=== PATIENT | male | born 1940 | race Caucasian/White ===

== ENCOUNTER → 2017-11-29 | Outpatient (CLI) | payer BC ==
[~2017-11-29] MED LIST: CABERGOLINE 0.5 MG PO; CLC100 PO; CRD2 PO; OXYC-57 PO
--- NOTE | 2017-11-29 12:45 | DIAGNOSTIC IMAGING REPORT ---
TWO VIEW CHEST CLINICAL HISTORY: Hypoxia. FINDINGS: PA and lateral chest radiographs are compared to study dated 10/04/2010 and correlated with chest CT dated 12/27/2010. The heart is top normal for projection. There is atherosclerotic calcification of the thoracic and. Emphysema is suggested and there is chronic interstitial thickening. No airspace consolidation or pleural effusion is identified. There is no pneumothorax. The skeletal structures are osteopenic. The bony thorax appears intact. Degenerative change is noted in the thoracic spine. IMPRESSION: Findings suggest emphysema. No acute cardiopulmonary abnormality is seen. Electronically signed by: Alfonso Elliott M.D. 11/29/2017 12:43 PM Dictated Date/Time: 11/29/2017 12:42 PM
== END | disposition home or self-care (01) ==
LOC: C.RAD1850 12:22
PROVIDERS: ATTEND Student in an Organized Health Care Education/Training Program
DX: R05 Cough (principal); R79.81 Abnormal blood-gas level

== ENCOUNTER 2023-04-13 20:42 | Inpatient (IN) ==
[2023-04-13] MEDS ORDERED: SODIUM CHLORIDE 0.9% 1000ML 1,000 ML IV STA (21:16)
[2023-04-13] MEDS ORDERED: ONDANSETRON INJ 2 MG/ML 2 ML VIAL IV STA (21:16)
[2023-04-13 21:38] LABS: Basophils # (auto) 0.02 K/uL (0-0.2); Basophils % (auto) 0.4 %; Eosinophils # (auto) 0.11 K/uL (0-0.50); Eosinophils % (auto) 2.3 %; Hematocrit (blood only) 35.7 % (42.0-52.0); Hemoglobin 11.6 g/dl (14.0-18.0); Immature Granulocytes # (auto) 0.01 K/uL (0.01-0.20); Immature Granulocytes % (auto) 0.2 %; Lymphocytes # (auto) 0.51 K/uL (1.2-3.4); Lymphocytes % (auto) 10.5 %; Mean Corpuscular Hgb Conc 32.5 g/dL (32.0-36.0); Mean Corpuscular Volume 101.4 fL (80.0-100.0); Mean Platelet Volume 9.8 fL (9.4-12.4); Monocytes # (auto) 0.33 K/uL (0.11-0.59); Monocytes % (auto) 6.8 %; Neutrophils # (auto) 3.89 K/uL (1.40-6.50); Neutrophils % (auto) 79.8 %; Platelet Count 232 K/uL (130-400); RDW Coefficient of Variation 14.3 % (11.5-14.5); RDW Standard Deviation 52.2 fL (36.4-46.3); Red Blood Count 3.52 M/uL (4.70-6.10); White Blood Count 4.87 K/ul (4.8-10.8)
[2023-04-13 21:41] LABS: Albumin Globulin Ratio 1.3 (0.9-2); Albumin Level 3.2 gm/dl (3.4-5.0); BUN Creatinine Ratio 32.9 (10-20); Bilirubin,Total 0.5 mg/dl (0.2-1.0); Calcium 7.8 mg/dl (8.6-10.3); Creatinine Clr Calc Pharmacy 78.8 ml/min; Est GFR (African American) 100.4 ml/min; Est GFR (Non-African American) 86.7 ml/min; Globulin 2.5 gm/dl (2.5-4.0); Potassium 3.6 mmol/L (3.5-5.1); Total Protein 5.7 gm/dl (6.0-8.3)
[2023-04-13 21:48] LABS: Troponin I High Sensitivity 6.7 pg/ml (0-20)
[2023-04-13] MEDS ORDERED: METOCLOPRAMIDE HCL INJ 5 MG/ML 2 ML VIAL IV ONE (22:37)
[2023-04-13] MEDS ORDERED: ACETAMINOPHEN 1,000 MG/100 ML VIAL IV STA (22:38)
--- NOTE | 2023-04-13 22:54 | CT Scan Report ---
Exam(s): CT ABDOMEN + PELVIS Without Contrast EXAM: CT Abdomen and Pelvis Without Intravenous Contrast CLINICAL HISTORY: vomiting, upper abd pain, PEG tube. TECHNIQUE: Axial computed tomography images of the abdomen and pelvis without intravenous contrast. CTDI is 8.22 mGy and DLP is 55.85 mGy-cm. Automated exposure control was utilized for the study. A dose lowering technique was utilized adhering to the principles of ALARA. COMPARISON: Unenhanced CT abdomen and pelvis dated 10/04/2010 FINDINGS: Lung bases: Diffuse patchy to confluent opacities in the partially included inferior right middle lobe and right lower lobe. Pleural space: Trace left pleural effusion noted in the posterior costophrenic margin measuring approximately 1 cm. ABDOMEN: Liver: Unremarkable. Gallbladder and bile ducts: Status post cholecystectomy. Pancreas: Unremarkable. No ductal dilation. Spleen: Unremarkable. No splenomegaly. Adrenals: Unremarkable. No mass. Kidneys and ureters: There are innumerable cysts noted throughout both kidneys similar in morphology but the majority in the cysts are larger in size. Detailed evaluation is limited without contrast. The largest cyst superiorly on the right measures 6.4 cm. The largest cyst anteriorly on the left measures 6.7 x 8.4 cm from 4.9 x 6 cm previously. No hydronephrosis. Stomach and bowel: For findings regarding the percutaneous gastrostomy tube in stomach, please see below. Hyperdense material is noted throughout the colon. No evidence for bowel obstruction. Extensive diverticulosis. No obvious focal diverticulitis, accounting for limitations with respiratory artifact. A fat-containing left inguinal hernia is noted extending into the superior scrotum. No bowel herniation noted. PELVIS: Appendix: The appendix is not clearly delineated. No secondary findings to suggest acute appendicitis. Bladder: Unremarkable. No stones. Reproductive: Unremarkable as visualized. ABDOMEN and PELVIS: Intraperitoneal space: Unremarkable. No free air. No significant fluid collection. Bones/joints: Chronic compression fracture at L1 level and T11 level. No dislocation. Soft tissues: See above. No other significant abnormality. Vasculature: Unremarkable. No abdominal aortic aneurysm. Lymph nodes: Unremarkable. No enlarged lymph nodes. Tubes, lines and devices: The percutaneous gastrostomy tube extends through the stomach and into the duodenum. The distal bulb is inflated within the proximal duodenum. There is at least moderate distention of the stomach with fluid and gas. IMPRESSION: 1. The percutaneous gastrostomy tube extends through the stomach and into the duodenum. The distal bulb is inflated within the proximal duodenum. There is at least moderate distention of the stomach with fluid and gas. Functional gastric obstruction from migration of the percutaneous gastrostomy tube into the duodenum cannot be excluded given this appearance. 2. Diffuse patchy to confluent opacities in the partially included inferior right middle lobe and right lower lobe. Differential considerations include aspiration or pneumonia. 3. Hyperdense material is noted throughout the colon. No evidence for bowel obstruction. Extensive diverticulosis. No obvious focal diverticulitis, accounting for limitations with respiratory artifact. No free intraperitoneal fluid or pneumoperitoneum. Electronically signed by: Jose Gutierrez MD 04/13/23 22:53 PM
[2023-04-13] MEDS ORDERED: fentaNYL citrate PF 100 MCG/2 ML VIAL IV STA (23:03)
[2023-04-13] MEDS ORDERED: PIPERACILLIN/TAZOBACTAM 4.5 GM/120 ML BAG IV ONE (23:03)
[2023-04-13] MEDS ORDERED: SODIUM CHLORIDE 0.9% 1000ML 1,000 ML IV ONE ×2 (23:54)
[2023-04-13] MEDS ORDERED: VANCOMYCIN CONSULT ACTIVE PRN (23:54)
[2023-04-13] MEDS ORDERED: VANCOMYCIN HCL 1,500 MG in SODIUM CHLORIDE 0.9% 500 ML IV ONE (23:54)
--- NOTE | 2023-04-14 00:53 | History & Physical Report ---
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 Hypotension- Admitting to monitored bed, PCU Blood pressure dropped to a low of 58/41, but did respond into the 90s systolic after the first liter of IV fluid rehydration Likely combination of sepsis due aspiration pneumonia and significant dehydration Received a total of 2.5 L of normal saline from the ED, and then placed on NSS + KCl 20 mEq at 80 mils per hour Right foot drop- Noted for significance when patient is able to resume PT/OT Squamous cell cancer of the tongue- Diagnosed in 2005, and completed an extensive course of radiation therapy Pituitary adenoma/prolactinoma- Recently admitted to [facility] under neurosurgery Dr. Crockett Anticipate return to [facility] History of Present Illness Chief Complaint: The patient presents to the emergency department due to concerns regarding PEG tube dysfunction, as a cause of nausea and vomiting, abdominal pain and distention, and shortness of breath. Primary Care Provider: Isiah Pardo MD The patient is a 82-year-old male with a past medical history including hyperlipidemia, hypertension, squamous cell carcinoma of the tongue, and benign pituitary tumor. The patient had been seen at [place] the emergency department on 03/26/2023, at that time was thought to have either a brain mass or subacute h emorrhage. He was transferred to neurosurgery service at [facility] with Dr. Crockett. While at [facility] he was found to have a right MCA CVA, with hemorrhagic conversion, and hemianopsia. He did require a PEG tube placement on 04/02/2023 due to dysphagia. He was transferred to [facility] rehab on 04/08/2023. He was next seen at the emergency department at [facility] on 04/10/2023 due to problems with PEG tube pulling out, and had it reinserted at that time. He presents to the emergency department today due to increased abdominal pain and distention, and was found by CT to have a functional gastric outlet obstruction due to the tube balloon being present in the duodenum. This was addressed by the emergency department staff, and the patient was then referred to the hospitalist service for admission for further GI follow-up tomorrow Allergies Allergy/AdvReac Type Severity Reaction Status Date / Time Iodinated Contrast Media Allergy Intermediate ITCHING Verified 03/26/23 14:54 Home Medications Medication Instructions Recorded Confirmed Type cabergoline 0.5 mg tablet 0.5 mg PO 3XWK 03/15/19 04/13/23 History hydrochlorothiazide 25 mg tablet 25 mg PO DAILY 03/15/19 04/13/23 History pravastatin 20 mg tablet 20 mg PO QPM 03/15/19 04/13/23 History aspirin 81 mg tablet,delayed 81 mg PO DAILY 03/26/23 04/13/23 History release ketoconazole 2 % topical cream 1 applic topical .2-3XWK 03/26/23 04/13/23 History [id number]-[id number] 1 tab PO DAILY 03/26/23 04/13/23 History tablet (Multivitamin 50 Plus tablet) prednisone 50 mg tablet 0 mg PO DIRECTED 03/26/23 04/13/23 History vitamin E mixed 100 unit tablet 100 unit PO DAILY 03/26/23 04/13/23 History Past Med/Surg History Medical History (Updated 04/14/23 @ 05:54 by Billy Aranda MD) Dysphagia Hemianopsia History of right MCA stroke Hyperlipidemia Hypertension Kidney stone 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 Surgical History (Updated 10/09/22 @ 16:34 by MARTHA Foss) History of cholecystectomy History of hernia repair Family History (Updated 10/09/22 @ 16:32 by MARTHA Foss) Mother Diabetes Hypertension Heart disease Social History (Updated 10/09/22 @ 16:32 by MARTHA Foss) Smoking Status: Never smoker Second Hand Exposure: No; Do You Dip or Chew Tobacco: No; Tobacco Cessation Education Requested by Patient: No Hx Alcohol Use: No Hx Substance Use: No Preferred Language: [place] Beliefs That Will Affect Care: None marital status: Current Living Situation: Spouse current occupational status: retired Other Information That Helps Us Care for You: No Feels Safe at Home: Yes Safety Concerns: Feels Safe At This Time Review of Systems Review of Systems: The patient was not able to contribute significantly to the HPI or review of systems due to his present medical state Physical Exam Physical Exam: The patient is lethargic, able to respond minimally to questions normocephalic and atraumatic, lying in bed and in no acute distress. HEENT--PERRL, EOMI, mucous membranes and oropharynx dry. Neck--supple. No JVD. No bruits. Thyroid normal, trachea midline, no adenopathy. Heart--normal S1 and S2. No murmurs, rubs or gallops. Lungs--clear bilaterally, no respiratory distress, no accessory muscle use. Abdomen--normal bowel sounds and soft. Nontender. Nondistended, Extremities--no cyanosis or clubbing. No edema. Dermatologic--normal skin turgor, normal color, no abnormal lymph nodes, no rash. Neurologic--cranial nerves II through XII grossly intact. Rheumatologic--limited exam Psychiatric--lethargic Results & Data Results & Data Vital Signs (Past 12 Hours) Vital Signs Temp Pulse Pulse Resp BP BP Pulse Ox 04/14/23 00:17 71 16 91/62 L 100 04/13/23 23:57 63 16 58/41 L 97 04/13/23 22:58 88 20 126/90 93 04/13/23 22:02 88 16 165/110 H 92 04/13/23 21:01 60 04/13/23 21:01 36.9 C 62 20 121/75 94 O2 Del Method O2 Flow Rate 04/14/23 00:17 Nasal Cannula 6 04/13/23 23:57 Nasal Cannula 6 04/13/23 22:58 Nasal Cannula 6 04/13/23 22:02 Nasal Cannula 6 04/13/23 21:01 04/13/23 21:01 Nasal Cannula 6 Laboratory Results Laboratory Results WBC 4.87 K/ul (4.8-10.8) 04/13/23 20:50 RBC 3.52 M/uL (4.70-6.10) L 04/13/23 20:50 Hgb 11.6 g/dl (14.0-18.0) L 04/13/23 20:50 Hct 35.7 % (42.0-52.0) L 04/13/23 20:50 MCV 101.4 fL (80.0-100.0) H 04/13/23 20:50 MCH 33.0 pg (25.0-34.0) 04/13/23 20:50 MCHC 32.5 g/dL (32.0-36.0) 04/13/23 20:50 RDW Std Deviation 52.2 fL (36.4-46.3) H 04/13/23 20:50 RDW Coeff of Alison 14.3 % (11.5-14.5) 04/13/23 20:50 Plt Count 232 K/uL (130-400) 04/13/23 20:50 MPV 9.8 fL (9.4-12.4) 04/13/23 20:50 Immature Gran % (Auto) 0.2 % 04/13/23 20:50 Neut % (Auto) 79.8 % 04/13/23 20:50 Lymph % (Auto) 10.5 % 04/13/23 20:50 [place] % (Auto) 6.8 % 04/13/23 20:50 Eos % (Auto) 2.3 % 04/13/23 20:50 Baso % (Auto) 0.4 % 04/13/23 20:50 Neut # (Auto) 3.89 K/uL (1.40-6.50) 04/13/23 20:50 Lymph # (Auto) 0.51 K/uL (1.2-3.4) L 04/13/23 20:50 [place] # (Auto) 0.33 K/uL (0.11-0.59) 04/13/23 20:50 Eos # (Auto) 0.11 K/uL (0-0.50) 04/13/23 20:50 Baso # (Auto) 0.02 K/uL (0-0.2) 04/13/23 20:50 Immature Gran # (Auto) 0.01 K/uL (0.01-0.20) 04/13/23 20:50 Sodium 140 mmol/L (136-145) 04/13/23 20:50 Potassium 3.6 mmol/L (3.5-5.1) 04/13/23 20:50 Chloride 107 mmol/L (98-107) 04/13/23 20:50 Carbon Dioxide 30 mmol/L (21-32) 04/13/23 20:50 Anion Gap 3 (3-11) 04/13/23 20:50 BUN 23 mg/dl (6-23) 04/13/23 20:50 Creatinine 0.70 mg/dl (0.6-1.4) 04/13/23 20:50 Est Cr Clr Drug Dosing 78.8 ml/min 04/13/23 20:50 Est GFR ( Amer) 100.4 ml/min 04/13/23 20:50 Est GFR (Non-Af Amer) 86.7 ml/min 04/13/23 20:50 BUN/Creatinine Ratio 32.9 (10-20) H 04/13/23 20:50 Glucose 120 mg/dl (70-99(Fasting)) H 04/13/23 20:50 Lactate 2.0 mmol/L (0.4-2.0) 04/14/23 01:04 Calcium 7.8 mg/dl (8.6-10.3) L 04/13/23 20:50 Total Bilirubin 0.5 mg/dl (0.2-1.0) 04/13/23 20:50 AST 29 U/L (13-39) 04/13/23 20:50 ALT 32 U/L (7-52) 04/13/23 20:50 Alkaline Phosphatase 62 U/L (34-104) 04/13/23 20:50 Troponin I High Sens 6.7 pg/ml (0-20) 04/13/23 20:50 Total Protein 5.7 gm/dl (6.0-8.3) L 04/13/23 20:50 Albumin 3.2 gm/dl (3.4-5.0) L 04/13/23 20:50 Globulin 2.5 gm/dl (2.5-4.0) 04/13/23 20:50 Albumin/Globulin Ratio 1.3 (0.9-2) 04/13/23 20:50 Lipase 92 U/L (11-82) H 04/13/23 20:50 Urine Color Dark Yellow 04/14/23 01:45 Urine Appearance Clear (Clear) 04/14/23 01:45 Urine pH 7.5 (4.5-7.5) 04/14/23 01:45 Ur Specific [place] 1.020 (1.000-1.030) 04/14/23 01:45 Urine Protein Trace (Negative) H 04/14/23 01:45 Urine Glucose (UA) Negative (Negative) 04/14/23 01:45 Urine Ketones Trace (Negative) H 04/14/23 01:45 Urine Blood 1+ (Negative) H 04/14/23 01:45 Urine Nitrite Negative (Negative) 04/14/23 01:45 Urine Bilirubin Negative (Negative) 04/14/23 01:45 Urine Urobilinogen Positive (Negative) H 04/14/23 01:45 Ur Leukocyte Esterase Negative (Negative) 04/14/23 01:45 Urine WBC (Auto) 1-5 /hpf (0-5) 04/14/23 01:45 Urine RBC (Auto) 10-30 /hpf (0-4) H 04/14/23 01:45 U Hyaline Cast (Auto) 1-5 /lpf (0-5) 04/14/23 01:45 U Epithel Cells (Auto) 10-20 /lpf (0-5) H 04/14/23 01:45 Urine Bacteria (Auto) Negative (Negative) 04/14/23 01:45 SARS-CoV-2, RNA, NAAT NEGATIVE (NEGATIVE) 04/13/23 20:50 Impressions Abdomen/Pelvis CT 04/13/23 21:16 Exam(s): CT ABDOMEN + PELVIS Without Contrast EXAM: CT Abdomen and Pelvis Without Intravenous Contrast CLINICAL HISTORY: vomiting, upper abd pain, PEG tube. TECHNIQUE: Axial computed tomography images of the abdomen and pelvis without intravenous contrast. CTDI is 8.22 mGy and DLP is 55.85 mGy-cm. Automated exposure control was utilized for the study. A dose lowering technique was utilized adhering to the principles of ALARA. COMPARISON: Unenhanced CT abdomen and pelvis dated 10/04/2010 FINDINGS: Lung bases: Diffuse patchy to confluent opacities in the partially included inferior right middle lobe and right lower lobe. Pleural space: Trace left pleural effusion noted in the posterior costophrenic margin measuring approximately 1 cm. ABDOMEN: Liver: Unremarkable. Gallbladder and bile ducts: Status post cholecystectomy. Pancreas: Unremarkable. No ductal dilation. Spleen: Unremarkable. No splenomegaly. Adrenals: Unremarkable. No mass. Kidneys and ureters: There are innumerable cysts noted throughout both kidneys similar in morphology but the majority in the cysts are larger in size. Detailed evaluation is limited without contrast. The largest cyst superiorly on the right measures 6.4 cm. The largest cyst anteriorly on the left measures 6.7 x 8.4 cm from 4.9 x 6 cm previously. No hydronephrosis. Stomach and bowel: For findings regarding the percutaneous gastrostomy tube in stomach, please see below. Hyperdense material is noted throughout the colon. No evidence for bowel obstruction. Extensive diverticulosis. No obvious focal diverticulitis, accounting for limitations with respiratory artifact. A fat-containing left inguinal hernia is noted extending into the superior scrotum. No bowel herniation noted. PELVIS: Appendix: The appendix is not clearly delineated. No secondary findings to suggest acute appendicitis. Bladder: Unremarkable. No stones. Reproductive: Unremarkable as visualized. ABDOMEN and PELVIS: Intraperitoneal space: Unremarkable. No free air. No significant fluid collection. Bones/joints: Chronic compression fracture at L1 level and T11 level. No dislocation. Soft tissues: See above. No other significant abnormality. Vasculature: Unremarkable. No abdominal aortic aneurysm. Lymph nodes: Unremarkable. No enlarged lymph nodes. Tubes, lines and devices: The percutaneous gastrostomy tube extends through the stomach and into the duodenum. The distal bulb is inflated within the proximal duodenum. There is at least moderate distention of the stomach with fluid and gas. IMPRESSION: 1. The percutaneous gastrostomy tube extends through the stomach and into the duodenum. The distal bulb is inflated within the proximal duodenum. There is at least moderate distention of the stomach with fluid and gas. Functional gastric obstruction from migration of the percutaneous gastrostomy tube into the duodenum cannot be excluded given this appearance. 2. Diffuse patchy to confluent opacities in the partially included inferior right middle lobe and right lower lobe. Differential considerations include aspiration or pneumonia. 3. Hyperdense material is noted throughout the colon. No evidence for bowel obstruction. Extensive diverticulosis. No obvious focal diverticulitis, accounting for limitations with respiratory artifact. No free intraperitoneal fluid or pneumoperitoneum. Electronically signed by: Jose Gutierrez MD 04/13/23 22:53 PM Code Status & VTE Plan VTE Prophylaxis Plan VTE Prophylaxis will be ordered: Yes PG Care Time/CCT Total # of Minutes Spent Total Time Spent with Patient: Total time spent is greater than 50% in coordination of care (as documented) at patient's floor/unit and/or counseling patient: Coding Level of Care Code 99126 INT INP/OBS CARE 3/75MIN Diagnoses PEG tube malfunction K94.23 Gastric outlet obstruction K31.1 Aspiration pneumonia J69.0 Acute dehydration E86.0 Acute hypotension I95.9 BPH w urinary obs/LUTS N40.1; N13.8 Prolactinoma D35.2 Squamous cell carcinoma of tongue C02.9 History of right MCA stroke Z86.73 Dysphagia R13.10 Hemianopsia H53.47
--- NOTE | 2023-04-14 01:40 | Emergency Department Note ---
Impression & Plan Gastric outlet obstruction, PEG tube malfunction, Aspiration pneumonia, Acute dehydration, Acute hypotension ED Provider Note INFORMANT: Patient and ED PROVIDER(S): Fransico Carmen MD CHIEF COMPLAINT: Nausea and vomiting PLAN: Disposition: Admitted Condition: Guarded Outpatient prescription management: none Referral: None MEDICAL DECISION MAKING: Patient presented because of nausea and vomiting. He was uncomfortable. He had some upper abdominal distention. His PEG tube was flushing easily and did not vent any gas. The patient was requiring supplemental oxygen. He did have some crackles on the right. The patient did vomit earlier and this was concerning t hat he may have aspirated. The patient was started on gentle saline hydration. He was given Zofran. Blood work was obtained. He was sent for CT imaging. CT imaging was concerning for significant gastric distention. When I reviewed the films the bulb of the PEG tube seems to be significantly enlarged and causing a functional obstruction in the proximal duodenum. I did investigate the PEG tube and was able to withdraw almost 70 mL of orange fluid from the balloon. I did agree instill 5 mL of saline. The patient noted that he felt better and his nausea had resolved. His abdominal distention and discomfort gradually improved. Patient was given IV Tylenol and a small dose of IV fentanyl for his pain. His blood pressure did drop and he did have fluids administered. This did correct his hypotensive episode. He was treated with IV Zosyn. I did add on vancomycin for broad-spectrum coverage as his chest x-ray does show a right lower lobe infiltrate. Patient's blood work was otherwise unremarkable. I did discuss the issues with the patient's . She did note that he is a full code at this point. Consultation was made with Dr. Billy Aranda of the [facility] service. Patient was evaluated in the ER for further management. Discussed with manager user interface and hospital pharmacist. After review of the information above and other included data, I feel the patient requires admission. Triage Nursing notes reviewed and agree them. Vital Signs: reviewed and remarkable for hypoxia Prior /Outside records reviewed: Transfer paperwork reviewed from [facility]. Differential diagnosis: Etiologies such as gastroenteritis, food borne illness, infections, obstruction, appendicitis, diverticulitis, inflammatory bowel disease, GI bleed, biliary pathology, as well as others were entertained. Diagnostics, as interpreted by me: ECG: none Cardiac Monitoring: Cardiac monitoring ordered by me: The patient was placed on continuous cardiac monitoring and observed. It revealed a normal sinus rhythm at 71 beats per minute without ectopy or evidence of dysrhythmia. Medical decision rules: none Imaging studies: Chest x-ray and CT scan as noted above. I refer you to the EMR for further details. HPI: The patient is a 82year old male who presents to the Emergency Room with complaints of nausea and vomiting. This started today and is worsening. Patient is at [facility]. He receives feeding through a PEG tube. The patient also notes the following associated symptoms, bilateral hip pain, upper abdominal pain, abdominal bloating, weakness. The patient has Zofran relieving factors. Current pain is rated as 8/10. EMS noted the patient was requiring supplemental oxygen. Pt denies LOC, headache, fevers, chills, neck pain, chest pain, breathing difficulties, back pain, numbness, or other complaints. PAST MEDICAL HISTORY: See Below, CVA PAST SURGICAL HISTORY: See Below, SOCIAL HISTORY: See Below, HOME MEDICATIONS: See Below ALLERGIES: See Below VITALS: See Below PHYSICAL EXAMINATION: GENERAL: Awake, alert, uncomfortable-appearing, in mild distress HENT: Normocephalic, atraumatic. Oropharynx unremarkable. EYES: Normal conjunctiva. Sclera non-icteric. NECK: Inspection normal. Non-tender. Supple. No nuchal rigidity. FROM. No masses. RESPIRATORY: Clear to auscultation on the left. Crackles on the right. Increased respiratory effort. CARDIAC: Normal rate. Normal rhythm. No murmurs. No rubs. Extremities warm and well perfused. Pulses equal. No JVD. GI: Soft, upper abdomen is distended. Epigastric tenderness to palpation. No rebound or guarding. No masses. PEG tube in place. Flushes easily. No gas or fluid is able to be withdrawn via syringe. RECTAL: Deferred. MUSCULOSKELETAL: Atraumatic. Chest examination reveals no tenderness. The back is symmetrical on inspection without obvious abnormality. There is no CVA tenderness to palpation. No joint edema. LOWER EXTREMITIES: Calves are equal size bilaterally and non-tender. No edema. No discoloration. NEURO: Normal sensorium. Mildly slurred speech and facial droop which is chronic for patient and unchanged since last visit. SKIN: No rash or jaundice noted. CRITICAL CARE: I have personally spent greater than 35 minutes of critical care time in the direct management of this patient. This includes bedside care, interpretation of diagnostic studies, and testing, discussion with consultants, patient, and family members, and other required patient management activities. These minutes are in excess of all separately billable procedures. Past Med/Surg History Medical History (Updated 04/14/23 @ 01:40 by Fransico Carmen MD) Hyperlipidemia Kidney stone Throat cancer Surgical History (Updated 10/09/22 @ 16:34 by MARTHA Foss) History of cholecystectomy History of hernia repair Family History (Updated 10/09/22 @ 16:32 by MARTHA Foss) Mother Diabetes Hypertension Heart disease Social History (Updated 10/09/22 @ 16:32 by MARTHA Foss) Smoking Status: Never smoker Hx Alcohol Use: Yes Hx Substance Use: No Preferred Language: Tajik marital status: current occupational status: retired Feels Safe at Home: Yes Allergies Allergies Allergy/AdvReac Type Severity Reaction Status Date / Time Iodinated Contrast Media Allergy Intermediate ITCHING Verified 03/26/23 14:54 Home Meds Home Medications Medication Instructions Recorded Confirmed cabergoline 0.5 mg tablet 0.5 mg PO 3XWK 03/15/19 04/13/23 hydrochlorothiazide 25 mg tablet 25 mg PO DAILY 03/15/19 04/13/23 pravastatin 20 mg tablet 20 mg PO QPM 03/15/19 04/13/23 aspirin 81 mg tablet,delayed 81 mg PO DAILY 03/26/23 04/13/23 release ketoconazole 2 % topical cream 1 applic topical .2-3XWK 03/26/23 04/13/23 [id number]-[id number] 1 tab PO DAILY 03/26/23 04/13/23 tablet (Multivitamin 50 Plus tablet) prednisone 50 mg tablet 0 mg PO DIRECTED 03/26/23 04/13/23 vitamin E mixed 100 unit tablet 100 unit PO DAILY 03/26/23 04/13/23 Results & Data (ED) Vital Signs Vital Signs - 24 hr 04/13/23 21:01 04/13/23 21:01 04/13/23 22:02 Temperature 36.9 C Temperature Source Axillary Pulse Rate 62 60 Pulse Rate [Apical] 88 Respiratory Rate 20 16 Respiratory Effort / Characteristics Spontaneous Respiratory Pattern Regular Blood Pressure 121/75 Blood Pressure [Right Arm] 165/110 H Blood Pressure Mean 90 Blood Pressure Mean [Right Arm] 128 Pulse Oximetry 94 92 Oxygen Delivery Method Nasal Cannula Nasal Cannula Oxygen Flow Rate 6 6 Sepsis Recent Fever Within 48 Hours No Sepsis New/Unexplained Change in Mental Status No Sepsis Action Taken by Nursing No Action Required 04/13/23 22:58 04/13/23 23:57 04/14/23 00:17 Temperature Temperature Source Pulse Rate Pulse Rate [Apical] 88 63 71 Respiratory Rate 20 16 16 Respiratory Effort / Characteristics Respiratory Pattern Blood Pressure Blood Pressure [Right Arm] 126/90 58/41 L 91/62 L Blood Pressure Mean Blood Pressure Mean [Right Arm] 102 46 71 Pulse Oximetry 93 97 100 Oxygen Delivery Method Nasal Cannula Nasal Cannula Nasal Cannula Oxygen Flow Rate 6 6 6 Sepsis Recent Fever Within 48 Hours Sepsis New/Unexplained Change in Mental Status Sepsis Action Taken by Nursing 04/14/23 01:20 Temperature Temperature Source Pulse Rate Pulse Rate [Apical] 71 Respiratory Rate 16 Respiratory Effort / Characteristics Respiratory Pattern Blood Pressure Blood Pressure [Right Arm] 122/81 Blood Pressure Mean Blood Pressure Mean [Right Arm] 94 Pulse Oximetry 99 Oxygen Delivery Method Nasal Cannula Oxygen Flow Rate 5 Sepsis Recent Fever Within 48 Hours Sepsis New/Unexplained Change in Mental Status Sepsis Action Taken by Nursing Laboratory Data 04/13/23 20:50 04/13/23 20:50 Lab Results 04/13/23 04/13/23 04/13/23 Range/Units 20:50 20:50 20:50 WBC 4.87 (4.8-10.8) K/ul RBC 3.52 L (4.70-6.10) M/uL Hgb 11.6 L (14.0-18.0) g/dl Hct 35.7 L (42.0-52.0) % MCV 101.4 H (80.0-100.0) fL MCH 33.0 (25.0-34.0) pg MCHC 32.5 (32.0-36.0) g/dL RDW Std Deviation 52.2 H (36.4-46.3) fL RDW Coeff of Alison 14.3 (11.5-14.5) % Plt Count 232 (130-400) K/uL MPV 9.8 (9.4-12.4) fL Immature Gran % (Auto) 0.2 % Neut % (Auto) 79.8 % Lymph % (Auto) 10.5 % [place] % (Auto) 6.8 % Eos % (Auto) 2.3 % Baso % (Auto) 0.4 % Neut # (Auto) 3.89 (1.40-6.50) K/uL Lymph # (Auto) 0.51 L (1.2-3.4) K/uL [place] # (Auto) 0.33 (0.11-0.59) K/uL Eos # (Auto) 0.11 (0-0.50) K/uL Baso # (Auto) 0.02 (0-0.2) K/uL Immature Gran # (Auto) 0.01 (0.01-0.20) K/uL Sodium 140 (136-145) mmol/L Potassium 3.6 (3.5-5.1) mmol/L Chloride 107 (98-107) mmol/L Carbon Dioxide 30 (21-32) mmol/L Anion Gap 3 (3-11) BUN 23 (6-23) mg/dl Creatinine 0.70 (0.6-1.4) mg/dl Est Cr Clr Drug Dosing 78.8 ml/min Est GFR ( Amer) 100.4 ml/min Est GFR (Non-Af Amer) 86.7 ml/min BUN/Creatinine Ratio 32.9 H (10-20) Glucose 120 H (70-99(Fasting)) mg/dl Lactate (0.4-2.0) mmol/L Calcium 7.8 L (8.6-10.3) mg/dl Total Bilirubin 0.5 (0.2-1.0) mg/dl AST 29 (13-39) U/L ALT 32 (7-52) U/L Alkaline Phosphatase 62 (34-104) U/L Troponin I High Sens 6.7 (0-20) pg/ml Total Protein 5.7 L (6.0-8.3) gm/dl Albumin 3.2 L (3.4-5.0) gm/dl Globulin 2.5 (2.5-4.0) gm/dl Albumin/Globulin Ratio 1.3 (0.9-2) Lipase 92 H (11-82) U/L SARS-CoV-2, RNA, NAAT NEGATIVE (NEGATIVE) 04/14/23 Range/Units 01:04 WBC (4.8-10.8) K/ul RBC (4.70-6.10) M/uL Hgb (14.0-18.0) g/dl Hct (42.0-52.0) % MCV (80.0-100.0) fL MCH (25.0-34.0) pg MCHC (32.0-36.0) g/dL RDW Std Deviation (36.4-46.3) fL RDW Coeff of Alison (11.5-14.5) % Plt Count (130-400) K/uL MPV (9.4-12.4) fL Immature Gran % (Auto) % Neut % (Auto) % Lymph % (Auto) % [place] % (Auto) % Eos % (Auto) % Baso % (Auto) % Neut # (Auto) (1.40-6.50) K/uL Lymph # (Auto) (1.2-3.4) K/uL [place] # (Auto) (0.11-0.59) K/uL Eos # (Auto) (0-0.50) K/uL Baso # (Auto) (0-0.2) K/uL Immature Gran # (Auto) (0.01-0.20) K/uL Sodium (136-145) mmol/L Potassium (3.5-5.1) mmol/L Chloride (98-107) mmol/L Carbon Dioxide (21-32) mmol/L Anion Gap (3-11) BUN (6-23) mg/dl Creatinine (0.6-1.4) mg/dl Est Cr Clr Drug Dosing ml/min Est GFR ( Amer) ml/min Est GFR (Non-Af Amer) ml/min BUN/Creatinine Ratio (10-20) Glucose (70-99(Fasting)) mg/dl Lactate 2.0 (0.4-2.0) mmol/L Calcium (8.6-10.3) mg/dl Total Bilirubin (0.2-1.0) mg/dl AST (13-39) U/L ALT (7-52) U/L Alkaline Phosphatase (34-104) U/L Troponin I High Sens (0-20) pg/ml Total Protein (6.0-8.3) gm/dl Albumin (3.4-5.0) gm/dl Globulin (2.5-4.0) gm/dl Albumin/Globulin Ratio (0.9-2) Lipase (11-82) U/L SARS-CoV-2, RNA, NAAT (NEGATIVE) Administered Medications Sodium Chloride (Nss 1000ml) 1,000 mls @ 125 mls/hr IV .Q8H STA Stop: 04/14/23 05:15 Last Infusion: 04/14/23 00:30 Dose: 0 mls/hr Documented By: Admin: 04/13/23 21:27 Dose: 125 mls/hr Documented By: STEPHANIE Vancomycin HCl 1,500 mg/ (Sodium Chloride) 530 mls @ 200 mls/hr IV NOW ONE Stop: 04/14/23 02:32 Last Admin: 04/14/23 01:20 Dose: 200 mls/hr Documented By: STEPHANIE Discontinued Medications Fentanyl Citrate (Fentanyl Citrate Pf 100 Mcg/2 Ml Vial) 25 mcg IV NOW STA Stop: 04/13/23 23:04 Last Admin: 04/13/23 23:36 Dose: 25 mcg Documented By: MAYI Acetaminophen (Ofirmev) 1,000 mg in 100 mls @ 400 mls/hr IV NOW STA Stop: 04/13/23 22:52 Last Infusion: 04/13/23 23:12 Dose: 0 mls/hr Documented By: Admin: 04/13/23 22:50 Dose: 400 mls/hr Documented By: STEPHANIE Piperacillin Sod/Tazobactam Sod (Zosyn) 4.5 gm in 120 mls @ 240 mls/hr IV NOW ONE Stop: 04/13/23 23:32 Last Infusion: 04/14/23 01:21 Dose: 0 mls/hr Documented By: Admin: 04/13/23 23:36 Dose: 240 mls/hr Documented By: MAYI Sodium Chloride (Nss 1000ml) 1,000 mls @ 999 mls/hr IV .Q1H1M ONE Stop: 04/14/23 00:54 Last Infusion: 04/14/23 01:21 Dose: 0 mls/hr Documented By: Admin: 04/13/23 23:56 Dose: 999 mls/hr Documented By: STEPHANIE Sodium Chloride (Nss 1000ml) 1,000 mls @ 999 mls/hr IV .Q1H1M ONE Stop: 04/14/23 00:54 Last Infusion: 04/14/23 01:35 Dose: 0 mls/hr Documented By: Admin: 04/14/23 00:30 Dose: 999 mls/hr Documented By: STEPHANIE Metoclopramide HCl (Metoclopramide Hcl Inj 5 Mg/Ml 2 Ml Vial) 5 mg IV ONE ONE Stop: 04/13/23 22:38 Last Admin: 04/13/23 22:48 Dose: 5 mg Documented By: STEPHANIE Ondansetron HCl (Ondansetron Inj 2 Mg/Ml 2 Ml Vial) 4 mg IV NOW STA Stop: 04/13/23 21:17 Last Admin: 04/13/23 21:27 Dose: 4 mg Documented By: STEPHANIE Imaging Data Radiologist's Impression: Abdomen/Pelvis CT 04/13/23 21:16 Exam(s): CT ABDOMEN + PELVIS Without Contrast EXAM: CT Abdomen and Pelvis Without Intravenous Contrast CLINICAL HISTORY: vomiting, upper abd pain, PEG tube. TECHNIQUE: Axial computed tomography images of the abdomen and pelvis without intravenous contrast. CTDI is 8.22 mGy and DLP is 55.85 mGy-cm. Automated exposure control was utilized for the study. A dose lowering technique was utilized adhering to the principles of ALARA. COMPARISON: Unenhanced CT abdomen and pelvis dated 10/04/2010 FINDINGS: Lung bases: Diffuse patchy to confluent opacities in the partially included inferior right middle lobe and right lower lobe. Pleural space: Trace left pleural effusion noted in the posterior costophrenic margin measuring approximately 1 cm. ABDOMEN: Liver: Unremarkable. Gallbladder and bile ducts: Status post cholecystectomy. Pancreas: Unremarkable. No ductal dilation. Spleen: Unremarkable. No splenomegaly. Adrenals: Unremarkable. No mass. Kidneys and ureters: There are innumerable cysts noted throughout both kidneys similar in morphology but the majority in the cysts are larger in size. Detailed evaluation is limited without contrast. The largest cyst superiorly on the right measures 6.4 cm. The largest cyst anteriorly on the left measures 6.7 x 8.4 cm from 4.9 x 6 cm previously. No hydronephrosis. Stomach and bowel: For findings regarding the percutaneous gastrostomy tube in stomach, please see below. Hyperdense material is noted throughout the colon. No evidence for bowel obstruction. Extensive diverticulosis. No obvious focal diverticulitis, accounting for limitations with respiratory artifact. A fat-containing left inguinal hernia is noted extending into the superior scrotum. No bowel herniation noted. PELVIS: Appendix: The appendix is not clearly delineated. No secondary findings to suggest acute appendicitis. Bladder: Unremarkable. No stones. Reproductive: Unremarkable as visualized. ABDOMEN and PELVIS: Intraperitoneal space: Unremarkable. No free air. No significant fluid collection. Bones/joints: Chronic compression fracture at L1 level and T11 level. No dislocation. Soft tissues: See above. No other significant abnormality. Vasculature: Unremarkable. No abdominal aortic aneurysm. Lymph nodes: Unremarkable. No enlarged lymph nodes. Tubes, lines and devices: The percutaneous gastrostomy tube extends through the stomach and into the duodenum. The distal bulb is inflated within the proximal duodenum. There is at least moderate distention of the stomach with fluid and gas. IMPRESSION: 1. The percutaneous gastrostomy tube extends through the stomach and into the duodenum. The distal bulb is inflated within the proximal duodenum. There is at least moderate distention of the stomach with fluid and gas. Functional gastric obstruction from migration of the percutaneous gastrostomy tube into the duodenum cannot be excluded given this appearance. 2. Diffuse patchy to confluent opacities in the partially included inferior right middle lobe and right lower lobe. Differential considerations include aspiration or pneumonia. 3. Hyperdense material is noted throughout the colon. No evidence for bowel obstruction. Extensive diverticulosis. No obvious focal diverticulitis, accounting for limitations with respiratory artifact. No free intraperitoneal fluid or pneumoperitoneum. Electronically signed by: Jose Gutierrez MD 04/13/23 22:53 PM Discharge Plan Visit Data Chief Complaint: Nausea Stated Complaint: PEG TUBE BLOCKAGE/NAUSEA/DIARRHEA ED Provider: Fransico Carmen Discharge Problem: Gastric outlet obstruction, PEG tube malfunction, Aspiration pneumonia, Acute dehydration, Acute hypotension Forms Stand Alone Forms: [facility] [employer] Prescriptions Prescriptions: No Action cabergoline 0.5 mg tablet 0.5 mg PO 3XWK Rx Instructions: PT TAKE ON AND SAT pravastatin 20 mg tablet 20 mg PO QPM hydrochlorothiazide 25 mg tablet 25 mg PO DAILY aspirin 81 mg Tablet,Delayed Release (Dr/Ec) 81 mg PO DAILY prednisone 50 mg tablet 0 mg PO DIRECTED Rx Instructions: FOR STUDY IN JUN 2023. TAKE DIRECTED. ketoconazole 2 % Cream 1 applic TOPICAL .2-3XWK Multivitamin 50 Plus Tablet 1 tab PO DAILY vitamin E mixed 100 unit Tablet 100 unit PO DAILY Referrals Referrals: Isiah Pardo MD [Primary Care Provider] -
[2023-04-14 01:58] LABS: Appearance Urine Clear (Clear); Bacteria Urine Automated Negative (Negative); Bilirubin Urine Negative (Negative); Blood Urine 1+ (Negative); Color Urine Dark Yellow; Glucose Urine UA Negative (Negative); Ketones Urine Trace (Negative); Leukocyte Esterase Urine Negative (Negative); Nitrite Urine Negative (Negative); Urobilinogen Urine Positive (Negative); pH Urine 7.5 (4.5-7.5)
[2023-04-14 02:04] LABS: Protein Urine Trace (Negative)
[2023-04-14] MEDS ORDERED: VANCOMYCIN HCL 1,000 MG in SODIUM CHLORIDE 0.9% 500 ML IV SCH (03:21)
[2023-04-14] MEDS ORDERED: KETOROLAC TROMETHAMINE 15 MG/ML VIAL IV PRN (03:21)
[2023-04-14] MEDS ORDERED: ACETAMINOPHEN 1000 MG/100 ML IV IV PRN (03:21)
[2023-04-14] MEDS ORDERED: VANCOMYCIN CONSULT ACTIVE PRN (03:21)
[2023-04-14] MEDS ORDERED: NSS + 20MEQ KCL 20 MEQ/1,000 ML BAG IV SCH (03:45)
[2023-04-14] MEDS: PIPERACILLIN/TAZOBACTAM 4.5 GM in DEXTROSE 5% 100 ML IV SCH ×3 (05:33→21:19)
[2023-04-14] MEDS: ALBUT/IPRATROP 3MG/0.5MG NEB 3 ML VIAL NEB SCH ×4 (07:06→19:18)
--- NOTE | 2023-04-14 07:35 | XRay Report ---
XR chest 1V portable CLINICAL HISTORY: Shortness of breath. COMPARISON STUDY: Chest radiograph November 29, 2017. FINDINGS: There is no pneumothorax pneumothorax or pleural effusion. Extensive right mid and lower melissa ng consolidation is present. No consolidation within the left lung is noted. Pulmonary vascularity is normal. Cardiomediastinal silhouette is stable. IMPRESSION: Extensive right lower lobe consolidation. This is suggestive of pneumonia or aspiration pneumonitis. Post treatment radiographs to ensure resolution are recommended. ACT 112: Negative or not required by law. Electronically signed by: Joe Leon M.D. 04/14/2023 7:33 AM
[2023-04-14 07:52] LABS: Albumin Globulin Ratio 1.2 (0.9-2); Albumin Level 2.6 gm/dl (3.4-5.0); Bilirubin,Total 0.7 mg/dl (0.2-1.0); Calcium 7.1 mg/dl (8.6-10.3); Est GFR (African American) 91.4 ml/min; Est GFR (Non-African American) 78.9 ml/min; Globulin 2.1 gm/dl (2.5-4.0); Potassium 3.7 mmol/L (3.5-5.1); Total Protein 4.7 gm/dl (6.0-8.3)
[2023-04-14] MEDS ORDERED: dexAMETHasone 6 MG in SYRINGE 0 ML IV STA (07:55)
[2023-04-14 08:20] LABS: Eosinophils # (auto) 0.01 K/uL (0-0.50); Eosinophils % (auto) 0.5 %; Hematocrit (blood only) 29.7 % (42.0-52.0); Hemoglobin 9.8 g/dl (14.0-18.0); Immature Granulocytes # (auto) 0.02 K/uL (0.01-0.20); Immature Granulocytes % (auto) 0.9 %; Lymphocytes # (auto) 0.13 K/uL (1.2-3.4); Lymphocytes % (auto) 6.2 %; Mean Corpuscular Hemoglobin 32.8 pg (25.0-34.0); Mean Corpuscular Volume 99.3 fL (80.0-100.0); Mean Platelet Volume 9.7 fL (9.4-12.4); Monocytes % (auto) 4.7 %; Neutrophils # (auto) 1.85 K/uL (1.40-6.50); Neutrophils % (auto) 87.7 %; Platelet Count 201 K/uL (130-400); RDW Coefficient of Variation 14.5 % (11.5-14.5); RDW Standard Deviation 52.2 fL (36.4-46.3); Red Blood Count 2.99 M/uL (4.70-6.10); White Blood Count 2.11 K/ul (4.8-10.8)
--- NOTE | 2023-04-14 08:39 | Gastrointestinal Consultation ---
Date of Consultation April 14, 2023 Assessment & Plan (1) PEG tube malfunction: PEG balloon had migrated into duodenum and caused obstruction. It was repositioned and problem resolved. I just moved the external bumper closer to skin so less migration ability. Nothing further to do History of Present Illness Reason for Consultation: PEG tube positioning Attending Physician: Larry Duque MD History of Present Illness 82 year old man who was admitted with abdominal pain that turned out to be obstruction from PEG balloon. PEG placed earlier this month in [place], dislodged and was replaced in ER not too long ago. On presentation to ED CT scan showed balloon had migrated into duodenum and was causing gastric distension. ED physician astutely removed liquid from balloon and reinserted 5 cc fluid and repositioned balloon. Pain immediately resolved. Patient tells me he is not having any issues now. Allergies Allergy/AdvReac Type Severity Reaction Status Date / Time Iodinated Contrast Media Allergy Intermediate ITCHING Verified 03/26/23 14:54 Home Medications Medication Instructions Recorded Confirmed Type cabergoline 0.5 mg tablet 0.5 mg PO [id number] 03/15/19 04/13/23 History hydrochlorothiazide 25 mg tablet 25 mg PO DAILY 03/15/19 04/13/23 History pravastatin 20 mg tablet 20 mg PO QPM 03/15/19 04/13/23 History aspirin 81 mg tablet,delayed 81 mg PO DAILY 03/26/23 04/13/23 History release ketoconazole 2 % topical cream 1 applic topical .[id number] 03/26/23 04/13/23 History yuihgbigrdep-bvvzupad-hopsnd 1 tab PO DAILY 03/26/23 04/13/23 History tablet (Multivitamin 50 Plus tablet) prednisone 50 mg tablet 0 mg PO DIRECTED 03/26/23 04/13/23 History vitamin E mixed 100 unit tablet 100 unit PO DAILY 03/26/23 04/13/23 History Patient History Medical History Dysphagia Hemianopsia History of right MCA stroke Hyperlipidemia Hypertension Kidney stone 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 Surgical History History of cholecystectomy History of hernia repair Family History Mother Diabetes Hypertension Heart disease Social History Smoking Status: Never smoker Second Hand Exposure: No; Do You Dip or Chew Tobacco: No; Tobacco Cessation Education Requested by Patient: No Hx Alcohol Use: No Hx Substance Use: No Preferred Language: Northern Irish Beliefs That Will Affect Care: None marital status: Current Living Situation: Spouse current occupational status: retired Other Information That Helps Us Care for You: No Feels Safe at Home: Yes Safety Concerns: Feels Safe At This Time Review of Systems Review of Systems: All systems reviewed & are unremarkable except as noted in HPI & below Physical Exam Constitutional: WD/WN, vitals as above Respiratory: normal respiratory effort, lungs clear to auscultation Cardiovascular: RRR, no murmur, no edema Gastrointestinal (Abdomen): normal bowel sounds, soft, nontender, no hepatosplenomegaly (PEG tube in good position, two items on either side of PEG tube site) Results & Data Vital Signs (Past 12 Hours) Vital Signs Temp Pulse Pulse Resp BP BP Pulse Ox 04/14/23 08:10 68 14 84/46 L 04/14/23 07:55 36.7 C 66 18 59/41 L 94 04/14/23 07:45 77 14 78/40 L 04/14/23 07:09 59/41 L 04/14/23 07:09 65 20 96 04/14/23 06:35 71 04/14/23 05:47 36.6 C 87 20 134/77 98 04/14/23 03:58 20 04/14/23 03:41 38.6 C H 95 H 20 102/62 89 L 04/14/23 03:02 88 04/14/23 03:23 04/14/23 01:00 71 04/14/23 01:20 71 16 122/81 99 04/14/23 00:17 71 16 91/62 L 100 04/13/23 23:57 63 16 58/41 L 97 04/13/23 22:58 88 20 126/90 93 04/13/23 22:02 88 16 165/110 H 92 04/13/23 21:01 60 04/13/23 21:01 36.9 C 62 20 121/75 94 O2 Del Method O2 Flow Rate 04/14/23 08:10 04/14/23 07:55 Nasal Cannula 4 04/14/23 07:45 04/14/23 07:09 04/14/23 07:09 Nasal Cannula 5 04/14/23 06:35 04/14/23 05:47 Nasal Cannula 5 04/14/23 03:58 Nasal Cannula 5 04/14/23 03:41 Nasal Cannula 2 04/14/23 03:02 04/14/23 03:23 Nasal Cannula 5 04/14/23 01:00 04/14/23 01:20 Nasal Cannula 5 04/14/23 00:17 Nasal Cannula 6 04/13/23 23:57 Nasal Cannula 6 04/13/23 22:58 Nasal Cannula 6 04/13/23 22:02 Nasal Cannula 6 04/13/23 21:01 04/13/23 21:01 Nasal Cannula 6 Laboratory Results 04/14/23 04/14/23 04/14/23 Range/Units 08:00 08:00 06:33 WBC (4.8-10.8) K/ul RBC (4.70-6.10) M/uL Hgb (14.0-18.0) g/dl Hct (42.0-52.0) % MCV (80.0-100.0) fL MCH (25.0-34.0) pg MCHC (32.0-36.0) g/dL RDW Std Deviation (36.4-46.3) fL RDW Coeff of Alison (11.5-14.5) % Plt Count (130-400) K/uL MPV (9.4-12.4) fL Immature Gran % (Auto) % Neut % (Auto) % Lymph % (Auto) % [place] % (Auto) % Eos % (Auto) % Baso % (Auto) % Neut # (Auto) (1.40-6.50) K/uL Lymph # (Auto) (1.2-3.4) K/uL [place] # (Auto) (0.11-0.59) K/uL Eos # (Auto) (0-0.50) K/uL Baso # (Auto) (0-0.2) K/uL Immature Gran # (Auto) (0.01-0.20) K/uL Sodium 140 (136-145) mmol/L Potassium 3.7 (3.5-5.1) mmol/L Chloride 109 H (98-107) mmol/L Carbon Dioxide 25 (21-32) mmol/L Anion Gap 6 (3-11) BUN 29 H (6-23) mg/dl Creatinine 0.88 (0.6-1.4) mg/dl Est Cr Clr Drug Dosing 62.0 ml/min Est GFR ( Amer) 91.4 ml/min Est GFR (Non-Af Amer) 78.9 ml/min BUN/Creatinine Ratio 33.0 H (10-20) Glucose 102 H (70-99(Fasting)) mg/dl Lactate (0.4-2.0) mmol/L Calcium 7.1 L (8.6-10.3) mg/dl Magnesium Pending Total Bilirubin 0.7 (0.2-1.0) mg/dl AST 23 (13-39) U/L ALT 25 (7-52) U/L Alkaline Phosphatase 44 (34-104) U/L Troponin I High Sens (0-20) pg/ml Total Protein 4.7 L D (6.0-8.3) gm/dl Albumin 2.6 L (3.4-5.0) gm/dl Globulin 2.1 L (2.5-4.0) gm/dl Albumin/Globulin Ratio 1.2 (0.9-2) Lipase (11-82) U/L Cortisol AM Sample Pending Urine Color Urine Appearance (Clear) Urine pH (4.5-7.5) Ur Specific [place] (1.000-1.030) Urine Protein (Negative) Urine Glucose (UA) (Negative) Urine Ketones (Negative) Urine Blood (Negative) Urine Nitrite (Negative) Urine Bilirubin (Negative) Urine Urobilinogen (Negative) Ur Leukocyte Esterase (Negative) Urine WBC (Auto) (0-5) /hpf Urine RBC (Auto) (0-4) /hpf U Hyaline Cast (Auto) (0-5) /lpf U Epithel Cells (Auto) (0-5) /lpf Urine Bacteria (Auto) (Negative) SARS-CoV-2, RNA, NAAT (NEGATIVE) 04/14/23 04/14/23 04/14/23 Range/Units 06:33 01:45 01:04 WBC 2.11 L (4.8-10.8) K/ul RBC 2.99 L (4.70-6.10) M/uL Hgb 9.8 L (14.0-18.0) g/dl Hct 29.7 L (42.0-52.0) % MCV 99.3 (80.0-100.0) fL MCH 32.8 (25.0-34.0) pg MCHC 33.0 (32.0-36.0) g/dL RDW Std Deviation 52.2 H (36.4-46.3) fL RDW Coeff of Alison 14.5 (11.5-14.5) % Plt Count 201 (130-400) K/uL MPV 9.7 (9.4-12.4) fL Immature Gran % (Auto) 0.9 % Neut % (Auto) 87.7 % Lymph % (Auto) 6.2 % [place] % (Auto) 4.7 % Eos % (Auto) 0.5 % Baso % (Auto) 0.0 % Neut # (Auto) 1.85 (1.40-6.50) K/uL Lymph # (Auto) 0.13 L (1.2-3.4) K/uL [place] # (Auto) 0.10 L (0.11-0.59) K/uL Eos # (Auto) 0.01 (0-0.50) K/uL Baso # (Auto) 0.00 (0-0.2) K/uL Immature Gran # (Auto) 0.02 (0.01-0.20) K/uL Sodium (136-145) mmol/L Potassium (3.5-5.1) mmol/L Chloride (98-107) mmol/L Carbon Dioxide (21-32) mmol/L Anion Gap (3-11) BUN (6-23) mg/dl Creatinine (0.6-1.4) mg/dl Est Cr Clr Drug Dosing ml/min Est GFR ( Amer) ml/min Est GFR (Non-Af Amer) ml/min BUN/Creatinine Ratio (10-20) Glucose (70-99(Fasting)) mg/dl Lactate 2.0 (0.4-2.0) mmol/L Calcium (8.6-10.3) mg/dl Magnesium Total Bilirubin (0.2-1.0) mg/dl AST (13-39) U/L ALT (7-52) U/L Alkaline Phosphatase (34-104) U/L Troponin I High Sens (0-20) pg/ml Total Protein (6.0-8.3) gm/dl Albumin (3.4-5.0) gm/dl Globulin (2.5-4.0) gm/dl Albumin/Globulin Ratio (0.9-2) Lipase (11-82) U/L Cortisol AM Sample Urine Color Dark Yellow Urine Appearance Clear (Clear) Urine pH 7.5 (4.5-7.5) Ur Specific [place] 1.020 (1.000-1.030) Urine Protein Trace H (Negative) Urine Glucose (UA) Negative (Negative) Urine Ketones Trace H (Negative) Urine Blood 1+ H (Negative) Urine Nitrite Negative (Negative) Urine Bilirubin Negative (Negative) Urine Urobilinogen Positive H (Negative) Ur Leukocyte Esterase Negative (Negative) Urine WBC (Auto) 1-5 (0-5) /hpf Urine RBC (Auto) 10-30 H (0-4) /hpf U Hyaline Cast (Auto) 1-5 (0-5) /lpf U Epithel Cells (Auto) 10-20 H (0-5) /lpf Urine Bacteria (Auto) Negative (Negative) SARS-CoV-2, RNA, NAAT (NEGATIVE) 04/13/23 04/13/23 04/13/23 Range/Units 20:50 20:50 20:50 WBC 4.87 (4.8-10.8) K/ul RBC 3.52 L (4.70-6.10) M/uL Hgb 11.6 L (14.0-18.0) g/dl Hct 35.7 L (42.0-52.0) % MCV 101.4 H (80.0-100.0) fL MCH 33.0 (25.0-34.0) pg MCHC 32.5 (32.0-36.0) g/dL RDW Std Deviation 52.2 H (36.4-46.3) fL RDW Coeff of Alison 14.3 (11.5-14.5) % Plt Count 232 (130-400) K/uL MPV 9.8 (9.4-12.4) fL Immature Gran % (Auto) 0.2 % Neut % (Auto) 79.8 % Lymph % (Auto) 10.5 % [place] % (Auto) 6.8 % Eos % (Auto) 2.3 % Baso % (Auto) 0.4 % Neut # (Auto) 3.89 (1.40-6.50) K/uL Lymph # (Auto) 0.51 L (1.2-3.4) K/uL [place] # (Auto) 0.33 (0.11-0.59) K/uL Eos # (Auto) 0.11 (0-0.50) K/uL Baso # (Auto) 0.02 (0-0.2) K/uL Immature Gran # (Auto) 0.01 (0.01-0.20) K/uL Sodium 140 (136-145) mmol/L Potassium 3.6 (3.5-5.1) mmol/L Chloride 107 (98-107) mmol/L Carbon Dioxide 30 (21-32) mmol/L Anion Gap 3 (3-11) BUN 23 (6-23) mg/dl Creatinine 0.70 (0.6-1.4) mg/dl Est Cr Clr Drug Dosing 78.8 ml/min Est GFR ( Amer) 100.4 ml/min Est GFR (Non-Af Amer) 86.7 ml/min BUN/Creatinine Ratio 32.9 H (10-20) Glucose 120 H (70-99(Fasting)) mg/dl Lactate (0.4-2.0) mmol/L Calcium 7.8 L (8.6-10.3) mg/dl Magnesium Total Bilirubin 0.5 (0.2-1.0) mg/dl AST 29 (13-39) U/L ALT 32 (7-52) U/L Alkaline Phosphatase 62 (34-104) U/L Troponin I High Sens 6.7 (0-20) pg/ml Total Protein 5.7 L (6.0-8.3) gm/dl Albumin 3.2 L (3.4-5.0) gm/dl Globulin 2.5 (2.5-4.0) gm/dl Albumin/Globulin Ratio 1.3 (0.9-2) Lipase 92 H (11-82) U/L Cortisol AM Sample Urine Color Urine Appearance (Clear) Urine pH (4.5-7.5) Ur Specific [place] (1.000-1.030) Urine Protein (Negative) Urine Glucose (UA) (Negative) Urine Ketones (Negative) Urine Blood (Negative) Urine Nitrite (Negative) Urine Bilirubin (Negative) Urine Urobilinogen (Negative) Ur Leukocyte Esterase (Negative) Urine WBC (Auto) (0-5) /hpf Urine RBC (Auto) (0-4) /hpf U Hyaline Cast (Auto) (0-5) /lpf U Epithel Cells (Auto) (0-5) /lpf Urine Bacteria (Auto) (Negative) SARS-CoV-2, RNA, NAAT NEGATIVE (NEGATIVE) Diagnostic Findings Abdomen/Pelvis CT 04/13/23 21:16 Exam(s): CT ABDOMEN + PELVIS Without Contrast EXAM: CT Abdomen and Pelvis Without Intravenous Contrast CLINICAL HISTORY: vomiting, upper abd pain, PEG tube. TECHNIQUE: Axial computed tomography images of the abdomen and pelvis without intravenous contrast. CTDI is 8.22 mGy and DLP is 55.85 mGy-cm. Automated exposure control was utilized for the study. A dose lowering technique was utilized adhering to the principles of ALARA. COMPARISON: Unenhanced CT abdomen and pelvis dated 10/04/2010 FINDINGS: Lung bases: Diffuse patchy to confluent opacities in the partially included inferior right middle lobe and right lower lobe. Pleural space: Trace left pleural effusion noted in the posterior costophrenic margin measuring approximately 1 cm. ABDOMEN: Liver: Unremarkable. Gallbladder and bile ducts: Status post cholecystectomy. Pancreas: Unremarkable. No ductal dilation. Spleen: Unremarkable. No splenomegaly. Adrenals: Unremarkable. No mass. Kidneys and ureters: There are innumerable cysts noted throughout both kidneys similar in morphology but the majority in the cysts are larger in size. Detailed evaluation is limited without contrast. The largest cyst superiorly on the right measures 6.4 cm. The largest cyst anteriorly on the left measures 6.7 x 8.4 cm from 4.9 x 6 cm previously. No hydronephrosis. Stomach and bowel: For findings regarding the percutaneous gastrostomy tube in stomach, please see below. Hyperdense material is noted throughout the colon. No evidence for bowel obstruction. Extensive diverticulosis. No obvious focal diverticulitis, accounting for limitations with respiratory artifact. A fat-containing left inguinal hernia is noted extending into the superior scrotum. No bowel herniation noted. PELVIS: Appendix: The appendix is not clearly delineated. No secondary findings to suggest acute appendicitis. Bladder: Unremarkable. No stones. Reproductive: Unremarkable as visualized. ABDOMEN and PELVIS: Intraperitoneal space: Unremarkable. No free air. No significant fluid collection. Bones/joints: Chronic compression fracture at L1 level and T11 level. No dislocation. Soft tissues: See above. No other significant abnormality. Vasculature: Unremarkable. No abdominal aortic aneurysm. Lymph nodes: Unremarkable. No enlarged lymph nodes. Tubes, lines and devices: The percutaneous gastrostomy tube extends through the stomach and into the duodenum. The distal bulb is inflated within the proximal duodenum. There is at least moderate distention of the stomach with fluid and gas. IMPRESSION: 1. The percutaneous gastrostomy tube extends through the stomach and into the duodenum. The distal bulb is inflated within the proximal duodenum. There is at least moderate distention of the stomach with fluid and gas. Functional gastric obstruction from migration of the percutaneous gastrostomy tube into the duodenum cannot be excluded given this appearance. 2. Diffuse patchy to confluent opacities in the partially included inferior right middle lobe and right lower lobe. Differential considerations include aspiration or pneumonia. 3. Hyperdense material is noted throughout the colon. No evidence for bowel obstruction. Extensive diverticulosis. No obvious focal diverticulitis, accounting for limitations with respiratory artifact. No free intraperitoneal fluid or pneumoperitoneum. Electronically signed by: Jose Gutierrez MD 04/13/23 22:53 PM Chest X-Ray 04/13/23 22:37 XR chest 1V portable CLINICAL HISTORY: Shortness of breath. COMPARISON STUDY: Chest radiograph November 29, 2017. FINDINGS: There is no pneumothorax pneumothorax or pleural effusion. Extensive right mid and lower lung consolidation is present. No consolidation within the left lung is noted. Pulmonary vascularity is normal. Cardiomediastinal silhouette is stable. IMPRESSION: Extensive right lower lobe consolidation. This is suggestive of pneumonia or aspiration pneumonitis. Post treatment radiographs to ensure resolution are recommended. ACT 112: Negative or not required by law. Electronically signed by: Joe Leon M.D. 04/14/2023 7:33 AM
[2023-04-14] MEDS ORDERED: SODIUM CHLORIDE 0.9% 1000ML 1,000 ML IV ONE ×2 (08:43→08:59)
[2023-04-14] MEDS ORDERED: MAGNESIUM SULFATE / D5W 1 GM/100 ML BAG IV ONE (08:59)
--- NOTE | 2023-04-14 09:01 | Hospitalist Progress Note ---
Date of Service April 14, 2023 Assessment & Plan (1) Septic shock: Plan: clinical picture most c/w septic shock with extensive right-sided aspiration pneumonia the source. cortisol level robust despite h/o pituitary adenoma. he received 2 liters of boluses in the ER by report, likely another liter of fluid since admission, then 2 additional saline boluses by me this am for recurrent shock. despite the 2 additional boluses he remains hypotensive. consulted Dr Dominique from ICU and patient was transferred there for pressor support & additional Rx. defer pressor management to Dr Dominique. follow blood cx's. cont zosyn. cont vanco. consider zithromax or doxy for atypical coverage. cont NC O2. (2) Aspiration pneumonia: Plan: presumed. extensive RML/RLL pneumonia on imaging. with resulting septic shock. see #1 above. (3) PEG tube malfunction: Plan: GI consultation pending to determine next steps in fixing the PEG. Nothing via PEG until seen by GI. 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 no h/o pituitary surgery should remain on cabergoline 0.5mg 3x/week (6) History of right MCA stroke: Plan: 03/2023, with hemorrhagic transformation by report treated at [facility] no surgical intervention needed for the hemorrhage remains on aspirin 81mg daily for secondary prevention (7) Dysphagia: Plan: 2nd to right MCA territory stroke NPO nothing via PEG either until PEG malfunction has been corrected by GI (8) Hemianopsia: Plan: by report has such in the setting of his recent stroke I did not perform visual field testing during my assessment due to the critical nature of his shock (9) History of squamous cell carcinoma: Plan: tongue noted (10) Hypomagnesemia: Plan: mag sulfate 1gm IV x 1 now mag level am (11) Anemia: Plan: nearly 2 gram drop in hemoglobin from last pm to this am no overt GI bleeding no tachycardia serial H/H's for stability consider b12/folate/FE studies while here Plan called and spoke with pt's by phone shortly after transfer to the ICU discussed his pneumonia, shock, need for pressors, etc she voiced understanding appreciate Dr Dominique's assistance total critical care time 60 minutes including shock management Admission and Anticipated Discharge Date Admission Date: April 14, 2023 Subjective contacted early this am by nursing staff that the pt's SBP was in the 50s gave verbal order for 1 L NS bolus STAT came to bedside immediately after upon arrival his SBP was now about 80 with about 250cc of the bolus having already been infused patient had his eyes closed but opened them quickly when I called his name he was alert and able to follow commands he denied chest pain, dyspnea, or abd pain by nursing report he had been having a hard time voiding prior to my arrival and tolentino order was placed patient was able to tell me he had been at [facility] recently due to a stroke following the first NS bolus his SBP was only 79 systolic an additional bolus of 1 L of saline was given cortisol level was sent, and while awaiting such I gave decadron 6mg IV x 1 in light of refractory shock I contacted Dr Dominique from the ICU Dr Dominique evaluated the patient and accepted Mr Smith to the ICU for ongoing care Physical Exam Physical Exam: gen - dysarthric speech but awake, alert, able to follow commands mouth - MM dry neck - no JVD heart - RRR, s1 s2 lungs - diffuse rales right base, normal airation and breath sounds on left, no distress or increased work of breathing abd - minimally distended, PEG tube in place central abdomen with 3 small buttons adjacent to the tube; BS+; NT ext - warm feet, pulses 2+ b/l, no edema neuro - dysarthria; strength 5/5 RUE/RLE; near 4-5/5 LUE/LLE skin - no rash; cap refill not prolonged Results & Data Results & Data Vital Signs (Past 12 Hours) Vital Signs Temp Pulse Pulse Resp BP BP Pulse Ox 04/14/23 08:10 68 14 84/46 L 04/14/23 07:55 36.7 C 66 18 59/41 L 94 04/14/23 07:45 77 14 78/40 L 04/14/23 07:09 59/41 L 04/14/23 07:09 65 20 96 04/14/23 06:35 71 04/14/23 05:47 36.6 C 87 20 134/77 98 04/14/23 03:58 20 04/14/23 03:41 38.6 C H 95 H 20 102/62 89 L 04/14/23 03:02 88 04/14/23 03:23 04/14/23 01:00 71 04/14/23 01:20 71 16 122/81 99 04/14/23 00:17 71 16 91/62 L 100 04/13/23 23:57 63 16 58/41 L 97 04/13/23 22:58 88 20 126/90 93 04/13/23 22:02 88 16 165/110 H 92 04/13/23 21:01 60 04/13/23 21:01 36.9 C 62 20 121/75 94 O2 Del Method O2 Flow Rate 04/14/23 08:10 04/14/23 07:55 Nasal Cannula 4 04/14/23 07:45 04/14/23 07:09 04/14/23 07:09 Nasal Cannula 5 04/14/23 06:35 04/14/23 05:47 Nasal Cannula 5 04/14/23 03:58 Nasal Cannula 5 04/14/23 03:41 Nasal Cannula 2 04/14/23 03:02 04/14/23 03:23 Nasal Cannula 5 04/14/23 01:00 04/14/23 01:20 Nasal Cannula 5 04/14/23 00:17 Nasal Cannula 6 04/13/23 23:57 Nasal Cannula 6 04/13/23 22:58 Nasal Cannula 6 04/13/23 22:02 Nasal Cannula 6 04/13/23 21:01 04/13/23 21:01 Nasal Cannula 6 Laboratory Results Laboratory Results - last 24 hr 04/14/23 04/14/23 04/14/23 01:04 01:45 06:33 WBC 2.11 L RBC 2.99 L Hgb 9.8 L POC Hgb Hct 29.7 L POC Hct MCV 99.3 MCH 32.8 MCHC 33.0 RDW Std Deviation 52.2 H RDW Coeff of Alison 14.5 Plt Count 201 MPV 9.7 Immature Gran % (Auto) 0.9 Neut % (Auto) 87.7 Lymph % (Auto) 6.2 [place] % (Auto) 4.7 Eos % (Auto) 0.5 Baso % (Auto) 0.0 Neut # (Auto) 1.85 Lymph # (Auto) 0.13 L [place] # (Auto) 0.10 L Eos # (Auto) 0.01 Baso # (Auto) 0.00 Immature Gran # (Auto) 0.02 Toxic Vacuolation Sample Site POC pH POC pCO2 POC pO2 POC HCO3 POC Total CO2 POC Base Excess ABG pH (Temp Correct) ABG pCO2 (Temp Corrct POC ABG pO2 at Pt Temp POC ABG O2 Sat Bran Test O2 Delivery Device POC Sodium Sodium POC Potassium Potassium Chloride Carbon Dioxide Anion Gap BUN Creatinine Est Cr Clr Drug Dosing Est GFR ( Amer) Est GFR (Non-Af Amer) BUN/Creatinine Ratio Glucose POC Glucose Lactate 2.0 Calcium Phosphorus Magnesium Total Bilirubin AST ALT Alkaline Phosphatase Troponin I High Sens Total Protein Albumin Globulin Albumin/Globulin Ratio Procalcitonin Cortisol AM Sample Urine Color Dark Yellow Urine Appearance Clear Urine pH 7.5 Ur Specific [place] 1.020 Urine Protein Trace H Urine Glucose (UA) Negative Urine Ketones Trace H Urine Blood 1+ H Urine Nitrite Negative Urine Bilirubin Negative Urine Urobilinogen Positive H Ur Leukocyte Esterase Negative Urine WBC (Auto) 1-5 Urine RBC (Auto) 10-30 H U Hyaline Cast (Auto) 1-5 U Epithel Cells (Auto) 10-20 H Urine Bacteria (Auto) Negative Nasal Screen MRSA (PCR) Urine Legionella Ag 04/14/23 04/14/23 04/14/23 06:33 08:00 08:00 WBC RBC Hgb POC Hgb Hct POC Hct MCV MCH MCHC RDW Std Deviation RDW Coeff of Alison Plt Count MPV Immature Gran % (Auto) Neut % (Auto) Lymph % (Auto) [place] % (Auto) Eos % (Auto) Baso % (Auto) Neut # (Auto) Lymph # (Auto) [place] # (Auto) Eos # (Auto) Baso # (Auto) Immature Gran # (Auto) Toxic Vacuolation Sample Site POC pH POC pCO2 POC pO2 POC HCO3 POC Total CO2 POC Base Excess ABG pH (Temp Correct) ABG pCO2 (Temp Corrct POC ABG pO2 at Pt Temp POC ABG O2 Sat Bran Test O2 Delivery Device POC Sodium Sodium 140 POC Potassium Potassium 3.7 Chloride 109 H Carbon Dioxide 25 Anion Gap 6 BUN 29 H Creatinine 0.88 Est Cr Clr Drug Dosing 62.0 Est GFR ( Amer) 91.4 Est GFR (Non-Af Amer) 78.9 BUN/Creatinine Ratio 33.0 H Glucose 102 H POC Glucose Lactate Calcium 7.1 L Phosphorus Magnesium 1.6 L Total Bilirubin 0.7 AST 23 ALT 25 Alkaline Phosphatase 44 Troponin I High Sens Total Protein 4.7 L D Albumin 2.6 L Globulin 2.1 L Albumin/Globulin Ratio 1.2 Procalcitonin Cortisol AM Sample 30.13 H Urine Color Urine Appearance Urine pH Ur Specific [place] Urine Protein Urine Glucose (UA) Urine Ketones Urine Blood Urine Nitrite Urine Bilirubin Urine Urobilinogen Ur Leukocyte Esterase Urine WBC (Auto) Urine RBC (Auto) U Hyaline Cast (Auto) U Epithel Cells (Auto) Urine Bacteria (Auto) Nasal Screen MRSA (PCR) Urine Legionella Ag PG Care Time/CCT Total # of Minutes Spent Total Time Spent with Patient: Total time spent is greater than 50% in coordination of care (as documented) at patient's floor/unit and/or counseling patient: Critical Care Time: Yes Total Critical Care Time: 60 Coding Level of Care Code None Diagnoses Septic shock A41.9; R65.21 Aspiration pneumonia J69.0 PEG tube malfunction K94.23 BPH w urinary obs/LUTS N40.1; 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 Additional Codes Critical Care Time - Critical Care Time: Yes ([id number])
[2023-04-14] MEDS ORDERED: NOREPINEPHRINE/D5W 4 MG/250 ML IV ONE (10:04)
[2023-04-14] MEDS ORDERED: STAT IV Infusion **Titration per Protocol STA ×2 (10:11→11:39)
--- NOTE | 2023-04-14 10:13 | Procedure Note ---
Procedure Note Date of Service April 14, 2023 Note Right INTERNAL JUGULAR CENTRAL LINE PROCEDURE NOTE: Procedure: Internal Jugular Central Line Placement Indication: Central Drug Administration, Poor Venous Access, Multiple Lab Draws Necessary, etc. Anesthesia: None/5 mL lidocaine 1% Verbal consent was obtained as the patient was profoundly hypotensive and needing central access for vasopressors. Procedure done emergently. A time-out was completed verifying correct patient, procedure, site, positioning, and implants(s) or special equipment if applicable. Patients right neck was cleansed and draped in the typical sterile fashion using Chloraprep. The Internal Jugular Vein and Carotid Artery were identified using ultrasound. The superficial tissue was anesthetized using 5 mL of 1% lidocaine without epinephrine under direct visualization with the ultrasound. After adequate anesthetization was achieved, the Internal Jugular vein was cannulated under direct ultrasound guidance using an introducer needle on a syringe. Good venous blood return was maintained prior to removal of syringe from introducer needle. Using Seldinger Technique, a guide wire was advanced through the introducer needle without resistance. The introducer needle was removed and ultrasound images were obtained of the guide wire within the Internal Jugular Vein and saved to the patients medical record. A small incision was made in penetrating fashion at the guide wire insertion site utilizing an 11 blade scalpel. The dilator was advanced to the vessel without resistance. The dilator was exchanged for the triple lumen catheter which was advanced into the vessel without resistance. The guide wire was removed intact from the catheter without issue. Claves were placed on each catheter tip with confirmation of good blood flow from each lumen. Each port was easily flushed with sterile saline. The catheter was placed at 16 cm and sutured in place. BioPatch was applied to the catheter and a sterile Tegaderm dressing was applied over the catheter with careful attention to sterility. Patient tolerated procedure well. No immediate complications were met. Post procedure x-ray was completed, placement was appropriate and no pneumothorax was noted. Coding CPT Codes Tubes, Drains, and Vasc Access - Tubes, Drains, and Vasc Access: [id number] Place catheter in vein superior or inferior vena cava ([id number]) Tubes, Drains, and Vasc Access - Tubes, Drains, and Vasc Access: [id number] Ultrasonic Guide For Needle Placement ([id number]) [facility] [place] Codes (Charges) Tubes, Drains, and Vasc Access Procedure 1: Tubes, Drains, and Vasc Access: [id number] Place catheter in vein superior or inferior vena cava Procedure 2: Tubes, Drains, and Vasc Access: [id number] Ultrasonic Guide For Needle Placement
--- NOTE | 2023-04-14 10:13 | Critical Care Consultation ---
Date of Consultation April 14, 2023 Assessment & Plan (1) Septic shock: (2) Aspiration pneumonia: (3) Anemia: (4) Dysphagia: Plan 82-year-old male with a history of recent right MCA, squamous cell carcinoma of the tongue, PEG tube, hypertension, hyperlipidemia and dysphagia who presented to the hospital due to PEG tube malposition and extensive right sided pneumonia. He presents to the ICU with septic shock. Neurologic: No issues at present. History of right MCA and dysphagia. Aspiration precautions. Head of the bed above 35 degrees. Pulmonary: Patient with extensive right-sided aspiration pneumonia. Will initiate CoughAssist and hypertonic saline for pulmonary clearance. Continue broad- spectrum antibiotics. Obtain sputum culture. Continue maintain sats above 94%. Cardiovascular: Maintain maps above 65 mmHg. Patient hypertensive at baseline. He is profoun dly hypotensive. Right IJ and right radial arterial line placed. Levophed infusing. Will consider addition of vasopressin if escalating Levophed requirements. Hold on further crystalloid infusion given extensive pneumonia and increasing hypoxia. Bedside echo with preserved EF and no pericardial effusion. Follow troponin. Gastrointestinal: PEG tube repositioned by GI. Continue pantoprazole. NPO. Renal: Follow urine output closely. Patient with evidence of decreased output. Maintain systolics closer to 100 given the patient's advanced age and history of hypertension. Check lactate and repeat BMP. Infectious disease: Continue vancomycin and Zosyn. Follow procalcitonin. Follow blood cultures, urine cultures and sputum cultures. Hematologic: Patient with leukopenia and anemia likely secondary to sepsis and dilution. Follow hemoglobin. No active signs of bleeding. SCDs. Endocrine: Cortisol levels appropriate. Lines and tubes: Right IJ CVL placed 04/14/2023. Right radial art line placed 04/14/2023 VTE prophylaxis: SCDs CODE STATUS: Full Family at bedside: None available at bedside Disposition: ICU I have personally spent 69 minutes of critical care time in the direct management of this patient. This is a life/limb threatening event. This includes time spent evaluating patient, direct bedside care, chart review, placing orders, interpretation of diagnostic studies, discussion with consultants, patient, and family members, as well as other required patient management activities. This time is exclusive of all separately billable procedures, and teaching time and separate from and in addition to any other critical care service time. Thank you for allowing us to participate in the care of this patient. History of Present Illness Reason for Consultation: Septic shock Attending Physician: Larry Duque MD History of Present Illness 82-year-old male with a history of hyperlipidemia, squamous cell carcinoma of the tongue, benign pituitary tumor, hyperlipidemia, right MCA with hemorrhagic conversion and hypertension who presented overnight due to increased abdominal pain and distention. He was hypotensive throughout the night and one-point had systolics in the 50s. I was called by the hospitalist service due to persistently low systolic blood pressures in the 80s despite 5 L of fluid. Nursing noted that the patient was progressively lethargic and dysarthric. Upon evaluation the patient was in reverse Trendelenburg and was able to answer my questions appropriately. He had a Domingo catheter placed and had minimal urine output over the past 2 hours. He was started on vancomycin and Zosyn by the hospitalist service. CT of the abdomen revealed possible malposition of his PEG tube. Chest x-ray reveals extensive right sided pneumonia. GI evaluation noted and they describe that the PEG tube has migrated into the duodenum and causing obstruction. It was repositioned and the problem was felt to be resolved. I transferred him to the ICU and emergently placed a right internal jugular central line and a right radial artery line. He was started on Levophed and is currently on 0.05. Performed a cardiac ultrasound. LVEF appeared intact. No pericardial effusion seen. IVC was collapsible. No pleural effusion seen on the right. Extensive B-lines noted at the right hemithorax. Allergies Allergy/AdvReac Type Severity Reaction Status Date / Time Iodinated Contrast Media Allergy Intermediate ITCHING Verified 03/26/23 14:54 Home Medications Medication Instructions Recorded Confirmed Type cabergoline 0.5 mg tablet 0.5 mg PO 3XWK 03/15/19 04/13/23 History hydrochlorothiazide 25 mg tablet 25 mg PO DAILY 03/15/19 04/13/23 History pravastatin 20 mg tablet 20 mg PO QPM 03/15/19 04/13/23 History aspirin 81 mg tablet,delayed 81 mg PO DAILY 03/26/23 04/13/23 History release ketoconazole 2 % topical cream 1 applic topical .2-3XWK 03/26/23 04/13/23 History wpdogjgwyfwi-gnrwlxog-tjbzgk 1 tab PO DAILY 03/26/23 04/13/23 History tablet (Multivitamin 50 Plus tablet) prednisone 50 mg tablet 0 mg PO DIRECTED 03/26/23 04/13/23 History vitamin E mixed 100 unit tablet 100 unit PO DAILY 03/26/23 04/13/23 History Patient History Medical History (Updated 04/14/23 @ 10:46 by Reed Dominique MD) Anemia Dysphagia Hemianopsia History of right MCA stroke Hyperlipidemia Hypertension Kidney stone 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 Surgical History History of cholecystectomy History of hernia repair Family History Mother Diabetes Hypertension Heart disease Social History Smoking Status: Never smoker Second Hand Exposure: No; Do You Dip or Chew Tobacco: No; Tobacco Cessation Education Requested by Patient: No Hx Alcohol Use: No Hx Substance Use: No Preferred Language: Hungarian Beliefs That Will Affect Care: None marital status: Current Living Situation: Spouse current occupational status: retired Other Information That Helps Us Care for You: No Feels Safe at Home: Yes Safety Concerns: Feels Safe At This Time Review of Systems Review of Systems: All systems reviewed & are unremarkable except as noted in HPI & below Physical Exam Physical Exam: Constitutional: Patient appears to be of their stated age. Patient is in no apparent distress. Patient is well-developed. Eyes: Pupils are equal round and reactive to light. Conjunctivae are normal. Anicteric sclera. Ears nose, mouth and throat: Mallampati class 2. Normal posterior oropharynx. Uvula is midline. Neck: Trachea is midline. Visual inspection is normal. Respiratory: Right-sided rhonchi. Clear to auscultation elsewhere. Mildly tachypneic. Cardiovascular: Regular rate and rhythm. No murmurs. No edema. Gastrointestinal: Normal bowel sounds, soft, nontender and nondistended. No hepatosplenomegaly noted. Musculoskeletal: No cyanosis. Patient is able to move all extremities. Strength is 5 out of 5 in the upper and lower extremities. Skin: No rashes, warm dry and intact. Neurologic: No obvious focal neurological deficits seen. Psychiatric: Alert and oriented x3 with a euthymic affect. Results & Data Results & Data Vital Signs (Past 12 Hours) Vital Signs Temp Pulse Pulse Resp BP Pulse Ox O2 Del Method 04/14/23 09:15 80 82/44 L 04/14/23 08:10 68 14 84/46 L 04/14/23 07:55 36.7 C 66 18 59/41 L 94 Nasal Cannula 04/14/23 07:45 77 14 78/40 L 04/14/23 07:09 59/41 L 04/14/23 07:09 65 20 96 Nasal Cannula 04/14/23 06:35 71 04/14/23 05:47 36.6 C 87 20 134/77 98 Nasal Cannula 04/14/23 03:58 20 Nasal Cannula 04/14/23 03:41 38.6 C H 95 H 20 102/62 89 L Nasal Cannula 04/14/23 03:02 88 04/14/23 03:23 Nasal Cannula 04/14/23 01:00 71 04/14/23 01:20 71 16 122/81 99 Nasal Cannula 04/14/23 00:17 71 16 91/62 L 100 Nasal Cannula 04/13/23 23:57 63 16 58/41 L 97 Nasal Cannula 04/13/23 22:58 88 20 126/90 93 Nasal Cannula O2 Flow Rate 04/14/23 09:15 04/14/23 08:10 04/14/23 07:55 4 04/14/23 07:45 04/14/23 07:09 04/14/23 07:09 5 04/14/23 06:35 04/14/23 05:47 5 04/14/23 03:58 5 04/14/23 03:41 2 04/14/23 03:02 04/14/23 03:23 5 04/14/23 01:00 04/14/23 01:20 5 04/14/23 00:17 6 04/13/23 23:57 6 04/13/23 22:58 6 Coding Level of Care Code 83781 CRITICAL CARE 1ST 30-74M Diagnoses Septic shock A41.9; R65.21 Aspiration pneumonia J69.0 Anemia D64.9 Dysphagia R13.10
[2023-04-14] MEDS: NOREPINEPHRINE/D5W 4 MG/250 ML PLCT IV SCH ×2 (10:16→23:38)
[2023-04-14] MEDS: VANCOMYCIN HCL 750 MG in SODIUM CHLORIDE 0.9% 250 ML IV SCH ×2 (10:16→21:19)
--- NOTE | 2023-04-14 10:30 | XRay Report ---
XR chest 1V portable CLINICAL HISTORY: s/p central line placement COMPARISON STUDY: Chest radiograph April 13, 2023. FINDINGS: There is no pneumothorax following placement of a right internal jugular central line. Cath eter tip projects over the cavoatrial junction. There has been progression of the right mid and lower lung consolidation since prior study. Mild left basilar opacity has developed. No evidence for pulmo nary edema. Electronic device projects over the heart. Cardiomediastinal silhouette is stable. IMPRESSION: 1. No pneumothorax placement of a right internal jugular central line. 2. Progression of extensive right lung consolidation and interval development of left basilar airspac e opacity. The findings could reflect pneumonia or aspiration pneumonitis. ACT 112: Negative or not required by law. Electronically signed by: Joe Leon M.D. 04/14/2023 10:27 AM
--- NOTE | 2023-04-14 11:06 | Procedure Note ---
Procedure Note Date of Service April 14, 2023 Note ARTERIAL LINE PROCEDURE NOTE: Procedure: Arterial Line Placement Indication: Monitoring on Pressors Anesthesia: None/5 mm lidocaine 1% Procedure was done emergently as the patient was requiring escalating vasopressors due to profound hypotension and septic shock. A time-out was completed verifying correct patient, procedure, site, positioning, and implant(s) or special equipment if applicable. Patients right wrist was prepped and draped in the usual sterile fashion. Ultrasound guidance was used to aid needle placement. A 20g Arrow arterial line was introduced into the radial artery. Catheter was threaded, and the needle was removed with appropriate blood return. Good waveform was observed. The patient tolerated the procedure well. Blood Loss: Minimal Complications: None Coding CPT Codes Tubes, Drains, and Vasc Access - Tubes, Drains, and Vasc Access: [id number] Arterial Cath/Cannulation Sampling/Monitoring/Transfusion ([id number]) Tubes, Drains, and Vasc Access - Tubes, Drains, and Vasc Access: [id number] Ultrasound Guidance For Vascular ([id number]) [facility] [place] Procedure Codes (Charges) Tubes, Drains, and Vasc Access Procedure 1: Tubes, Drains, and Vasc Access: [id number] Arterial Cath/Cannulation Sampling/Monitoring/Transfusion Procedure 2: Tubes, Drains, and Vasc Access: [id number] Ultrasound Guidance For Vascular
[2023-04-14 11:21] LABS: BUN Creatinine Ratio 33.7 (10-20); Calcium 6.9 mg/dl (8.6-10.3); Creatinine Clr Calc Pharmacy 65.8 ml/min; Est GFR (African American) 93.6 ml/min; Est GFR (Non-African American) 80.8 ml/min; Magnesium 1.7 mg/dl (1.7-2.4); Phosphorus 2.7 mg/dl (2.5-4.9); Potassium 3.5 mmol/L (3.5-5.1)
[2023-04-14 11:28] LABS: Troponin I High Sensitivity 10.1 pg/ml (0-20)
[2023-04-14] MEDS ORDERED: STAT IV STA (11:41)
[2023-04-14] MEDS ORDERED: CALCIUM GLUCONATE 10% 2,000 MG in DEXTROSE 5% 50 ML IV ONE (11:45)
[2023-04-14] MEDS: PANTOprazole 40 MG in SYRINGE 0 ML IV SCH (12:00)
[2023-04-14] MEDS: VASOPRESSIN 20 UNITS in 0.9 % SODIUM CHLORIDE 100 ML IV SCH ×2 (12:01→19:22)
[2023-04-14] MEDS: POTASSIUM CHLORIDE / WTR 20 MEQ/100 ML PLCT IV SCH ×2 (12:28→14:33)
[2023-04-14 12:30] LABS: iSTAT Art Bld Gas pCO2 Correct 39 mmHg (35-46); iSTAT Art Bld Gas pH Corrected 7.348 (7.35-7.45); iSTAT Arterial Blood Gas HCO3 21 meg/L (19-24); iSTAT Arterial Blood Gas pCO2 39 mmHg (35-46); iSTAT Arterial Blood Gas pH 7.35 (7.35-7.45); iSTAT Arterial Blood Gas pO2 81 mmHg (80-95); iSTAT Arterial Blood Gas pO2 C 81; iSTAT Carbon Dioxide 22 mmol/L (24-31); iSTAT Hematocrit 27 % (42-52); iSTAT Hemoglobin 9.2 g/dl (14.0-18.0); iSTAT Potassium 3.5 mmol/L (3.3-5.0); iSTAT Site Art Line; iSTAT Sodium 141 mmol/L (135-144)
[2023-04-14] MEDS: DOXYCYCLINE HYCLATE 100 MG in DEXTROSE 5% 100 ML IV SCH ×2 (12:52→23:38)
[2023-04-14] MEDS: MAGNESIUM SULFATE / D5W 1 GM/100 ML BAG IV SCH ×2 (12:52→14:41)
[2023-04-14 13:31] LABS: Hematocrit (blood only) 29.8 % (42.0-52.0); Hemoglobin 9.7 g/dl (14.0-18.0); Mean Corpuscular Hemoglobin 32.8 pg (25.0-34.0); Mean Corpuscular Hgb Conc 32.6 g/dL (32.0-36.0); Mean Corpuscular Volume 100.7 fL (80.0-100.0); Mean Platelet Volume 9.8 fL (9.4-12.4); Platelet Count 203 K/uL (130-400); RDW Coefficient of Variation 14.5 % (11.5-14.5); RDW Standard Deviation 52.8 fL (36.4-46.3); Red Blood Count 2.96 M/uL (4.70-6.10); White Blood Count 6.22 K/ul (4.8-10.8)
[2023-04-14 13:33] LABS: Basophils # (auto) 0.02 K/uL (0-0.2); Basophils % (auto) 0.3 %; Eosinophils # (auto) 0.01 K/uL (0-0.50); Eosinophils % (auto) 0.2 %; Immature Granulocytes # (auto) 0.03 K/uL (0.01-0.20); Immature Granulocytes % (auto) 0.5 %; Lymphocytes # (auto) 0.34 K/uL (1.2-3.4); Lymphocytes % (auto) 5.5 %; Monocytes # (auto) 0.42 K/uL (0.11-0.59); Monocytes % (auto) 6.8 %; Neutrophils % (auto) 86.7 %; Toxic Vacuolation 2+
--- NOTE | 2023-04-14 15:24 | Pharmacy Report ---
Pharmacy PK ABX Note - Date of Service April 14, 2023 - Assessment and Plan Assessment * 82 year old M receiving Zosyn, doxycycline, and vancomycin for treatment of aspiration PNA. Patient was transferred to the ICU this AM and is currently on norepinephrine and vasopressin * Pertinent microbiologic data includes: negative MRSA Nasal Swab, blood cultures pending * Discussed with Dr. Dominique - continue jeromyo for now 2nd severity of illness Plan Vancomycin * Loading dose: 1500 mg IV x 1 * Maintenance dose: 750 mg IV every 12 hours * Regimen is predicted to achieve target AUC/RACHEL of 400-600 mg/L.hr * Random level ordered for tomorrow AM Pharmacy will continue to follow and will adjust dose/frequency as necessary. Thank you. Pharmacy has transitioned to AUC monitoring for vancomycin. AUC/RACHEL is the preferred PK/PD target and is associated with decreased risk of nephrotoxicity compared to traditional trough targets.
[2023-04-14] MEDS: SODIUM CHLOR 7% 4 ML NEB NEB SCH (19:18)
--- NOTE | 2023-04-14 21:43 | XCELERA ---
[id number] \\[id number]
[2023-04-15] MEDS: VASOPRESSIN 20 UNITS in 0.9 % SODIUM CHLORIDE 100 ML IV SCH ×2 (03:46→14:15)
[2023-04-15] MEDS: NOREPINEPHRINE/D5W 4 MG/250 ML PLCT IV SCH ×2 (03:50→04:35)
[2023-04-15 04:59] LABS: Albumin Globulin Ratio 1.4 (0.9-2); Albumin Level 2.7 gm/dl (3.4-5.0); BUN Creatinine Ratio 43.5 (10-20); Bilirubin,Total 0.5 mg/dl (0.2-1.0); Calcium 7.4 mg/dl (8.6-10.3); Creatinine Clr Calc Pharmacy 79.7 ml/min; Est GFR (Non-African American) 87.2 ml/min; Magnesium 2.1 mg/dl (1.7-2.4); Potassium 3.8 mmol/L (3.5-5.1); Total Protein 4.7 gm/dl (6.0-8.3)
[2023-04-15 05:13] LABS: Basophils # (auto) 0.02 K/uL (0-0.2); Basophils % (auto) 0.2 %; Hematocrit (blood only) 26.8 % (42.0-52.0); Hemoglobin 8.8 g/dl (14.0-18.0); Immature Granulocytes % (auto) 9.1 %; Mean Corpuscular Hemoglobin 32.5 pg (25.0-34.0); Mean Corpuscular Hgb Conc 32.8 g/dL (32.0-36.0); Mean Corpuscular Volume 98.9 fL (80.0-100.0); Mean Platelet Volume 9.7 fL (9.4-12.4); Monocytes # (auto) 0.69 K/uL (0.11-0.59); Neutrophils # (auto) 7.87 K/uL (1.40-6.50); Neutrophils % (auto) 79.7 %; Platelet Count 172 K/uL (130-400); RBC Morphology Unremarkable; RDW Coefficient of Variation 14.6 % (11.5-14.5); RDW Standard Deviation 52.5 fL (36.4-46.3); Red Blood Count 2.71 M/uL (4.70-6.10); White Blood Count 9.88 K/ul (4.8-10.8)
[2023-04-15] MEDS: PIPERACILLIN/TAZOBACTAM 4.5 GM in DEXTROSE 5% 100 ML IV SCH ×3 (05:20→22:42)
[2023-04-15] MEDS ORDERED: POTASSIUM CHLORIDE / WTR 20 MEQ/100 ML PLCT IV ONE (05:30)
[2023-04-15] MEDS: SODIUM CHLOR 7% 4 ML NEB NEB SCH ×2 (07:07→20:46)
[2023-04-15] MEDS: ALBUT/IPRATROP 3MG/0.5MG NEB 3 ML VIAL NEB SCH ×4 (07:07→20:46)
--- NOTE | 2023-04-15 07:45 | Critical Care Progress Note ---
Date of Service April 15, 2023 Assessment & Plan (1) Septic shock: (2) Aspiration pneumonia: (3) Anemia: (4) Dysphagia: Plan Impression: 82-year-old male with a history of recent right MCA, squamous cell carcinoma of the tongue, PEG tube, hypertension, hyperlipidemia and dysphagia who presented to the hospital due to PEG tube malposition and extensive right sided pneumonia. He presents to the ICU with septic shock. 24-hour events: The patient has been weaned off Levophed and remains on vasopressin. PEG tube was repositioned by GI. He is showing clinical improvement. Recommendations: Neurologic: No current issues. Will require PT OT evaluations. Pulmonary: Extensive right-sided pneumonia. Continue supplemental oxygen to keep saturations at or above 94%. The patient is coughing but not expectorating any phlegm. Initiate incentive spirometry Cardiovascular: Echo reviewed. Ejection fraction preserved. IVC dilated with right atrial pressure estimated around 15 consistent with adequate volume re suscitation. If unable to wean pressors, trial of midodrine might be appropriate. Random cortisol was normal. Continue arterial line and central venous catheter until hemodynamics are improved Gastrointestinal: PEG tube repositioned by GI. Continue pantoprazole. Consult dietary for initiation of trophic tube feeding Renal: Domingo catheter in place for monitoring renal perfusion. We will recheck blood gas this morning as the patient had evidence of metabolic acidosis with normal lactate. May benefit from additional bicarb. We will replace calcium and give albumin challenge today. Initiate ICU electrolyte replacement protocol Infectious disease: Day #2 Zosyn, vancomycin, and doxycycline. Blood cultures negative. Unable to expectorate phlegm. Given his clinical improvement I do not think we need to proceed with bronchoscopy at this point time. Continue Zosyn with anticipated 7-day course depending on clinical improvement. Check procalcitonin in a.m.. May be able to discontinue vancomycin in the next 24 hours. Complete 5-day course of doxycycline Hematologic: Leukopenia resolved. Hemoglobin stable. No active signs of bleeding. SCDs, start lovenox for DVT proph. Endocrine: Cortisol levels appropriate. Glycemic control per protocol Lines and tubes: Right IJ CVL placed 04/14/2023. Right radial art line placed 04/14/2023 VTE prophylaxis: SCDs lovenox CODE STATUS: Full Patient remains critically ill on vasopressor agents to maintain blood pressure. He is at risk for clinical deterioration and . A total of 40 minutes critical care time was spent in evaluation and management of this patient including discussion on multidisciplinary rounds. Admission and Anticipated Discharge Date Admission Date: April 14, 2023 Subjective Patient seen and examined. EMR reviewed. Discussed with off going welder apprentice arc. Patient was discussed on multidisciplinary rounds and with bedside critical care nurse. Patient reports he is feeling better this morning. He is coughing but not expectorating phlegm. He denies any chest pain or problems breathing. No abdominal pain. No nausea or vomiting. He overall feels improved Review of Systems Review of Systems: All systems reviewed & are unremarkable except as noted in Subjective Physical Exam Constitutional: + thin and + frail appearing Neck: trachea midline, no thyromegaly Respiratory: + cough; no respiratory distress, no labored breathing and not tachypneic Auscultation: + rhonchi; no wheezes Cardiovascular: RRR, no murmur, no edema Gastrointestinal (Abdomen): normal bowel sounds, soft, nontender, no hepatosplenomegaly PEG site clean dry and intact Musculoskeletal: Extremities: extremities normal to inspection Skin: no rashes, warm and dry Neurologic: Nonfocal exam Lymphatic: no cervical lymphadenopathy Results & Data Results & Data Vital Signs (Past 12 Hours) Vital Signs Temp Pulse Pulse Resp BP Pulse Ox O2 Del Method 04/15/23 07:30 113/60 04/15/23 07:30 65 18 96 04/15/23 07:00 60 18 96 Nasal Cannula 04/15/23 07:00 134/58 L 04/15/23 07:25 57 L 04/15/23 07:08 59 L 20 96 Nasal Cannula 04/15/23 05:30 60 21 97 04/15/23 05:15 65 27 H 97 04/15/23 05:00 61 21 95 04/15/23 05:00 148/65 H 04/15/23 04:45 59 L 17 93 04/15/23 04:30 59 L 19 97 04/15/23 04:30 146/66 H 04/15/23 04:20 58 L 16 94 04/15/23 04:10 59 L 18 94 04/15/23 04:00 60 21 95 Nasal Cannula 04/15/23 04:00 123/60 04/15/23 03:50 61 21 97 04/15/23 03:40 61 18 97 04/15/23 03:52 36.8 C 04/15/23 03:32 68 15 97 04/15/23 03:32 143/66 H 04/15/23 03:30 67 21 97 04/15/23 03:00 58 L 16 95 04/15/23 03:00 138/68 04/15/23 02:30 59 L 18 95 04/15/23 02:30 140/63 04/15/23 02:00 60 16 96 04/15/23 02:00 140/63 04/15/23 01:30 60 14 94 04/15/23 01:30 140/65 04/15/23 00:05 83 04/15/23 01:00 63 24 97 04/15/23 01:00 150/70 H 04/15/23 00:30 66 20 96 04/15/23 00:30 150/71 H 04/15/23 00:15 62 18 97 04/15/23 00:00 64 24 97 04/15/23 00:00 144/70 H 04/14/23 23:45 67 30 H 97 04/14/23 23:31 146/57 H 04/14/23 23:31 36.8 C 67 30 H 97 04/14/23 23:30 68 16 97 04/14/23 23:15 68 22 95 04/14/23 23:00 62 15 95 04/14/23 23:00 161/71 H 04/14/23 22:45 63 17 97 04/14/23 22:30 64 17 97 04/14/23 22:30 158/68 H 04/14/23 22:00 64 18 97 04/14/23 22:00 151/68 H 04/14/23 21:45 66 19 97 04/14/23 21:31 143/75 H 04/14/23 21:31 81 15 04/14/23 21:15 82 30 H 96 04/14/23 21:00 73 7 L 97 04/14/23 21:00 153/75 H 04/14/23 20:45 75 25 H 97 04/14/23 20:31 153/81 H 04/14/23 20:31 78 17 97 04/14/23 20:30 80 21 97 04/14/23 20:15 77 21 96 04/14/23 20:00 83 19 96 04/14/23 20:00 159/70 H 04/14/23 20:25 Nasal Cannula O2 Flow Rate 04/15/23 07:30 04/15/23 07:30 04/15/23 07:00 3 04/15/23 07:00 04/15/23 07:25 04/15/23 07:08 3 04/15/23 05:30 04/15/23 05:15 04/15/23 05:00 04/15/23 05:00 04/15/23 04:45 04/15/23 04:30 04/15/23 04:30 04/15/23 04:20 04/15/23 04:10 04/15/23 04:00 2 04/15/23 04:00 04/15/23 03:50 04/15/23 03:40 04/15/23 03:52 04/15/23 03:32 04/15/23 03:32 04/15/23 03:30 04/15/23 03:00 04/15/23 03:00 04/15/23 02:30 04/15/23 02:30 04/15/23 02:00 04/15/23 02:00 04/15/23 01:30 04/15/23 01:30 04/15/23 00:05 04/15/23 01:00 04/15/23 01:00 04/15/23 00:30 04/15/23 00:30 04/15/23 00:15 04/15/23 00:00 04/15/23 00:00 04/14/23 23:45 04/14/23 23:31 04/14/23 23:31 04/14/23 23:30 04/14/23 23:15 04/14/23 23:00 04/14/23 23:00 04/14/23 22:45 04/14/23 22:30 04/14/23 22:30 04/14/23 22:00 04/14/23 22:00 04/14/23 21:45 04/14/23 21:31 04/14/23 21:31 04/14/23 21:15 04/14/23 21:00 04/14/23 21:00 04/14/23 20:45 04/14/23 20:31 04/14/23 20:31 04/14/23 20:30 04/14/23 20:15 04/14/23 20:00 04/14/23 20:00 04/14/23 20:25 2 Critical Care Results & Data Vital Signs (Past 12 Hours) Vital Signs Temp Pulse Pulse Resp BP Pulse Ox O2 Del Method 04/15/23 07:30 113/60 04/15/23 07:30 65 18 96 04/15/23 07:00 60 18 96 Nasal Cannula 04/15/23 07:00 134/58 L 04/15/23 07:25 57 L 04/15/23 07:08 59 L 20 96 Nasal Cannula 04/15/23 05:30 60 21 97 04/15/23 05:15 65 27 H 97 04/15/23 05:00 61 21 95 04/15/23 05:00 148/65 H 04/15/23 04:45 59 L 17 93 04/15/23 04:30 59 L 19 97 04/15/23 04:30 146/66 H 04/15/23 04:20 58 L 16 94 04/15/23 04:10 59 L 18 94 04/15/23 04:00 60 21 95 Nasal Cannula 04/15/23 04:00 123/60 04/15/23 03:50 61 21 97 04/15/23 03:40 61 18 97 04/15/23 03:52 36.8 C 04/15/23 03:32 68 15 97 04/15/23 03:32 143/66 H 04/15/23 03:30 67 21 97 04/15/23 03:00 58 L 16 95 04/15/23 03:00 138/68 04/15/23 02:30 59 L 18 95 04/15/23 02:30 140/63 04/15/23 02:00 60 16 96 04/15/23 02:00 140/63 04/15/23 01:30 60 14 94 04/15/23 01:30 140/65 04/15/23 00:05 83 04/15/23 01:00 63 24 97 04/15/23 01:00 150/70 H 04/15/23 00:30 66 20 96 04/15/23 00:30 150/71 H 04/15/23 00:15 62 18 97 04/15/23 00:00 64 24 97 04/15/23 00:00 144/70 H 04/14/23 23:45 67 30 H 97 04/14/23 23:31 146/57 H 04/14/23 23:31 36.8 C 67 30 H 97 04/14/23 23:30 68 16 97 04/14/23 23:15 68 22 95 04/14/23 23:00 62 15 95 04/14/23 23:00 161/71 H 04/14/23 22:45 63 17 97 04/14/23 22:30 64 17 97 04/14/23 22:30 158/68 H 04/14/23 22:00 64 18 97 04/14/23 22:00 151/68 H 04/14/23 21:45 66 19 97 04/14/23 21:31 143/75 H 04/14/23 21:31 81 15 04/14/23 21:15 82 30 H 96 04/14/23 21:00 73 7 L 97 04/14/23 21:00 153/75 H 04/14/23 20:45 75 25 H 97 04/14/23 20:31 153/81 H 04/14/23 20:31 78 17 97 04/14/23 20:30 80 21 97 04/14/23 20:15 77 21 96 04/14/23 20:00 83 19 96 04/14/23 20:00 159/70 H 04/14/23 20:25 Nasal Cannula O2 Flow Rate 04/15/23 07:30 04/15/23 07:30 04/15/23 07:00 3 04/15/23 07:00 04/15/23 07:25 04/15/23 07:08 3 04/15/23 05:30 04/15/23 05:15 04/15/23 05:00 04/15/23 05:00 04/15/23 04:45 04/15/23 04:30 04/15/23 04:30 04/15/23 04:20 04/15/23 04:10 04/15/23 04:00 2 04/15/23 04:00 04/15/23 03:50 04/15/23 03:40 04/15/23 03:52 04/15/23 03:32 04/15/23 03:32 04/15/23 03:30 04/15/23 03:00 04/15/23 03:00 04/15/23 02:30 04/15/23 02:30 04/15/23 02:00 04/15/23 02:00 04/15/23 01:30 04/15/23 01:30 04/15/23 00:05 04/15/23 01:00 04/15/23 01:00 04/15/23 00:30 04/15/23 00:30 04/15/23 00:15 04/15/23 00:00 04/15/23 00:00 04/14/23 23:45 04/14/23 23:31 04/14/23 23:31 04/14/23 23:30 04/14/23 23:15 04/14/23 23:00 04/14/23 23:00 04/14/23 22:45 04/14/23 22:30 04/14/23 22:30 04/14/23 22:00 04/14/23 22:00 04/14/23 21:45 04/14/23 21:31 04/14/23 21:31 04/14/23 21:15 04/14/23 21:00 04/14/23 21:00 04/14/23 20:45 04/14/23 20:31 04/14/23 20:31 04/14/23 20:30 04/14/23 20:15 04/14/23 20:00 04/14/23 20:00 04/14/23 20:25 2 Lab & Micro Results (Past 24 Hours) RBC 2.71 M/uL (4.70-6.10) L 04/15/23 WBC 9.88 K/ul (4.8-10.8) 04/15/23 Hgb 8.8 g/dl (14.0-18.0) L 04/15/23 Hct 26.8 % (42.0-52.0) L 04/15/23 MCV 98.9 fL (80.0-100.0) 04/15/23 MCH 32.5 pg (25.0-34.0) 04/15/23 MCHC 32.8 g/dL (32.0-36.0) 04/15/23 RDW Standard Deviation 52.5 fL (36.4-46.3) H 04/15/23 RDW Coefficient of Variation 14.6 % (11.5-14.5) H 04/15/23 Plt Count 172 K/uL (130-400) 04/15/23 MPV 9.7 fL (9.4-12.4) 04/15/23 Neutrophils (%) (Auto) 79.7 % 04/15/23 Lymphocytes (%) (Auto) 4.0 % 04/15/23 Monocytes # (Auto) 0.69 K/uL (0.11-0.59) H 04/15/23 Eosinophils # (Auto) 0.00 K/uL (0-0.50) 04/15/23 Immature Granulocyte % (Auto) 9.1 % 04/15/23 Neutrophils # (Auto) 7.87 K/uL (1.40-6.50) H 04/15/23 Lymphocytes # (Auto) 0.40 K/uL (1.2-3.4) L 04/15/23 Monocytes # (Auto) 0.69 K/uL (0.11-0.59) H 04/15/23 Eosinophils # (Auto) 0.00 K/uL (0-0.50) 04/15/23 Basophils # (Auto) 0.02 K/uL (0-0.2) 04/15/23 Immature Granulocyte # (Auto) 0.90 K/uL (0.01-0.20) H 04/15 Red Blood Cell Morphology Unremarkable 04/15/23 Toxic Vacuolation 2+ 04/14/23 Na 136 mmol/L (136-145) 04/15/23 K 3.8 mmol/L (3.5-5.1) 04/15/23 Cl 110 mmol/L (98-107) H 04/15/23 CO2 21 mmol/L (21-32) 04/15/23 Anion Gap 5 (3-11) 04/15/23 BUN 30 mg/dl (6-23) H 04/15/23 Creatinine 0.69 mg/dl (0.6-1.4) 04/15/23 Estimated GFR ( Amer) 101.0 ml/min 04/15/23 Estimated GFR (Non-Af Amer) 87.2 ml/min 04/15/23 BUN/Creatinine Ratio 43.5 (10-20) H 04/15/23 Glu 154 mg/dl (70-99(Fasting)) H 04/15/23 Ca 7.4 mg/dl (8.6-10.3) L 04/15/23 Phosphorus Level 2.7 mg/dl (2.5-4.9) 04/14/23 Total Bilirubin 0.5 mg/dl (0.2-1.0) 04/15/23 AST 20 U/L (13-39) 04/15/23 ALT 25 U/L (7-52) 04/15/23 Alkaline Phosphatase 38 U/L (34-104) 04/15/23 TP 4.7 gm/dl (6.0-8.3) L 04/15/23 Albumin 2.7 gm/dl (3.4-5.0) L 04/15/23 Globulin 2.0 gm/dl (2.5-4.0) L 04/15/23 Albumin/Globulin Ratio 1.4 (0.9-2) 04/15/23 Mg 2.1 mg/dl (1.7-2.4) 04/15/23 04:26 Calcium Level 7.4 mg/dl (8.6-10.3) L 04/15/23 04:26 Bran Test NA 04/14/23 12:15 Microbiology 04/13/23 23:23 Aerobic Blood Culture - Preliminary Blood No growth in Aerobic bottle after 24 hours. Anaerobic Blood Culture - Preliminary No growth in Anaerobic bottle after 24 hours. 04/13/23 23:23 Aerobic Blood Culture - Preliminary Blood No growth in Aerobic bottle after 24 hours. Anaerobic Blood Culture - Preliminary No growth in Anaerobic bottle after 24 hours. Diagnostic Findings (Past 24 Hours) Chest X-Ray 04/14/23 10:07 XR chest 1V portable CLINICAL HISTORY: s/p central line placement COMPARISON STUDY: Chest radiograph April 13, 2023. FINDINGS: There is no pneumothorax following placement of a right internal jugular central line. Catheter tip projects over the cavoatrial junction. There has been progression of the right mid and lower lung consolidation since prior study. Mild left basilar opacity has developed. No evidence for pulmonary edema. Electronic device projects over the heart. Cardiomediastinal silhouette is stable. IMPRESSION: 1. No pneumothorax placement of a right internal jugular central line. 2. Progression of extensive right lung consolidation and interval development of left basilar airspace opacity. The findings could reflect pneumonia or aspiration pneumonitis. ACT 112: Negative or not required by law. Electronically signed by: Joe Leon M.D. 04/14/2023 10:27 AM I & O Totals 24 Hours 04/14/23 04/15/23 04/16/23 06:59 06:59 06:59 Intake Total 2601.25 / 2601.25 4674.578 / 4674.578 100 / 100 Output Total 126 / 126 928 / 928 Balance 2475.25 / 2475.25 3746.578 / 3746.578 100 / 100 Cumulative 04/13/23 20:37 thru 04/15/23 07:41 Intake Total 7375.828 Output Total 1054 Balance 6321.828 RT Ventilator Mngmt (Last Documented) Ventilator Ordered Settings Respiratory Rate 18 04/15/23 07:30 Ventilator - PT Measurements Respiratory Rate 18 Coding Level of Care Code 84880 CRITICAL CARE 1ST 30-74M Diagnoses Septic shock A41.9; R65.21 Aspiration pneumonia J69.0 Anemia D64.9 Dysphagia R13.10
[2023-04-15] MEDS ORDERED: SODIUM BICARB 8.4% INJ 50 MEQ/50 ML SYR IV ONE (08:06)
[2023-04-15] MEDS: ALBUMIN 25% 25 GM/100 ML VIAL IV SCH ×2 (08:07→10:04)
[2023-04-15 08:16] LABS: iSTAT Art Bld Gas pCO2 Correct 34 mmHg (35-46); iSTAT Art Bld Gas pH Corrected 7.389 (7.35-7.45); iSTAT Arterial Blood Gas HCO3 21 meg/L (19-24); iSTAT Arterial Blood Gas pCO2 35 mmHg (35-46); iSTAT Arterial Blood Gas pH 7.37 (7.35-7.45); iSTAT Arterial Blood Gas pO2 101 mmHg (80-95); iSTAT Arterial Blood Gas pO2 C 95; iSTAT Carbon Dioxide 22 mmol/L (24-31); iSTAT Hematocrit 26 % (42-52); iSTAT Hemoglobin 8.8 g/dl (14.0-18.0); iSTAT Potassium 3.9 mmol/L (3.3-5.0); iSTAT Site Art Line; iSTAT Sodium 138 mmol/L (135-144)
[2023-04-15] MEDS ORDERED: CALCIUM CHLORIDE 10% 1,000 MG in DEXTROSE 5% 50 ML IV ONE (08:30)
[2023-04-15] MEDS: ENOXAPARIN INJ 40 MG/0.4 ML SYR SQ SCH (08:34)
[2023-04-15] MEDS ORDERED: VANCOMYCIN LEVEL ONE (09:30)
[2023-04-15] MEDS: VANCOMYCIN HCL 1,000 MG in SODIUM CHLORIDE 0.9% 250 ML IV SCH ×2 (10:05→22:42)
[2023-04-15] MEDS: PEPTAMEN 1.5 CAL 1,000 ML BAG PEG SCH (10:51)
[2023-04-15] MEDS: TUBE FEEDING WATER FLUSH PEG SCH ×3 (10:52→18:09)
--- NOTE | 2023-04-15 10:54 | Pharmacy Report ---
Pharmacy Vanc AUC Short Note - Date of Service April 15, 2023 - Assessment & Plan Assessment * 82 year old M receiving Zosyn, doxycycline, and vancomycin for treatment of aspiration PNA. Patient was transferred to the ICU 04/14 for septic shock. Norepi has been weaned off and vasopressin in the process of weaning. * Today is Day # 2 abx therapy. * Pertinent microbiologic data includes: negative MRSA Nasal Swab, no growth in blood cultures to date, unable to obtain sputum sample, urine legionella ag pending * Discussed with Dr. Gilliam this AM - continue vanco for now 2nd severity of illness, likely d/c tomorrow if cultures remain negative and clinically improved Plan Vancomycin * Random vancomycin level this AM = 11.4 (@0506). Level was drawn ~7-7.5 hrs after last dose administered. * Change to 1000 mg IV every 12 hours as this regimen is predicted to achieve target AUC/RACHEL of 400-600 mg/L.hr and may be associated with a 13 % risk of nephrotoxicity * AUC/RACHEL is the preferred PK/PD target for vancomycin * AUC guided dosing is effective and associated with decreased risk of nephrotoxicity compared to traditional trough targets * Trough or random level will be checked in 1-2 days if therapy to continue Pharmacy will continue to follow and will adjust dose/frequency as necessary. Thank you.
[2023-04-15] MEDS: PANTOprazole 40 MG in SYRINGE 0 ML IV SCH (11:33)
[2023-04-15] MEDS: DOXYCYCLINE HYCLATE 100 MG in DEXTROSE 5% 100 ML IV SCH (12:16)
[2023-04-15] MEDS: ICU ELECTROLYTE REPLACEMENT PROTOCOL SCH (18:49)
[2023-04-15] MEDS: ASPIRIN 81 MG CHEW PO SCH (19:45)
--- NOTE | 2023-04-15 20:11 | Hospitalist Progress Note ---
Date of Service April 15, 2023 Assessment & Plan (1) Septic shock: Plan: 2nd to extensive right-sided aspiration pneumonia. blood cx's remain negative. required Tx to ICU early yesterday AM with institution of pressors following central line placement. cortisol level robust despite h/o pituitary adenoma. cont zosyn - day #2 of such. cont doxy - day #2 of such. cont vanco - defer ongoing use to concrete mixing plant superintendent as MRSA swab is negative. cont NC O2. (2) Aspiration pneumonia: Plan: presumed. extensive RML/RLL pneumonia on imaging. with resulting septic shock. see #1 above. (3) PEG tube malfunction: Plan: GI consultation appreciated. On CT a/p the PEG balloon had migrated into the duodenum. Dr Webber from GI adjusted the PEG and it is functioning well now. (4) BPH w urinary obs/LUTS: Plan: tolentino placed early AM of 04/14 not on meds at home for BPH now with gross hematuria tolentino trauma? other? 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, with hemorrhagic transformation by report treated at [facility] no surgical intervention needed for the hemorrhage remains on aspirin 81mg daily for secondary prevention (7) Dysphagia: Plan: 2nd to right MCA territory stroke NPO PEG tube feedings resumed today (8) Hemianopsia: Plan: by report has such in the setting of his recent stroke (9) History of squamous cell carcinoma: Plan: tongue noted (10) Hypomagnesemia: Plan: s/p replacement with resolution (11) Anemia: Plan: H/H continue to drop - dropped another gram overnight then developed gross hematuria today no overt GI bleeding consider b12/folate/FE studies while here repeat cbc in am defer management to concrete mixing plant superintendent Plan appreciate concrete mixing plant superintendent assistance will cont to follow Admission and Anticipated Discharge Date Admission Date: April 14, 2023 Subjective patient's pressors were weaned off this afternoon BPs stable off pressors he developed gross hematuria today - no symptoms from such (tolentino in place) during the visit he denies any complaints no dyspnea no cough denies pain any location Review of Systems Review of Systems: gen - tolerating tube feedings thus far cv - no chest pain pulm - no wheezing GI - no pain/nausea/emesis Physical Exam Physical Exam: gen - baseline dysarthric speech but awake, alert; thin, sickly appearing but nontoxic mouth - MM dry neck - no JVD heart - RRR, s1 s2, no murmur lungs - rales and very course breath sounds right base, no distress or increased work of breathing; mildly decreased BS right base abd - PEG tube in place central abdomen with 3 small buttons adjacent to the tube; BS+; NT; slight distension; PEG tube insertion site clean ext - pulses 2+ b/l, no edema neuro - dysarthria at baseline vascular - central line right IJ clean/dry Results & Data Results & Data Vital Signs (Past 12 Hours) Vital Signs Temp Pulse Pulse Resp BP Pulse Ox O2 Del Method 04/15/23 19:46 36.7 C 04/15/23 19:30 80 18 151/76 H 98 04/15/23 19:00 76 20 143/71 H 97 04/15/23 19:33 96 Room Air 04/15/23 19:19 Nasal Cannula 04/15/23 18:00 75 20 119/66 97 Nasal Cannula 04/15/23 17:30 101/57 L 04/15/23 17:30 76 19 97 04/15/23 17:00 84 21 96 04/15/23 17:00 119/66 04/15/23 16:30 76 18 94 04/15/23 16:30 103/60 04/15/23 16:00 137/63 04/15/23 17:42 36.9 C 04/15/23 16:25 79 04/15/23 16:00 79 16 137/63 96 04/15/23 15:50 78 16 95 04/15/23 15:45 82 19 97 Nasal Cannula 04/15/23 15:30 88 23 96 04/15/23 15:30 169/80 H 04/15/23 15:15 77 18 98 04/15/23 15:00 78 21 96 04/15/23 15:00 157/74 H 04/15/23 14:30 158/74 H 04/15/23 14:30 78 30 H 96 04/15/23 14:01 84 28 H 96 04/15/23 14:01 120/69 04/15/23 14:00 88 19 98 Nasal Cannula 04/15/23 13:30 156/70 H 04/15/23 13:30 78 19 96 04/15/23 13:00 79 18 96 04/15/23 13:00 155/73 H 04/15/23 14:42 73 18 96 Nasal Cannula 04/15/23 12:30 81 18 96 Nasal Cannula 04/15/23 12:30 137/70 04/15/23 12:00 72 28 H 98 04/15/23 12:00 101/53 L 04/15/23 12:00 67 101/53 L 04/15/23 11:55 66 19 98 04/15/23 11:55 94/53 L 04/15/23 11:50 64 17 99 04/15/23 11:45 68 17 96 04/15/23 11:42 111/54 L 04/15/23 11:42 64 17 96 04/15/23 11:50 62 18 97 Nasal Cannula 04/15/23 11:40 71 17 96 04/15/23 11:30 68 18 97 Nasal Cannula 04/15/23 11:30 120/58 L 04/15/23 11:20 75 19 96 04/15/23 11:10 62 18 96 04/15/23 11:00 62 25 H 97 04/15/23 11:00 138/67 04/15/23 10:30 136/64 04/15/23 10:30 64 22 96 04/15/23 10:00 63 23 97 04/15/23 10:00 138/79 04/15/23 09:30 147/64 H 04/15/23 09:30 65 16 96 04/15/23 09:00 68 18 96 Nasal Cannula 04/15/23 09:00 144/61 H 04/15/23 08:30 132/62 04/15/23 08:30 71 22 96 04/15/23 09:11 36.7 C 04/15/23 08:39 Nasal Cannula O2 Flow Rate 04/15/23 19:46 04/15/23 19:30 04/15/23 19:00 04/15/23 19:33 04/15/23 19:19 3 04/15/23 18:00 3 04/15/23 17:30 04/15/23 17:30 04/15/23 17:00 04/15/23 17:00 04/15/23 16:30 04/15/23 16:30 04/15/23 16:00 04/15/23 17:42 04/15/23 16:25 04/15/23 16:00 04/15/23 15:50 04/15/23 15:45 3 04/15/23 15:30 04/15/23 15:30 04/15/23 15:15 04/15/23 15:00 04/15/23 15:00 04/15/23 14:30 04/15/23 14:30 04/15/23 14:01 04/15/23 14:01 04/15/23 14:00 3 04/15/23 13:30 04/15/23 13:30 04/15/23 13:00 04/15/23 13:00 04/15/23 14:42 2 04/15/23 12:30 3 04/15/23 12:30 04/15/23 12:00 04/15/23 12:00 04/15/23 12:00 04/15/23 11:55 04/15/23 11:55 04/15/23 11:50 04/15/23 11:45 04/15/23 11:42 04/15/23 11:42 04/15/23 11:50 2 04/15/23 11:40 04/15/23 11:30 3 04/15/23 11:30 04/15/23 11:20 04/15/23 11:10 04/15/23 11:00 04/15/23 11:00 04/15/23 10:30 04/15/23 10:30 04/15/23 10:00 04/15/23 10:00 04/15/23 09:30 04/15/23 09:30 04/15/23 09:00 3 04/15/23 09:00 04/15/23 08:30 04/15/23 08:30 04/15/23 09:11 04/15/23 08:39 3 Laboratory Results Laboratory Results - last 24 hr 04/14/23 04/15/23 04/15/23 20:10 04:26 04:26 WBC 9.88 RBC 2.71 L Hgb 8.8 L POC Hgb Hct 26.8 L POC Hct MCV 98.9 MCH 32.5 MCHC 32.8 RDW Std Deviation 52.5 H RDW Coeff of Alison 14.6 H Plt Count 172 MPV 9.7 Immature Gran % (Auto) 9.1 Neut % (Auto) 79.7 Lymph % (Auto) 4.0 [place] % (Auto) 7.0 Eos % (Auto) 0.0 Baso % (Auto) 0.2 Neut # (Auto) 7.87 H Lymph # (Auto) 0.40 L [place] # (Auto) 0.69 H Eos # (Auto) 0.00 Baso # (Auto) 0.02 Immature Gran # (Auto) 0.90 H RBC Morphology Unremarkable Sample Site POC pH POC pCO2 POC pO2 POC HCO3 POC Total CO2 POC Base Excess ABG pH (Temp Correct) ABG pCO2 (Temp Corrct POC ABG pO2 at Pt Temp POC ABG O2 Sat Bran Test O2 Delivery Device POC Sodium Sodium 136 POC Potassium Potassium 3.8 Chloride 110 H Carbon Dioxide 21 Anion Gap 5 BUN 30 H Creatinine 0.69 Est Cr Clr Drug Dosing 79.7 Est GFR ( Amer) 101.0 Est GFR (Non-Af Amer) 87.2 BUN/Creatinine Ratio 43.5 H Glucose 154 H POC Glucose 182 H Calcium 7.4 L Magnesium 2.1 Total Bilirubin 0.5 AST 20 ALT 25 Alkaline Phosphatase 38 Total Protein 4.7 L Albumin 2.7 L Globulin 2.0 L Albumin/Globulin Ratio 1.4 Random Vancomycin 04/15/23 04/15/23 04:26 08:02 WBC RBC Hgb POC Hgb 8.8 L Hct POC Hct 26 L MCV MCH MCHC RDW Std Deviation RDW Coeff of Alison Plt Count MPV Immature Gran % (Auto) Neut % (Auto) Lymph % (Auto) [place] % (Auto) Eos % (Auto) Baso % (Auto) Neut # (Auto) Lymph # (Auto) [place] # (Auto) Eos # (Auto) Baso # (Auto) Immature Gran # (Auto) RBC Morphology Sample Site Art Line POC pH 7.37 POC pCO2 35 POC pO2 101 H POC HCO3 21 POC Total CO2 22 L POC Base Excess -5.0 ABG pH (Temp Correct) 7.389 ABG pCO2 (Temp Corrct 34 L POC ABG pO2 at Pt Temp 95 POC ABG O2 Sat 98.0 H Bran Test NA O2 Delivery Device Cannula POC Sodium 138 Sodium POC Potassium 3.9 Potassium Chloride Carbon Dioxide Anion Gap BUN Creatinine Est Cr Clr Drug Dosing Est GFR ( Amer) Est GFR (Non-Af Amer) BUN/Creatinine Ratio Glucose POC Glucose Calcium Magnesium Total Bilirubin AST ALT Alkaline Phosphatase Total Protein Albumin Globulin Albumin/Globulin Ratio Random Vancomycin 11.4 Diagnostic Findings blood cx's remain negative PG Care Time/CCT Total # of Minutes Spent Total Time Spent with Patient: Total time spent is greater than 50% in coordination of care (as documented) at patient's floor/unit and/or counseling patient: Coding Level of Care Code None Diagnoses Septic shock A41.9; R65.21 Aspiration pneumonia J69.0 PEG tube malfunction K94.23 BPH w urinary obs/LUTS N40.1; 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
[2023-04-16] MEDS: DOXYCYCLINE HYCLATE 100 MG in DEXTROSE 5% 100 ML IV SCH ×2 (00:09→13:17)
[2023-04-16] MEDS: TUBE FEEDING WATER FLUSH PEG SCH ×7 (00:09→23:02)
[2023-04-16 04:49] LABS: Hematocrit (blood only) 23.8 % (42.0-52.0); Mean Corpuscular Hemoglobin 32.7 pg (25.0-34.0); Mean Corpuscular Hgb Conc 33.6 g/dL (32.0-36.0); Mean Corpuscular Volume 97.1 fL (80.0-100.0); Mean Platelet Volume 9.5 fL (9.4-12.4); Platelet Count 149 K/uL (130-400); RDW Coefficient of Variation 14.7 % (11.5-14.5); RDW Standard Deviation 51.7 fL (36.4-46.3); Red Blood Count 2.45 M/uL (4.70-6.10)
[2023-04-16 05:02] LABS: Albumin Globulin Ratio 1.3 (0.9-2); Albumin Level 2.9 gm/dl (3.4-5.0); BUN Creatinine Ratio 36.7 (10-20); Bilirubin,Total 0.6 mg/dl (0.2-1.0); Calcium 7.9 mg/dl (8.6-10.3); Creatinine Clr Calc Pharmacy 91.6 ml/min; Est GFR (Non-African American) 92.3 ml/min; Globulin 2.2 gm/dl (2.5-4.0); Potassium 3.7 mmol/L (3.5-5.1); Total Protein 5.1 gm/dl (6.0-8.3)
[2023-04-16] MEDS: PIPERACILLIN/TAZOBACTAM 4.5 GM in DEXTROSE 5% 100 ML IV SCH ×3 (06:15→21:02)
[2023-04-16] MEDS: POTASSIUM CHLORIDE 20 MEQ/15 ML UDC NG SCH ×2 (06:33→09:57)
[2023-04-16] MEDS: MAGNESIUM OXIDE 400 MG TAB NG SCH ×2 (06:33→09:57)
[2023-04-16 06:44] LABS: Neutrophils % (manual) 89 %; RBC Morphology Unremarkable
[2023-04-16 06:54] LABS: Phosphorus 1.5 mg/dl (2.5-4.9)
[2023-04-16] MEDS: ICU ELECTROLYTE REPLACEMENT PROTOCOL SCH (06:57)
[2023-04-16] MEDS ORDERED: SODIUM PHOSPHATE 3 MMOL/1 ML INFUSION IV STA (06:58)
[2023-04-16] MEDS ORDERED: SODIUM PHOSPHATE 30 MMOL in SODIUM CHLORIDE 0.9% 500 ML IV ONE (07:15)
--- NOTE | 2023-04-16 07:22 | Critical Care Progress Note ---
Date of Service April 16, 2023 Assessment & Plan (1) Septic shock: (2) Aspiration pneumonia: (3) Anemia: (4) Dysphagia: Plan Impression: 82-year-old male with a history of recent right MCA, squamous cell carcinoma of the tongue, PEG tube, hypertension, hyperlipidemia and dysphagia who presented to the hospital due to PEG tube malposition and extensive right sided pneumonia. He presents to the ICU with septic shock. 24-hour events: All pressors weaned off. Patient developed hematuria. Had a mild decrease in his hemoglobin and hematocrit. Tolerating initiation of tube feeding Recommendations: Neurologic: No current issues. Will require PT OT evaluations. OOB to chair as tolerated Pulmonary: Extensive right-sided pneumonia. Continue supplemental oxygen to keep saturations at or above 94%. The patient is coughing but not expectorating any phlegm. Continue incentive spirometry. Recommend follow-up chest x-ray in 2 to 4 weeks. Cardiovascular: Echo reviewed. Ejection fraction preserved. Now off pressors. Discontinue arterial line and CVC. Gastrointestinal: PEG tube repositioned by GI. Continue pantoprazole. Advance tube feeding to goal. Renal: Hematuria in the setting of initiation of anticoagulation. Appears clearing but did drop hemoglobin by about 1 g. Check INR. Consult urology. Continue Domingo for now until urine cleared. Electrolytes have been replaced. Kidney function holding steady. Acid-base status improved. Infectious disease: Day #3 Zosyn, vancomycin, and doxycycline. Blood cultures negative. Procalcitonin improving. Urinary Legionella antigens still pending so would complete 5-day course of doxycycline. Would complete 7-day course of Zosyn. Discontinue vancomycin at this point in time. Hematologic: Leukopenia resolved. Slight decrease in hemoglobin potentially associated with hematuria. Continue to trend. No indication for transfusion currently. Check coagulation profile. Given the risks of DVT with cancer and immobile status, would prefer to remain on Lovenox for now but will await urology opinion. Endocrine: Cortisol levels appropriate. Glycemic control per protocol Lines and tubes: Right IJ CVL placed 04/14/2023. Right radial art line placed 04/14/2023, lines to be discontinued today VTE prophylaxis: SCDs lovenox CODE STATUS: Full Patient is stable to downgrade out of the intensive care unit at this point time. Patient will be returned back to the care of the hospitalist for additional management. Critical care services will sign off. Feel free to contact us if we can be of additional assistance Admission and Anticipated Discharge Date Admission Date: April 14, 2023 Subjective Patient seen and examined. EMR reviewed. Patient is doing well this morning. He denies any chest pain palpitations or shortness of breath. Has been weaned off pressors. He denies any abdominal pain. He is tolerating trophic tube feeding. No fevers chills night sweats or other constitutional symptoms. He is coughing but not expectorating any phlegm. Review of Systems Review of Systems: All systems reviewed & are unremarkable except as noted in Subjective Physical Exam Constitutional: + thin and + frail appearing Neck: trachea midline, no thyromegaly Respiratory: + cough; no respiratory distress, no labored breathing and not tachypneic Auscultation: + rhonchi; no wheezes Cardiovascular: RRR, no murmur, no edema Gastrointestinal (Abdomen): normal bowel sounds, soft, nontender, no hepatosplenomegaly Musculoskeletal: Extremities: extremities normal to inspection Skin: no rashes, warm and dry Lymphatic: no cervical lymphadenopathy Results & Data Results & Data Vital Signs (Past 12 Hours) Vital Signs Temp Pulse Pulse Resp BP Pulse Ox O2 Del Method 04/16/23 06:00 72 28 H 151/77 H 98 04/16/23 05:00 65 19 154/65 H 98 04/16/23 04:00 64 20 162/67 H 97 04/16/23 00:00 81 04/16/23 04:06 36.5 C 04/16/23 03:00 67 21 140/66 94 Nasal Cannula 04/16/23 02:00 64 21 122/62 93 Nasal Cannula 04/16/23 01:00 63 17 120/62 94 Nasal Cannula 04/16/23 00:00 85 23 139/75 97 Nasal Cannula 04/15/23 23:00 85 27 H 120/68 96 04/15/23 22:30 82 25 H 110/61 95 04/15/23 22:00 87 22 105/58 L 95 04/15/23 21:30 92 H 21 112/60 92 Nasal Cannula 04/15/23 21:08 90 20 105/55 L 94 Room Air 04/15/23 21:00 83 20 138/70 97 Room Air 04/15/23 20:00 81 19 142/75 H 94 04/15/23 20:46 84 20 94 Room Air 04/15/23 19:46 36.7 C 04/15/23 19:30 80 18 151/76 H 98 04/15/23 19:33 96 Room Air O2 Flow Rate 04/16/23 06:00 04/16/23 05:00 04/16/23 04:00 04/16/23 00:00 04/16/23 04:06 04/16/23 03:00 2 04/16/23 02:00 2 04/16/23 01:00 2 04/16/23 00:00 2 04/15/23 23:00 04/15/23 22:30 04/15/23 22:00 04/15/23 21:30 2 04/15/23 21:08 04/15/23 21:00 04/15/23 20:00 04/15/23 20:46 04/15/23 19:46 04/15/23 19:30 04/15/23 19:33 Critical Care Results & Data Vital Signs (Past 12 Hours) Vital Signs Temp Pulse Pulse Resp BP Pulse Ox O2 Del Method 04/16/23 06:00 72 28 H 151/77 H 98 04/16/23 05:00 65 19 154/65 H 98 04/16/23 04:00 64 20 162/67 H 97 04/16/23 00:00 81 04/16/23 04:06 36.5 C 04/16/23 03:00 67 21 140/66 94 Nasal Cannula 04/16/23 02:00 64 21 122/62 93 Nasal Cannula 04/16/23 01:00 63 17 120/62 94 Nasal Cannula 04/16/23 00:00 85 23 139/75 97 Nasal Cannula 04/15/23 23:00 85 27 H 120/68 96 04/15/23 22:30 82 25 H 110/61 95 04/15/23 22:00 87 22 105/58 L 95 04/15/23 21:30 92 H 21 112/60 92 Nasal Cannula 04/15/23 21:08 90 20 105/55 L 94 Room Air 04/15/23 21:00 83 20 138/70 97 Room Air 04/15/23 20:00 81 19 142/75 H 94 04/15/23 20:46 84 20 94 Room Air 04/15/23 19:46 36.7 C 04/15/23 19:30 80 18 151/76 H 98 04/15/23 19:33 96 Room Air O2 Flow Rate 04/16/23 06:00 04/16/23 05:00 04/16/23 04:00 04/16/23 00:00 04/16/23 04:06 04/16/23 03:00 2 04/16/23 02:00 2 04/16/23 01:00 2 04/16/23 00:00 2 04/15/23 23:00 04/15/23 22:30 04/15/23 22:00 04/15/23 21:30 2 04/15/23 21:08 04/15/23 21:00 04/15/23 20:00 04/15/23 20:46 04/15/23 19:46 04/15/23 19:30 04/15/23 19:33 Lab & Micro Results (Past 24 Hours) RBC 2.45 M/uL (4.70-6.10) L 04/16/23 WBC 10.00 K/ul (4.8-10.8) 04/16/23 Hgb 8.0 g/dl (14.0-18.0) L 04/16/23 Hct 23.8 % (42.0-52.0) L 04/16/23 MCV 97.1 fL (80.0-100.0) 04/16/23 MCH 32.7 pg (25.0-34.0) 04/16/23 MCHC 33.6 g/dL (32.0-36.0) 04/16/23 RDW Standard Deviation 51.7 fL (36.4-46.3) H 04/16/23 RDW Coefficient of Variation 14.7 % (11.5-14.5) H 04/16/23 Plt Count 149 K/uL (130-400) 04/16/23 MPV 9.5 fL (9.4-12.4) 04/16/23 ANC 8.90 K/uL (1.4-6.5) H 04/16/23 ALC 0.20 K/uL (1.2-3.4) L 04/16/23 Neutrophils % (Manual) 89 % 04/16/23 Neutrophils # (Manual) 8.90 K/uL (1.40-6.50) H 04/16/23 Lymphocytes # (Manual) 0.20 K/uL (1.2-3.4) L 04/16/23 Monocytes # (Manual) 0.30 K/uL (0.11-0.59) 04/16/23 Eosinophils # (Manual) 0.40 K/uL (0-0.50) 04/16/23 Basophils # (Manual) 0.20 K/uL (0-0.2) 04/16/23 Red Blood Cell Morphology Unremarkable 04/16/23 Na 139 mmol/L (136-145) 04/16/23 K 3.7 mmol/L (3.5-5.1) 04/16/23 Cl 111 mmol/L (98-107) H 04/16/23 CO2 24 mmol/L (21-32) 04/16/23 Anion Gap 4 (3-11) 04/16/23 BUN 22 mg/dl (6-23) 04/16/23 Creatinine 0.60 mg/dl (0.6-1.4) 04/16/23 Estimated GFR ( Amer) 107.0 ml/min 04/16/23 Estimated GFR (Non-Af Amer) 92.3 ml/min 04/16/23 BUN/Creatinine Ratio 36.7 (10-20) H 04/16/23 Glu 91 mg/dl (70-99(Fasting)) 04/16/23 Ca 7.9 mg/dl (8.6-10.3) L 04/16/23 Phosphorus Level 1.5 mg/dl (2.5-4.9) L* 04/16/23 Total Bilirubin 0.6 mg/dl (0.2-1.0) 04/16/23 AST 19 U/L (13-39) 04/16/23 ALT 21 U/L (7-52) 04/16/23 Alkaline Phosphatase 39 U/L (34-104) 04/16/23 TP 5.1 gm/dl (6.0-8.3) L 04/16/23 Albumin 2.9 gm/dl (3.4-5.0) L 04/16/23 Globulin 2.2 gm/dl (2.5-4.0) L 04/16/23 Albumin/Globulin Ratio 1.3 (0.9-2) 04/16/23 Mg 2.0 mg/dl (1.7-2.4) 04/16/23 04:30 Calcium Level 7.9 mg/dl (8.6-10.3) L 04/16/23 04:30 Bran Test NA 04/15/23 08:02 Microbiology 04/13/23 23:23 Aerobic Blood Culture - Preliminary Blood No growth in Aerobic bottle after 48 hours. Anaerobic Blood Culture - Preliminary No growth in Anaerobic bottle after 48 hours. 04/13/23 23:23 Aerobic Blood Culture - Preliminary Blood No growth in Aerobic bottle after 48 hours. Anaerobic Blood Culture - Preliminary No growth in Anaerobic bottle after 48 hours. I & O Totals 24 Hours 04/15/23 04/16/23 04/17/23 06:59 06:59 06:59 Intake Total 4674.578 / 4674.578 2200.342 / 2200.342 Output Total 928 / 928 1375 / 1375 Balance 3746.578 / 3746.578 825.342 / 825.342 Cumulative 04/13/23 20:37 thru 04/16/23 06:21 Intake Total 9476.170 Output Total 2429 Balance 7047.170 RT Ventilator Mngmt (Last Documented) Ventilator Ordered Settings Respiratory Rate 28 04/16/23 06:00 Ventilator - PT Measurements Respiratory Rate 28 Coding Level of Care Code 35526 SUB INP/OBS CARE 3/50MIN Diagnoses Septic shock A41.9; R65.21 Aspiration pneumonia J69.0 Anemia D64.9 Dysphagia R13.10
--- NOTE | 2023-04-16 07:51 | Electrocardiogram Report ---
Test Reason : Blood Pressure : / mmHG Vent. Rate : 061 BPM Atrial Rate : 061 BPM P-R Int : 200 ms QRS Dur : 096 ms QT Int : 416 ms P-R-T Axes : 071 -66 027 degrees QTc Int : 418 ms Normal sinus rhythm Incomplete right bundle branch block Left anterior fascicular block Septal infarct (cited on or before 26-MAR-2023) Abnormal ECG When compared with ECG of 26-MAR-2023 11:37, Incomplete right bundle branch block is now Present Questionable change in initial forces of Septal leads Confirmed by Redd Contreras ([id number]) on 04/16/2023 7:51:21 AM Referred By: REFERRED SELF Confirmed By:Redd Contreras
[2023-04-16] MEDS: SODIUM CHLOR 7% 4 ML NEB NEB SCH ×2 (08:04→20:20)
[2023-04-16] MEDS: ALBUT/IPRATROP 3MG/0.5MG NEB 3 ML VIAL NEB SCH ×4 (08:04→20:20)
[2023-04-16 08:33] LABS: INR 1.1 (0.9-1.1); Prothrombin Time 11.8 Seconds (9.0-12.0)
--- NOTE | 2023-04-16 08:53 | Urology Consultation ---
Date of Consultation April 16, 2023 Assessment & Plan (1) Gross hematuria: (2) BPH w urinary obs/LUTS: Plan 82yo/M admitted with sepsis secondary to right sided aspiration pneumonia. Urology consulted for gross hematuria. Patient is afebrile, hemodynamically stable. Labs today show WBC 10, Hemoglobin 8.0 today (8.8 yesterday), Creatinine 0.60. Continue to trend. Blood cultures prelim no growth x 48hours. He is on vanoc, doxy, zosyn. UA 04/14 with 1+blood, 10-30RBC, which appears was collected after catheter insertion. Pt had a Domingo catheter placed on 04/14 and developed gross hematuria the following day requiring manual irrigation. Hematuria likely due to catheter trauma from insertion in the setting of anticoagulation. No intervention warranted. Domingo currently intact and draining pink tinged urine. Continue to monitor. OK to manually irrigate catheter as needed for clots, retention, suprapubic pain. Anticoagulation per primary team. Urology will follow. History of Present Illness Attending Physician: Gregg Juárez MD History of Present Illness 82-year-old male with a history of recent right MCA, squamous cell carcinoma of the tongue, PEG tube, hypertension, hyperlipidemia and dysphagia, BPH, who presented to the hospital due to PEG tube malposition and extensive right sided pneumonia admitted to the ICU with septic shock. Urology consulted for hematuria. Domingo catheter placed 04/14 by nursing staff for monitoring renal perfusion. Pt developed hematuria 04/15 requiring manual irrigation. On Lovenox and aspirin. UA 03/26 with no signs of blood or infection. UA 04/14 with 1+blood, 10-30RBC. Blood cultures 04/13 prelim no growth x 48 hours. On Zosyn, Doxy, Vanco. CT abd pelvis shows numerous renal cysts, no signs of obstruction or hydronephrosis, unremarkable bladder. Pt examined at bedside this AM. Awake, resting in bed on arrival. No acute distress. No c/o pain at present. Domingo draining pink tinged urine. Patient was seen by our office 09/2022 for new patient eval of BPH with LUTS. Was started on tamsulosin at that time but he does not appear to be taking now. Allergies Allergy/AdvReac Type Severity Reaction Status Date / Time Iodinated Contrast Media Allergy Intermediate ITCHING Verified 03/26/23 14:54 Home Medications Medication Instructions Recorded Confirmed Type cabergoline 0.5 mg tablet 0.5 mg PO 3XWK 03/15/19 04/13/23 History hydrochlorothiazide 25 mg tablet 25 mg PO DAILY 03/15/19 04/13/23 History pravastatin 20 mg tablet 20 mg PO QPM 03/15/19 04/13/23 History aspirin 81 mg tablet,delayed 81 mg PO DAILY 03/26/23 04/13/23 History release ketoconazole 2 % topical cream 1 applic topical .2-3XWK 03/26/23 04/13/23 History emijbivaeifg-zdlpgmng-uyhtya 1 tab PO DAILY 03/26/23 04/13/23 History tablet (Multivitamin 50 Plus tablet) prednisone 50 mg tablet 0 mg PO DIRECTED 03/26/23 04/13/23 History vitamin E mixed 100 unit tablet 100 unit PO DAILY 03/26/23 04/13/23 History Patient History Medical History (Updated 04/16/23 @ 11:34 by GORGE Mina) Anemia Dysphagia Hemianopsia History of right MCA stroke Hyperlipidemia Hypertension Kidney stone 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 Surgical History History of cholecystectomy History of hernia repair Family History Mother Diabetes Hypertension Heart disease Social History Smoking Status: Never smoker Second Hand Exposure: No; Do You Dip or Chew Tobacco: No; Tobacco Cessation Education Requested by Patient: No Hx Alcohol Use: No Hx Substance Use: No Preferred Language: Sami Communication Ability: Effective Beliefs That Will Affect Care: None marital status: Current Living Situation: Spouse current occupational status: retired Other Information That Helps Us Care for You: No Feels Safe at Home: Yes Safety Concerns: Feels Safe At This Time Assistive Devices: None Review of Systems Review of Systems: All systems reviewed & are unremarkable except as noted in HPI & below Physical Exam Constitutional: no acute distress Neck: normal visual inspection Respiratory: no respiratory distress and no labored breathing Gastrointestinal (Abdomen): Inspection/Auscultation: abdomen normal to inspection Musculoskeletal: Head/Neck/Chest: normocephalic Skin: No visible rashes or lesions to exposed skin areas Neurologic: awake Psychiatric: Orientation: alert and cooperative Genitourinary: Domingo catheter intact Results & Data Vital Signs (Past 12 Hours) Vital Signs Temp Pulse Pulse Resp BP Pulse Ox O2 Del Method 04/16/23 08:18 61 16 93 Room Air 04/16/23 06:00 72 28 H 151/77 H 98 04/16/23 05:00 65 19 154/65 H 98 04/16/23 04:00 64 20 162/67 H 97 04/16/23 00:00 81 04/16/23 04:06 36.5 C 04/16/23 03:00 67 21 140/66 94 Nasal Cannula 04/16/23 02:00 64 21 122/62 93 Nasal Cannula 04/16/23 01:00 63 17 120/62 94 Nasal Cannula 04/16/23 00:00 85 23 139/75 97 Nasal Cannula 04/15/23 23:00 85 27 H 120/68 96 04/15/23 22:30 82 25 H 110/61 95 04/15/23 22:00 87 22 105/58 L 95 04/15/23 21:30 92 H 21 112/60 92 Nasal Cannula 04/15/23 21:08 90 20 105/55 L 94 Room Air 04/15/23 21:00 83 20 138/70 97 Room Air O2 Flow Rate 04/16/23 08:18 04/16/23 06:00 04/16/23 05:00 04/16/23 04:00 04/16/23 00:00 04/16/23 04:06 04/16/23 03:00 2 04/16/23 02:00 2 04/16/23 01:00 2 04/16/23 00:00 2 04/15/23 23:00 04/15/23 22:30 04/15/23 22:00 04/15/23 21:30 2 04/15/23 21:08 04/15/23 21:00 PG Care Time/CCT Total # of Minutes Spent Total Time Spent with Patient: Total time spent is greater than 50% in coordination of care (as documented) at patient's floor/unit and/or counseling patient: Coding Level of Care Code 26923 INT INP/OBS CARE 2/55MIN Diagnoses Gross hematuria R31.0 BPH w urinary obs/LUTS N40.1; N13.8
[2023-04-16] MEDS: ENOXAPARIN INJ 40 MG/0.4 ML SYR SQ SCH (09:54)
[2023-04-16] MEDS: PANTOprazole 40 MG in SYRINGE 0 ML IV SCH (09:55)
[2023-04-16] MEDS: PEPTAMEN 1.5 CAL 1,000 ML BAG PEG SCH (10:13)
[2023-04-16] MEDS: LANSOPRAZOLE 30 MG SOLTAB PEG SCH (10:14)
--- NOTE | 2023-04-16 12:21 | Hospitalist Progress Note ---
Date of Service April 16, 2023 Assessment & Plan (1) Septic shock: Plan: Resolving 2nd to extensive right-sided aspiration pneumonia. blood cx's remain negative. Pressors have been discontinued Continue IV Zosyn and Doxycycline. Vanc has been discontinued, MRSA nares was negative cont NC O2. Wean as tolerated (2) Aspiration pneumonia: Plan: Presumed aspiration pna extensive RML/RLL pneumonia on imaging. with resulting septic shock. Patient continues to improve clinically (3) PEG tube malfunction: Plan: GI consultation appreciated. On CT a/p the PEG balloon had migrated into the duodenum. Dr Webber from GI adjusted the PEG and it is functioning well now. 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, with hemorrhagic transformation [facility] no surgical intervention needed for the hemorrhage remains on aspirin 81mg daily for secondary prevention (7) Dysphagia: Plan: 2nd to right MCA territory stroke On PEG tube feedings (8) Hemianopsia: Plan: by 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 Physical Exam Physical Exam: The patient is awake, alert and oriented 3, well developed and well nourished, normocephalic and atraumatic, lying in bed and in no acute distress. HEENT--PERRL, EOMI, mucous membranes and oropharynx mildly dry Neck--supple. No JVD. No bruits. Thyroid normal, trachea midline, no adenopathy. Heart--normal S1 and S2. No murmurs, rubs or gallops. Lungs--reduced air entry on right lower lung Abdomen--normal bowel sounds and soft. Mild epigastric and left sided abdominal pain Extremities--no cyanosis or clubbing. No edema. Dermatologic--normal skin turgor, normal color, no abnormal lymph nodes, no rash. Neurologic--cranial nerves II through XII grossly intact. Rheumatologic--normal range of motion. Psychiatric--normal affect. Results & Data Results & Data Vital Signs (Past 12 Hours) Vital Signs Temp Pulse Pulse Resp BP Pulse Ox O2 Del Method 04/16/23 11:19 62 18 95 Nasal Cannula 04/16/23 10:00 70 24 126/63 94 04/16/23 09:15 89 18 111/67 93 Nasal Cannula 04/16/23 09:00 89 21 107/63 90 Room Air 04/16/23 08:30 83 22 142/74 H 97 04/16/23 08:15 61 17 144/63 H 92 04/16/23 08:00 79 19 147/74 H 95 04/16/23 07:00 64 25 H 124/86 95 Nasal Cannula 04/16/23 08:00 87 04/16/23 08:00 Nasal Cannula 04/16/23 08:18 61 16 93 Room Air 04/16/23 06:00 72 28 H 151/77 H 98 04/16/23 05:00 65 19 154/65 H 98 04/16/23 04:00 64 20 162/67 H 97 04/16/23 04:06 97.7 F 04/16/23 03:00 67 21 140/66 94 Nasal Cannula 04/16/23 02:00 64 21 122/62 93 Nasal Cannula 04/16/23 01:00 63 17 120/62 94 Nasal Cannula O2 Flow Rate 04/16/23 11:19 2 04/16/23 10:00 04/16/23 09:15 2 04/16/23 09:00 04/16/23 08:30 04/16/23 08:15 04/16/23 08:00 04/16/23 07:00 2 04/16/23 08:00 04/16/23 08:00 2 04/16/23 08:18 04/16/23 06:00 04/16/23 05:00 04/16/23 04:00 04/16/23 04:06 04/16/23 03:00 2 04/16/23 02:00 2 04/16/23 01:00 2 PG Care Time/CCT Total # of Minutes Spent Total Time Spent with Patient: Total time spent is greater than 50% in coordination of care (as documented) at patient's floor/unit and/or counseling patient: Coding Level of Care Code 07818 SUB INP/OBS CARE 2/35MIN Diagnoses Septic shock A41.9; R65.21 Aspiration pneumonia J69.0 PEG tube malfunction K94.23 BPH w urinary obs/LUTS N40.1; 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 Time Spent (min) 35
[2023-04-16] MEDS: NOREPINEPHRINE/D5W 4 MG/250 ML PLCT IV SCH (19:24)
[2023-04-16] MEDS: VASOPRESSIN 20 UNITS in 0.9 % SODIUM CHLORIDE 100 ML IV SCH (19:24)
[2023-04-16] MEDS: ASPIRIN 81 MG CHEW PO SCH (20:02)
[2023-04-17] MEDS: DOXYCYCLINE HYCLATE 100 MG in DEXTROSE 5% 100 ML IV SCH ×2 (01:17→14:21)
[2023-04-17] MEDS: TUBE FEEDING WATER FLUSH PEG SCH ×6 (03:47→23:25)
[2023-04-17] MEDS: PIPERACILLIN/TAZOBACTAM 4.5 GM in DEXTROSE 5% 100 ML IV SCH (06:03)
[2023-04-17] MEDS: ALBUT/IPRATROP 3MG/0.5MG NEB 3 ML VIAL NEB SCH (07:06)
[2023-04-17] MEDS: SODIUM CHLOR 7% 4 ML NEB NEB SCH (07:06)
[2023-04-17 07:24] LABS: Hematocrit (blood only) 25.1 % (42.0-52.0); Hemoglobin 8.3 g/dl (14.0-18.0); Mean Corpuscular Hemoglobin 32.7 pg (25.0-34.0); Mean Corpuscular Hgb Conc 33.1 g/dL (32.0-36.0); Mean Corpuscular Volume 98.8 fL (80.0-100.0); Platelet Count 169 K/uL (130-400); RDW Coefficient of Variation 14.9 % (11.5-14.5); RDW Standard Deviation 53.9 fL (36.4-46.3); Red Blood Count 2.54 M/uL (4.70-6.10); White Blood Count 8.68 K/ul (4.8-10.8)
[2023-04-17 07:32] LABS: BUN Creatinine Ratio 31.4 (10-20); Calcium 7.9 mg/dl (8.6-10.3); Creatinine Clr Calc Pharmacy 111.3 ml/min; Est GFR (African American) 114.4 ml/min; Est GFR (Non-African American) 98.7 ml/min; Magnesium 1.9 mg/dl (1.7-2.4); Phosphorus 2.1 mg/dl (2.5-4.9); Potassium 3.4 mmol/L (3.5-5.1)
[2023-04-17] MEDS: LANSOPRAZOLE 30 MG SOLTAB PEG SCH (08:02)
[2023-04-17] MEDS: ENOXAPARIN INJ 40 MG/0.4 ML SYR SQ SCH (08:07)
[2023-04-17] MEDS ORDERED: ALBUT/IPRATROP 3MG/0.5MG NEB 3 ML VIAL NEB PRN (08:31)
[2023-04-17] MEDS ORDERED: SODIUM CHLOR 7% 4 ML NEB NEB PRN (08:32)
--- NOTE | 2023-04-17 08:35 | Urology Progress Note ---
Date of Service April 17, 2023 Assessment & Plan (1) Gross hematuria: (2) BPH w urinary obs/LUTS: Plan 82yo/M admitted with sepsis secondary to right sided aspiration pneumonia. Urology consulted for gross hematuria. Patient is afebrile, hemodynamically stable. Labs today show no leukocytosis, Hemoglobin 8.3 today (8.0 yesterday), Creatinine 0.51. Continue to trend. Blood cultures prelim no growth x 48hours. Continues on Zosyn and Doxycycline. UA 04/14 with 1+blood, 10-30RBC, which appears was collected after catheter insertion. Domingo catheter placed on 04/14 and patient developed gross hematuria the following day requiring manual irrigation. Hematuria appears to have cleared and was likely due to catheter trauma from insertion in the setting of anticoagulation. No intervention warranted. Domingo currently intact and draining yellow urine. Continue to monitor. OK to manually irrigate as needed for clots, retention, suprapubic pain. Anticoagulation per primary team. Urology will follow. Admission and Anticipated Discharge Date Admission Date: April 14, 2023 Subjective Pt examined at bedside this AM. Awake, resting in bed on arrival. No acute distress. Denies fevers, chills, nausea, vomiting. Denies any pain or discomfort. Domingo intact, draining yellow urine. Output overnight 200ml. Review of Systems Constitutional: as per Subjective / HPI Gastrointestinal: as per Subjective / HPI Genitourinary: + as per Subjective / HPI Physical Exam Constitutional: no acute distress Respiratory: no respiratory distress and no labored breathing Gastrointestinal (Abdomen): Percussion/Palpation: abdomen soft; abdomen nontender Skin: No visible rashes or lesions to exposed skin areas Neurologic: awake dysarthria at baseline Psychiatric: Orientation: alert and cooperative Genitourinary: Domingo catheter intact, draining yellow urine Results & Data Vital Signs (Past 12 Hours) Vital Signs Temp Pulse Pulse Resp BP Pulse Ox O2 Del Method 04/17/23 07:00 36.8 C 61 18 158/67 H 04/17/23 07:06 55 L 16 96 Room Air 04/17/23 04:05 60 04/17/23 03:52 Room Air 04/17/23 03:30 36.4 C L 61 22 168/88 H 96 Room Air 04/17/23 00:35 59 L 04/16/23 23:01 36.5 C 85 19 152/87 H 97 Nasal Cannula O2 Flow Rate 04/17/23 07:00 04/17/23 07:06 04/17/23 04:05 04/17/23 03:52 04/17/23 03:30 04/17/23 00:35 04/16/23 23:01 2 PG Care Time/CCT Total # of Minutes Spent Total Time Spent with Patient: Total time spent is greater than 50% in coordination of care (as documented) at patient's floor/unit and/or counseling patient: Coding Level of Care Code 39381 SUB INP/OBS CARE 2/35MIN Diagnoses Gross hematuria R31.0 BPH w urinary obs/LUTS N40.1; N13.8
[2023-04-17] MEDS: PEPTAMEN 1.5 CAL 1,000 ML BAG PEG SCH ×2 (10:04→19:54)
--- NOTE | 2023-04-17 11:51 | Hospitalist Progress Note ---
Date of Service April 17, 2023 Assessment & Plan (1) Septic shock: Plan: Resolving 2nd to extensive right-sided aspiration pneumonia. blood cx's remain negative. Pressors have been discontinued Continue IV Zosyn and Doxycycline. Vanc has been discontinued, MRSA nares was negative cont NC O2. Wean as tolerated Will transition to PO antibiotics upon discharge tomorrow (2) Aspiration pneumonia: Plan: Presumed aspiration pna extensive RML/RLL pneumonia on imaging. with resulting septic shock. Patient continues to improve clinically Cultures remain without growth (3) PEG tube malfunction: Plan: GI consultation appreciated. On CT a/p the PEG balloon had migrated into the duodenum. Dr Webber from GI adjusted the PEG and it is functioning well now. 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, with hemorrhagic transformation by report treated at [facility] no surgical intervention needed for the hemorrhage remains on aspirin 81mg daily for secondary prevention (7) Dysphagia: Plan: 2nd to right MCA territory stroke On PEG tube feedings (8) Hemianopsia: Plan: by report has such in the setting of his recent stroke (9) History of squamous cell carcinoma: Plan: tongue noted (10) Hypomagnesemia: Plan: s/p replacement with resolution (11) Anemia: Plan: Could be from loss due to hematuria Monitor H and H Plan discharge back to [facility] tomorrow Admission and Anticipated Discharge Date Admission Date: April 14, 2023 Subjective patient seen and examined, feels over all better Review of Systems Review of Systems: All systems reviewed are negative, apart from the ones contained in the history. Physical Exam Physical Exam: The patient is awake, alert and oriented 3, well developed and well nourished, normocephalic and atraumatic, lying in bed and in no acute distress. HEENT--PERRL, EOMI, mucous membranes and oropharynx mildly dry Neck--supple. No JVD. No bruits. Thyroid normal, trachea midline, no adenopathy. Heart--normal S1 and S2. No murmurs, rubs or gallops. Lungs--reduced air entry on right lower lung Abdomen--normal bowel sounds and soft. Mild epigastric and left sided abdominal pain Extremities--no cyanosis or clubbing. No edema. Dermatologic--normal skin turgor, normal color, no abnormal lymph nodes, no rash. Neurologic--cranial nerves II through XII grossly intact. Rheumatologic--normal range of motion. Psychiatric--normal affect. Results & Data Results & Data Vital Signs (Past 12 Hours) Vital Signs Temp Pulse Pulse Resp BP Pulse Ox O2 Del Method 04/17/23 07:00 98.2 F 61 18 158/67 H 04/17/23 07:06 55 L 16 96 Room Air 04/17/23 04:05 60 04/17/23 03:52 Room Air 04/17/23 03:30 97.5 F L 61 22 168/88 H 96 Room Air 04/17/23 00:35 59 L PG Care Time/CCT Total # of Minutes Spent Total Time Spent with Patient: Total time spent is greater than 50% in coordination of care (as documented) at patient's floor/unit and/or counseling patient: Coding Level of Care Code 15863 SUB INP/OBS CARE 2/35MIN Diagnoses Septic shock A41.9; R65.21 Aspiration pneumonia J69.0 PEG tube malfunction K94.23 BPH w urinary obs/LUTS N40.1; 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 Time Spent (min) 35
[2023-04-17] MEDS: AMPICILLIN/SULBACTAM SOD 3,000 MG in 0.9 % SODIUM CHLORIDE 100 ML IV SCH ×2 (13:51→19:50)
[2023-04-17] MEDS: ASPIRIN 81 MG CHEW PO SCH (20:54)
[2023-04-18] MEDS: DOXYCYCLINE HYCLATE 100 MG in DEXTROSE 5% 100 ML IV SCH ×2 (01:06→13:38)
[2023-04-18] MEDS: AMPICILLIN/SULBACTAM SOD 3,000 MG in 0.9 % SODIUM CHLORIDE 100 ML IV SCH ×4 (01:06→19:06)
[2023-04-18] MEDS: TUBE FEEDING WATER FLUSH PEG SCH ×6 (01:52→21:32)
[2023-04-18 06:31] LABS: BUN Creatinine Ratio 29.8 (10-20); Calcium 7.8 mg/dl (8.6-10.3); Creatinine Clr Calc Pharmacy 120.8 ml/min; Est GFR (African American) 118.3 ml/min; Est GFR (Non-African American) 102.1 ml/min; Magnesium 1.7 mg/dl (1.7-2.4); Phosphorus 1.8 mg/dl (2.5-4.9); Potassium 3.3 mmol/L (3.5-5.1)
[2023-04-18] MEDS ORDERED: POTASSIUM CHLORIDE CRTAB 20 MEQ TABCR PO STA (07:25)
[2023-04-18] MEDS: LANSOPRAZOLE 30 MG SOLTAB PEG SCH (08:47)
[2023-04-18] MEDS: ENOXAPARIN INJ 40 MG/0.4 ML SYR SQ SCH (08:50)
--- NOTE | 2023-04-18 09:50 | Urology Progress Note ---
Date of Service April 18, 2023 Assessment & Plan (1) Gross hematuria: (2) BPH w urinary obs/LUTS: Plan 82yo/M admitted with sepsis secondary to right sided aspiration pneumonia. Urology consulted for gross hematuria. Patient is afebrile, hemodynamically stable. Labs today show creatinine 0.47. Patient developed gross hematuria following Domingo catheter placement which has now cleared. Suspect hematuria was likely due to catheter trauma from insertion in the setting of anticoagulation. Domingo currently intact and draining yellow urine. We discussed void trial vs. maintaining catheter. Will plan to keep catheter for another few days-week while he continues to recover. Will arrange outpatient follow-up with our service. We can arrange a voiding trial in our office or the catheter can be removed at [facility]. Urology will sign-off. Please contact us with any further questions, concerns, or changes in patient status. Admission and Anticipated Discharge Date Admission Date: April 14, 2023 Subjective Pt examined at bedside this AM. Awake, resting in bed on arrival. No acute distress. Denies fevers, chills, nausea, vomiting. Denies any pain or discomfort. Domingo intact, draining yellow urine. Review of Systems Constitutional: as per Subjective / HPI Gastrointestinal: as per Subjective / HPI Genitourinary: + as per Subjective / HPI Physical Exam Constitutional: no acute distress Respiratory: no respiratory distress and no labored breathing Gastrointestinal (Abdomen): Percussion/Palpation: abdomen soft; abdomen nontender Neurologic: awake dysarthria at baseline Psychiatric: Orientation: alert and cooperative Genitourinary: Domingo catheter intact, draining yellow urine Results & Data Vital Signs (Past 12 Hours) Vital Signs Temp Pulse Resp BP Pulse Ox O2 Del Method 04/18/23 07:52 37 C 63 19 148/77 H 92 Room Air 04/18/23 03:18 36.6 C 71 18 164/90 H 93 Room Air 04/17/23 23:32 36.5 C 78 18 165/104 H 95 Room Air PG Care Time/CCT Total # of Minutes Spent Total Time Spent with Patient: Total time spent is greater than 50% in coordination of care (as documented) at patient's floor/unit and/or counseling patient: Coding Level of Care Code 02434 SUB INP/OBS CARE 2/35MIN Diagnoses Gross hematuria R31.0 BPH w urinary obs/LUTS N40.1; N13.8
--- NOTE | 2023-04-18 14:08 | Hospitalist Progress Note ---
Date of Service April 18, 2023 Assessment & Plan (1) Septic shock: Plan: Resolving 2nd to extensive right-sided aspiration pneumonia. blood cx's remain negative. Pressors have been discontinued currently on Unasyn and Doxycycline. Vanc has been discontinued, MRSA nares was negative cont NC O2. Wean as tolerated Will transition to PO Augmentin and Doxy upon discarge (2) Aspiration pneumonia: Plan: Presumed aspiration pna extensive RML/RLL pneumonia on imaging. with resulting septic shock. Patient continues to improve clinically Cultures remain without growth (3) PEG tube malfunction: Plan: GI consultation appreciated. On CT a/p the PEG balloon had migrated into the duodenum. Dr Webber from GI adjusted the PEG and it is functioning well now. 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, with hemorrhagic transformation by report treated at [facility] no surgical intervention needed for the hemorrhage remains on aspirin 81mg daily for secondary prevention (7) Dysphagia: Plan: 2nd to right MCA territory stroke On PEG tube feedings (8) Hemianopsia: Plan: by report has such in the setting of his recent stroke (9) History of squamous cell carcinoma: Plan: tongue noted (10) Hypomagnesemia: Plan: s/p replacement with resolution (11) Anemia: Plan: Could be from loss due to hematuria Monitor H and H Plan discharge back to [facility] when accepted Admission and Anticipated Discharge Date Admission Date: April 14, 2023 Subjective patient seen and examined, awaiting transfer back to [facility] Review of Systems Review of Systems: All systems reviewed are negative, apart from the ones contained in the history. Physical Exam Physical Exam: The patient is awake, alert and oriented 3, well developed and well nourished, normocephalic and atraumatic, lying in bed and in no acute distress. HEENT--PERRL, EOMI, mucous membranes and oropharynx mildly dry Neck--supple. No JVD. No bruits. Thyroid normal, trachea midline, no adenopathy. Heart--normal S1 and S2. No murmurs, rubs or gallops. Lungs--reduced air entry on right lower lung Abdomen--normal bowel sounds and soft. Mild epigastric and left sided abdominal pain Extremities--no cyanosis or clubbing. No edema. Dermatologic--normal skin turgor, normal color, no abnormal lymph nodes, no rash. Neurologic--cranial nerves II through XII grossly intact. Rheumatologic--normal range of motion. Psychiatric--normal affect. Results & Data Results & Data Vital Signs (Past 12 Hours) Vital Signs Temp Pulse Pulse Resp BP Pulse Ox O2 Del Method 04/18/23 12:21 98.4 F 63 19 137/67 92 Room Air 04/18/23 11:53 67 04/18/23 07:52 98.6 F 63 19 148/77 H 92 Room Air 04/18/23 03:18 97.9 F 71 18 164/90 H 93 Room Air PG Care Time/CCT Total # of Minutes Spent Total Time Spent with Patient: Total time spent is greater than 50% in coordination of care (as documented) at patient's floor/unit and/or counseling patient: Coding Level of Care Code 36986 SUB INP/OBS CARE 2/35MIN Diagnoses Septic shock A41.9; R65.21 Aspiration pneumonia J69.0 PEG tube malfunction K94.23 BPH w urinary obs/LUTS N40.1; 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 Time Spent (min) 35
[2023-04-18] MEDS: ASPIRIN 81 MG CHEW PO SCH (19:51)
[2023-04-19] MEDS: AMPICILLIN/SULBACTAM SOD 3,000 MG in 0.9 % SODIUM CHLORIDE 100 ML IV SCH ×4 (00:41→20:53)
[2023-04-19] MEDS: DOXYCYCLINE HYCLATE 100 MG in DEXTROSE 5% 100 ML IV SCH (00:41)
[2023-04-19] MEDS: TUBE FEEDING WATER FLUSH PEG SCH ×6 (02:50→23:29)
[2023-04-19 06:31] LABS: Hematocrit (blood only) 27.1 % (42.0-52.0); Hemoglobin 9.2 g/dl (14.0-18.0); Mean Corpuscular Hemoglobin 32.5 pg (25.0-34.0); Mean Corpuscular Hgb Conc 33.9 g/dL (32.0-36.0); Mean Corpuscular Volume 95.8 fL (80.0-100.0); Mean Platelet Volume 9.5 fL (9.4-12.4); Platelet Count 214 K/uL (130-400); RDW Standard Deviation 52.7 fL (36.4-46.3); Red Blood Count 2.83 M/uL (4.70-6.10); White Blood Count 5.46 K/ul (4.8-10.8)
[2023-04-19 06:42] LABS: BUN Creatinine Ratio 31.1 (10-20); Calcium 7.8 mg/dl (8.6-10.3); Creatinine Clr Calc Pharmacy 126.2 ml/min; Est GFR (African American) 120.4 ml/min; Est GFR (Non-African American) 103.9 ml/min; Magnesium 1.7 mg/dl (1.7-2.4); Phosphorus 2.3 mg/dl (2.5-4.9); Potassium 3.3 mmol/L (3.5-5.1)
[2023-04-19] MEDS: LANSOPRAZOLE 30 MG SOLTAB PEG SCH (08:33)
[2023-04-19] MEDS: ENOXAPARIN INJ 40 MG/0.4 ML SYR SQ SCH (08:33)
[2023-04-19] MEDS ORDERED: POTASSIUM CHLORIDE CRTAB 20 MEQ TABCR PO STA (11:18)
--- NOTE | 2023-04-19 11:30 | Hospitalist Progress Note ---
Date of Service April 19, 2023 Assessment & Plan (1) Septic shock: Plan: Resolving 2nd to extensive right-sided aspiration pneumonia. blood cx's remain negative. Pressors have been discontinued currently on Unasyn Will transition to PO Augmentin on discharge (2) Aspiration pneumonia: Plan: Presumed aspiration pna extensive RML/RLL pneumonia on imaging. with resulting septic shock. Patient continues to improve clinically Cultures remain without growth Continue Unasyn, transition to Augmentin on discharge (3) PEG tube malfunction: Plan: GI consultation appreciated. On CT a/p the PEG balloon had migrated into the duodenum. Dr Webber from GI adjusted the PEG and it is functioning well now. 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, with hemorrhagic transformation by report treated at [facility] no surgical intervention needed for the hemorrhage remains on aspirin 81mg daily for secondary prevention (7) Dysphagia: Plan: 2nd to right MCA territory stroke On PEG tube feedings (8) Hemianopsia: Plan: by report has such in the setting of his recent stroke (9) History of squamous cell carcinoma: Plan: stable (10) Hypomagnesemia: Plan: s/p replacement with resolution (11) Anemia: Plan: Could be from loss due to hematuria Monitor H and H Plan discharge back to [facility] when accepted Admission and Anticipated Discharge Date Admission Date: April 14, 2023 Subjective patient seen and examined, awaiting transfer back to [facility], no new complaints today Review of Systems Review of Systems: All systems reviewed are negative, apart from the ones contained in the history. Physical Exam Physical Exam: The patient is awake, alert and oriented 3, well developed and well nourished, normocephalic and atraumatic, lying in bed and in no acute distress. HEENT--PERRL, EOMI, mucous membranes and oropharynx mildly dry Neck--supple. No JVD. No bruits. Thyroid normal, trachea midline, no adenopathy. Heart--normal S1 and S2. No murmurs, rubs or gallops. Lungs--reduced air entry on right lower lung Abdomen--normal bowel sounds and soft. Mild epigastric and left sided abdominal pain Extremities--no cyanosis or clubbing. No edema. Dermatologic--normal skin turgor, normal color, no abnormal lymph nodes, no rash. Neurologic--cranial nerves II through XII grossly intact. Rheumatologic--normal range of motion. Psychiatric--normal affect. Results & Data Results & Data Vital Signs (Past 12 Hours) Vital Signs Temp Pulse Pulse Resp BP Pulse Ox O2 Del Method 04/19/23 11:15 97.7 F 62 18 131/64 97 Room Air 04/19/23 07:36 61 18 157/72 H 93 Room Air 04/19/23 07:00 63 04/19/23 03:06 97.9 F 62 18 169/85 H 96 Room Air PG Care Time/CCT Total # of Minutes Spent Total Time Spent with Patient: Total time spent is greater than 50% in coordination of care (as documented) at patient's floor/unit and/or counseling patient: Coding Level of Care Code 89260 SUB INP/OBS CARE 2/35MIN Diagnoses Septic shock A41.9; R65.21 Aspiration pneumonia J69.0 PEG tube malfunction K94.23 BPH w urinary obs/LUTS N40.1; 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 Time Spent (min) 35
[2023-04-19] MEDS: PEPTAMEN 1.5 CAL 1,000 ML BAG PEG SCH (14:28)
[2023-04-19] MEDS: ASPIRIN 81 MG CHEW PO SCH (20:55)
[2023-04-20] MEDS: AMPICILLIN/SULBACTAM SOD 3,000 MG in 0.9 % SODIUM CHLORIDE 100 ML IV SCH ×2 (02:33→08:36)
[2023-04-20] MEDS: TUBE FEEDING WATER FLUSH PEG SCH ×3 (02:33→11:39)
[2023-04-20 06:51] LABS: BUN Creatinine Ratio 37.5 (10-20); Creatinine Clr Calc Pharmacy 118.3 ml/min; Est GFR (African American) 117.3 ml/min; Est GFR (Non-African American) 101.2 ml/min; Magnesium 1.8 mg/dl (1.7-2.4); Phosphorus 3.7 mg/dl (2.5-4.9); Potassium 3.9 mmol/L (3.5-5.1)
[2023-04-20] MEDS: ENOXAPARIN INJ 40 MG/0.4 ML SYR SQ SCH (08:34)
[2023-04-20] MEDS: LANSOPRAZOLE 30 MG SOLTAB PEG SCH (08:35)
--- NOTE | 2023-04-20 12:29 | Discharge Summary ---
Date of Service April 20, 2023 Admission HPI Per Admitting Provider The patient is a 82-year-old male with a past medical history including hyperlipidemia, hypertension, squamous cell carcinoma of the tongue, and benign pituitary tumor. The patient had been seen at [place] the emergency department on 03/26/2023, at that time was thought to have either a brain mass or subacute hemorrhage. He was transferred to neurosurgery service at [facility] with Dr. Crockett. While at [facility] he was found to have a right MCA CVA, with hemorrhagic conversion, and hemianopsia. He did require a PEG tube placement on 04/02/2023 due to dysphagia. He was transferred to [facility] on 04/08/2023. He was next seen at the emergency department at [facility] on 04/10/2023 due to problems with PEG tube pulling out, and had it reinserted at that time. He presents to the emergency department today due to increased abdominal pain and distention, and was found by CT to have a functional gastric outlet obstruction due to the tube balloon being present in the duodenum. This was addressed by the emergency department staff, and the patient was then referred to the hospitalist service for admission for further GI follow-up tomorrow Principal Diagnosis sepsis 2ndry to PNA Discharge Exam The patient is awake, alert and oriented 3, well developed and well nourished, normocephalic and atraumatic, lying in bed and in no acute distress. HEENT--PERRL, EOMI, mucous membranes and oropharynx mildly dry Neck--supple. No JVD. No bruits. Thyroid normal, trachea midline, no adenopathy. Heart--normal S1 and S2. No murmurs, rubs or gallops. Lungs--reduced air entry on right lower lung Abdomen--normal bowel sounds and soft. Mild epigastric and left sided abdominal pain Extremities--no cyanosis or clubbing. No edema. Dermatologic--normal skin turgor, normal color, no abnormal lymph nodes, no rash. Neurologic--cranial nerves II through XII grossly intact. Rheumatologic--normal range of motion. Psychiatric--normal affect. Discharge Data Allergies Allergy/AdvReac Type Severity Reaction Status Date / Time Iodinated Contrast Media Allergy Intermediate ITCHING Verified 03/26/23 14:54 Consultations 06/25/23 00:39 ED Decision to Admit Stat 04/14/23 06:04 Consult Gastroenterology Routine 04/14/23 10:06 Consult Bending Frame Operator Routine 04/16/23 07:27 Consult Urology Routine Ordered Studies 04/13/23 21:16 CT abd pelvis wo con Stat Hospital Course (1) Septic shock: Resolved 2nd to extensive right-sided aspiration pneumonia. blood cx's remain negative. Pressors have been discontinued currently on Unasyn Will transition to PO Augmentin on discharge (2) Aspiration pneumonia: Presumed aspiration pna extensive RML/RLL pneumonia on imaging. with resulting septic shock. Patient continues to improve clinically Cultures remain without growth Continue Unasyn, transition to Augmentin on discharge (3) PEG tube malfunction: GI consultation appreciated. On CT a/p the PEG balloon had migrated into the duodenum. Dr Webber from GI adjusted the PEG and it is functioning well now. (4) BPH w urinary obs/LUTS: tolentino placed early AM of 04/14 not on meds at home for BPH now with gross hematuria, likely traumatic Urology on consult, appreciate trecs Continue bladder irrigation (5) Prolactinoma: by report managed medically no h/o pituitary surgery should remain on cabergoline 0.5mg 3x/week (6) History of right MCA stroke: 03/2023, with hemorrhagic transformation by report treated at [facility] no surgical intervention needed for the hemorrhage remains on aspirin 81mg daily for secondary prevention (7) Dysphagia: 2nd to right MCA territory stroke On PEG tube feedings (8) Hemianopsia: by report has such in the setting of his recent stroke (9) History of squamous cell carcinoma: stable (10) Hypomagnesemia: s/p replacement with resolution (11) Anemia: Could be from loss due to hematuria Monitor H and H Plan discharge back to [facility] when accepted Total Time Total Time Spent Total Time Spent (In Minutes): 35 Discharge Plan Discharge Items Patient Disposition: Transfer [facility]sp Fac Reason For Visit: HYPOXIA, G-TUBE MALFUNCTION, ASP PNEUM Discharge Diagnosis: Aspiration PNA Activity: Resume your previous activity Non-emergency contact: Primary Care Provider and Urologist Call non-emergency contact if: you have any medication questions and your symptoms worsen Follow-up/Referrals: Yee Avina PA [Physician Barrel Rifler Broach] - Isiah Pardo MD [Primary Care Provider] - Diet: Regular Addtl Attending Provider Instructions: please make appointment to follow up with Urology Addtl Fireman Provider Instructions: The urology office will contact you to arrange a follow-up visit. We can arrange catheter removal in our office or your catheter can be removed at [facility]. Please call our office at [phone] with any questions or concerns. We are happy to assist you. Tolentino Catheter care: Keep the catheter well secured with either a leg back or leg strap with large bag. Empty your bag when it's about half full. Use mild soap (such as Dove or Dial) and water to wash the catheter and the head of your penis daily, or more frequently if needed. You may shower as normal. Please avoid tub baths or soaking until catheter removed. Pending Studies at Discharge: No Stand-Alone Forms: My [facility] Skilled Items Patient informed of condition?: Yes DNR: No Discharge Level of Care: Skilled Communicable Disease: No Discharge Prognosis: Stable Lines: None Urinary Catheter: Yes Medications and DC Order Prescriptions: New amoxicillin-pot clavulanate [Augmentin] 500-125 mg tablet 1 tab feeding tube BID Qty: 14 0RF Continued cabergoline 0.5 mg tablet 0.5 mg PO 3XWK Rx Instructions: PT TAKE ON AND SAT pravastatin 20 mg tablet 20 mg PO QPM hydrochlorothiazide 25 mg tablet 25 mg PO DAILY aspirin 81 mg Tablet,Delayed Release (Dr/Ec) 81 mg PO DAILY prednisone 50 mg tablet 0 mg PO DIRECTED Rx Instructions: FOR STUDY IN JUN 2023. TAKE DIRECTED. ketoconazole 2 % Cream 1 applic TOPICAL .[id number] Multivitamin 50 Plus Tablet 1 tab PO DAILY vitamin E mixed 100 unit Tablet 100 unit PO DAILY Discharge Orders: Discharge Order (Routine); Ordered 04/20/23 Ordered By: Gregg Juárez Admission Data Admit Date/Time: 04/14/23 00:53 Attending Provider: Gregg Juárez Admit Provider: Billy Aranda Primary Care Provider: Isiah Pardo Other Providers: [facility] ; Billy Aranda ; Martha Webber Jr ; Reed Dominique ; Redd Flores ; Hima Collier ; Gaudencio Burnett ; Kelsey Kimble ; Peter Kat ; Luly Hercules ; Puja Campuzano ; Malcolm Young ; Yee Avina ; Deloris Cheng ; Gadiel Mathew ; Marvel El Other Interventions: Discharge Summary Assessment (RN) Last Done: 04/20/23 12:21 Coding Level of Care Code 07653 INP/OBS DISCH >30 MIN Diagnoses Septic shock A41.9; R65.21 Aspiration pneumonia J69.0 PEG tube malfunction K94.23 BPH w urinary obs/LUTS N40.1; 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 Time Spent (min) 35
== END 2023-04-20 14:30 | DRG 871 ==
LOC: ED 20:42 → SUATTDRO 04-14 00:53 → 2S 04-14 00:53 → 1E 04-14 09:32 → 2E 04-17 03:04
DX: K31.1 Adult hypertrophic pyloric stenosis; I10 Essential (primary) hypertension; N40.1 Benign prostatic hyperplasia with lower urinary tract symptoms; I69.391 Dysphagia following cerebral infarction; Z85.810 Personal history of malignant neoplasm of tongue; Z79.82 Long term (current) use of aspirin; Z92.3 Personal history of irradiation; Y92.019 Unspecified place in single-family (private) house as the place of occurrence of the external cause; E87.20 Acidosis, unspecified; A41.9 Sepsis, unspecified organism; D50.0 Iron deficiency anemia secondary to blood loss (chronic); Y73.2 Prosthetic and other implants, materials and accessory gastroenterology and urology devices associated with adverse incidents; E86.0 Dehydration; Z83.3 Family history of diabetes mellitus; J69.0 Pneumonitis due to inhalation of food and vomit; I95.9 Hypotension, unspecified; R13.10 Dysphagia, unspecified; D35.2 Benign neoplasm of pituitary gland; E83.42 Hypomagnesemia; K94.29 Other complications of gastrostomy; R31.0 Gross hematuria; M21.371 Foot drop, right foot; E78.5 Hyperlipidemia, unspecified; Z91.041 Radiographic dye allergy status; I69.398 Other sequelae of cerebral infarction; R65.21 Severe sepsis with septic shock

== ENCOUNTER 2023-05-17 15:33 | Inpatient (IN) ==
[2023-05-17] MEDS ORDERED: ONDANSETRON INJ 2 MG/ML 2 ML VIAL IV STA (16:43)
[2023-05-17] MEDS ORDERED: SODIUM CHLORIDE 0.9% 1000ML 1,000 ML IV STA (16:43)
[2023-05-17] MEDS: MoRPHine SULFATE 4 MG/ML 1 ML CARP\\VIAL IV PRN ×2 (16:56→20:36)
[2023-05-17 17:11] LABS: Basophils # (auto) 0.05 K/uL (0-0.2); Basophils % (auto) 0.7 %; Eosinophils # (auto) 0.27 K/uL (0-0.50); Eosinophils % (auto) 3.6 %; Hematocrit (blood only) 35.5 % (42.0-52.0); Hemoglobin 11.6 g/dl (14.0-18.0); Immature Granulocytes # (auto) 0.05 K/uL (0.01-0.20); Immature Granulocytes % (auto) 0.7 %; Lymphocytes # (auto) 0.99 K/uL (1.2-3.4); Lymphocytes % (auto) 13.3 %; Mean Corpuscular Hemoglobin 32.7 pg (25.0-34.0); Mean Corpuscular Hgb Conc 32.7 g/dL (32.0-36.0); Monocytes # (auto) 0.48 K/uL (0.11-0.59); Monocytes % (auto) 6.5 %; Neutrophils # (auto) 5.59 K/uL (1.40-6.50); Neutrophils % (auto) 75.2 %; Platelet Count 206 K/uL (130-400); RDW Coefficient of Variation 15.4 % (11.5-14.5); RDW Standard Deviation 57.3 fL (36.4-46.3); Red Blood Count 3.55 M/uL (4.70-6.10); White Blood Count 7.43 K/ul (4.8-10.8)
[2023-05-17 17:19] LABS: Albumin Globulin Ratio 1.3 (0.9-2); Albumin Level 3.6 gm/dl (3.4-5.0); BUN Creatinine Ratio 37.9 (10-20); Bilirubin,Total 0.5 mg/dl (0.2-1.0); Calcium 9.1 mg/dl (8.6-10.3); Creatinine Clr Calc Pharmacy 83.7 ml/min; Est GFR (African American) 102.9 ml/min; Est GFR (Non-African American) 88.8 ml/min; Globulin 2.7 gm/dl (2.5-4.0); Potassium 3.7 mmol/L (3.5-5.1); Total Protein 6.3 gm/dl (6.0-8.3)
--- NOTE | 2023-05-17 17:35 | XRay Report ---
XR chest 1V portable, XR KUB/Abdomen 1 view HISTORY: 82 years-old Male abd pain, SOB acute chest and abdominal pain with shortness of breath COMPARISON: Chest radiograph 04/14/2023, CT abdomen and pelvis 04/13/2023 TECHNIQUE: AP view of the chest with KUB radiograph FINDINGS: CHEST: Cardiac silhouette is enlarged. A loop recorder device is present. Chronic interstitial coarsening. P robable trace pleural effusions. No pneumothorax or overt pulmonary edema. Mild subsegmental bibasila r densities. Bones appear grossly intact. KB: Surgical clips of the epigastric abdomen. Moderate fecal retention. Air-filled loops of bowel within the left abdomen measuring up to 4.7 cm. No urolithiasis identified. 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 IMPRESSION: 1. Cardiomegaly without overt pulmonary edema. 2. Trace pleural effusions with mild bibasilar atelectasis. 3. Moderate fecal retention. 4. Air-filled loops of bowel within the left mid abdomen, likely both large and small bowel. Findings may represent an ileus. Follow-up recommended. ACT 112: Negative or not required by law. The above report was generated using voice recognition software. It may contain grammatical, syntax o r spelling errors. Electronically signed by: Gerardo Snwo M.D. 05/17/2023 5:33 PM
[2023-05-17] MEDS ORDERED: diphenhydrAMINE 50 MG/ML VIAL IV STA (18:18)
[2023-05-17] MEDS ORDERED: MoRPHine SULFATE 2 MG/ML CARP ONE (18:39)
[2023-05-17 18:55] LABS: Appearance Urine Cloudy (Clear); Bacteria Urine Automated Negative (Negative); Bilirubin Urine Negative (Negative); Blood Urine Negative (Negative); Color Urine Yellow; Glucose Urine UA Negative (Negative); Ketones Urine Trace (Negative); Leukocyte Esterase Urine Negative (Negative); Nitrite Urine Negative (Negative); Protein Urine Negative (Negative); RBC Urine Automated 0-4 /hpf (0-4); Specific Gravity Urine 1.016 (1.000-1.030); Urobilinogen Urine Negative (Negative)
[2023-05-17] MEDS ORDERED: MoRPHine SULFATE 2 MG/ML CARP IV STA (19:05)
[2023-05-17] MEDS ORDERED: OPTIRAY 320 100ml IV ONE (19:10)
--- NOTE | 2023-05-17 19:56 | CT Scan Report ---
Exam(s): CT ABDOMEN + PELVIS With Contrast IV Amt: 93ML OPTIRAY 320 EXAM: CT Abdomen and Pelvis With Intravenous Contrast CLINICAL HISTORY: Reason for exam: SBO, PEG tube, h/o stroke. TECHNIQUE: Axial computed tomography images of the abdomen and pelvis with intravenous contrast. CTDI is 21.14 mGy and DLP is 1007.5 mGy-cm. Automated exposure control was utilized for the study. A dose lowering technique was utilized adhering to the principles of ALARA. CONTRAST: Patient received 93ML OPTIRAY 320 of IV contrast COMPARISON: 04/13/23. FINDINGS: Subsegmental basilar atelectasis. Reticular nodular right lower lobe infiltrate is suspicious for atypical infection, but basilar airspace disease has substantially improved in the interval. Coronary atherosclerosis. The heart is mildly enlarged. Trace pericardial effusion. Thickened distal esophagus, more pronounced on the prior study. Moderate gastric distention. Percutaneous gastrostomy tube has been pulled back, tip now appropriately positioned in the antrum. There is irregular wall thickening about the pylorus. Inflammation neoplastic etiologies are both possible. No perforation. More distally, there is small bowel distention with a transition point on series 2, image 44 consider adhesion causing this small bowel obstruction. Mesenteric edema and small volume ascites. Diverticulosis coli. No clear diverticulitis within limits related to the edema and free fluid appendix is not identified. Bilateral renal cysts. Largest cyst at the upper pole of the left kidney measures 8.3 cm. Lower pole left renal cyst with peripheral calcification. No clear enhancing soft tissue component here or elsewhere. Bilateral renal hypodensities that are too small to characterize. Nonobstructing lower pole right renal calculus. Cholecystectomy may explain mild biliary dilation. Prostatomegaly without pathologic bladder distention. Metallic density along the rightward urinary bladder and cecum, presumably postoperative. Inguinal hernias containing fat and fluid, left larger than right. Aortoiliofemoral atherosclerosis without aneurysm. Degeneration of the spine and hips.. Chronic compression deformities at T11 and L1. No acute fracture. Probable bone island to the T12 vertebral body. IMPRESSION: Small bowel obstruction with rightward abdominal transition point, potentially an adhesion. Mesenteric edema and small volume ascites. Fluid and fat distends bilateral inguinal hernias, left larger than right. Gastric distention despite gastrostomy tube. Pyloric thickening could reflect inflammation or neoplasm. Consider endoscopy. Progressive distal esophageal wall thickening. Reticulonodular RLL infiltrate is suspicious for atypical infection, but basilar airspace infiltrates have substantially improved in the interval. Incidental findings as detailed above. Electronically signed by: Larry Estes M.D. 05/17/23 19:54 PM
--- NOTE | 2023-05-17 22:27 | Surgery Consultation ---
Date of Consultation May 17, 2023 Assessment & Plan (1) Small bowel obstruction: Patient is being admitted on the hospitalist service. We recommend proceeding as follows: Provide analgesics Provide antiemetics if needed Implement n.p.o. status . IV fluid for hydration Follow serial labs The treating emergency room physician has placed the patient's gastric tube to wall suction and this should continue for venting purposes. It is noteworthy to mention that the patient did report relief of his presenting symptoms when his gastric tube was placed to suction. The gastric tube can be taken off suction and consideration be given to advancing the patient's diet when he has improvement of his abdominal exam and return of bowel function At the present time the patient is not hypotensive or tachycardic. He is also afebrile without leukocytosis and does not have evidence of acute kidney injury. I therefore feel a trial of conservative management of his small bowel obstruction is warranted. -Additional recommendations were forthcoming based on his clinical course as it unfolds Supervising Physician Co-Signing Physician Notes pnt d/w Nigel Baltazar, labs and imaging reviewed, agree with above. sbo, no indication for emergent surgery. G tube to suction, surgery will follow. History of Present Illness Reason for Consultation: Small bowel obstruction History of Present Illness This is an 82-year-old male who presented to the emergency department secondary to nonspecific abdominal pain. Patient says that the abdominal pain has been present in a generalized fashion without radiation for approximately 2 days. He also notes some worsening abdominal distention. He denies any nausea or vomiting. He notes that it approximate 24 hours ago he did have a bowel movement but since presentation to the emergency department he has not been able to move his bowels or passed any flatus. Patient does note that he has a history of laryngeal cancer which has affected his swallowing and nutrition and he has had a PEG tube placed. He does note that he has had issues in the past with his PEG tube as it became malpositioned causing a gastric outlet obstruction but this has been resolved. As noted above the patient presented to the emergency department secondary to his above noted symptomatology. He denies any fevers, shakes, or chills. The patient notes that he has had prior abdominal surgeries. He reports he has had a laparoscopic cholecystectomy. He also notes that he has had an inguinal herniorrhaphy in the past and he has had a PEG tube placed. Since arrival to the hospital this patient has had labs and imaging which independent reviewed. A KUB showed air-filled loops of bowel in the left mid abdomen involving both large and small bowel which is felt to potentially represent an ileus. This was followed up with a CT scan of the abdomen and pelvis where patient was noted to have findings concerning for small bowel obstruction with a transition point in the right side of the abdomen potentially related to an adhesion. There is some mesenteric edema and some small volume ascites. Patient's stomach appeared distended and he was noted to have a gastrostomy tube in place. Labs included a CBC her white blood cell count was normal. Hemoglobin and hematocrit were 11.6 and 35.5. Platelet count was normal. Chemistry profile showed sodium, potassium, and creatinine were normal. BUN had a slight elevation at 25. There is no elevation of patient's LFTs or lipase. A urinalysis was not indicative of infection and a COVID test was negative. At the time of my interview the patient was resting comfortably in bed and he was in no distress. Allergies Allergy/AdvReac Type Severity Reaction Status Date / Time Iodinated Contrast Media Allergy Intermediate ITCHING Verified 05/17/23 18:07 Home Medications Medication Instructions Recorded Confirmed Type cabergoline 0.5 mg tablet 0.5 mg PO 3XWK 03/15/19 05/17/23 History hydrochlorothiazide 25 mg tablet 25 mg PO DAILY 03/15/19 05/17/23 History pravastatin 20 mg tablet 20 mg PO QPM 03/15/19 05/17/23 History aspirin 81 mg tablet,delayed 81 mg PO DAILY 03/26/23 05/17/23 History release prednisone 50 mg tablet 0 mg PO DIRECTED 03/26/23 05/06/23 History docusate sodium 50 mg/5 mL oral 10 ml PO BID PRN Constipation 05/17/23 05/17/23 History liquid doxazosin 2 mg tablet 2 mg PO HS 05/17/23 05/17/23 History Patient History Medical History Anemia Dysphagia Hemianopsia History of right MCA stroke Hyperlipidemia Hypertension Kidney stone PEG tube malfunction Septic shock 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 Surgical History History of cholecystectomy History of hernia repair Family History Mother Diabetes Hypertension Heart disease Social History Smoking Status: Never smoker Second Hand Exposure: No; Do You Dip or Chew Tobacco: No; Hx Alcohol Use: No Hx Substance Use: No Preferred Language: Danish Communication Ability: Impaired Communication Ability Comment: HX STROKE LEFT SIDED PERIPHERAL VISION LOSS Insecticide Expert Required: No Beliefs That Will Affect Care: None marital status: Current Living Situation: Spouse current occupational status: retired Other Information That Helps Us Care for You: No Feels Safe at Home: Yes Safety Concerns: Feels Safe At This Time Assistive Devices: Walker Review of Systems Constitutional: no fever and no chills Ear, Nose, Mouth, Throat: no hearing loss Respiratory: no cough and no dyspnea Cardiovascular: no chest pain Gastrointestinal: as per Subjective / HPI Genitourinary: no dysuria Musculoskeletal: no back pain Integumentary: no rash Neurologic: no localized weakness Physical Exam Constitutional: WD/WN, vitals as above Eyes: no conjunctival abnormality ENMT: Ears: no hearing impairment and no external ear abnormality Neck: trachea midline Respiratory: normal respiratory effort; no respiratory distress and no labored breathing Cardiovascular: Rate/Rhythm: regular rate and regular rhythm Vessels: posterior tibial pulses present and radial pulses present Gastrointestinal (Abdomen): Abdomen is mildly distended. Bowel sounds are present. Patient did have some generalized pain with palpation but there is no rebound tenderness or guarding. Patient did have a PEG tube in place that was placed to wall suction which was draining gastric contents. Musculoskeletal: No calf tenderness Skin: + rash Neurologic: moves all extremities Psychiatric: A+Ox3, euthymic affect Results & Data Vital Signs (Past 12 Hours) Vital Signs Temp Pulse Pulse Resp BP BP Pulse Ox 05/17/23 21:00 60 21 93 05/17/23 21:00 168/79 H 05/17/23 20:00 60 18 170/96 H 96 05/17/23 19:30 59 L 16 147/88 H 95 05/17/23 18:50 65 20 111/66 05/17/23 18:40 67 20 144/86 H 05/17/23 18:30 67 20 155/89 H 97 05/17/23 18:10 65 18 161/76 H 97 05/17/23 18:00 65 18 168/77 H 97 05/17/23 17:50 65 18 175/80 H 97 05/17/23 17:40 65 18 170/83 H 97 05/17/23 17:30 68 18 171/85 H 97 05/17/23 20:56 60 05/17/23 18:35 36.8 C 61 16 155/89 H 97 05/17/23 17:27 68 20 96 05/17/23 16:50 52 L 05/17/23 16:23 37.2 C 50 L 18 108/53 L 95 05/17/23 15:55 36.1 C L 61 16 66/40 L 93 O2 Del Method 05/17/23 21:00 05/17/23 21:00 05/17/23 20:00 05/17/23 19:30 05/17/23 18:50 05/17/23 18:40 05/17/23 18:30 05/17/23 18:10 05/17/23 18:00 05/17/23 17:50 05/17/23 17:40 05/17/23 17:30 05/17/23 20:56 05/17/23 18:35 Room Air 05/17/23 17:27 Room Air 05/17/23 16:50 05/17/23 16:23 Room Air 05/17/23 15:55 Room Air PG Care Time/CCT Total # of Minutes Spent Total Time Spent with Patient: Total time spent is greater than 50% in coordination of care (as documented) at patient's floor/unit and/or counseling patient: Coding Level of Care Code 73487 INT INP/OBS CARE 3/75MIN Diagnoses Small bowel obstruction K56.609
--- NOTE | 2023-05-17 22:38 | History & Physical Report ---
Date of Service May 17, 2023 Assessment & Plan (1) Small bowel obstruction: Plan: 82 M with PMH of CVA, hypertension, hyperlipidemia, BPH, and PEG tube placement who presented to the ED for abdominal discomfort. Now admitted for management of small bowel obstruction. Small bowel obstruction -History of multiple abdominal surgeries, previous adhesions. -Hemodynamically stable on admission. No leukocytosis. Normal metabolic labs, LFTs, transaminases also within normal limits. -S/p IV NS bolus x1 L, IV morphine in the ED. -Evaluated by general surgery: Recommend trial of conservative management for now. * Patient made n.p.o.. Hold most p.o. medications. * Pain control as needed: IV Tylenol 1000 mg every 8 hours, IV Dilaudid 0.25 mg every 4 hours, IV Dilaudid 0.5 mg every 4 hours * Maintenance IVF: Lactated Ringer's@80 mL/h * IV Zofran 4 mg every 6 hours as needed * Trend serial daily labs * Dietitian consult placed for preliminary assessment of nutritional needs via PEG tube. Nonurgent due to primary problem) * Speech therapy eval for dysphagia (patient notes he takes some nutrition p.o. but only after PEG tube feeds) Chronic conditions: Prolactinoma, hypertension, hyperlipidemia, BPH with LUTS * Holding all home p.o. medications at this time. Code: Full code Dispo: Med-Surg FEN/GI: NPO. LR @80 mL/h DVT Prophylaxis: Lovenox 40 mg q24h PT/OT: Yes Consults: General surgery, dietitian, speech Case Management: No (2) Dysphagia: (3) Anemia: (4) BPH w urinary obs/LUTS: (5) Hypertension: (6) Hyperlipidemia: (7) Prolactinoma: History of Present Illness Primary Care Provider: YASIR Holt is an 82-year-old man with past medical history of throat cancer (PEG tube), CVA, hypertension, hyperlipidemia, who presented to the emergency room with a complaint of nonspecific abdominal pain x2 days. He denies any nausea vomiting, but did note some abdominal distention. Last bowel movement was 24 hours prior to admission but has not passed flatus or had any BMs since. He also denies fever or chills. Patient follows with Dr. Blank, was notified and decision was made to admit patient for small bowel obstruction. Of note, patient had history of ruptured PEG tube due to dysfunction which caused gastric outlet obstruction. However, this has resolved. In the ED, KUB revealed air-filled loops of bowel in the left midabdomen involving large and small bowel, felt to represent potential ileus. Subsequent CT A/P revealed findings concerning for small bowel obstruction with transition point in the right side of the abdomen potentially related to an adhesion. Mesenteric edema, small volume ascites also noted. WBC was normal, as was BMP, LFTs and lipase. UA was also negative. Surgery was consulted and evaluated the patient. As he was hemodynamically stable, surgery opted for trial of conservative management at this time. Allergies Allergy/AdvReac Type Severity Reaction Status Date / Time Iodinated Contrast Media Allergy Intermediate ITCHING Verified 05/17/23 18:07 Home Medications Medication Instructions Recorded Confirmed Type cabergoline 0.5 mg tablet 0.5 mg PO [id number] 03/15/19 05/22/23 History hydrochlorothiazide 25 mg tablet 25 mg PO DAILY 03/15/19 05/22/23 History pravastatin 20 mg tablet 20 mg PO QPM 03/15/19 05/22/23 History aspirin 81 mg tablet,delayed 81 mg PO DAILY 03/26/23 05/22/23 History release docusate sodium 50 mg/5 mL oral 10 ml PO BID PRN Constipation 05/17/23 05/22/23 History liquid doxazosin 2 mg tablet 2 mg PO HS 05/17/23 05/22/23 History Past Med/Surg History Medical History Anemia Dysphagia Hemianopsia History of right MCA stroke Hyperlipidemia Hypertension Kidney stone PEG tube malfunction Septic shock 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 Surgical History History of cholecystectomy History of hernia repair Family History Mother Diabetes Hypertension Heart disease Social History Smoking Status: Never smoker Second Hand Exposure: No; Do You Dip or Chew Tobacco: No; Hx Alcohol Use: No Hx Substance Use: No Preferred Language: Danish Communication Ability: Effective Communication Ability Comment: HX STROKE LEFT SIDED PERIPHERAL VISION LOSS Silk Screener Required: No Beliefs That Will Affect Care: None marital status: Current Living Situation: Spouse current occupational status: retired Other Information That Helps Us Care for You: No Feels Safe at Home: Yes Safety Concerns: Feels Safe At This Time Assistive Devices: Glasses and Walker Review of Systems Review of Systems: All systems reviewed & are unremarkable except as noted in HPI & below Physical Exam Physical Exam: General: No acute distress HEENT: PERRLA. Normal conjunctiva, anicteric sclera. Oropharynx normal. Respiratory: Normal respiratory effort, CTABL. Cardiovascular: RRR without murmurs, gallops, or rubs. No pedal edema. Implanted heart monitor noted on exam. GI: Distended abdomen with absent bowel sounds on auscultation. Nontender x4 quadrants. Neuro: Alert and oriented x3. Patient is dysarthric but intelligible. Results & Data Results & Data Vital Signs (Past 12 Hours) Vital Signs Temp Pulse Pulse Resp BP BP Pulse Ox 05/17/23 21:00 60 21 93 05/17/23 21:00 168/79 H 05/17/23 20:00 60 18 170/96 H 96 05/17/23 19:30 59 L 16 147/88 H 95 05/17/23 18:50 65 20 111/66 05/17/23 18:40 67 20 144/86 H 05/17/23 18:30 67 20 155/89 H 97 05/17/23 18:10 65 18 161/76 H 97 05/17/23 18:00 65 18 168/77 H 97 05/17/23 17:50 65 18 175/80 H 97 05/17/23 17:40 65 18 170/83 H 97 05/17/23 17:30 68 18 171/85 H 97 05/17/23 20:56 60 05/17/23 18:35 36.8 C 61 16 155/89 H 97 05/17/23 17:27 68 20 96 05/17/23 16:50 52 L 05/17/23 16:23 37.2 C 50 L 18 108/53 L 95 05/17/23 15:55 36.1 C L 61 16 66/40 L 93 O2 Del Method 05/17/23 21:00 05/17/23 21:00 05/17/23 20:00 05/17/23 19:30 05/17/23 18:50 05/17/23 18:40 05/17/23 18:30 05/17/23 18:10 05/17/23 18:00 05/17/23 17:50 05/17/23 17:40 05/17/23 17:30 05/17/23 20:56 05/17/23 18:35 Room Air 05/17/23 17:27 Room Air 05/17/23 16:50 05/17/23 16:23 Room Air 05/17/23 15:55 Room Air Laboratory Results Laboratory Results - last 24 hr 05/17/23 05/17/23 05/17/23 16:15 16:15 17:25 WBC 7.43 RBC 3.55 L Hgb 11.6 L Hct 35.5 L MCV 100.0 MCH 32.7 MCHC 32.7 RDW Std Deviation 57.3 H RDW Coeff of Alison 15.4 H Plt Count 206 MPV 9.0 L Immature Gran % (Auto) 0.7 Neut % (Auto) 75.2 Lymph % (Auto) 13.3 [place] % (Auto) 6.5 Eos % (Auto) 3.6 Baso % (Auto) 0.7 Neut # (Auto) 5.59 Lymph # (Auto) 0.99 L [place] # (Auto) 0.48 Eos # (Auto) 0.27 Baso # (Auto) 0.05 Immature Gran # (Auto) 0.05 Sodium 139 Potassium 3.7 Chloride 102 Carbon Dioxide 31 Anion Gap 6 BUN 25 H Creatinine 0.66 Est Cr Clr Drug Dosing 83.7 Est GFR ( Amer) 102.9 Est GFR (Non-Af Amer) 88.8 BUN/Creatinine Ratio 37.9 H Glucose 120 H Calcium 9.1 Total Bilirubin 0.5 AST 20 ALT 14 Alkaline Phosphatase 52 Total Protein 6.3 Albumin 3.6 Globulin 2.7 Albumin/Globulin Ratio 1.3 Lipase 16 Urine Color Urine Appearance Urine pH Ur Specific [place] Urine Protein Urine Glucose (UA) Urine Ketones Urine Blood Urine Nitrite Urine Bilirubin Urine Urobilinogen Ur Leukocyte Esterase Urine WBC (Auto) Urine RBC (Auto) U Hyaline Cast (Auto) U Epithel Cells (Auto) Urine Bacteria (Auto) SARS-CoV-2, RNA, NAAT NEGATIVE 05/17/23 18:31 WBC RBC Hgb Hct MCV MCH MCHC RDW Std Deviation RDW Coeff of Alison Plt Count MPV Immature Gran % (Auto) Neut % (Auto) Lymph % (Auto) [place] % (Auto) Eos % (Auto) Baso % (Auto) Neut # (Auto) Lymph # (Auto) [place] # (Auto) Eos # (Auto) Baso # (Auto) Immature Gran # (Auto) Sodium Potassium Chloride Carbon Dioxide Anion Gap BUN Creatinine Est Cr Clr Drug Dosing Est GFR ( Amer) Est GFR (Non-Af Amer) BUN/Creatinine Ratio Glucose Calcium Total Bilirubin AST ALT Alkaline Phosphatase Total Protein Albumin Globulin Albumin/Globulin Ratio Lipase Urine Color Yellow Urine Appearance Cloudy A Urine pH 7.0 Ur Specific [place] 1.016 Urine Protein Negative Urine Glucose (UA) Negative Urine Ketones Trace H Urine Blood Negative Urine Nitrite Negative Urine Bilirubin Negative Urine Urobilinogen Negative Ur Leukocyte Esterase Negative Urine WBC (Auto) 1-5 Urine RBC (Auto) 0-4 U Hyaline Cast (Auto) 1-5 U Epithel Cells (Auto) 5-10 H Urine Bacteria (Auto) Negative SARS-CoV-2, RNA, NAAT Diagnostic Findings KUB X-Ray 05/17/23 16:43 XR chest 1V portable, XR KUB/Abdomen 1 view HISTORY: 82 years-old Male abd pain, SOB acute chest and abdominal pain with shortness of breath COMPARISON: Chest radiograph 04/14/2023, CT abdomen and pelvis 04/13/2023 TECHNIQUE: AP view of the chest with KUB radiograph FINDINGS: CHEST: Cardiac silhouette is enlarged. A loop recorder device is present. Chronic interstitial coarsening. Probable trace pleural effusions. No pneumothorax or overt pulmonary edema. Mild subsegmental bibasilar densities. Bones appear grossly intact. KB: Surgical clips of the epigastric abdomen. Moderate fecal retention. Air-filled loops of bowel within the left abdomen measuring up to 4.7 cm. No urolithiasis identified. Osteoarthritis of the hips and pelvis. IMPRESSION: 1. Cardiomegaly without overt pulmonary edema. 2. Trace pleural effusions with mild bibasilar atelectasis. 3. Moderate fecal retention. 4. Air-filled loops of bowel within the left mid abdomen, likely both large and small bowel. Findings may represent an ileus. Follow-up recommended. ACT 112: Negative or not required by law. The above report was generated using voice recognition software. It may contain grammatical, syntax or spelling errors. Electronically signed by: Gerardo Snow M.D. 05/17/2023 5:33 PM Chest X-Ray 05/17/23 16:44 XR chest 1V portable, XR KUB/Abdomen 1 view HISTORY: 82 years-old Male abd pain, SOB acute chest and abdominal pain with shortness of breath COMPARISON: Chest radiograph 04/14/2023, CT abdomen and pelvis 04/13/2023 TECHNIQUE: AP view of the chest with KUB radiograph FINDINGS: CHEST: Cardiac silhouette is enlarged. A loop recorder device is present. Chronic interstitial coarsening. Probable trace pleural effusions. No pneumothorax or overt pulmonary edema. Mild subsegmental bibasilar densities. Bones appear grossly intact. KB: Surgical clips of the epigastric abdomen. Moderate fecal retention. Air-filled loops of bowel within the left abdomen measuring up to 4.7 cm. No urolithiasis identified. Osteoarthritis of the hips and pelvis. IMPRESSION: 1. Cardiomegaly without overt pulmonary edema. 2. Trace pleural effusions with mild bibasilar atelectasis. 3. Moderate fecal retention. 4. Air-filled loops of bowel within the left mid abdomen, likely both large and small bowel. Findings may represent an ileus. Follow-up recommended. ACT 112: Negative or not required by law. The above report was generated using voice recognition software. It may contain grammatical, syntax or spelling errors. Electronically signed by: Gerardo Snow M.D. 05/17/2023 5:33 PM Abdomen/Pelvis CT 05/17/23 18:18 Exam(s): CT ABDOMEN + PELVIS With Contrast IV Amt: 93ML OPTIRAY 320 EXAM: CT Abdomen and Pelvis With Intravenous Contrast CLINICAL HISTORY: Reason for exam: SBO, PEG tube, h/o stroke. TECHNIQUE: Axial computed tomography images of the abdomen and pelvis with intravenous contrast. CTDI is 21.14 mGy and DLP is 1007.5 mGy-cm. Automated exposure control was utilized for the study. A dose lowering technique was utilized adhering to the principles of ALARA. CONTRAST: Patient received 93ML OPTIRAY 320 of IV contrast COMPARISON: 04/13/23. FINDINGS: Subsegmental basilar atelectasis. Reticular nodular right lower lobe infiltrate is suspicious for atypical infection, but basilar airspace disease has substantially improved in the interval. Coronary atherosclerosis. The heart is mildly enlarged. Trace pericardial effusion. Thickened distal esophagus, more pronounced on the prior study. Moderate gastric distention. Percutaneous gastrostomy tube has been pulled back, tip now appropriately positioned in the antrum. There is irregular wall thickening about the pylorus. Inflammation neoplastic etiologies are both possible. No perforation. More distally, there is small bowel distention with a transition point on series 2, image 44 consider adhesion causing this small bowel obstruction. Mesenteric edema and small volume ascites. Diverticulosis coli. No clear diverticulitis within limits related to the edema and free fluid appendix is not identified. Bilateral renal cysts. Largest cyst at the upper pole of the left kidney measures 8.3 cm. Lower pole left renal cyst with peripheral calcification. No clear enhancing soft tissue component here or elsewhere. Bilateral renal hypodensities that are too small to characterize. Nonobstructing lower pole right renal calculus. Cholecystectomy may explain mild biliary dilation. Prostatomegaly without pathologic bladder distention. Metallic density along the rightward urinary bladder and cecum, presumably postoperative. Inguinal hernias containing fat and fluid, left larger than right. Aortoiliofemoral atherosclerosis without aneurysm. Degeneration of the spine and hips.. Chronic compression deformities at T11 and L1. No acute fracture. Probable bone island to the T12 vertebral body. IMPRESSION: Small bowel obstruction with rightward abdominal transition point, potentially an adhesion. Mesenteric edema and small volume ascites. Fluid and fat distends bilateral inguinal hernias, left larger than right. Gastric distention despite gastrostomy tube. Pyloric thickening could reflect inflammation or neoplasm. Consider endoscopy. Progressive distal esophageal wall thickening. Reticulonodular RLL infiltrate is suspicious for atypical infection, but basilar airspace infiltrates have substantially improved in the interval. Incidental findings as detailed above. Electronically signed by: Larry Estes M.D. 05/17/23 19:54 PM Supervising Physician Co-Signing Physician Notes Patient seen and examined, chart reviewed, case discussed with Dr. Everett and I agree with the assessment and plan as above except as otherwise noted Labs and images reviewed Jonathon is a 89-year-old male with a past medical history of PEG tube placement, CVA, SCC, aspiration pneumonia who presents with abdominal discomfort and not wanting to continue his feeds at lunch. On ER evaluation patient is found to have a small bowel obstruction with abdominal transition point suspect possibly adhesional. Small volume ascites and mesenteric edema is noted, patient has gastric distention despite gastrostomy tube. General surgery is consulted and following for SBO, G-tube has been switched to wall suction and may be used for venting. Patient had relief of symptoms when G-tube was placed to suction. We will keep n.p.o. for now, advance diet as tolerated. No evidence of ARSALAN, no evidence of infection requiring antibiotics at this time. Appreciate recommendations. No leukocytosis. Agree with recommendations and management as above Resident Activity Tracking Resident Involvement: Resident Care Provided Care Provided: Adult Hospital Medicine
[2023-05-17] MEDS ORDERED: HYDROmorphone INJ 0.5 MG/0.5 ML SYR IV PRN (22:39)
[2023-05-17] MEDS ORDERED: ACETAMINOPHEN 1,000 MG/100 ML VIAL IV PRN (22:39)
--- NOTE | 2023-05-17 23:14 | Emergency Department Note ---
Impression & Plan SBO (small bowel obstruction), Feeding by G-tube, H/O: CVA (cerebrovascular accident) ED Provider Note CHIEF COMPLAINT: Abdominal pain HISTORY OF PRESENT ILLNESS: This 82-year-old male patient with past medical history of squamous cell carcinoma of the tongue, recent CVA, PEG tube placement, dehydration, aspiration pneumonia presents to the emergency department with complaints of worsening abdominal bloating and pain. Patient is currently at home with his who states he did not want his tube feeding at lunchtime today. She insisted on giving him some water which he tolerated well, through the PEG tube. He has been taking Colace through his PEG tube for constipation however it does not seem to be helping him move his bowels. Patient's states he has been complaining of severe pain in the abdomen that seems to be worsening today. There has not been any vomiting or fever. He seems to be breathing well and no coughing. REVIEW OF SYSTEMS: A review of systems was performed with positives and pertinent negatives listed in the history of present illness. 10 systems were reviewed and are otherwise negative. ALLERGIES: see below MEDICATIONS: see below PMH: see below SOCIAL HISTORY: see below DDx: Constipation, small bowel obstruction, bowel perforation, dehydration, infectious etiology, among others. PHYSICAL EXAM: Vital signs reviewed. General: Chronically ill-appearing 82-year-old male, in no significant distress. HEENT: No scleral icterus, PERRLA, neck supple. Atraumatic. Cardiovascular: Regular rate and rhythm, no extra sounds. Pulmonary: Clear to auscultation bilaterally, normal work of breathing. Abdomen: Soft, nontender, nondistended, positive bowel sounds. Musculoskeletal: Atraumatic, no peripheral edema. Neurologic: Patient awake alert and oriented x 3, speech is clear Skin: Warm, dry, no rash EMERGENCY DEPARTMENT COURSE/MDM: This patient was evaluated and appeared to be in no significant distress. IV access was obtained and laboratory work was drawn. Patient was placed on the cardiac care unit nurse noted to be in a normal sinus rhythm. Patient was hydrated with normal saline solution, given IV morphine and Zofran for his discomfort. Abdominal x-ray reveals a fecal retention and dilated loops of bowel. Pt was premedicated with benadryl and solumedral d/t contrast allergy. CT imaging of the abdomen pelvis was performed and is concerning for SBO, esophageal and pylorus thickening, in addition to other findings. Patient's PEG tube was air vented and drained. I did discuss the situation with general surgery, Dr. Blank. The PEG tube was hooked up to low intermittent wall suction. Patient had been hydrated with normal saline solution. Patient's case was discussed with the hospitalist service. MONITORING: An order for cardiac monitoring was placed and the patient is noted to be in a normal sinus rhythm at 61 beats per minute. RADIOLOGY: Abdominal x-ray to my interpretation reveals dilated loops of bowel and fecal retention. Otherwise defer to radiology. Chest x-ray to my interpretation reveals cardiomegaly with no evidence of CHF. Otherwise defer to radiology. CT imaging of the abdomen pelvis per radiology as below. EKG: To my interpretation reveals a normal sinus rhythm at 61 bpm. Incomplete right bundle branch block, left anterior fascicular block. Previous septal infarct. No PVC, no PAC. When compared to previous dated March 26, 2023, incomplete right bundle branch block is now present. DISPOSITION: Admission Past Med/Surg History Medical History Anemia Dysphagia Hemianopsia History of right MCA stroke Hyperlipidemia Hypertension Kidney stone PEG tube malfunction Septic shock 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 Surgical History History of cholecystectomy History of hernia repair Family History Mother Diabetes Hypertension Heart disease Social History Smoking Status: Never smoker Second Hand Exposure: No; Do You Dip or Chew Tobacco: No; Hx Alcohol Use: No Hx Substance Use: No Preferred Language: Omani Communication Ability: Effective Communication Ability Comment: HX STROKE LEFT SIDED PERIPHERAL VISION LOSS Chief Of Production Required: No Beliefs That Will Affect Care: None marital status: Current Living Situation: Spouse current occupational status: retired Feels Safe at Home: Yes Assistive Devices: Walker Allergies Allergies Allergy/AdvReac Type Severity Reaction Status Date / Time Iodinated Contrast Media Allergy Intermediate ITCHING Verified 05/17/23 18:07 Home Meds Home Medications Medication Instructions Recorded Confirmed cabergoline 0.5 mg tablet 0.5 mg PO [id number] 03/15/19 05/17/23 hydrochlorothiazide 25 mg tablet 25 mg PO DAILY 03/15/19 05/17/23 pravastatin 20 mg tablet 20 mg PO QPM 03/15/19 05/17/23 aspirin 81 mg tablet,delayed 81 mg PO DAILY 03/26/23 05/17/23 release prednisone 50 mg tablet 0 mg PO DIRECTED 03/26/23 05/06/23 docusate sodium 50 mg/5 mL oral 10 ml PO BID PRN Constipation 05/17/23 05/17/23 liquid doxazosin 2 mg tablet 2 mg PO HS 05/17/23 05/17/23 Results & Data (ED) Vital Signs Vital Signs - 24 hr 05/17/23 15:55 05/17/23 16:23 05/17/23 16:50 Temperature 36.1 C L 37.2 C Temperature Source Temporal Artery Scan Oral Pulse Rate 61 52 L Pulse Rate [Right Finger] 50 L Pulse Rate from SpO2 Sensor Pulse Rhythm Pulse Rhythm [Right Finger] Regular Pulse Strength [Right Finger] Normal Respiratory Rate 16 18 Respiratory Effort / Characteristics Non-Labored Spontaneous Respiratory Depth Normal Respiratory Pattern Regular Blood Pressure 66/40 L Blood Pressure [Right Arm] 108/53 L Blood Pressure Mean 48 Blood Pressure Mean [Right Arm] 71 Blood Pressure Position [Right Arm] Lying Pulse Oximetry 93 95 Oxygen Delivery Method Room Air Room Air Sepsis Recent Fever Within 48 Hours No Sepsis New/Unexplained Change in Mental Status N/A Sepsis Action Taken by Nursing No Action Required 05/17/23 17:27 05/17/23 18:35 05/17/23 20:56 Temperature 36.8 C Temperature Source Oral Pulse Rate 68 60 Pulse Rate [Right Finger] 61 Pulse Rate from SpO2 Sensor Pulse Rhythm Regular Pulse Rhythm [Right Finger] Regular Pulse Strength [Right Finger] Normal Respiratory Rate 20 16 Respiratory Effort / Characteristics Non-Labored Spontaneous Respiratory Depth Normal Respiratory Pattern Regular Blood Pressure Blood Pressure [Right Arm] 155/89 H Blood Pressure Mean Blood Pressure Mean [Right Arm] 111 Blood Pressure Position [Right Arm] Semi-fowlers Pulse Oximetry 96 97 Oxygen Delivery Method Room Air Room Air Sepsis Recent Fever Within 48 Hours Sepsis New/Unexplained Change in Mental Status Sepsis Action Taken by Nursing 05/17/23 17:30 05/17/23 17:40 05/17/23 17:50 Temperature Temperature Source Pulse Rate 68 65 65 Pulse Rate [Right Finger] Pulse Rate from SpO2 Sensor Pulse Rhythm Pulse Rhythm [Right Finger] Pulse Strength [Right Finger] Respiratory Rate 18 18 18 Respiratory Effort / Characteristics Respiratory Depth Respiratory Pattern Blood Pressure 171/85 H 170/83 H 175/80 H Blood Pressure [Right Arm] Blood Pressure Mean 120 107 101 Blood Pressure Mean [Right Arm] Blood Pressure Position [Right Arm] Pulse Oximetry 97 97 97 Oxygen Delivery Method Sepsis Recent Fever Within 48 Hours Sepsis New/Unexplained Change in Mental Status Sepsis Action Taken by Nursing 05/17/23 18:00 05/17/23 18:10 05/17/23 18:30 Temperature Temperature Source Pulse Rate 65 65 67 Pulse Rate [Right Finger] Pulse Rate from SpO2 Sensor Pulse Rhythm Pulse Rhythm [Right Finger] Pulse Strength [Right Finger] Respiratory Rate 18 18 20 Respiratory Effort / Characteristics Respiratory Depth Respiratory Pattern Blood Pressure 168/77 H 161/76 H 155/89 H Blood Pressure [Right Arm] Blood Pressure Mean 116 130 106 Blood Pressure Mean [Right Arm] Blood Pressure Position [Right Arm] Pulse Oximetry 97 97 97 Oxygen Delivery Method Sepsis Recent Fever Within 48 Hours Sepsis New/Unexplained Change in Mental Status Sepsis Action Taken by Nursing 05/17/23 18:40 05/17/23 18:50 05/17/23 19:30 Temperature Temperature Source Pulse Rate 67 65 59 L Pulse Rate [Right Finger] Pulse Rate from SpO2 Sensor Pulse Rhythm Pulse Rhythm [Right Finger] Pulse Strength [Right Finger] Respiratory Rate 20 20 16 Respiratory Effort / Characteristics Respiratory Depth Respiratory Pattern Blood Pressure 144/86 H 111/66 147/88 H Blood Pressure [Right Arm] Blood Pressure Mean 105 77 97 Blood Pressure Mean [Right Arm] Blood Pressure Position [Right Arm] Pulse Oximetry 95 Oxygen Delivery Method Sepsis Recent Fever Within 48 Hours Sepsis New/Unexplained Change in Mental Status Sepsis Action Taken by Nursing 05/17/23 20:00 05/17/23 21:00 05/17/23 21:00 Temperature Temperature Source Pulse Rate 60 60 Pulse Rate [Right Finger] Pulse Rate from SpO2 Sensor 60 Pulse Rhythm Pulse Rhythm [Right Finger] Pulse Strength [Right Finger] Respiratory Rate 18 21 Respiratory Effort / Characteristics Respiratory Depth Respiratory Pattern Blood Pressure 170/96 H 168/79 H Blood Pressure [Right Arm] Blood Pressure Mean 108 119 Blood Pressure Mean [Right Arm] Blood Pressure Position [Right Arm] Pulse Oximetry 96 93 Oxygen Delivery Method Sepsis Recent Fever Within 48 Hours Sepsis New/Unexplained Change in Mental Status Sepsis Action Taken by Detention Medications Current Medication List: was personally reviewed by hi Laboratory Data Attestation: I reviewed the patient's lab results. 05/17/23 16:15 05/17/23 16:15 Lab Results 05/17/23 05/17/23 05/17/23 Range/Units 16:15 16:15 17:25 WBC 7.43 (4.8-10.8) K/ul RBC 3.55 L (4.70-6.10) M/uL Hgb 11.6 L (14.0-18.0) g/dl Hct 35.5 L (42.0-52.0) % MCV 100.0 (80.0-100.0) fL MCH 32.7 (25.0-34.0) pg MCHC 32.7 (32.0-36.0) g/dL RDW Std Deviation 57.3 H (36.4-46.3) fL RDW Coeff of Alison 15.4 H (11.5-14.5) % Plt Count 206 (130-400) K/uL MPV 9.0 L (9.4-12.4) fL Immature Gran % (Auto) 0.7 % Neut % (Auto) 75.2 % Lymph % (Auto) 13.3 % Buchanan % (Auto) 6.5 % Eos % (Auto) 3.6 % Baso % (Auto) 0.7 % Neut # (Auto) 5.59 (1.40-6.50) K/uL Lymph # (Auto) 0.99 L (1.2-3.4) K/uL Buchanan # (Auto) 0.48 (0.11-0.59) K/uL Eos # (Auto) 0.27 (0-0.50) K/uL Baso # (Auto) 0.05 (0-0.2) K/uL Immature Gran # (Auto) 0.05 (0.01-0.20) K/uL Sodium 139 (136-145) mmol/L Potassium 3.7 (3.5-5.1) mmol/L Chloride 102 (98-107) mmol/L Carbon Dioxide 31 (21-32) mmol/L Anion Gap 6 (3-11) BUN 25 H (6-23) mg/dl Creatinine 0.66 (0.6-1.4) mg/dl Est Cr Clr Drug Dosing 83.7 ml/min Est GFR ( Amer) 102.9 ml/min Est GFR (Non-Af Amer) 88.8 ml/min BUN/Creatinine Ratio 37.9 H (10-20) Glucose 120 H (70-99(Fasting)) mg/dl Calcium 9.1 (8.6-10.3) mg/dl Total Bilirubin 0.5 (0.2-1.0) mg/dl AST 20 (13-39) U/L ALT 14 (7-52) U/L Alkaline Phosphatase 52 (34-104) U/L Total Protein 6.3 (6.0-8.3) gm/dl Albumin 3.6 (3.4-5.0) gm/dl Globulin 2.7 (2.5-4.0) gm/dl Albumin/Globulin Ratio 1.3 (0.9-2) Lipase 16 (11-82) U/L Urine Color Urine Appearance (Clear) Urine pH (4.5-7.5) Ur Specific Laughlin (1.000-1.030) Urine Protein (Negative) Urine Glucose (UA) (Negative) Urine Ketones (Negative) Urine Blood (Negative) Urine Nitrite (Negative) Urine Bilirubin (Negative) Urine Urobilinogen (Negative) Ur Leukocyte Esterase (Negative) Urine WBC (Auto) (0-5) /hpf Urine RBC (Auto) (0-4) /hpf U Hyaline Cast (Auto) (0-5) /lpf U Epithel Cells (Auto) (0-5) /lpf Urine Bacteria (Auto) (Negative) SARS-CoV-2, RNA, NAAT NEGATIVE (NEGATIVE) 05/17/23 Range/Units 18:31 WBC (4.8-10.8) K/ul RBC (4.70-6.10) M/uL Hgb (14.0-18.0) g/dl Hct (42.0-52.0) % MCV (80.0-100.0) fL MCH (25.0-34.0) pg MCHC (32.0-36.0) g/dL RDW Std Deviation (36.4-46.3) fL RDW Coeff of Alison (11.5-14.5) % Plt Count (130-400) K/uL MPV (9.4-12.4) fL Immature Gran % (Auto) % Neut % (Auto) % Lymph % (Auto) % Buchanan % (Auto) % Eos % (Auto) % Baso % (Auto) % Neut # (Auto) (1.40-6.50) K/uL Lymph # (Auto) (1.2-3.4) K/uL Buchanan # (Auto) (0.11-0.59) K/uL Eos # (Auto) (0-0.50) K/uL Baso # (Auto) (0-0.2) K/uL Immature Gran # (Auto) (0.01-0.20) K/uL Sodium (136-145) mmol/L Potassium (3.5-5.1) mmol/L Chloride (98-107) mmol/L Carbon Dioxide (21-32) mmol/L Anion Gap (3-11) BUN (6-23) mg/dl Creatinine (0.6-1.4) mg/dl Est Cr Clr Drug Dosing ml/min Est GFR ( Amer) ml/min Est GFR (Non-Af Amer) ml/min BUN/Creatinine Ratio (10-20) Glucose (70-99(Fasting)) mg/dl Calcium (8.6-10.3) mg/dl Total Bilirubin (0.2-1.0) mg/dl AST (13-39) U/L ALT (7-52) U/L Alkaline Phosphatase (34-104) U/L Total Protein (6.0-8.3) gm/dl Albumin (3.4-5.0) gm/dl Globulin (2.5-4.0) gm/dl Albumin/Globulin Ratio (0.9-2) Lipase (11-82) U/L Urine Color Yellow Urine Appearance Cloudy A (Clear) Urine pH 7.0 (4.5-7.5) Ur Specific Laughlin 1.016 (1.000-1.030) Urine Protein Negative (Negative) Urine Glucose (UA) Negative (Negative) Urine Ketones Trace H (Negative) Urine Blood Negative (Negative) Urine Nitrite Negative (Negative) Urine Bilirubin Negative (Negative) Urine Urobilinogen Negative (Negative) Ur Leukocyte Esterase Negative (Negative) Urine WBC (Auto) 1-5 (0-5) /hpf Urine RBC (Auto) 0-4 (0-4) /hpf U Hyaline Cast (Auto) 1-5 (0-5) /lpf U Epithel Cells (Auto) 5-10 H (0-5) /lpf Urine Bacteria (Auto) Negative (Negative) SARS-CoV-2, RNA, NAAT (NEGATIVE) Administered Medications Discontinued Medications Diphenhydramine HCl (Diphenhydramine 50 Mg/Ml Vial) 25 mg IV NOW STA Stop: 05/17/23 18:19 Last Admin: 05/17/23 18:43 Dose: 25 mg Documented By: KENYETTA Enoxaparin Sodium (Enoxaparin Inj 40 Mg/0.4 Ml Syr) 40 mg SQ NOW ONE Stop: 05/18/23 02:24 Last Admin: 05/18/23 03:53 Dose: 40 mg Documented By: ROLANDA Enoxaparin Sodium (Enoxaparin Inj 40 Mg/0.4 Ml Syr) 40 mg SQ QAM [facility] Stop: 06/19/23 08:59 Last Admin: 05/21/23 09:17 Dose: 40 mg Documented By: Admin: 05/20/23 08:02 Dose: 40 mg Documented By: [id number] Enteral Nutritional Formula (Fibersource Hn 1.2 Dustin 1000 Ml Bag) 1,000 ml GT .See Protocol LORI; Protocol Stop: 06/19/23 18:44 Last Admin: 05/20/23 21:33 Dose: 1,000 ml Documented By: ROSI Hydromorphone HCl (Hydromorphone Inj 0.5 Mg/0.5 Ml Syr) 0.25 mg IV Q4H PRN PRN Reason: Pain (1,2,3,4,5) & Pre PT Stop: 05/31/23 22:38 Last Admin: 05/18/23 07:48 Dose: 0.25 mg Documented By: [id number] Admin: 05/17/23 23:29 Dose: 0.25 mg Documented By: ROLANDA Sodium Chloride (Nss 1000ml) 1,000 mls @ 999 mls/hr IV .Q1H1M STA Stop: 05/17/23 17:43 Last Infusion: 05/17/23 18:54 Dose: 0 mls/hr Documented By: Admin: 05/17/23 16:56 Dose: 999 mls/hr Documented By: KENYETTA Acetaminophen (Ofirmev) 1,000 mg in 100 mls @ 400 mls/hr IV Q8H PRN PRN Reason: Pain or Fever Stop: 05/20/23 22:38 Last Infusion: 05/18/23 12:04 Dose: 0 mls/hr Documented By: [id number] Admin: 05/18/23 11:48 Dose: 400 mls/hr Documented By: [id number] Lactated Ringer's (Lr) 1,000 mls @ 80 mls/hr IV .[id number] LORI Stop: 06/17/23 02:29 Last Admin: 05/21/23 05:41 Dose: 80 mls/hr Documented By: Infusion: 05/21/23 05:41 Dose: 80 mls/hr Documented By: Admin: 05/20/23 17:12 Dose: 80 mls/hr Documented By: [id number] Infusion: 05/20/23 17:12 Dose: 80 mls/hr Documented By: [id number] Admin: 05/20/23 04:46 Dose: 80 mls/hr Documented By: Infusion: 05/20/23 04:04 Dose: 80 mls/hr Documented By: Admin: 05/19/23 15:34 Dose: 80 mls/hr Documented By: [id number] Infusion: 05/19/23 15:34 Dose: 80 mls/hr Documented By: [id number] Admin: 05/19/23 03:34 Dose: 80 mls/hr Documented By: Infusion: 05/19/23 03:34 Dose: 80 mls/hr Documented By: Admin: 05/18/23 16:10 Dose: 80 mls/hr Documented By: [id number] Infusion: 05/18/23 16:02 Dose: 80 mls/hr Documented By: [id number] Admin: 05/18/23 03:32 Dose: 80 mls/hr Documented By: ROLANDA Pantoprazole Sodium 40 mg/ (Syringe) 10 mls @ 5 mls/min IV DAILY@1100 LORI Stop: 06/17/23 12:24 Last Admin: 05/21/23 11:24 Dose: 5 mls/min Documented By: Admin: 05/20/23 11:34 Dose: 5 mls/min Documented By: [id number] Admin: 05/19/23 11:49 Dose: 5 mls/min Documented By: Admin: 05/18/23 13:27 Dose: 5 mls/min Documented By: [id number] Ioversol (Optiray 320 100ml) 93 ml IV ONCE ONE Stop: 05/17/23 19:11 Last Admin: 05/17/23 19:10 Dose: 93 ml Documented By: BURT Methylprednisolone (Methylprednisolone 40 Mg/Ml Vial) 40 mg IV NOW STA Stop: 05/17/23 18:19 Last Admin: 05/17/23 18:52 Dose: 40 mg Documented By: KENYETTA Methylprednisolone (Methylprednisolone 16 Mg Tab) 32 mg PO NOW STA Stop: 05/21/23 10:42 Last Admin: 05/21/23 11:20 Dose: 32 mg Documented By: DEVON Morphine Sulfate (Morphine Sulfate 4 Mg/Ml 1 Ml Carp\Vial) 2 mg IV Q1H PRN PRN Reason: Pain Stop: 05/31/23 16:42 Last Admin: 05/17/23 20:36 Dose: 2 mg Documented By: Admin: 05/17/23 16:56 Dose: 2 mg Documented By: KENYETTA Morphine Sulfate (Morphine Sulfate 2 Mg/Ml Carp) Confirm Administered Dose 2 mg .ROUTE .STK-MED ONE Stop: 05/17/23 18:40 Last Admin: 05/17/23 18:43 Dose: 2 mg Documented By: KENYETTA Morphine Sulfate (Morphine Sulfate 2 Mg/Ml Carp) 2 mg IV NOW STA Stop: 05/17/23 19:06 Last Admin: 05/17/23 19:07 Dose: Not Given Documented By: DIONISIO Ondansetron HCl (Ondansetron Inj 2 Mg/Ml 2 Ml Vial) 4 mg IV NOW STA Stop: 05/17/23 16:44 Last Admin: 05/17/23 16:56 Dose: 4 mg Documented By: KENYETTA Polyethylene Glycol (Polyethylene (Miralax) 17 Gm Pack) 17 gm PO DAILY LORI Stop: 06/19/23 13:24 Last Admin: 05/21/23 09:17 Dose: 17 gm Documented By: Admin: 05/20/23 13:37 Dose: 17 gm Documented By: [id number] Sodium Biphosphate/Sodium Phosphate (Sod Phosphate/Sod Biphosphate Enema 132 Ml Btl) 132 ml TX NOW ONE Stop: 05/20/23 12:54 Last Admin: 05/20/23 18:15 Dose: 132 ml Documented By: [id number] Imaging Data Radiologist's Impression: KUB X-Ray 05/17/23 16:43 XR chest 1V portable, XR KUB/Abdomen 1 view HISTORY: 82 years-old Male abd pain, SOB acute chest and abdominal pain with shortness of breath COMPARISON: Chest radiograph 04/14/2023, CT abdomen and pelvis 04/13/2023 TECHNIQUE: AP view of the chest with KUB radiograph FINDINGS: CHEST: Cardiac silhouette is enlarged. A loop recorder device is present. Chronic interstitial coarsening. Probable trace pleural effusions. No pneumothorax or overt pulmonary edema. Mild subsegmental bibasilar densities. Bones appear grossly intact. KB: Surgical clips of the epigastric abdomen. Moderate fecal retention. Air-filled loops of bowel within the left abdomen measuring up to 4.7 cm. No urolithiasis identified. Osteoarthritis of the hips and pelvis. IMPRESSION: 1. Cardiomegaly without overt pulmonary edema. 2. Trace pleural effusions with mild bibasilar atelectasis. 3. Moderate fecal retention. 4. Air-filled loops of bowel within the left mid abdomen, likely both large and small bowel. Findings may represent an ileus. Follow-up recommended. ACT 112: Negative or not required by law. The above report was generated using voice recognition software. It may contain grammatical, syntax or spelling errors. Electronically signed by: eGrardo Snow M.D. 05/17/2023 5:33 PM Chest X-Ray 05/17/23 16:44 XR chest 1V portable, XR KUB/Abdomen 1 view HISTORY: 82 years-old Male abd pain, SOB acute chest and abdominal pain with shortness of breath COMPARISON: Chest radiograph 04/14/2023, CT abdomen and pelvis 04/13/2023 TECHNIQUE: AP view of the chest with KUB radiograph FINDINGS: CHEST: Cardiac silhouette is enlarged. A loop recorder device is present. Chronic interstitial coarsening. Probable trace pleural effusions. No pneumothorax or overt pulmonary edema. Mild subsegmental bibasilar densities. Bones appear grossly intact. KB: Surgical clips of the epigastric abdomen. Moderate fecal retention. Air-filled loops of bowel within the left abdomen measuring up to 4.7 cm. No urolithiasis identified. Osteoarthritis of the hips and pelvis. IMPRESSION: 1. Cardiomegaly without overt pulmonary edema. 2. Trace pleural effusions with mild bibasilar atelectasis. 3. Moderate fecal retention. 4. Air-filled loops of bowel within the left mid abdomen, likely both large and small bowel. Findings may represent an ileus. Follow-up recommended. ACT 112: Negative or not required by law. The above report was generated using voice recognition software. It may contain grammatical, syntax or spelling errors. Electronically signed by: Gerardo Snow M.D. 05/17/2023 5:33 PM Abdomen/Pelvis CT 05/17/23 18:18 Exam(s): CT ABDOMEN + PELVIS With Contrast IV Amt: 93ML OPTIRAY 320 EXAM: CT Abdomen and Pelvis With Intravenous Contrast CLINICAL HISTORY: Reason for exam: SBO, PEG tube, h/o stroke. TECHNIQUE: Axial computed tomography images of the abdomen and pelvis with intravenous contrast. CTDI is 21.14 mGy and DLP is 1007.5 mGy-cm. Automated exposure control was utilized for the study. A dose lowering technique was utilized adhering to the principles of ALARA. CONTRAST: Patient received 93ML OPTIRAY 320 of IV contrast COMPARISON: 04/13/23. FINDINGS: Subsegmental basilar atelectasis. Reticular nodular right lower lobe infiltrate is suspicious for atypical infection, but basilar airspace disease has substantially improved in the interval. Coronary atherosclerosis. The heart is mildly enlarged. Trace pericardial effusion. Thickened distal esophagus, more pronounced on the prior study. Moderate gastric distention. Percutaneous gastrostomy tube has been pulled back, tip now appropriately positioned in the antrum. There is irregular wall thickening about the pylorus. Inflammation neoplastic etiologies are both possible. No perforation. More distally, there is small bowel distention with a transition point on series 2, image 44 consider adhesion causing this small bowel obstruction. Mesenteric edema and small volume ascites. Diverticulosis coli. No clear diverticulitis within limits related to the edema and free fluid appendix is not identified. Bilateral renal cysts. Largest cyst at the upper pole of the left kidney measures 8.3 cm. Lower pole left renal cyst with peripheral calcification. No clear enhancing soft tissue component here or elsewhere. Bilateral renal hypodensities that are too small to characterize. Nonobstructing lower pole right renal calculus. Cholecystectomy may explain mild biliary dilation. Prostatomegaly without pathologic bladder distention. Metallic density along the rightward urinary bladder and cecum, presumably postoperative. Inguinal hernias containing fat and fluid, left larger than right. Aortoiliofemoral atherosclerosis without aneurysm. Degeneration of the spine and hips.. Chronic compression deformities at T11 and L1. No acute fracture. Probable bone island to the T12 vertebral body. IMPRESSION: Small bowel obstruction with rightward abdominal transition point, potentially an adhesion. Mesenteric edema and small volume ascites. Fluid and fat distends bilateral inguinal hernias, left larger than right. Gastric distention despite gastrostomy tube. Pyloric thickening could reflect inflammation or neoplasm. Consider endoscopy. Progressive distal esophageal wall thickening. Reticulonodular RLL infiltrate is suspicious for atypical infection, but basilar airspace infiltrates have substantially improved in the interval. Incidental findings as detailed above. Electronically signed by: Larry Estes M.D. 05/17/23 19:54 PM Discharge Plan Visit Data Chief Complaint: GI Assessment Stated Complaint: REF BY DOC FOR BOWEL MOVEMENT ED Provider: Mignon Perez Discharge Problem: SBO (small bowel obstruction), Feeding by G-tube, H/O: CVA (cerebrovascular accident) Patient Disposition: Admitted As Inpatient Discharge Instructions Interventions: ED Discharge Assessment Last Done: 05/17/23 22:03
[2023-05-17] MEDS: HYDROmorphone INJ 0.5 MG/0.5 ML SYR IV PRN (23:29)
--- NOTE | 2023-05-18 01:50 | Billing Data ---
Date of Service May 18, 2023 Coding Level of Care Code 75285 INT INP/OBS CARE
[2023-05-18] MEDS ORDERED: ENOXAPARIN INJ 40 MG/0.4 ML SYR SQ ONE (02:23)
[2023-05-18] MEDS: LACTATED RINGER'S 1,000 ML IV SCH ×2 (03:32→16:10)
--- NOTE | 2023-05-18 06:14 | Surgery Progress Note ---
Date of Service May 18, 2023 Assessment & Plan (1) Small bowel obstruction: Plan: Patient has been admitted on the hospitalist service. Continue care as follows: Continue analgesics as needed Continue antiemetics if needed Continue n.p.o. status. We will also maintain the patient's gastric tube to suction. When the patient has return of bowel function consideration can be given to clamping patient's G-tube and potentially checking residuals. Thereaft er, consideration can be given to advancing the patient's diet beginning with clear liquids Continue IV fluid for hydration Check a.m. labs when available Encourage ambulation Admission and Anticipated Discharge Date Admission Date: May 17, 2023 Supervising Physician Co-Signing Physician Notes Patient seen and examined, labs and imaging reviewed, agree with above. 82-year-old male with history of ventral hernia repair, cholecystectomy, PEG tube placement for laryngeal cancer presented with small bowel obstruction. He feels better than he did prior to admission. His G-tube is to low intermittent wall suction but not draining much. He has passed a small amount of flatus but no bowel movement yet. On exam he is afebrile with stable vitals. Abdomen is soft, nontender. Midline scar. We will continue with G-tube to low intermitt ent wall suction, if his symptoms continue to improve then we may place to gravity or start him on a clear liquid diet. He also has a significant stool burden in his colon, we will start with suppositories and possibly enemas. Subjective Patient is resting comfortably in bed he notes that his abdomen feels improved since admission. He has not had a bowel movement or passed any flatus since admission. He does note he does not have any abdominal pain. And he denies any nausea or vomiting. Physical Exam Gastrointestinal (Abdomen): This morning, the patient's abdomen is far less distended than what was noted at time of admission. He does have bowel sounds. He has a G-tube in place that is placed to wall suction and is drained 200 cc of gastric contents since has been placed to suction. There is no pain with palpation this morning and there is no rebound tenderness or guarding. Results & Data Vital Signs (Past 12 Hours) Vital Signs Temp Pulse Pulse Resp BP BP BP 05/18/23 05:10 36.4 C L 57 L 20 183/69 H 05/18/23 04:49 55 L 05/17/23 22:40 36.6 C 62 18 168/103 H 05/17/23 21:00 60 21 05/17/23 21:00 168/79 H 05/17/23 20:00 60 18 170/96 H 05/17/23 19:30 59 L 16 147/88 H 05/17/23 18:50 65 20 111/66 05/17/23 18:40 67 20 144/86 H 05/17/23 18:30 67 20 155/89 H 05/17/23 20:56 60 05/17/23 18:35 36.8 C 61 16 155/89 H Pulse Ox O2 Del Method 05/18/23 05:10 96 Room Air 05/18/23 04:49 05/17/23 22:40 95 Room Air 05/17/23 21:00 93 05/17/23 21:00 05/17/23 20:00 96 05/17/23 19:30 95 05/17/23 18:50 05/17/23 18:40 05/17/23 18:30 97 05/17/23 20:56 05/17/23 18:35 97 Room Air PG Care Time/CCT Total # of Minutes Spent Total Time Spent with Patient: Total time spent is greater than 50% in coordination of care (as documented) at patient's floor/unit and/or counseling patient: Coding Level of Care Code 52672 SUB INP/OBS CARE 11/14MIN Diagnoses Small bowel obstruction K56.609
[2023-05-18 06:15] LABS: Hematocrit (blood only) 34.8 % (42.0-52.0); Hemoglobin 11.4 g/dl (14.0-18.0); Mean Corpuscular Hemoglobin 32.4 pg (25.0-34.0); Mean Corpuscular Hgb Conc 32.8 g/dL (32.0-36.0); Mean Corpuscular Volume 98.9 fL (80.0-100.0); Platelet Count 201 K/uL (130-400); RDW Coefficient of Variation 15.4 % (11.5-14.5); RDW Standard Deviation 55.5 fL (36.4-46.3); Red Blood Count 3.52 M/uL (4.70-6.10); White Blood Count 9.22 K/ul (4.8-10.8)
[2023-05-18 06:22] LABS: BUN Creatinine Ratio 30.4 (10-20); Creatinine Clr Calc Pharmacy 76.8 ml/min; Est GFR (Non-African American) 87.2 ml/min; Phosphorus 4.6 mg/dl (2.5-4.9)
--- NOTE | 2023-05-18 07:19 | Hospitalist Progress Note ---
Date of Service May 18, 2023 Assessment & Plan (1) Small bowel obstruction: Plan: 82 M with PMH of CVA, hypertension, hyperlipidemia, BPH, multiple prior abdominal surgeries, and PEG tube placement who presented to the ED for abdominal discomfort. Now admitted for management of small bowel obstruction. Small bowel obstruction History of multiple abdominal surgeries, previous adhesions. Patient PEG tube in place. Hemodynamically stable on admission. No leukocytosis. Normal metabolic labs, LFTs, transaminases also within normal limits. SBO likely in the setting of adhesions. Medical management. Surgery on board - no intervention at this time. mIVF. Trend labs. Pain regimen PRN: IV Tylenol 1000 mg every 8 hours, IV Dilaudid 0.25 mg every 4 hours, IV Dilaudid 0.5 mg every 4 hours Patient does eat a pureed diet at home per - speech eval placed Dietary on board as patient on QID feeds Monitor labs NPO, PEG tube to wall suction antiemetics PRN Chronic conditions: Prolactinoma, hypertension, hyperlipidemia, BPH with LUTS Holding all home p.o. medications at this time. Code: Full code Dispo: Med-Surg FEN/GI: NPO. LR @80 mL/h DVT Prophylaxis: Lovenox 40 mg q24h PT/OT: Yes Consults: General surgery, dietitian, speech Case Management: No (2) Dysphagia: (3) Anemia: (4) BPH w urinary obs/LUTS: (5) Hypertension: (6) Hyperlipidemia: (7) Prolactinoma: (8) History of right MCA stroke: Admission and Anticipated Discharge Date Admission Date: May 17, 2023 Supervising Physician Co-Signing Physician Notes Attending Attestation & Progress Note: Pt seen/examined, chart reviewed, care plan d/w PGY2 Dr Page Tran. I agree w/ the angelo components of her documentation. 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 SBO likely on basis of adhesions. PEG hooked to ILWS with minimal bilious output. +flatus but minimal thus far. No stool. No emesis or nausea. Denied abd pain during my visit. VSS, afebrile gen - NAD neck - no JVD heart - RRR, s1 s2, no murmur lungs - CTA b/l with minimal rales R base abd - distended, NT, BS+ but diminished, PEG hooked to suction with bilious material in tubing ext - no edema, pulses 2+ b/l labs reviewed admission imaging reviewed A/P: 1. SBO - likely on basis of adhesions - stable, cont PEG to ILWS; appreciate gen surg assistance; cont NPO. Serial exams. 2. recent h/o R MCA territory CVA w/ hemorrhagic transformation. 3. history of prolactinoma. 4. recent h/o aspiration pneumonia - resolved. 5. ?esophagitis based on admission CT - add PPI. Larry Duque MD Subjective Patient seen at bedside. Reports continued abdominal tenderness and distension. No f/c/CP/SOB/nausea. PEG tube in place and set to wall suction. Review of Systems Review of Systems: See HPI Physical Exam Physical Exam: General: No acute distress HEENT: PERRLA. Normal conjunctiva, anicteric sclera. Respiratory: Normal respiratory effort, CTABL. Cardiovascular: RRR without murmurs, gallops, or rubs. No pedal edema. Implanted heart monitor noted on exam. GI: Distended abdomen with absent bowel sounds on auscultation. Nontender x4 quadrants. Neuro: Alert and oriented x3. Patient is dysarthric but intelligible. Psych: appropriate mood and affect Results & Data Results & Data Vital Signs (Past 12 Hours) Vital Signs Temp Pulse Pulse Resp BP BP BP 05/18/23 05:10 36.4 C L 57 L 20 183/69 H 05/18/23 04:49 55 L 05/17/23 22:40 36.6 C 62 18 168/103 H 05/17/23 21:00 60 21 05/17/23 21:00 168/79 H 05/17/23 20:00 60 18 170/96 H 05/17/23 19:30 59 L 16 147/88 H 05/17/23 20:56 60 Pulse Ox O2 Del Method 05/18/23 05:10 96 Room Air 05/18/23 04:49 05/17/23 22:40 95 Room Air 05/17/23 21:00 93 05/17/23 21:00 05/17/23 20:00 96 05/17/23 19:30 95 05/17/23 20:56 Laboratory Results 05/18/23 05:33 05/18/23 05:33 Resident Activity Tracking Resident Involvement: Resident Care Provided Care Provided: Adult Hospital Medicine
[2023-05-18] MEDS: HYDROmorphone INJ 0.5 MG/0.5 ML SYR IV PRN (07:48)
[2023-05-18] MEDS: PANTOprazole 40 MG in SYRINGE 0 ML IV SCH (13:27)
[2023-05-19] MEDS: LACTATED RINGER'S 1,000 ML IV SCH ×2 (03:34→15:34)
--- NOTE | 2023-05-19 05:45 | Billing Data ---
Date of Service May 18, 2023 Coding Level of Care Code 45074 SUB INP/OBS CARE
--- NOTE | 2023-05-19 05:48 | Surgery Progress Note ---
Date of Service May 19, 2023 Assessment & Plan (1) Small bowel obstruction: Plan: Patient has been admitted on the hospitalist service. Continue care as follows: Continue analgesics and antiemetics as needed Check a.m. labs when available Check KUB when available Continue IV fluid for hydration Maintain n.p.o. status. Also maintain G-tube to suction for the present time. As patient has had improved of his abdominal exam consideration can be given to clamping patient's G-tube but this will be based on patient's KUB results. Encourage ambulation Admission and Anticipated Discharge Date Admission Date: May 17, 2023 Supervising Physician Co-Signing Physician Notes Patient seen and examined, labs reviewed, KUB pending, agree with above. Admitted with SBO, G-tube to suction, now with minimal output. Feels much better, passing flatus and had a small liquid bowel movement. On exam afebrile stable vitals. Abdomen soft, nontender, minimally distended. Labs unremarkable, KUB pending. If continues to show progress with return of bowel function and KUB looks improved, may clamp G-tube and potentially progressed to clear liquids if tolerates Subjective Patient reports that he feels better since admission. He has not had any flatus or bowel movement since admission but he notes that his abdomen feels better without any pain. He denies any nausea or vomiting. Physical Exam Gastrointestinal (Abdomen): Abdomen is soft, nonrigid, nondistended. There is no pain with palpation. G- tube is placed to wall suction and is draining gastric contents. It is only drained approximately 50 cc since the initial 200 cc at time of admission. Results & Data Vital Signs (Past 12 Hours) Vital Signs Temp Pulse Pulse Resp BP BP Pulse Ox 05/19/23 05:10 36.4 C L 58 L 20 166/66 H 96 05/18/23 21:59 61 05/19/23 00:10 36.5 C 61 20 152/89 H 95 05/18/23 23:42 05/18/23 20:00 36.3 C L 55 L 20 166/85 H 96 05/18/23 17:52 176/77 H O2 Del Method 05/19/23 05:10 Room Air 05/18/23 21:59 05/19/23 00:10 Room Air 05/18/23 23:42 Room Air 05/18/23 20:00 Room Air 05/18/23 17:52 PG Care Time/CCT Total # of Minutes Spent Total Time Spent with Patient: Total time spent is greater than 50% in coordination of care (as documented) at patient's floor/unit and/or counseling patient: Coding Level of Care Code 63196 SUB INP/OBS CARE 11/14MIN Diagnoses Small bowel obstruction K56.609
--- NOTE | 2023-05-19 06:54 | Hospitalist Progress Note ---
Date of Service May 19, 2023 Assessment & Plan (1) Small bowel obstruction: Plan: 82 M with PMH of CVA, hypertension, hyperlipidemia, BPH, multiple prior abdominal surgeries, and PEG tube placement who presented to the ED for abdominal discomfort. Now admitted for management of small bowel obstruction. Small bowel obstruction History of multiple abdominal surgeries, previous adhesions. Patient PEG tube in place. Hemodynamically stable on admission. No leukocytosis. Normal metabolic labs, LFTs, transaminases also within normal limits. SBO likely in the setting of adhesions. Medical management. Surgery on board - no intervention at this time. mIVF. Trend labs. Will defer to surgery on enema/suppository use. Continue with NPO and G-tube to suction. Pain regimen PRN: IV Tylenol 1000 mg every 8 hours, IV Dilaudid 0.25 mg every 4 hours, IV Dilaudid 0.5 mg every 4 hours Patient does eat a pureed diet at home per - speech eval placed Dietary on board as patient on QID feeds Monitor labs NPO, PEG tube to wall suction antiemetics PRN Chronic conditions: Prolactinoma, hypertension, hyperlipidemia, BPH with LUTS Holding all home p.o. medications at this time. Code: Full code Dispo: Med-Surg FEN/GI: NPO. LR @80 mL/h DVT Prophylaxis: Lovenox 40 mg q24h PT/OT: Yes Consults: General surgery, dietitian, speech Case Management: No (2) Dysphagia: (3) Anemia: (4) BPH w urinary obs/LUTS: (5) Hypertension: (6) Hyperlipidemia: (7) Prolactinoma: Admission and Anticipated Discharge Date Admission Date: May 17, 2023 Supervising Physician Co-Signing Physician Notes Attending Attestation & Progress Note: Pt seen/examined, chart reviewed, care plan d/w PGY2 Dr Page Tran. I agree w/ the angelo components of her documentation. 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 SBO likely on basis of adhesions. Passing flatus but still no BM. Minimal output from PEG tube hooked to ILWS. No emesis or nausea. No abd pain. VSS, afebrile gen - NAD neck - no JVD mouth - MMM heart - RRR, s1 s2, no murmur lungs - CTA b/l abd - distended, NT, BS+ with improved bowel sounds today; PEG hooked to suction with minimal bilious material in tubing; PEG tube site clean ext - no edema, pulses 2+ b/l psych - a/o labs reviewed KUB imaging from this am - ongoing SBO A/P: 1. SBO - likely on basis of adhesions - ongoing, still no bowel movement but he is comfortable and without n/v/abd pain, cont PEG to ILWS; appreciate gen surg assistance; Serial exams and/or x-rays 2. recent h/o R MCA territory CVA w/ hemorrhagic transformation. 3. history of prolactinoma. 4. recent h/o aspiration pneumonia - resolved. 5. ?esophagitis based on admission CT - added PPI. Radiology also suggested endoscopic evaluation based on CT findings -- should f/u with GI following this admission. 6. HTN - BPs labile - consider IV hydralazine or metoprolol. add back lovenox 40mg daily for DVT proph Larry Duque MD Subjective Patient with some improvement in abdominal symptoms. Pain has improved. Has not had a BM. Did have enema yesterday with minimal stool output. Review of Systems Review of Systems: See HPI Physical Exam Physical Exam: General: No acute distress HEENT: PERRLA. Normal conjunctiva, anicteric sclera. Respiratory: Normal respiratory effort, CTABL. Cardiovascular: RRR without murmurs, gallops, or rubs. No pedal edema. Implanted heart monitor noted on exam. GI: Less distended abdomen with decreased but not absent bowel sounds on auscultation. Nontender x4 quadrants. More-soft, less distended Neuro: Alert and oriented x3. Patient is dysarthric but intelligible. Psych: appropriate mood and affect Results & Data Results & Data Vital Signs (Past 12 Hours) Vital Signs Temp Pulse Pulse Resp BP Pulse Ox O2 Del Method 05/19/23 05:10 36.4 C L 58 L 20 166/66 H 96 Room Air 05/18/23 21:59 61 05/19/23 00:10 36.5 C 61 20 152/89 H 95 Room Air 05/18/23 23:42 Room Air 05/18/23 20:00 36.3 C L 55 L 20 166/85 H 96 Room Air Laboratory Results 05/19/23 06:35 07/30/23 06:35 Diagnostic Findings KUB X-Ray 05/19/23 06:00 HISTORY: Small bowel obstruction. Constipation. COMPARISON: KUB and abdomen and pelvis CT 05/17/2023. FINDINGS: There is a moderate to large amount of well-formed stool seen throughout the colon. This is similar to the prior study. Prior cholecystectomy. Dilated gas-filled loops of small bowel again noted within the right upper quadrant. This corresponds the patient's known small bowel obstruction. Degenerative changes within the lumbar spine and hips. The small bowel loops within the right upper quadrant measuring up to 5.4 cm in diameter. No renal ca lculi. No ureteral calculi. No pneumoperitoneum or pneumatosis. IMPRESSION: 1. Persistent small bowel obstruction pattern with dilated gas-filled loops of small bowel within the right upper quadrant. 2. Moderate to severe fecal retention again noted. Resident Activity Tracking Resident Involvement: Resident Care Provided Care Provided: Adult [facility]
[2023-05-19 07:00] LABS: Hematocrit (blood only) 33.3 % (42.0-52.0); Hemoglobin 10.9 g/dl (14.0-18.0); Mean Corpuscular Hemoglobin 32.9 pg (25.0-34.0); Mean Corpuscular Hgb Conc 32.7 g/dL (32.0-36.0); Mean Corpuscular Volume 100.6 fL (80.0-100.0); Mean Platelet Volume 8.6 fL (9.4-12.4); Platelet Count 191 K/uL (130-400); RDW Standard Deviation 55.7 fL (36.4-46.3); Red Blood Count 3.31 M/uL (4.70-6.10)
[2023-05-19 07:37] LABS: BUN Creatinine Ratio 32.1 (10-20); Calcium 8.5 mg/dl (8.6-10.3); Creatinine Clr Calc Pharmacy 94.6 ml/min; Est GFR (African American) 110.1 ml/min; Magnesium 1.9 mg/dl (1.7-2.4); Phosphorus 3.1 mg/dl (2.5-4.9); Potassium 3.5 mmol/L (3.5-5.1)
--- NOTE | 2023-05-19 09:36 | XRay Report ---
KUB HISTORY: Small bowel obstruction. Constipation. COMPARISON: KUB and abdomen and pelvis CT 05/17/2023. FINDINGS: There is a moderate to large amount of well-formed stool seen throughout the colon. This is similar to the prior study. Prior cholecystectomy. Dilated gas-filled loops of small bowel again not ed within the right upper quadrant. This corresponds the patient's known small bowel obstruction. Deg enerative changes within the lumbar spine and hips. The small bowel loops within the right upper quad rant measuring up to 5.4 cm in diameter. No renal calculi. No ureteral calculi. No pneumoperitoneum o r pneumatosis. IMPRESSION: 1. Persistent small bowel obstruction pattern with dilated gas-filled loops of small bowel within the right upper quadrant. 2. Moderate to severe fecal retention again noted. ACT 112: Negative or not required by law. Electronically signed by: Donato Raygoza M.D. 05/19/2023 9:35 AM
--- NOTE | 2023-05-19 10:25 | Electrocardiogram Report ---
Test Reason : Blood Pressure : / mmHG Vent. Rate : 054 BPM Atrial Rate : 054 BPM P-R Int : 198 ms QRS Dur : 118 ms QT Int : 450 ms P-R-T Axes : 078 -60 050 degrees QTc Int : 426 ms Sinus bradycardia Right bundle branch block Left anterior fascicular block Bifascicular block Abnormal ECG When compared with ECG of 13-APR-2023 20:47, QRS duration has increased Criteria for Septal infarct are no longer Present Confirmed by Armaan Fung [id number] on 05/19/2023 10:25:40 AM Referred By: Flaca Jimenez Confirmed By:Armaan Fung
[2023-05-19] MEDS: PANTOprazole 40 MG in SYRINGE 0 ML IV SCH (11:49)
[2023-05-20] MEDS: LACTATED RINGER'S 1,000 ML IV SCH ×2 (04:46→17:12)
--- NOTE | 2023-05-20 06:55 | Hospitalist Progress Note ---
Date of Service May 20, 2023 Assessment & Plan (1) Small bowel obstruction: Plan: 82 M with PMH of CVA, hypertension, hyperlipidemia, BPH, multiple prior abdominal surgeries, and PEG tube placement who presented to the ED for abdominal discomfort. Now admitted for management of small bowel obstruction. Small bowel obstruction History of multiple abdominal surgeries, previous adhesions. Patient PEG tube in place. Hemodynamically stable on admission. No leukocytosis. Normal metabolic labs, LFTs, transaminases also within normal limits. SBO likely in the setting of adhesions. Medical management. Surgery signed off. -KUB with improvement today, moderate fecal retention. Added miralax and additonal enema today Pain regimen PRN: IV Tylenol 1000 mg every 8 hours, IV Dilaudid 0.25 mg every 4 hours, IV Dilaudid 0.5 mg every 4 hours Patient does eat a pureed diet at home per - speech eval placed Monitor labs tolerating liquids without issue antiemetics PRN Chronic conditions: Prolactinoma, hypertension, hyperlipidemia, BPH with LUTS Holding all home p.o. medications at this time. Code: Full code Dispo: Med-Surg FEN/GI: LR @80 mL/h, clear liquids. will start low rate g-tube feeds DVT Prophylaxis: Lovenox 40 mg q24h PT/OT: Yes Consults: General surgery, dietitian, speech Case Management: No (2) Dysphagia: (3) Anemia: (4) BPH w urinary obs/LUTS: (5) Hypertension: (6) Hyperlipidemia: (7) Prolactinoma: Admission and Anticipated Discharge Date Admission Date: May 17, 2023 Supervising Physician Co-Signing Physician Notes I personally examined the patient and verified all angelo points of history and exam, discussed case, and agree with decision making with Dr Metcalf feeling better, tolerating clear liquids without difficulty. Surgery input appreciated. Vitals noted, in general he is awake and alert pleasant no distress. HEENT normocephalic atraumatic mucous membranes moist. Abdomen soft nondistended nontender no masses organomegaly. Extremities without sinus clubbing Small bowel obstructionappears to be resolvingfull liquid diet, tube feeds. Hopefully home tomorrow. ConstipationMiraLAX. otherwise as above Subjective Patient seen and examined at bedside. No abdominal pain or nausea/vomiting. Passing some flatus, small BM yesterday after enema. Review of Systems Review of Systems: As per above Physical Exam Constitutional: WD/WN, vitals as above Eyes: anicteric sclerae ENMT: external ears and nose normal. moist mucous membranes Respiratory: normal respiratory effort, lungs clear to auscultation Cardiovascular: RRR, no murmur, no edema Gastrointestinal (Abdomen): abdomen soft, nontender and nondistended Skin: no rashes, warm and dry Psychiatric: A+Ox3, euthymic affect Results & Data Results & Data Vital Signs (Past 12 Hours) Vital Signs Temp Pulse Pulse Resp BP Pulse Ox O2 Del Method 05/20/23 04:00 37.0 C 77 20 161/96 H 97 Room Air 05/20/23 02:36 Room Air 05/19/23 21:59 85 05/19/23 23:18 36.5 C 82 20 173/97 H 96 Room Air 05/19/23 19:39 36.6 C 81 20 148/87 H 93 Room Air Resident Activity Tracking Resident Involvement: Resident Care Provided Care Provided: Adult Hospital Medicine
[2023-05-20 07:00] LABS: Hematocrit (blood only) 33.9 % (42.0-52.0); Hemoglobin 11.4 g/dl (14.0-18.0); Mean Corpuscular Hemoglobin 32.8 pg (25.0-34.0); Mean Corpuscular Hgb Conc 33.6 g/dL (32.0-36.0); Mean Corpuscular Volume 97.4 fL (80.0-100.0); Mean Platelet Volume 8.9 fL (9.4-12.4); Platelet Count 203 K/uL (130-400); RDW Coefficient of Variation 14.9 % (11.5-14.5); RDW Standard Deviation 53.5 fL (36.4-46.3); Red Blood Count 3.48 M/uL (4.70-6.10); White Blood Count 6.72 K/ul (4.8-10.8)
[2023-05-20 07:14] LABS: BUN Creatinine Ratio 29.3 (10-20); Calcium 8.6 mg/dl (8.6-10.3); Creatinine Clr Calc Pharmacy 91.9 ml/min; Est GFR (African American) 108.5 ml/min; Est GFR (Non-African American) 93.6 ml/min; Magnesium 1.9 mg/dl (1.7-2.4); Phosphorus 2.9 mg/dl (2.5-4.9); Potassium 3.5 mmol/L (3.5-5.1)
--- NOTE | 2023-05-20 07:22 | Billing Data ---
Date of Service May 19, 2023 Coding Level of Care Code 08833 SUB INP/OBS CARE
[2023-05-20] MEDS: ENOXAPARIN INJ 40 MG/0.4 ML SYR SQ SCH (08:02)
--- NOTE | 2023-05-20 08:24 | Surgery Progress Note ---
Date of Service May 20, 2023 Assessment & Plan (1) Small bowel obstruction: Plan: Patient reports ongoing improvement in abdominal symptoms. Pain is minimal, he denies n/v. he reports passing small amounts of flatus and a small BM yesterday G tube output documented as 10cc/12hrs and 35cc/24hrs. It has been connected to LIWS since admission KUB is pending today, again if improvement may consider clamping G tube and starting patient on clears Admission and Anticipated Discharge Date Admission Date: May 17, 2023 Supervising Physician Co-Signing Physician Notes Patient seen and examined, labs and imaging reviewed, agree with above. Admitted with small bowel obstruction, seems to have improved significantly. Tolerated liquids, passing gas. On exam he is afebrile stable vitals, abdomen soft, nontender, nondistended. KUB shows improvement in small bowel obstruction with significant stool burden. Advance diet to pured as tolerated, may restart tube feeds as needed. Recommend aggressive bowel regimen to assist with constipation. Surgery will follow peripherally, call with questions or concerns Subjective Patient reports ongoing improvement in abdomen. Denies pain, n/v. Says he is passing a small amount of flatus and had a small BM with the help of an enema yesterday. Physical Exam Physical Exam: awake/alert, sitting up in chair Gastrointestinal (Abdomen): Inspection/Auscultation: + abdomen distended (mild ) Percussion/Palpation: abdomen soft; abdomen nontender Results & Data Vital Signs (Past 12 Hours) Vital Signs Temp Pulse Pulse Resp BP BP Pulse Ox 05/20/23 07:41 36.6 C 64 18 169/77 H 94 05/20/23 06:52 64 05/20/23 04:00 37.0 C 77 20 161/96 H 97 05/20/23 02:36 05/19/23 21:59 85 05/19/23 23:18 36.5 C 82 20 173/97 H 96 O2 Del Method 05/20/23 07:41 Room Air 05/20/23 06:52 05/20/23 04:00 Room Air 05/20/23 02:36 Room Air 05/19/23 21:59 05/19/23 23:18 Room Air PG Care Time/CCT Total # of Minutes Spent Total Time Spent with Patient: Total time spent is greater than 50% in coordination of care (as documented) at patient's floor/unit and/or counseling patient: Coding Level of Care Code 09895 SUB INP/OBS CARE 11/14MIN Diagnoses Small bowel obstruction K56.609
--- NOTE | 2023-05-20 09:45 | XRay Report ---
KUB HISTORY: Acute abdominal pain with small bowel obstruction. COMPARISON: 05/19/2023, 05/17/2023. FINDINGS: Moderate to extensive fecal retention. Decreased small bowel distention compared to the radha or study. Dilated small bowel loops in the right abdomen measure up to 4 cm, previously 5.4 cm. No r enal calculi. No ureteral calculi. No pneumoperitoneum or pneumatosis. Osteoarthritis of the hips. No fracture. Loop recorder device. IMPRESSION: 1. Resolving small bowel obstruction. 2. Moderate to extensive fecal retention. ACT 112: Negative or not required by law. The above report was generated using voice recognition software. It may contain grammatical, syntax o r spelling errors. Electronically signed by: Gerardo Snow M.D. 05/20/2023 9:44 AM
[2023-05-20] MEDS: PANTOprazole 40 MG in SYRINGE 0 ML IV SCH (11:34)
[2023-05-20] MEDS ORDERED: SOD PHOSPHATE/SOD BIPHOSPHATE ENEMA 132 ML BTL PR ONE (12:53)
[2023-05-20] MEDS: POLYETHYLENE (MIRALAX) 17 GM PACK PO SCH (13:37)
--- NOTE | 2023-05-20 18:43 | Billing Data ---
Date of Service May 20, 2023 Coding Level of Care Code 72606 SUB INP/OBS CARE
[2023-05-20] MEDS ORDERED: FIBERSOURCE HN 1.2 CAL 1000 ML BAG GT SCH (18:45)
[2023-05-21] MEDS: LACTATED RINGER'S 1,000 ML IV SCH (05:41)
[2023-05-21 07:59] LABS: Hematocrit (blood only) 32.2 % (42.0-52.0); Hemoglobin 10.9 g/dl (14.0-18.0); Mean Corpuscular Hemoglobin 32.9 pg (25.0-34.0); Mean Corpuscular Hgb Conc 33.9 g/dL (32.0-36.0); Mean Corpuscular Volume 97.3 fL (80.0-100.0); Mean Platelet Volume 8.5 fL (9.4-12.4); Platelet Count 188 K/uL (130-400); RDW Coefficient of Variation 14.8 % (11.5-14.5); RDW Standard Deviation 52.5 fL (36.4-46.3); Red Blood Count 3.31 M/uL (4.70-6.10); White Blood Count 5.11 K/ul (4.8-10.8)
[2023-05-21 08:12] LABS: BUN Creatinine Ratio 24.6 (10-20); Calcium 8.6 mg/dl (8.6-10.3); Creatinine Clr Calc Pharmacy 92.8 ml/min; Est GFR (African American) 109.3 ml/min; Est GFR (Non-African American) 94.3 ml/min; Magnesium 1.9 mg/dl (1.7-2.4); Phosphorus 2.5 mg/dl (2.5-4.9); Potassium 3.5 mmol/L (3.5-5.1)
[2023-05-21] MEDS: POLYETHYLENE (MIRALAX) 17 GM PACK PO SCH (09:17)
[2023-05-21] MEDS: ENOXAPARIN INJ 40 MG/0.4 ML SYR SQ SCH (09:17)
--- NOTE | 2023-05-21 11:11 | Surgery Progress Note ---
Date of Service May 21, 2023 Assessment & Plan (1) Small bowel obstruction: Plan: Patient here with resolving SBO, tolerating diet advancement and TEN initiation, + bowel function This AM he inadvertently pulled out g-tube while ambulating about his room. tube was replaced and balloon filled with 10cc normal saline, bumper is to to at ~3 A KUB will be ordered for check of tube positioning. Patient does have an iodine allergy contrast and after discussion with radiology recommended he be pre- medicated. given allergy is "itching" we will pre-medicate 2 hrs prior to KUB/contrast with 2 tablets of 16mg methylprednisolone Would hold off on TEN continuation until proper positioning of g-tube is confirmed If okay, pt may adv diet and ten as tolerates. we will be available if any questions/concerns during his stay, but otherwise follow peripherally Admission and Anticipated Discharge Date Admission Date: May 17, 2023 Supervising Physician Co-Signing Physician Notes Patient discussed with RAÚL Trinh, agree with above. Resolving small bowel obstruction for which we have signed off, however patient inadvertently removed his G-tube today. This was replaced by our PA. We are awaiting NG tube study as the patient has not allergy to contrast and needs to be prepped prior to the injection of contrast into the G-tube. If this is in good placement, he may continue to use it Subjective Patient inadvertently pulled out G-tube while ambulating about the room. otherwise he reports he is tolerating a diet and his TEN well without issues. + bowel function. no n/v. Physical Exam Physical Exam: awake, no distress Gastrointestinal (Abdomen): Percussion/Palpation: abdomen soft; abdomen non tender g- tube dislodged, site covered with gauze/tape Results & Data Vital Signs (Past 12 Hours) Vital Signs Temp Pulse Resp BP BP Pulse Ox O2 Del Method 05/21/23 08:11 36.4 C L 56 L 16 139/81 96 Room Air 05/21/23 04:00 36.6 C 86 20 144/84 H 95 Room Air 05/20/23 23:33 36.4 C L 66 20 175/93 H 97 Room Air PG Care Time/CCT Total # of Minutes Spent Total Time Spent with Patient: Total time spent is greater than 50% in coordination of care (as documented) at patient's floor/unit and/or counseling patient: Coding Level of Care Code 14928 SUB INP/OBS CARE MIN Diagnoses Small bowel obstruction K56.609
[2023-05-21] MEDS: PANTOprazole 40 MG in SYRINGE 0 ML IV SCH (11:24)
--- NOTE | 2023-05-21 11:32 | XRay Report ---
KUB CLINICAL HISTORY: Small bowel obstruction. FINDINGS: 2 AP, portable, supine abdominal radiographs are compared to study dated 05/20/2023 and homer elated with abdominal CT dated 05/17/2023. Gaseous distention of the small bowel loops is similar to p revious and indicates persistent small bowel obstruction. No evidence of intraperitoneal free air is seen on these supine images. Cholecystectomy clips are noted in the right upper quadrant. Fecal reten tion is again seen throughout the colon. Right-sided nephrolithiasis is unchanged. Surgical clips are noted in the pelvis. The skeletal structures are osteopenic and appear intact. There is advanced lum bosacral spondylosis. Arthritic change is seen in the hips. IMPRESSION: Persistent small bowel obstruction. Electronically signed by: Alfonso Elliott M.D. 05/21/2023 11:31 AM
--- NOTE | 2023-05-21 14:55 | XRay Report ---
KUB TUBE CHECK CLINICAL HISTORY: Assess gastrostomy tube placement. FINDINGS: 2 AP abdominal radiographs are obtained. This shows a gastrostomy tube projecting at the le luna of the diaphragm in the midline. Cholecystectomy clips are noted. No bowel obstruction is seen. M [id number] fecal retention is seen throughout the colon. There are no abnormal abdominal calcifi cations. Surgical clips are present in the pelvis. The skeletal structures are osteopenic. There is a dvanced lumbosacral spondylosis. Once positioning was confirmed, approximately 50 cc of Optiray 320 w as administered through the PEG tube. This shows intraluminal contrast within the stomach. No extralu jonathan contrast is seen. IMPRESSION: 1. Satisfactory positioning of the PEG tube, with contrast opacified of the stomach. 2. No extra luminal contrast is seen. 3. No bowel obstruction. Electronically signed by: Alfonso Elliott M.D. 05/21/2023 2:54 PM
--- NOTE | 2023-05-21 16:39 | Discharge Summary ---
Date of Service May 21, 2023 Admission HPI Per Admitting Provider Jonathon is an 82-year-old man with past medical history of throat cancer (PEG tube), CVA, hypertension, hyperlipidemia, who presented to the emergency room with a complaint of nonspecific abdominal pain x2 days. He denies any nausea vomiting, but did note some abdominal distention. Last bowel movement was 24 hours prior to admission but has not passed flatus or had any BMs since. He also denies fever or chills. Patient follows with Dr. Blank, was notified and decision was made to admit patient for small bowel obstruction. Of note, patient had history of ruptured PEG tube due to dysfunction which caused gastric outlet obstruction. However, this has resolved. In the ED, KUB revealed air-filled loops of bowel in the left midabdomen involving large and small bowel, felt to represent potential ileus. Subsequent CT A/P revealed findings concerning for small bowel obstruction with transition point in the right side of the abdomen potentially related to an adhesion. Mesenteric edema, small volume ascites also noted. WBC was normal, as was BMP, LFTs and lipase. UA was also negative. Surgery was consulted and evaluated the patient. As he was hemodynamically stable, surgery opted for trial of co nservative management at this time. Admission Exam Per Admitting Provider General: No acute distress HEENT: PERRLA. Normal conjunctiva, anicteric sclera. Oropharynx normal. Respiratory: Normal respiratory effort, CTABL. Cardiovascular: RRR without murmurs, gallops, or rubs. No pedal edema. Implanted heart monitor noted on exam. GI: Distended abdomen with absent bowel sounds on auscultation. Nontender x4 quadrants. Neuro: Alert and oriented x3. Patient is dysarthric but intelligible. Principal Diagnosis Small bowel obstruction Discharge Exam Constitutional WD/WN, vitals as above ENMT External ears and nose normal, moist mucous membranes Respiratory normal respiratory effort, lungs clear to auscultation Cardiovascular RRR, no murmur, no edema Gastrointestinal (Abdomen) PEG tube in place Skin no rashes, warm and dry Psychiatric A+Ox3, euthymic affect Discharge Data Allergies Allergy/AdvReac Type Severity Reaction Status Date / Time Iodinated Contrast Media Allergy Intermediate ITCHING Verified 05/17/23 18:07 Consultations 05/17/23 21:47 Consult General Surgery Stat Ordered Studies 05/17/23 18:18 CT Abd and Pelvis [CT abd pelvis IV con only] Stat Hospital Course (1) Small bowel obstruction: 82 M with PMH of CVA, hypertension, hyperlipidemia, BPH, multiple prior abdominal surgeries, and PEG tube placement who presented to the ED for abdominal discomfort. Now admitted for management of small bowel obstruction. Small bowel obstruction History of multiple abdominal surgeries, previous adhesions. Patient PEG tube in place. Hemodynamically stable on admission. No leukocytosis. Normal metabolic labs, LFTs, transaminases also within normal limits. SBO likely in the setting of adhesions. Medical management, surgery followed patient and no surgery indicated. KUB with improvement during stay, moderate fecal retention. Added miralax and additional enemas. Encouraged continued bowel regimen. Patient was able to return to regular diet (pureed) and restarted tube feeds. PEG tube was inadvertently removed by patient, required replacement and location confirmed by x-ray. Chronic conditions: Prolactinoma, hypertension, hyperlipidemia, BPH with LUTS Home meds resumed at discharge (2) Dysphagia: (3) Anemia: (4) BPH w urinary obs/LUTS: (5) Hypertension: (6) Hyperlipidemia: (7) Prolactinoma: Total Time Total Time Spent Total Time Spent (In Minutes): >30 Discharge Plan Discharge Items Patient Disposition: Home - Self-Care Reason For Visit: SMALL BOWEL OBSTRUCTION Discharge Diagnosis: Small bowel obstruction Activity: Resume your previous activity Non-emergency contact: Primary Care Provider and Surgeon Call non-emergency contact if: your symptoms worsen Follow-up/Referrals: PCP,NO [Primary Care Provider] - Diet: Heart Healthy Addtl Attending Provider Instructions: You were admitted to the hospital for a small bowel obstruction, which was thought to be due to changes in your abdomen that occur after surgeries. You were treated with fluids, laxative medications and suction through the G tube. A discharge summary will be sent to your primary care physician to ensure continuity of care. Please bring this discharge summary with you to your next office appointment so that your provider can review it at that time. Follow-up appointments: - We have scheduled a follow-up appointment for you with Dr. Metcalf at 3:45 PM next Saturday05/28/23. This will be at [address], [address] at [facility]. Medications: Your medication list has been reviewed and reconciled upon discharge to ensure accuracy and continuity of care. An updated list of all your medications is included with your hospital discharge paperwork. Please review this list closely, and make note of any changes. -You can resume taking your medications as normal now that your bowel obstruction is improving. -It is ok to take twice or even 3x daily Miralax to help with bowel movements. CALL 911 OR GO TO THE EMERGENCY DEPARTMENT if you experience any of the following: - Sudden, severe abdominal pain or nausea/vomiting - Severe chest pain, or chest pain that radiates (moves) to your jaw or arm - Sudden, severe shortness of breath or difficulty breathing Thank you for allowing us to participate in your care Pending Studies at Discharge: No Stand-Alone Forms: [facility] Medications and DC Order Prescriptions: Continued cabergoline 0.5 mg tablet 0.5 mg PO 3XWK Rx Instructions: Mon/Wed/Fri pravastatin 20 mg tablet 20 mg PO QPM hydrochlorothiazide 25 mg tablet 25 mg PO DAILY aspirin 81 mg Tablet,Delayed Release (Dr/Ec) 81 mg PO DAILY prednisone 50 mg tablet 0 mg PO DIRECTED Rx Instructions: TAKE 13, 7 AND 1 HRS PRIOR TO STUDY IN JUN 2023. TAKE DIRECTED. docusate sodium 50 mg/5 mL liquid 10 ml PO BID PRN (Reason: Constipation) Rx Instructions: As of 05/17/23 - Pt has taken 3 doses and states that they now have a severe abd pain doxazosin 2 mg tablet 2 mg PO HS Discharge Orders: Discharge Order (Routine); Ordered 05/21/23 Ordered By: Nathan Back Admission Data Admit Date/Time: 05/17/23 21:25 Attending Provider: Akhil Randolph Admit Provider: Lily Everett Primary Care Provider: PCP,NO Other Providers: Brendon Lawrence ; Ana Costello ; Isidoro Baltazar ; Colin Abdi ; Jose Kimble ; Hima Blank ; Anu Wright ; Wilfredo Hills ; Philipp Ramsay ; Fareed Snyder ; Romulo Hosue ; Mary Ann,Fax ; [facility] Other Interventions: Discharge Summary Assessment (RN) Last Done: 05/21/23 16:14 Supervising Physician Co-Signing Physician Notes I personally examined the patient and verified all angelo points of history and exam, discussed case, and agree with decision making with Dr Metcalf Tolerating diet similar to what he would have at home, tolerating tube feeds. Accidentally pulled out G-tube earlierreplaced by surgery, later x-ray reviewed and okay for patient to go home. On revisit prior to discharge updated extensively and answered all questions to the best my ability and their satisfaction. Vitals noted, in general he is awake and alert pleasant no distress. HEENT normocephalic atraumatic mucous membranes moist. Abdomen soft nondistended nontender no masses organomegaly. Extremities without sinus clubbing Small bowel obstructionappears to be resolving Safe/stable for home, tube replaced. Otherwise as above.
--- NOTE | 2023-05-21 17:17 | Billing Data ---
Date of Service May 21, 2023 Coding Level of Care Code 56992 INP/OBS DISCH >30 MIN
== END 2023-05-21 16:45 | disposition home or self-care (01) | DRG 390 ==
LOC: ED 15:33 → 2N 21:25 → SUATTDRO 21:25 → 2N 22:03

== ENCOUNTER 2023-05-22 06:57 | Inpatient (IN) ==
--- NOTE | 2023-05-22 07:31 | Emergency Department Note ---
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 The patient presents in the setting of being discharged from this facility yesterday after being observed for a bowel obstruction which resolved with conservative management . Of note, the patient did displace his PEG tube on the day of discharge but this was subsequently replaced within an hour at the bedside and subsequent imaging confirmed appropriate positioning. The patient and his report that he has been cleared to begin oral diet with pured foods which he has been doing since his discharge. They deny any fevers, nausea, vomiting or abdominal pain since leaving the hospital. Records, the patient's PEG tube [facility] when he was [facility] for his stroke 04/02. On arrival the patient is no acute distress, afebrile with stable vital signs. Abdomen is nontender nondistended. Given the patient's PEG tube track is over 6 weeks old attempt was made to replace this at the bedside with similar sized 18 [place] feeding tube. Unfortunately, placement of this was successful as resistance was persistent. Track does appear to be patent when probed with angiocatheter but attempt at 16 [place]er Domingo catheter was also unsuccessful. Appreciate consultation and recommendation with general surgery who evaluated the patient at the bedside and attempt was also unsuccessful. Agree that track is still present though narrowed. Recommend GI consultation. Additionally, patient was started on oral thickened liquid in past 24 hours and was near calorie goals and so need for PEG at this time could also be reassessed. Case subsequently discussed with Dr. Webber [facility] on-call. Appreciate consultation/recommendations. Recommends admission for further evaluation and clarification of circumstances of patient's initial PEG placement under [place] [facility] and to assess if amenable to endoscopic placement. I did review this plan with the patient with at the bedside. They were in agreement. Case was discussed with [place]. Rivera, [facility] [place], who will evaluate the patient for admission. Triage Nursing notes reviewed and agree them. Prior/outside medical records reviewed Vital Signs: reviewed Differential diagnosis: PEG tube displacement, perforation, peritonitis, obstruction among others considered. ER treatment provided: See below. Laboratory studies: See below Consultation(s): Anu Rodriguez, general surgery TIFFANIE, with Dr. Blank, general surgery. Dr. Webber, [facility]. Dr. Rivera, [facility] hospitalist. 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 The patient presents in the setting of being discharged from this facility yesterday after being observed for a bowel obstruction which resolved with conservative management . Of note, the patient did displace his PEG tube on the day of discharge but this was subsequently replaced within an hour at the bedside and subsequent imaging confirmed appropriate positioning. The patient and his report that he has been cleared to begin oral diet with pured foods which he has been doing since his discharge. They deny any fevers, nausea, vomiting or abdominal pain since leaving the hospital. Records, the patient's PEG tube was originally placed at [facility] when he was admitted for his stroke 04/02. ROS: See above HPI for pertinent positives & negatives. A total of 10 systems reviewed and were otherwise negative. VITALS:See Below PHYSICAL EXAMINATION: GENERAL: Awake, alert, well-appearing, in no distress HENT: Normocephalic, atraumatic. Oropharynx unremarkable. EYES: Normal conjunctiva. Sclera non-icteric. NECK: Supple. No nuchal rigidity. FROM. No JVD. RESPIRATORY: Clear to auscultation. CARDIAC: Regular rate, normal rhythm. Extremities warm and well perfused. Pulses equal. ABDOMEN: Soft, non-distended. No tenderness to palpation. No rebound or guarding. Epigastric PEG site c/d/i. No crepitus. RECTAL: Deferred. MUSCULOSKELETAL: Chest examination reveals no tenderness. The back is symmetrical on inspection without obvious abnormality. There is no CVA t enderness to palpation. No joint edema. LOWER EXTREMITIES: Calves are equal size bilaterally and non-tender. No edema. No discoloration. NEURO: Normal sensorium. No sensory or motor deficits noted. SKIN: No rash or jaundice noted. Luca Smith MD Past Med/Surg History Medical History Anemia Dysphagia Hemianopsia History of right MCA stroke Hyperlipidemia Hypertension Kidney stone PEG tube malfunction Septic shock 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 Surgical History History of cholecystectomy History of hernia repair Family History Mother Diabetes Hypertension Heart disease Social History Smoking Status: Never smoker Second Hand Exposure: No; Do You Dip or Chew Tobacco: No; Hx Alcohol Use: No Hx Substance Use: No Preferred Language: Afghan Communication Ability: Effective Communication Ability Comment: HX STROKE LEFT SIDED PERIPHERAL VISION LOSS 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: No Beliefs That Will Affect Care: None marital status: Current Living Situation: Spouse current occupational status: retired Other Information That Helps Us Care for You: No Feels Safe at Home: Yes Safety Concerns: Feels Safe At This Time Assistive Devices: Glasses and Walker Allergies Allergies Allergy/AdvReac Type Severity Reaction Status Date / Time Iodinated Contrast Media Allergy Intermediate ITCHING Verified 05/17/23 18:07 Home Meds Home Medications Medication Instructions Recorded Confirmed cabergoline 0.5 mg tablet 0.5 mg PO 3XWK 03/15/19 05/22/23 hydrochlorothiazide 25 mg tablet 25 mg PO DAILY 03/15/19 05/22/23 pravastatin 20 mg tablet 20 mg PO QPM 03/15/19 05/22/23 aspirin 81 mg tablet,delayed 81 mg PO DAILY 03/26/23 05/22/23 release docusate sodium 50 mg/5 mL oral 10 ml PO BID PRN Constipation 05/17/23 05/22/23 liquid doxazosin 2 mg tablet 2 mg PO HS 05/17/23 05/22/23 Results & Data (ED) Vital Signs Vital Signs - 24 hr 05/22/23 06:59 05/22/23 07:30 05/22/23 12:22 Temperature 36.3 C L Temperature Source Temporal Artery Scan Pulse Rate 65 Pulse Rate [Right Finger] 58 L 77 Pulse Rhythm [Right Finger] Regular Regular Pulse Strength [Right Finger] Normal Respiratory Rate 14 18 16 Respiratory Effort / Characteristics Non-Labored Spontaneous Respiratory Depth Normal Normal Blood Pressure 100/62 Blood Pressure [Right Arm] 129/77 182/90 H Blood Pressure Mean 74 Blood Pressure Mean [Right Arm] 94 120 Pulse Oximetry 95 96 97 Oxygen Delivery Method Room Air Room Air Room Air Sepsis Recent Fever Within 48 Hours No Sepsis New/Unexplained Change in Mental Status No Sepsis Action Taken by Nursing No Action Required Laboratory Data Attestation: I reviewed the patient's lab results. 05/22/23 11:45 05/22/23 11:45 Lab Results 05/22/23 05/22/23 Range/Units 11:45 11:45 WBC 5.29 (4.8-10.8) K/ul RBC 3.38 L (4.70-6.10) M/uL Hgb 11.0 L (14.0-18.0) g/dl Hct 32.9 L (42.0-52.0) % MCV 97.3 (80.0-100.0) fL MCH 32.5 (25.0-34.0) pg MCHC 33.4 (32.0-36.0) g/dL RDW Std Deviation 53.7 H (36.4-46.3) fL RDW Coeff of Alison 15.0 H (11.5-14.5) % Plt Count 183 (130-400) K/uL MPV 9.0 L (9.4-12.4) fL Immature Gran % (Auto) 0.2 % Neut % (Auto) 69.2 % Lymph % (Auto) 18.5 % Bailey % (Auto) 10.0 % Eos % (Auto) 1.7 % Baso % (Auto) 0.4 % Neut # (Auto) 3.66 (1.40-6.50) K/uL Lymph # (Auto) 0.98 L (1.2-3.4) K/uL Bailey # (Auto) 0.53 (0.11-0.59) K/uL Eos # (Auto) 0.09 (0-0.50) K/uL Baso # (Auto) 0.02 (0-0.2) K/uL Immature Gran # (Auto) 0.01 (0.01-0.20) K/uL Sodium 140 (136-145) mmol/L Potassium 3.6 (3.5-5.1) mmol/L Chloride 105 (98-107) mmol/L Carbon Dioxide 32 (21-32) mmol/L Anion Gap 3 (3-11) BUN 15 (6-23) mg/dl Creatinine 0.64 (0.6-1.4) mg/dl Est Cr Clr Drug Dosing 65.9 ml/min Est GFR ( Amer) 104.2 ml/min Est GFR (Non-Af Amer) 89.9 ml/min BUN/Creatinine Ratio 23.4 H (10-20) Glucose 101 H (70-99(Fasting)) mg/dl Calcium 8.8 (8.6-10.3) mg/dl Administered Medications Hydralazine HCl (Hydralazine Hcl 20 Mg/Ml Vial) 2.5 mg IV Q6H PRN PRN Reason: SBP >180 Stop: 06/21/23 16:59 Last Admin: 05/22/23 18:32 Dose: 2.5 mg Documented By: ALONSO Discontinued Medications Amlodipine Besylate (Amlodipine Besylate 5 Mg Tab) 5 mg PO NOW ONE Stop: 05/22/23 16:54 Last Admin: 05/22/23 17:22 Dose: 5 mg Documented By: ALONSO Sodium Chloride (Nss 1000ml) 1,000 mls @ 125 mls/hr IV .Q8H LORI Stop: 06/21/23 11:29 Last Infusion: 05/22/23 16:52 Dose: 0 mls/hr Documented By: Admin: 05/22/23 12:01 Dose: 125 mls/hr Documented By: EMMA Discharge Plan Visit Data Chief Complaint: Feeding/PEG Tube Replacement Stated Complaint: TUBE FROM FEEDING TUBE CAME OFF ED Provider: Luca Smith Discharge Problem: Feeding tube dysfunction, History of right MCA stroke, Dysphagia Patient Disposition: Admitted As Inpatient Discharge Instructions Interventions: ED Discharge Assessment Last Done: 05/22/23 15:41 Feeding tube dysfunction Qualifiers: Encounter type: initial encounter Qualified Code(s): T85.598A - Other mechanical complication of other gastrointestinal prosthetic devices, implants and grafts, initial encounter Dysphagia Qualifiers: Dysphagia type: unspecified Qualified Code(s): R13.10 - Dysphagia, unspecified
[2023-05-22] MEDS ORDERED: SODIUM CHLORIDE 0.9% 1000ML 1,000 ML IV SCH (11:30)
--- NOTE | 2023-05-22 11:55 | Surgery Consultation ---
Date of Consultation May 22, 2023 Assessment & Plan (1) Complication of feeding tube: This is an 82y M with a PMH of CVA, squamous cell carcinoma of the tongue, HTN, HLD, feeding tube status who reports to the [facility] ED on 05/22/23 after he woke up this AM and realized his g-tube had fallen out. Of significance the patient was recently admitted to the hospital with an SBO from 05/17/23-05/21/23 that resolved on its own with conservative management. On his day of discharge (05/21) he was ambulating about his room and the g-tube inadvertently fell out. We were notified immediately and was able to replace the tube without difficulty. It was confirmed via KUB with contrast shot down the tube. Unfortunately sometime overnight or into this AM the tube again fell out. Both the ER and we tried to replace the tube without success...attempts were made with an 18F g-tube (same size as his home one) and a 16F tolentino catheter. At this time would recommend reaching out to GI to see their recommendations. The patient does not receive his full nutrition via g-tube and is able to sustain himself by mouth. He tells us there are talks about possibly stopping TEN if he is able to maintain his weight. Could consider reaching out to [facility] as well as to why it was placed initially 2 months ago and if indicated for replacement at this time or see how he fairs. Either way not an urgent situation if it is not able to be replaced today. Supervising Physician Co-Signing Physician Notes Patient seen and examined, agree with above. Patient known to service from recent admission for small bowel obstruction. His PEG tube fell out while in ho use so we are able to replace it in a timely fashion. He was discharged home yesterday after tolerating diet. This morning when they woke his PEG tube was again out. They are unsure how long has been out. The patient has apparently been in since March. He is afebrile stable vitals. We attempted repeatedly to place both an 18 Serbian feeding tube as well as a 16 Serbian Tolentino catheter, neither of which were successful. We are unable to probe it with a cotton swab. It appeared that the tract was edematous and swollen. We would recommend GI attempt feeding tube replacement under direct endoscopy. History of Present Illness History of Present Illness This is an 82y M with a PMH of CVA, squamous cell carcinoma of the tongue, HTN, HLD, feeding tube status who reports to the [facility] ED on 05/22/23 after he woke up this AM and realized his g-tube had fallen out. Of significance the patient was recently admitted to the hospital with an SBO from 05/17/23-05/21/23 that resolved on its own with conservative management. On his day of discharge (05/21) he was ambulating about his room and the g-tube inadvertently fell out. We were notified immediately and was able to replace the tube without difficulty. It was confirmed via KUB with contrast shot down the tube. He was later dispo'd on a diet and TEN as per his home regimen, having + bowel function. He states the tube was able to be used yesterday evening for medication administration without issues. Then he woke up this AM with it noted to be fallen out and he says he did not feel it happen at all. Of note this tube has been in place since March. Allergies Allergy/AdvReac Type Severity Reaction Status Date / Time Iodinated Contrast Media Allergy Intermediate ITCHING Verified 05/17/23 18:07 Home Medications Medication Instructions Recorded Confirmed Type cabergoline 0.5 mg tablet 0.5 mg PO 3XWK 03/15/19 05/22/23 History hydrochlorothiazide 25 mg tablet 25 mg PO DAILY 03/15/19 05/22/23 History pravastatin 20 mg tablet 20 mg PO QPM 03/15/19 05/22/23 History aspirin 81 mg tablet,delayed 81 mg PO DAILY 03/26/23 05/22/23 History release docusate sodium 50 mg/5 mL oral 10 ml PO BID PRN Constipation 05/17/23 05/22/23 History liquid doxazosin 2 mg tablet 2 mg PO HS 05/17/23 05/22/23 History Patient History Medical History Anemia Dysphagia Hemianopsia History of right MCA stroke Hyperlipidemia Hypertension Kidney stone PEG tube malfunction Septic shock 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 Surgical History History of cholecystectomy History of hernia repair Family History Mother Diabetes Hypertension Heart disease Social History Smoking Status: Never smoker Second Hand Exposure: No; Do You Dip or Chew Tobacco: No; Hx Alcohol Use: No Hx Substance Use: No Preferred Language: Telugu Communication Ability: Effective Communication Ability Comment: 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 Radiology Required: No Beliefs That Will Affect Care: None marital status: Current Living Situation: Spouse current occupational status: retired Feels Safe at Home: Yes Assistive Devices: Walker Review of Systems Constitutional: no fever and no chills Respiratory: no dyspnea Gastrointestinal: no abdominal pain, no nausea, no vomiting and no change in bowel habits feeding tube dislodged Physical Exam Physical Exam: awake Constitutional: no acute distress Respiratory: normal respiratory effort Gastrointestinal (Abdomen): Percussion/Palpation: abdomen soft; abdomen nontender feeding tube dislodged, small amount of erythema surrounding opening Results & Data Vital Signs (Past 12 Hours) Vital Signs Temp Pulse Pulse Resp BP BP Pulse Ox 05/22/23 07:30 58 L 18 129/77 96 05/22/23 06:59 36.3 C L 65 14 100/62 95 O2 Del Method 05/22/23 07:30 Room Air 05/22/23 06:59 Room Air PG Care Time/CCT Total # of Minutes Spent Total Time Spent with Patient: Total time spent is greater than 50% in coordination of care (as documented) at patient's floor/unit and/or counseling patient: Coding Level of Care Code 56352 OP VST EST LOW 20-29 MIN Diagnoses Complication of feeding tube K94.20
[2023-05-22 12:25] LABS: Basophils # (auto) 0.02 K/uL (0-0.2); Basophils % (auto) 0.4 %; Eosinophils # (auto) 0.09 K/uL (0-0.50); Eosinophils % (auto) 1.7 %; Hematocrit (blood only) 32.9 % (42.0-52.0); Immature Granulocytes # (auto) 0.01 K/uL (0.01-0.20); Immature Granulocytes % (auto) 0.2 %; Lymphocytes # (auto) 0.98 K/uL (1.2-3.4); Lymphocytes % (auto) 18.5 %; Mean Corpuscular Hemoglobin 32.5 pg (25.0-34.0); Mean Corpuscular Hgb Conc 33.4 g/dL (32.0-36.0); Mean Corpuscular Volume 97.3 fL (80.0-100.0); Monocytes # (auto) 0.53 K/uL (0.11-0.59); Neutrophils # (auto) 3.66 K/uL (1.40-6.50); Neutrophils % (auto) 69.2 %; Platelet Count 183 K/uL (130-400); RDW Standard Deviation 53.7 fL (36.4-46.3); Red Blood Count 3.38 M/uL (4.70-6.10); White Blood Count 5.29 K/ul (4.8-10.8)
[2023-05-22 12:29] LABS: BUN Creatinine Ratio 23.4 (10-20); Calcium 8.8 mg/dl (8.6-10.3); Creatinine Clr Calc Pharmacy 65.9 ml/min; Est GFR (African American) 104.2 ml/min; Est GFR (Non-African American) 89.9 ml/min; Potassium 3.6 mmol/L (3.5-5.1)
--- NOTE | 2023-05-22 13:38 | History & Physical Report ---
Date of Service May 22, 2023 Assessment & Plan (1) Complication of feeding tube: Plan: PEG tube with displacement, PEG present for dysphagia post CVA Tube was placed 2/2 dysphagia post MCA stroke Patient more recently getting 60 to 70% of calories orally and tolerating this well Surgery consulted in ER, they are unable to replace tube. Recommended GI follow-up and replacement if needed Patient may not need PEG replacement as he has been tolerating increased amount of oral nutrition in the last few days/weeks. Discussed with GI, okay to admit with GI consult. Will follow calorie count. It inadequate, then may trial EGD PEG placement. If EGD PEG placement is not able to be performed, patient would require transfer for IR availability at that time. Unclear why patient had IR placement of his initial tube rather than EGD PEG tube, no clear explanation is available on [facility] record review.? Initial IR services due to history of laryngeal cancer, although this was treated with radiation Admit to medical surgical Calorie count, nutrition consulted. Note patient is intolerant/allergic to boost, requires Ensure. Aspirin held x24 hours pending determination of whether PEG tube is required. He does not take this 8/2. If passes calorie count doing well resume this. No history of cardiac or other stents. Does have history of CVA, risk/benefits of holding aspirin while pending determination of whether PEG tube placement/IR re ferral is required discussed at bedside. Potassium and sodium normal on admission Hypertension Continue hydrochlorothiazide, pravastatin BPH Continue doxazosin DVT prophylaxis: SCDs Disposition: Medical/surgical Diet: pureed regular. Nutrition and speech following. CODE STATUS: Full code (2) H/O: CVA (cerebrovascular accident): (3) Hyperlipidemia: (4) Hypertension: History of Present Illness Primary Care Provider: NO PCP Luis is seen at the bedside with his present. He has a history of hypertension, CVA with hemorrhagic conversion, BPH, HLD, hypertension and PEG tube placement 2/2 dysphagia after MCA CVA. He presents to the ER and reports his PEG tube fell out and was unable to get it replaced which prompted his ER evaluation. Surgery did see him at the bedside and was also unable to replace this. He reports that this was placed due to his history of dysphagia post CVA in March, does have a prior history of laryngeal cancer treated with radiation. More recently his p.o. intake has improved, he is able to tolerate at least 60- 70% of his calories at home from feeds and supplements the rest with PEG nutrition. Would prefer not to have the tube if possible, has sometimes use the tube because it seems easier but feels he may be able to tolerate full nutrition by mouth. He is okay with a calorie count and trial of oral nutrition only. If unsuccessful then will see GI for attempted endoscopic PEG tube placement. His tube was initially placed in [facility] by IR, patient is not sure why this was done. Does have a history of laryngeal cancer so may have gone to their services initially to avoid any variant anatomy complications. Patient reports he does not think he has ever had a upper endoscopy. 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 Endorses global weakness without new focal weakness. No leg swelling. No syncope/presyncope. Does have a history of stroke for which she is on an aspirin. Stroke was a right MCA territory with hemorrhagic conversion in March 2023 with residual hemianopsia and dysphagia. Has never had cardiac or other types of stents placed. Had hemorrhagic conversion of his CVA, otherwise denies bleeding including melena/hematochezia/hematemesis. He did not take medications including aspirin this morning. Medical History: Reviewed Medications: Reviewed. Did not take this morning Surgical History: Reviewed Family history: Reviewed Allergies: Reviewed Social History: Remote former tobacco use, no current use. No alcohol use Code Status: Full code Allergies Allergy/AdvReac Type Severity Reaction Status Date / Time Iodinated Contrast Media Allergy Intermediate ITCHING Verified 05/17/23 18:07 Home Medications Medication Instructions Recorded Confirmed Type cabergoline 0.5 mg tablet 0.5 mg PO 3XWK 03/15/19 05/22/23 History hydrochlorothiazide 25 mg tablet 25 mg PO DAILY 03/15/19 05/22/23 History pravastatin 20 mg tablet 20 mg PO QPM 03/15/19 05/22/23 History aspirin 81 mg tablet,delayed 81 mg PO DAILY 03/26/23 05/22/23 History release docusate sodium 50 mg/5 mL oral 10 ml PO BID PRN Constipation 05/17/23 05/22/23 History liquid doxazosin 2 mg tablet 2 mg PO HS 05/17/23 05/22/23 History Past Med/Surg History Medical History Anemia Dysphagia Hemianopsia History of right MCA stroke Hyperlipidemia Hypertension Kidney stone PEG tube malfunction Septic shock 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 Surgical History History of cholecystectomy History of hernia repair Family History Mother Diabetes Hypertension Heart disease Social History Smoking Status: Never smoker Second Hand Exposure: No; Do You Dip or Chew Tobacco: No; Hx Alcohol Use: No Hx Substance Use: No Preferred Language: Honduran Communication Ability: Effective Communication Ability Comment: HX 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 NAD. Cooperative. HEENT: Atraumatic, normocephalic. Vision grossly intact, hearing grossly intact. Patient does have left hemianopsia 2/2 stroke Pulm: CTAB A&P. -wheezes, -rales, -rhonchi. Symmetrical chest rise. No increased work of breathing. No respiratory distress. Cardiac: RRR, -mrg. Radial pulses intact and symmetrical. Abdominal: Nontender, nondistended, soft. BS present. PEG tube track present with 4 dark spots at corners at site of prior reported buttons. No discharge/purulence. Slight pinkness without demarcated or spreading erythema or tenderness. No warmth. Extremities: 5/5 upper extremity strength bilaterally, 4 -/5 lower extremities bilaterally. Sensation soft touch intact in hands and feet Results & Data Results & Data Vital Signs (Past 12 Hours) Vital Signs Temp Pulse Pulse Resp BP BP Pulse Ox 05/22/23 12:22 77 16 182/90 H 97 05/22/23 07:30 58 L 18 129/77 96 05/22/23 06:59 36.3 C L 65 14 100/62 95 O2 Del Method 05/22/23 12:22 Room Air 08/02/23 07:30 Room Air 05/22/23 06:59 Room Air PG Care Time/CCT Total # of Minutes Spent Total Time Spent with Patient: Total time spent is greater than 50% in coordination of care (as documented) at patient's floor/unit and/or counseling patient: Coding Level of Care Code 16349 INT INP/OBS CARE 3/75MIN Diagnoses Complication of feeding tube K94.20 H/O: CVA (cerebrovascular accident) Z86.73 Hyperlipidemia E78.5 Hypertension I10
--- NOTE | 2023-05-22 16:23 | Communication Note ---
Date of Service: May 22, 2023 Discussed with ER and Dr. Young. Mr. Smith's PEG came out and unable to be replaced. As he is taking PO now would like to see if he can maintain orally without replacing PEG. Will follow.
[2023-05-22] MEDS ORDERED: ACETAMINOPHEN 325 MG TAB PO PRN (16:40)
[2023-05-22] MEDS ORDERED: DOCUSATE SODIUM 100 MG CAP PO PRN (16:46)
[2023-05-22] MEDS ORDERED: hydrALAZINE HCL 20 MG/ML VIAL IV PRN (16:53)
[2023-05-22] MEDS ORDERED: amLODIPine BESYLATE 5 MG TAB PO ONE (16:53)
[2023-05-22] MEDS: PRAVASTATIN SOD 20 MG TAB PO SCH (22:01)
[2023-05-22] MEDS: DOXAZosin MESYLATE TAB 2 MG TAB PO SCH (22:01)
[2023-05-23 08:29] LABS: Basophils # (auto) 0.03 K/uL (0-0.2); Basophils % (auto) 0.5 %; Eosinophils # (auto) 0.22 K/uL (0-0.50); Eosinophils % (auto) 3.3 %; Hematocrit (blood only) 33.3 % (42.0-52.0); Immature Granulocytes # (auto) 0.02 K/uL (0.01-0.20); Immature Granulocytes % (auto) 0.3 %; Lymphocytes # (auto) 0.82 K/uL (1.2-3.4); Lymphocytes % (auto) 12.5 %; Mean Corpuscular Hemoglobin 32.2 pg (25.0-34.0); Mean Corpuscular Volume 97.4 fL (80.0-100.0); Mean Platelet Volume 9.1 fL (9.4-12.4); Monocytes # (auto) 0.45 K/uL (0.11-0.59); Monocytes % (auto) 6.8 %; Neutrophils # (auto) 5.03 K/uL (1.40-6.50); Neutrophils % (auto) 76.6 %; Platelet Count 187 K/uL (130-400); RDW Coefficient of Variation 15.2 % (11.5-14.5); RDW Standard Deviation 54.4 fL (36.4-46.3); Red Blood Count 3.42 M/uL (4.70-6.10); White Blood Count 6.57 K/ul (4.8-10.8)
--- NOTE | 2023-05-23 08:52 | Gastroenterology Progress Note ---
Supervising physicians note Case discussed with Flaca Jimenez NP, chart reviewed, patient and met with He is doing well. Has no problems taking things by mouth. 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 I am leaving after today so if GI needed further please contact Dr. Ricardo Webber Jr, MD, FAC Date of Service May 23, 2023 Assessment & Plan (1) Feeding tube dysfunction: Plan: PEG tube feedings: Feeding tube dislodgment x2 recently. Unable to reinsert feeding tube. This was initially placed in [place] by interventional radiology due to profound dysphagia post right MCA stroke with hemorrhagic conversion 03/2023. He also has history of throat cancer and previously required PEG tube for feedings. He has been working with speech therapy as an outpatient. A speech consult was placed for evaluation during this admission. Patient would prefer to only have oral intake. GI will continue to follow along. Case reviewed with Dr. Webber. Please refer to supervising physician addendum for further recommendations. I have spent 15 minutes of discrete time performing the activities of this visit which include but are not limited to review of the medical record, obtaining a history, physical exam, and entering information in the electronic record. (2) Complication of feeding tube: (3) Dysphagia: Admission and Anticipated Discharge Date Admission Date: May 22, 2023 Subjective Patient awake and alert sitting at bedside eating his breakfast. He denies any GI complaints this morning. Review of Systems Review of Systems: All systems reviewed & are unremarkable except as noted in Subjective Physical Exam Gastrointestinal (Abdomen): normal bowel sounds, soft, nontender, no hepatosplenomegaly Results & Data Vital Signs (Past 12 Hours) Vital Signs Temp Pulse Resp BP Pulse Ox O2 Del Method 05/23/23 07:21 Room Air 05/23/23 07:10 36.7 C 77 18 128/79 Room Air 05/22/23 21:06 36.5 C 68 16 192/83 H 97 Room Air Laboratory Results Laboratory Results - last 24 hr 05/22/23 05/22/23 05/23/23 11:45 11:45 06:37 WBC 5.29 6.57 RBC 3.38 L 3.42 L Hgb 11.0 L 11.0 L Hct 32.9 L 33.3 L MCV 97.3 97.4 MCH 32.5 32.2 MCHC 33.4 33.0 RDW Std Deviation 53.7 H 54.4 H RDW Coeff of Alison 15.0 H 15.2 H Plt Count 183 187 MPV 9.0 L 9.1 L Immature Gran % (Auto) 0.2 0.3 Neut % (Auto) 69.2 76.6 Lymph % (Auto) 18.5 12.5 [place] % (Auto) 10.0 6.8 Eos % (Auto) 1.7 3.3 Baso % (Auto) 0.4 0.5 Neut # (Auto) 3.66 5.03 Lymph # (Auto) 0.98 L 0.82 L [place] # (Auto) 0.53 0.45 Eos # (Auto) 0.09 0.22 Baso # (Auto) 0.02 0.03 Immature Gran # (Auto) 0.01 0.02 Sodium 140 Potassium 3.6 Chloride 105 Carbon Dioxide 32 Anion Gap 3 BUN 15 Creatinine 0.64 Est Cr Clr Drug Dosing 65.9 Est GFR ( Amer) 104.2 Est GFR (Non-Af Amer) 89.9 BUN/Creatinine Ratio 23.4 H Glucose 101 H Calcium 8.8 Phosphorus Magnesium 05/23/23 06:37 WBC RBC Hgb Hct MCV MCH MCHC RDW Std Deviation RDW Coeff of Alison Plt Count MPV Immature Gran % (Auto) Neut % (Auto) Lymph % (Auto) [place] % (Auto) Eos % (Auto) Baso % (Auto) Neut # (Auto) Lymph # (Auto) [place] # (Auto) Eos # (Auto) Baso # (Auto) Immature Gran # (Auto) Sodium Pending Potassium Pending Chloride Pending Carbon Dioxide Pending Anion Gap Pending BUN Pending Creatinine Pending Est Cr Clr Drug Dosing Pending Est GFR ( Amer) Pending Est GFR (Non-Af Amer) Pending BUN/Creatinine Ratio Pending Glucose Pending Calcium Pending Phosphorus Pending Magnesium Pending (1) Feeding tube dysfunction Encounter type: initial encounter Qualified Code(s): T85.598A - Other mechanical complication of other gastrointestinal prosthetic devices, implants and grafts, initial encounter (3) Dysphagia Dysphagia type: unspecified Qualified Code(s): R13.10 - Dysphagia, unspecified
[2023-05-23] MEDS: hydroCHLOROthiazide 25 MG TAB PO SCH (09:14)
[2023-05-23 10:45] LABS: BUN Creatinine Ratio 24.6 (10-20); Calcium 8.6 mg/dl (8.6-10.3); Creatinine Clr Calc Pharmacy 92.1 ml/min; Est GFR (African American) 109.3 ml/min; Est GFR (Non-African American) 94.3 ml/min; Phosphorus 2.7 mg/dl (2.5-4.9); Potassium 3.7 mmol/L (3.5-5.1)
--- NOTE | 2023-05-23 14:55 | Fluoroscopy Report ---
MODIFIED BARIUM SWALLOW CLINICAL HISTORY: r/o aspiration COMPARISON STUDY: None. FLUOROSCOPY TIME: 1.16 minutes. Ka, r: 2.77 mGy. TECHNIQUE: A modified barium swallow was performed in conjunction with Speech Pathology. The patient ingested varying consistencies of barium containing material. Video fluoroscopy was performed. FINDINGS: Multiple episodes of tracheal aspiration were noted with thin liquids. Laryngeal elevation was diminished. Epiglottic inversion was diminished. Premature spillage was noted. Residuals within t he vallecula and piriform sinuses were noted. IMPRESSION: 1. Impaired swallowing mechanism with multiple episodes of tracheal aspiration with thin liquids. 2. Full recommendations for Speech pathology to follow. ACT 112: Negative or not required by law. Electronically signed by: Joe Leon M.D. 05/23/2023 2:53 PM
[2023-05-23] MEDS: D5NSS + 20MEQ KCL 20 MEQ/1,000 ML BAG IV SCH (19:51)
[2023-05-23] MEDS: PRAVASTATIN SOD 20 MG TAB PO SCH (19:53)
[2023-05-23] MEDS: DOXAZosin MESYLATE TAB 2 MG TAB PO SCH (19:53)
[2023-05-23] MEDS: hydrALAZINE HCL 20 MG/ML VIAL IV SCH (19:54)
--- NOTE | 2023-05-23 21:04 | Hospitalist Progress Note ---
Date of Service May 23, 2023 Assessment & Plan (1) Complication of feeding tube: Plan: PEG tube fell out pre-admission. Video swallow completed by speech therapy today showed severe aspiration (silent) of all consistencies. Discussed replacement of PEG vs permissive aspiration; patient/ leaning towards putting the PEG back. They will think about the options this afternoon. Will start IVF in meantime. Repeat labs in am. (2) H/O: CVA (cerebrovascular accident): Plan: R MCA territory stroke with hemorrhagic conversion - hospitalized at [facility] earlier this spring. Unfortunately cannot take aspirin until PEG is placed back. (3) Hyperlipidemia: Plan: Holding statin. (4) Hypertension: Plan: While NPO start hydralazine 5mg IV q8h. (5) Dysphagia: Plan: see #1 above appreciate speech therapy consultation & recs (6) DVT prophylaxis: Plan: add heparin 5000 BID Plan extensively updated at bedside today Admission and Anticipated Discharge Date Admission Date: May 23, 2023 Subjective I saw the patient post-video swallow his was present we discussed the video swallow results in detail they are now aware that he aspirated all consistencies on the test explained to them that his aspiration is silent he was quite upset by the news we discussed putting a new PEG in vs permissive aspiration explained this in detail they were leaning towards replacing the PEG made them aware that PEG tube placement does NOT eliminate aspiration risk fully they were not aware of that point he denies any other complaints Review of Systems Review of Systems: cv - no chest pain pulm - no cough or dyspnea GI - no abd pain/nausea/emesis Physical Exam Physical Exam: gen - sitting in chair, thin, NAD, very upset by the news from video swallow mouth - retained liquid in his mouth from the video swallow neck - no JVD heart - RRR, s1 s2, no murmur lungs - CTA b/l abd - soft NT ND BS+ ext - no edema, pulses 2+ b/l psych - a/o x 3, depressed Results & Data Results & Data Vital Signs (Past 12 Hours) Vital Signs Temp Pulse Resp BP Pulse Ox O2 Del Method 05/23/23 19:47 36.4 C L 62 16 141/78 H 94 Room Air 05/23/23 15:16 36.4 C L 62 18 160/82 H 96 Room Air Laboratory Results Laboratory Results 05/22/23 05/22/2323 11:45 11:45 06:37 WBC 5.29 6.57 RBC 3.38 L 3.42 L Hgb 11.0 L 11.0 L Hct 32.9 L 33.3 L MCV 97.3 97.4 MCH 32.5 32.2 MCHC 33.4 33.0 RDW Std Deviation 53.7 H 54.4 H RDW Coeff of Alison 15.0 H 15.2 H Plt Count 183 187 MPV 9.0 L 9.1 L Immature Gran % (Auto) 0.2 0.3 Neut % (Auto) 69.2 76.6 Lymph % (Auto) 18.5 12.5 [place] % (Auto) 10.0 6.8 Eos % (Auto) 1.7 3.3 Baso % (Auto) 0.4 0.5 Neut # (Auto) 3.66 5.03 Lymph # (Auto) 0.98 L 0.82 L [place] # (Auto) 0.53 0.45 Eos # (Auto) 0.09 0.22 Baso # (Auto) 0.02 0.03 Immature Gran # (Auto) 0.01 0.02 Sodium 140 Potassium 3.6 Chloride 105 Carbon Dioxide 32 Anion Gap 3 BUN 15 Creatinine 0.64 Est Cr Clr Drug Dosing 65.9 Est GFR ( Amer) 104.2 Est GFR (Non-Af Amer) 89.9 BUN/Creatinine Ratio 23.4 H Glucose 101 H Calcium 8.8 Phosphorus Magnesium 05/23/23 06:37 WBC RBC Hgb Hct MCV MCH MCHC RDW Std Deviation RDW Coeff of Alison Plt Count MPV Immature Gran % (Auto) Neut % (Auto) Lymph % (Auto) [place] % (Auto) Eos % (Auto) Baso % (Auto) Neut # (Auto) Lymph # (Auto) [place] # (Auto) Eos # (Auto) Baso # (Auto) Immature Gran # (Auto) Sodium 140 Potassium 3.7 Chloride 107 Carbon Dioxide 27 Anion Gap 6 BUN 14 Creatinine 0.57 L Est Cr Clr Drug Dosing 92.1 Est GFR ( Amer) 109.3 Est GFR (Non-Af Amer) 94.3 BUN/Creatinine Ratio 24.6 H Glucose 84 Calcium 8.6 Phosphorus 2.7 Magnesium 2.0 PG Care Time/CCT Total # of Minutes Spent Total Time Spent with Patient: Total time spent is greater than 50% in coordination of care (as documented) at patient's floor/unit and/or counseling patient: Coding Level of Care Code 80586 SUB INP/OBS CARE 235MIN Diagnoses Complication of feeding tube K94.20 H/O: CVA (cerebrovascular accident) Z86.73 Hyperlipidemia E78.5 Hypertension I10 Dysphagia R13.10 DVT prophylaxis Z29.9
[2023-05-24] MEDS: hydrALAZINE HCL 20 MG/ML VIAL IV SCH (02:37)
[2023-05-24] MEDS: D5NSS + 20MEQ KCL 20 MEQ/1,000 ML BAG IV SCH ×2 (05:14→19:40)
[2023-05-24 06:42] LABS: Calcium 8.2 mg/dl (8.6-10.3); Est GFR (African American) 107.8 ml/min; Potassium 3.6 mmol/L (3.5-5.1)
[2023-05-24] MEDS: hydroCHLOROthiazide 25 MG TAB PO SCH (10:15)
--- NOTE | 2023-05-24 10:34 | Communication Note ---
Date of Service: May 24, 2023 Patient is an 82 yo male with history of Stage IV head and neck cancer, pituitary tumor, and recent right MCA stroke complicated by hemorrhagic transformation and cerebral edema. During this hospitalization, the patient's dysphagia became an acute concern. Initial attempts to place an NG tube failed due to anatomic complications due to his head/neck cancer. Documentation from patient's neurologists from his stay (Dr. Frank & Dr. Saldaña) noted that they had contacted multiple services (ENT & GI) for opinions regarding placement of artificial feeding tubes who reported that they were not able to safely place an NG or endoscopically placed G tube due to the distorted anatomy. Interventional radiology was involved and were able to successfully place the G tube on 04/02. Per documentation in [facility] system, Dr. Taylor Coles had requested an outpatient IR appointment be made for patient in 6 months for routine tube exchange. GI has been asked to become involved during his current hospitalization at [facility] due to patient's G tube issues as the tube has come out and is unable to be replaced. The recommendation at this time, based on this documentation from Dr. Frank and Dr. Saldaña during the patient's inpatient stay at [facility], we would advise IR replacement of this tube due to the aforementioned anatomical abnormalities given his stage IV head/neck cancer. Agree with EARNESTINE Hernandez as above
[2023-05-24] MEDS: DOXAZosin MESYLATE TAB 2 MG TAB PO SCH (19:25)
[2023-05-24] MEDS: PRAVASTATIN SOD 20 MG TAB PO SCH (19:25)
[2023-05-24] MEDS: HEPARIN SOD 5,000 UNIT/0.5 ML VIAL SQ SCH (20:18)
--- NOTE | 2023-05-24 20:45 | Hospitalist Progress Note ---
Date of Service May 24, 2023 Assessment & Plan (1) Complication of feeding tube: Plan: PEG tube fell out pre-admission. Video swallow completed by speech therapy 05/23/23 showed severe aspiration (silent) of all consistencies. Discussed replacement of PEG vs permissive aspiration; patient desires that PEG is placed back. As noted in the subjective portion of note we are unable to place a PEG either with our IR provider or via GI. Thus, patient to transfer to [facility] - hopefully Saturday 05/26, with the procedure on 05/27. Continue IVF. If his transfer is delayed consider PPN (unable to place NG tube for enteral feedings). 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 Unfortunately cannot take aspirin until PEG is placed back. (3) Hyperlipidemia: Plan: Holding statin. (4) Hypertension: Plan: While NPO - hydralazine 5mg IV q8h. Titrate as needed. (5) Dysphagia: Plan: see #1 above appreciate speech therapy consultation & recs (6) DVT prophylaxis: Plan: heparin 5000 BID Plan updated by phone this evening total time today spent with speaking with GI at [facility], corresponding with our IR provider here, calling [facility] and getting patient accepted, and speaking with by phone - considerable care coordination - about 60 minutes of time Admission and Anticipated Discharge Date Admission Date: May 23, 2023 Subjective patient w/o any complaints slept ok overnight no pain no new issues I spoke with IR here at [facility] as well as [facility] GI - the patient will need transfer to tertiary care for IR PEG placement the last time he was at [facility] ENT could not place a temporary NG tube and GI was unable to complete a PEG thus, IR placed the last PEG I called and spoke with [facility] - specifically spoke with Dr De Jesus of the hospitalist team as well as Dr Jesus of IR patient accepted in [place] to [facility] plan will be d/c and transfer on Saturday with hopes of having the procedure on Saturday patient made aware I called pt's and made her aware as well Review of Systems Review of Systems: cv - no chest pain pulm - no dyspnea GI - no pain or N/V Physical Exam Physical Exam: gen - sitting in chair, thin, NAD mouth - MMM neck - no JVD heart - RRR, s1 s2, no murmur lungs - CTA b/l abd - soft NT ND BS+l; prior PEG tube site has closed, granulation present ext - no edema, pulses 2+ b/l psych - a/o x 3 Results & Data Results & Data Vital Signs (Past 12 Hours) Vital Signs Temp Pulse Resp BP Pulse Ox O2 Del Method 05/24/23 15:09 36.5 C 60 16 193/88 H 97 Room Air Laboratory Results Laboratory Results 05/24/23 05:44 Sodium 140 Potassium 3.6 Chloride 109 H Carbon Dioxide 26 Anion Gap 5 BUN 13 Creatinine 0.59 L Est Cr Clr Drug Dosing 89.0 Est GFR ( Amer) 107.8 Est GFR (Non-Af Amer) 93.0 BUN/Creatinine Ratio 22.0 H Glucose 96 Calcium 8.2 L Phosphorus Magnesium PG Care Time/CCT Total # of Minutes Spent Total Time Spent with Patient: Total time spent is greater than 50% in coordination of care (as documented) at patient's floor/unit and/or counseling patient: Coding Level of Care Code 97367 SUB INP/OBS CARE 3/50MIN Diagnoses Complication of feeding tube K94.20 H/O: CVA (cerebrovascular accident) Z86.73 Hyperlipidemia E78.5 Hypertension I10 Dysphagia R13.10 DVT prophylaxis Z29.9
[2023-05-25 07:34] LABS: BUN Creatinine Ratio 16.7 (10-20); Calcium 8.3 mg/dl (8.6-10.3); Creatinine Clr Calc Pharmacy 87.5 ml/min; Est GFR (Non-African American) 92.3 ml/min; Potassium 3.6 mmol/L (3.5-5.1)
[2023-05-25] MEDS: HEPARIN SOD 5,000 UNIT/0.5 ML VIAL SQ SCH ×2 (08:11→20:17)
[2023-05-25] MEDS: D5NSS + 20MEQ KCL 20 MEQ/1,000 ML BAG IV SCH ×2 (08:12→20:16)
[2023-05-25] MEDS: hydroCHLOROthiazide 25 MG TAB PO SCH (09:37)
[2023-05-25] MEDS: DOXAZosin MESYLATE TAB 2 MG TAB PO SCH (20:11)
[2023-05-25] MEDS: PRAVASTATIN SOD 20 MG TAB PO SCH (20:11)
--- NOTE | 2023-05-25 20:26 | Hospitalist Progress Note ---
Date of Service May 25, 2023 Assessment & Plan (1) Complication of feeding tube: Plan: PEG tube fell out pre-admission. This prompted him coming to ER. Attempts to place the tube back by both the ER and general surgery were not successful. Prior PEG tube tract has closed. Video swallow completed by speech therapy 05/23/23 showed severe aspiration (silent) of all consistencies. Discussed replacement of PEG vs permissive aspiration; patient desires that PEG is placed back. Unfortunately we are unable to place a PEG either with our IR provider or via GI here at [facility]. Thus, patient to transfer to [facility] - hopefully Saturday 05/26, with the procedure on 05/27. Continue IVF. If his transfer is delayed consider PPN (unable to place NG tube for enteral feedings due to distorted anatomy). 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 Unfortunately cannot take aspirin until PEG is placed back. (3) Hyperlipidemia: Plan: Holding statin. (4) Hypertension: Plan: While NPO - hydralazine 5mg IV q8h. Titrate as needed. 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 - Dr De Jesus will contact [facility] tomorrow am to give clinical update Admission and Anticipated Discharge Date Admission Date: May 23, 2023 Subjective no events overnight no abd pain, nausea or emesis no bowel movement no dyspnea or other pulmonary complaints Review of Systems Review of Systems: cv - no chest pain pulm - no cough or shortness of breath GI - no abd pain Physical Exam Physical Exam: gen - sitting in chair, thin, NAD mouth - MMM neck - no JVD heart - RRR, s1 s2, no murmur lungs - CTA b/l abd - soft NT ND BS+ ext - trace edema ankles; pulses 2+ b/l psych - a/o x 3 neuro - dysarthric speech Results & Data Results & Data Vital Signs (Past 12 Hours) Vital Signs Temp Pulse Resp BP Pulse Ox O2 Del Method 05/25/23 14:54 36.7 C 57 L 17 149/86 H 96 Room Air Laboratory Results Laboratory Results - last 24 hr 05/25/23 06:16 Sodium 139 Potassium 3.6 Chloride 109 H Carbon Dioxide 27 Anion Gap 3 BUN 10 Creatinine 0.60 Est Cr Clr Drug Dosing 87.5 Est GFR ( Amer) 107.0 Est GFR (Non-Af Amer) 92.3 BUN/Creatinine Ratio 16.7 Glucose 95 Calcium 8.3 L PG Care Time/CCT Total # of Minutes Spent Total Time Spent with Patient: Total time spent is greater than 50% in coordination of care (as documented) at patient's floor/unit and/or counseling patient: Coding Level of Care Code 88914 SUB INP/OBS CARE 25MIN Diagnoses Complication of feeding tube K94.20 H/O: CVA (cerebrovascular accident) Z86.73 Hyperlipidemia E78.5 Hypertension I10 Dysphagia R13.10 DVT prophylaxis Z29.9 SBO (small bowel obstruction) K56.609 Squamous cell carcinoma of tongue C02.9
[2023-05-26 06:05] LABS: BUN Creatinine Ratio 13.8 (10-20); Calcium 8.3 mg/dl (8.6-10.3); Creatinine Clr Calc Pharmacy 90.5 ml/min; Est GFR (African American) 108.5 ml/min; Est GFR (Non-African American) 93.6 ml/min; Potassium 3.6 mmol/L (3.5-5.1)
[2023-05-26] MEDS: D5NSS + 20MEQ KCL 20 MEQ/1,000 ML BAG IV SCH ×2 (08:18→19:31)
[2023-05-26] MEDS: HEPARIN SOD 5,000 UNIT/0.5 ML VIAL SQ SCH (08:18)
[2023-05-26] MEDS: hydroCHLOROthiazide 25 MG TAB PO SCH (08:18)
--- NOTE | 2023-05-26 11:08 | Discharge Summary ---
Date of Service May 26, 2023 Admission HPI Per Admitting Provider Luis is seen at the bedside with his present. He has a history of hypertension, CVA with hemorrhagic conversion, BPH, HLD, hypertension and PEG tube placement 2/2 dysphagia after MCA CVA. He presents to the ER and reports his PEG tube fell out and was unable to get it replaced which prompted his ER evaluation. Surgery did see him at the bedside and was also unable to replace this. He reports that this was placed due to his history of dysphagia post CVA in March, does have a prior history of laryngeal cancer treated with radiation. More recently his p.o. intake has improved, he is able to tolerate at least 60- 70% of his calories at home from feeds and supplements the rest with PEG nutrition. Would prefer not to have the tube if possible, has sometimes use the tube because it seems easier but feels he may be able to tolerate full nutrition by mouth. He is okay with a calorie count and trial of oral nutrition only. If unsuccessful then will see GI for attempted endoscopic PEG tube placement. His tube was initially placed in [place] by IR, patient is not sure why this was done. Does have a history of laryngeal cancer so may have gone to their services initially to avoid any variant anatomy complications. Patient reports he does not think he has ever had a upper endoscopy. 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 Endorses global weakness without new focal weakness. No leg swelling. No syncope/presyncope. Does have a history of stroke for which she is on an aspirin. Stroke was a right MCA territory with hemorrhagic conversion in March 2023 with residual hemianopsia and dysphagia. Has never had cardiac or other types of stents placed. Had hemorrhagic conversion of his CVA, otherwise denies bleeding including melena/hematochezia/hematemesis. He did not take medications including aspirin this morning. Medical History: Reviewed Medications: Reviewed. Did not take this morning Surgical History: Reviewed Family history: Reviewed Allergies: Reviewed Social History: Remote former tobacco use, no current use. No alcohol use Code Status: Full code Discharge Exam gen - sitting in chair, thin, NAD mouth - MMM neck - no JVD heart - RRR, s1 s2, no murmur lungs - CTA b/l abd - soft NT ND BS+ ext - trace edema ankles; pulses 2+ b/l psych - a/o x 3 neuro - dysarthric speech Discharge Data Allergies Allergy/AdvReac Type Severity Reaction Status Date / Time Iodinated Contrast Media Allergy Intermediate ITCHING Verified 05/17/23 18:07 Consultations 05/22/23 12:41 ED Decision to Admit Stat 05/22/23 16:40 Consult Gastroenterology Routine 05/26/23 10:57 Burn CD for patient Stat Ordered Studies 05/23/23 13:00 FL video swallow Routine Hospital Course (1) Complication of feeding tube: PEG tube fell out pre-admission. This prompted him coming to ER. Attempts to place the tube back by both the ER and general surgery were not successful. Prior PEG tube tract has closed. Video swallow completed by speech therapy 05/23/23 showed severe aspiration (silent) of all consistencies. Discussed replacement of PEG vs permissive aspiration; patient desires that PEG is placed back. Unfortunately we are unable to place a PEG either with our IR provider or via GI here at [facility]. Thus, patient to transfer to [place] - hopefully Saturday 05/26, with the procedure on 05/27. Continue IVF. If his transfer is delayed consider PPN (unable to place NG tube for enteral feedings due to distorted anatomy). 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 Unfortunately cannot take aspirin until PEG is placed back. (3) Hyperlipidemia: Holding statin. (4) Hypertension: While NPO - hydralazine 5mg IV q8h. Titrate as needed. (5) Dysphagia: see #1 above appreciate speech therapy consultation & recs strict NPO status (6) DVT prophylaxis: heparin 5000 BID (7) SBO (small bowel obstruction): had such during prior admission resolved (8) Squamous cell carcinoma of tongue: s/p surgery/chemo/XRT in the distant past Plan updated by phone yesterday evening accepting physician at [facility] - Dr De Jesus will contact [place] tomorrow am to give clinical update Discharge Plan Discharge Items Patient Disposition: Transfer Acute Care Hospital Reason For Visit: PEG DISLODGEMENT Discharge Diagnosis: 1. PEG tube dislodgement with need for replacement of PEG by Interventional Radiology at [facility] 2. Severe dysphagia (confirmed with new video swallow study this admission) 3. Right sided MCA territory stroke 2022 with hemorrhagic transformation 4. History of squamous cell carcinoma of the tongue 5. Small bowel obstruction - 05/17/23 to 05/21/23 hospital stay at [facility] - resolved with conservative measures 6. Hypertension 7. BPH 8. History of prolactinoma Activity: Resume your previous activity Non-emergency contact: Primary Care Provider Call non-emergency contact if: you have any medication questions Follow-up/Referrals: Stefania Metcalf DO [Resident] - Diet: Nothing by Mouth Addtl Attending Provider Instructions: Mr Smith presented to the [facility] ER on 05/22/23 after his PEG tube fell out at home. Multiple attempts by the ER attending physician to place a tolentino catheter or feeding tube to maintain the tract were unsuccessful. General surgery was also consulted and attempts to place a catheter to maintain patency of the tract were also unsuccessful. He was seen by [facility] and [facility]. Both services advised transfer to [facility] to have IR placement of a new PEG tube. By report Mr Smith ultimately required the assistance of IR at [facility] earlier in 2022 when he had his first PEG tube placed. Unfortunately [facility] has a limited number of IR services and PEG tube insertion is not one of the procedures done here. Mr Smith remained stable during his stay at [facility]. Labs were stable. Speech therapy performed a new video swallow study and unfortunately Mr Smith aspirated all consistencies. I would like to thank Dr Mike De Jesus for accepting Mr mSith in transfer to [facility] for assistance with PEG tube placement under IR. Pending Studies at Discharge: No Stand-Alone Forms: My [facility] Skilled Items Patient informed of condition?: Yes DNR: No Discharge Level of Care: Other Communicable Disease: No Discharge Prognosis: Stable Lines: Peripheral IV Urinary Catheter: No Medications and DC Order Prescriptions: Continued cabergoline 0.5 mg tablet 0.5 mg PO 3XWK Rx Instructions: Mon/Wed/Fri pravastatin 20 mg tablet 20 mg PO QPM hydrochlorothiazide 25 mg tablet 25 mg PO DAILY aspirin 81 mg Tablet,Delayed Release (Dr/Ec) 81 mg PO DAILY docusate sodium 50 mg/5 mL liquid 10 ml PO BID PRN (Reason: Constipation) Rx Instructions: As of 05/17/23 - Pt has taken 3 doses and states that they now have a severe abd pain doxazosin 2 mg tablet 2 mg PO HS Discharge Orders: Discharge Order (Routine); Ordered 05/26/23 Ordered By: Larry Duque Admission Data Admit Date/Time: 05/23/23 16:17 Attending Provider: Larry Duque Admit Provider: Larry Duque Primary Care Provider: PCP,NO Other Providers: Jorge Rivera ; Martha Webber Jr ; [facility] Coding Diagnoses Complication of feeding tube K94.20 H/O: CVA (cerebrovascular accident) Z86.73 Hyperlipidemia E78.5 Hypertension I10 Dysphagia R13.10 DVT prophylaxis Z29.9 SBO (small bowel obstruction) K56.609 Squamous cell carcinoma of tongue C02.9
[2023-05-26] MEDS ORDERED: hydrALAZINE HCL 20 MG/ML VIAL IV ONE (14:55)
== END 2023-05-26 19:42 | disposition short-term general hospital (02) | DRG 921 ==
LOC: ED 06:57 → 3N 06:57 → SUATTDRO 14:04 → 3N 15:41 → SUATTDRO 05-23 16:17

== ENCOUNTER 2023-08-22 17:19 | Observation (INO) ==
[2023-08-22] MEDS ORDERED: SODIUM CHLORIDE 0.9% 1,000 ML IV ONE ×2 (17:32→19:27)
--- NOTE | 2023-08-22 17:32 | ED Triage Note ---
Date of Service August 22, 2023 History of Present Illness This patient was briefly evaluated while in triage. An abbreviated physical exam was performed. This patient is a 82-year-old Male who presents to the ED for evaluation of concern for dehydration. He has a history of stroke and has a PEG tube. His states she has been too weak to feed him and she is concerned he is dehydrated. Physical Exam VITALS: Vitals are noted on the nurse's note and reviewed by myself. GENERAL: This is an 82-year-old male, in no acute distress, chronically unwell appearing. SKIN: The skin was without rashes. HEART: Regular rate and rhythm without murmurs gallops or rubs. LUNGS: Clear to auscultation bilaterally without wheezes, rales or rhonchi. NEURO: Patient was alert and oriented to person place and time. Initial orders for labs and / or imaging were placed and patient was placed in the waiting area until a bed is available. Please see further documentation for the full ED course. MDM / Impression Impression Impression: Dehydration, Feeding by G-tube, Caregiver has difficulty performing caretaking
[2023-08-22 18:03] LABS: Basophils # (auto) 0.04 K/uL (0.00-0.20); Basophils % (auto) 0.7 %; Eosinophils # (auto) 0.15 K/uL (0.00-0.50); Eosinophils % (auto) 2.7 %; Hematocrit (blood only) 37.2 % (42.0-52.0); Hemoglobin 12.5 g/dl (14.0-18.0); Immature Granulocytes # (auto) 0.04 K/uL (0.01-0.20); Immature Granulocytes % (auto) 0.7 %; Lymphocytes # (auto) 0.99 K/uL (1.20-3.40); Lymphocytes % (auto) 17.8 %; Mean Corpuscular Hgb Conc 33.6 g/dL (32.0-36.0); Mean Corpuscular Volume 101.1 fL (80.0-100.0); Mean Platelet Volume 8.7 fL (9.4-12.4); Monocytes # (auto) 0.49 K/uL (0.11-0.59); Monocytes % (auto) 8.8 %; Neutrophils # (auto) 3.86 K/uL (1.40-6.50); Neutrophils % (auto) 69.3 %; Platelet Count 235 K/uL (130-400); RDW Coefficient of Variation 14.2 % (11.5-14.5); Red Blood Count 3.68 M/uL (4.70-6.10); White Blood Count 5.57 K/ul (4.8-10.8)
[2023-08-22 18:19] LABS: Albumin Globulin Ratio 1.4 (0.9-2); Albumin Level 4.6 gm/dl (3.4-5.0); BUN Creatinine Ratio 35.1 (10-20); Bilirubin,Total 0.6 mg/dl (0.2-1.0); Calcium 9.7 mg/dl (8.6-10.3); Creatinine Clr Calc Pharmacy 66.8 ml/min; Est GFR (African American) 96.6 ml/min; Est GFR (Non-African American) 83.3 ml/min; Globulin 3.3 gm/dl (2.5-4.0); Total Protein 7.9 gm/dl (6.0-8.3)
[2023-08-22 19:51] LABS: Magnesium 2.4 mg/dl (1.7-2.4); Phosphorus 3.8 mg/dl (2.5-4.9)
[2023-08-22 19:59] LABS: Appearance Urine Cloudy (Clear); Bacteria Urine Automated Negative (Negative); Bilirubin Urine Negative (Negative); Blood Urine Negative (Negative); Color Urine Yellow; Epithelial Cell Urine Auto 0-5 /lpf (0-5); Glucose Urine UA Negative (Negative); Ketones Urine Negative (Negative); Leukocyte Esterase Urine 2+ (Negative); Nitrite Urine Negative (Negative); Protein Urine Negative (Negative); RBC Urine Automated 0-4 /hpf (0-4); Specific Gravity Urine 1.014 (1.000-1.030); Urobilinogen Urine Negative (Negative); WBC Urine Automated >30 /hpf (0-5)
--- NOTE | 2023-08-22 22:43 | History & Physical Report ---
Date of Service August 22, 2023 Assessment & Plan (1) Caregiver has difficulty performing caretaking: Plan: 82yo male presents with his for generalized weakness. 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 Patient did not get his medications or tube feeds for the last day. -Admit to medical -Resume home medications -Resume home tube feeds -Wound care (2) H/O: CVA (cerebrovascular accident): Plan: -Continue Pravastatin -Continue ASA -Hold HCTZ for now (3) Prolactinoma: Plan: -Continue Cabergoline History of Present Illness Chief Complaint: weakness Primary Care Provider: Gaudencio Parod MD Jonathon Smith is a pleasant 82yo male with history of MCA CVA, HTN, HLP, s/p PEG tube placement presenting with his with complaints of generalized weakness. 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 She administers his tube feeds and medications. She has been ill and is being admitted and has been unable to take care of Luis. Patient reports feeling weak but otherwise has no complaints. In the ER he is hypertensive otherwise HD stable Allergies Allergy/AdvReac Type Severity Reaction Status Date / Time Iodinated Contrast Media Allergy Intermediate ITCHING Verified 08/22/23 19:56 Home Medications Medication Instructions Recorded Confirmed Type cabergoline 0.5 mg tablet 0.5 mg PO 3XWK 03/15/19 08/22/23 History hydrochlorothiazide 25 mg tablet 25 mg PO DAILY 03/15/19 08/22/23 History pravastatin 20 mg tablet 20 mg PO QPM 03/15/19 08/22/23 History aspirin 81 mg tablet,delayed 81 mg PO DAILY 03/26/23 08/22/23 History release finasteride 5 mg tablet 5 mg PO DAILY #30 tabs 07/09/23 08/22/23 Rx doxazosin 1 mg tablet 1 mg PO HS 08/22/23 08/22/23 History polyethylene glycol 3350 17 17 g PO DAILY 08/22/23 08/22/23 History gram/dose oral powder (Miralax) Past Med/Surg History Medical History Anemia Septic shock Hemianopsia Dysphagia History of right MCA stroke Hypertension Squamous cell carcinoma of tongue PEG tube malfunction Hyperlipidemia Kidney stone Throat cancer Surgical History History of hernia repair History of cholecystectomy Family History Mother Diabetes Hypertension Heart disease Social History Smoking Status: Never smoker Second Hand Exposure: No; Do You Dip or Chew Tobacco: No; Hx Alcohol Use: No Hx Substance Use: No Preferred Language: Frisian Communication Ability: Effective Communication Ability Comment: HX STROKE LEFT SIDED PERIPHERAL VISION LOSS Front Elevator Operator Required: No Beliefs That Will Affect Care: None marital status: Current Living Situation: Spouse current occupational status: retired Feels Safe at Home: Yes Assistive Devices: Walker Review of Systems Review of Systems: All systems reviewed & are unremarkable except as noted in HPI & below Physical Exam Physical Exam: General: patient resting comfortably, NAD, non-toxic in appearance, AA&O x 4 Skin: warm, dry, intact, sacral wound present with dressing in place HEENT: NC/AT, PERRL, EOMI, anicteric sclera, conjunctiva without injection, external ear normal to inspection and nontender, nares patent, moist mucus membranes, dentition intact, no oropharyngeal lesions, neck supple, trachea midline, no LAD, no thyromegaly, no JVD Heart: +S1/S2, regular, no m/r/g Lungs: equal air entry bilaterally, no rales/rhonchi/wheezes Abd: +BS, soft, NT/ND, no masses/organomegaly/ascites Ext: warm, 2+ pulses in UE/LE bilaterally, no clubbing/cyanosis, 2+ edema of bilateral LE Results & Data Results & Data Vital Signs (Past 12 Hours) Vital Signs Temp Pulse Pulse Resp BP BP Pulse Ox 08/22/23 19:33 66 18 190/91 H 97 08/22/23 17:28 36.7 C 71 18 166/92 H 94 O2 Del Method 08/22/23 19:33 Room Air 08/22/23 17:28 Room Air Laboratory Results Laboratory Results WBC 5.57 K/ul (4.8-10.8) 08/22/23 17:37 RBC 3.68 M/uL (4.70-6.10) L 08/22/23 17:37 Hgb 12.5 g/dl (14.0-18.0) L 08/22/23 17:37 Hct 37.2 % (42.0-52.0) L 08/22/23 17:37 MCV 101.1 fL (80.0-100.0) H 08/22/23 17:37 MCH 34.0 pg (25.0-34.0) 08/22/23 17:37 MCHC 33.6 g/dL (32.0-36.0) 08/22/23 17:37 RDW Std Deviation 53.0 fL (36.4-46.3) H 08/22/23 17:37 RDW Coeff of Alison 14.2 % (11.5-14.5) 08/22/23 17:37 Plt Count 235 K/uL (130-400) 08/22/23 17:37 MPV 8.7 fL (9.4-12.4) L 08/22/23 17:37 Immature Gran % (Auto) 0.7 % 08/22/23 17:37 Neut % (Auto) 69.3 % 08/22/23 17:37 Lymph % (Auto) 17.8 % 08/22/23 17:37 [place] % (Auto) 8.8 % 08/22/23 17:37 Eos % (Auto) 2.7 % 08/22/23 17:37 Baso % (Auto) 0.7 % 08/22/23 17:37 Neut # (Auto) 3.86 K/uL (1.40-6.50) 08/22/23 17:37 Lymph # (Auto) 0.99 K/uL (1.20-3.40) L 08/22/23 17:37 [place] # (Auto) 0.49 K/uL (0.11-0.59) 08/22/23 17:37 Eos # (Auto) 0.15 K/uL (0.00-0.50) 08/22/23 17:37 Baso # (Auto) 0.04 K/uL (0.00-0.20) 08/22/23 17:37 Immature Gran # (Auto) 0.04 K/uL (0.01-0.20) 08/22/23 17:37 Sodium 133 mmol/L (136-145) L 08/22/23 17:37 Potassium 4.0 mmol/L (3.5-5.1) 08/22/23 17:37 Chloride 96 mmol/L (98-107) L 08/22/23 17:37 Carbon Dioxide 33 mmol/L (21-32) H 08/22/23 17:37 Anion Gap 4 (3-11) 08/22/23 17:37 BUN 27 mg/dl (6-23) H 08/22/23 17:37 Creatinine 0.77 mg/dl (0.6-1.4) 08/22/23 17:37 Est Cr Clr Drug Dosing 66.8 ml/min 08/22/23 17:37 Est GFR ( Amer) 96.6 ml/min 08/22/23 17:37 Est GFR (Non-Af Amer) 83.3 ml/min 08/22/23 17:37 BUN/Creatinine Ratio 35.1 (10-20) H 08/22/23 17:37 Glucose 140 mg/dl (70-99(Fasting)) H 08/22/23 17:37 Calcium 9.7 mg/dl (8.6-10.3) 08/22/23 17:37 Phosphorus 3.8 mg/dl (2.5-4.9) 08/22/23 17:37 Magnesium 2.4 mg/dl (1.7-2.4) 08/22/23 17:37 Total Bilirubin 0.6 mg/dl (0.2-1.0) 08/22/23 17:37 AST 39 U/L (13-39) 08/22/23 17:37 ALT 20 U/L (7-52) 08/22/23 17:37 Alkaline Phosphatase 70 U/L (34-104) 08/22/23 17:37 Total Protein 7.9 gm/dl (6.0-8.3) 08/22/23 17:37 Albumin 4.6 gm/dl (3.4-5.0) 08/22/23 17:37 Globulin 3.3 gm/dl (2.5-4.0) 08/22/23 17:37 Albumin/Globulin Ratio 1.4 (0.9-2) 08/22/23 17:37 Urine Color Yellow 08/22/23 19:30 Urine Appearance Cloudy (Clear) A 08/22/23 19:30 Urine pH 7.0 (4.5-7.5) 08/22/23 19:30 Ur Specific [place] 1.014 (1.000-1.030) 08/22/23 19:30 Urine Protein Negative (Negative) 08/22/23 19:30 Urine Glucose (UA) Negative (Negative) 08/22/23 19:30 Urine Ketones Negative (Negative) 08/22/23 19:30 Urine Blood Negative (Negative) 08/22/23 19:30 Urine Nitrite Negative (Negative) 08/22/23 19:30 Urine Bilirubin Negative (Negative) 08/22/23 19: Urine Urobilinogen Negative (Negative) 08/22/23 19:30 Ur Leukocyte Esterase 2+ (Negative) H 08/22/23 19:30 Urine WBC (Auto) >30 /hpf (0-5) H 08/22/23 19:30 Urine RBC (Auto) 0-4 /hpf (0-4) 08/22/23 19:30 U Hyaline Cast (Auto) 1-5 /lpf (0-5) 08/22/23 19:30 U Epithel Cells (Auto) 0-5 /lpf (0-5) 08/22/23 19:30 Urine Bacteria (Auto) Negative (Negative) 08/22/23 19:30 Urine Yeast Not Reportable 08/22/23 19:30 PG Care Time/CCT Total # of Minutes Spent Total Time Spent with Patient: Total time spent is greater than 50% in coordination of care (as documented) at patient's floor/unit and/or counseling patient: Coding Level of Care Code 91000 INT INP/OBS CARE 1/40MIN Diagnoses Caregiver has difficulty performing caretaking Z74.8 H/O: CVA (cerebrovascular accident) Z86.73 Prolactinoma D35.2
--- NOTE | 2023-08-23 00:35 | Emergency Department Note ---
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 The patient's further adds that she noted he has a sacral ulcer that has been worsening. The patient reports he does get out of bed as much as possible but does require assistance of a walker at all times. He denies any particular complaints in this moment. Of note, the patient did arrive to emergency department during time of high volume, acuity and prolonged emergency department waiting times. Critical pathways initiated from triage. On my evaluation the patient is no acute distress, afebrile with blood pressure 160/90s and vital signs otherwise stable. WBC and platelets within normal limits. H/H similar to prior. Chemistry without metabolic acidosis. BUN 27, consistent with patient's clinically dry appearance. Electrolytes and LFTs unremarkable. UA with 2+ leuk esterase and greater than 30 epithelials cells though with no bacteria. Nitrates are negative. Patient denies urinary symptoms and so will await urine culture to inform need for treatment. Patient was treated with IV fluid hydration. While patient's lab work is not significantly abnormal given the challenges in providing care for the patient as his reports she is too weak to feed him or help him with his medications we agreed to proceed with referral to hospital service for admission for further management and possible placement. Case was discussed with Dr. Diego, [facility] hospitalist, who will evaluate the patient for admission. Further management per admitting team. Triage Nursing notes reviewed and agree them. Prior/external medical records reviewed Vital Signs: reviewed Differential diagnosis: Infection, dehydration, metabolic abnormality, hypo/hyperglycemia, electrolyte disturbance, anemia, hypoxia, cardiac sources, intracerebral event, toxicologic, neurologic, as well as other pathologies. ER treatment provided: See below. Diagnostics interpreted by me: Cardiac Monitoring: An order for continuous cardiac monitoring was placed and demonstrated normal sinus rhythm, 71 bpm, no ectopy. Laboratory studies: See below Imaging studies: See below Consultation(s): Dr. 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 The patient's further adds that she noted he has a sacral ulcer that has been worsening. The patient reports he does get out of bed as much as possible but does require assistance of a walker at all times. He denies any particular complaints in this moment. ROS: See above HPI for pertinent positives & negatives. A total of 10 systems reviewed and were otherwise negative. VITALS:See Below PHYSICAL EXAMINATION: GENERAL: Awake, alert, fatigued-appearing, in no distress HENT: Normocephalic, atraumatic. Oropharynx with dry mucous membranes and otherwise unremarkable. EYES: Normal conjunctiva. Sclera non-icteric. NECK: Supple. No nuchal rigidity. FROM. No JVD. RESPIRATORY: Clear to auscultation. CARDIAC: Regular rate, normal rhythm. Extremities warm and well perfused. Pulses equal. ABDOMEN: Soft, non-distended. PEG tube c/d/i. No tenderness to palpation. No rebound or guarding. MUSCULOSKELETAL: Chest examination reveals no tenderness. The back is symmetrical on inspection without obvious abnormality. There is no CVA tenderness to palpation. No joint edema. LOWER EXTREMITIES: Calves are equal size bilaterally and non-tender. No edema. No discoloration. NEURO: No new focal sensory or motor deficits noted. Aphasia at baseline. SKIN: Superficial sacral decubitus ulcer. No surrounding erythema warmth or tenderness. No jaundice noted. Luca Smith MD Past Med/Surg History Medical History Anemia Septic shock Hemianopsia Dysphagia History of right MCA stroke Hypertension Squamous cell carcinoma of tongue PEG tube malfunction Hyperlipidemia Kidney stone Throat cancer Surgical History History of hernia repair History of cholecystectomy Family History Mother Diabetes Hypertension Heart disease Social History Smoking Status: Never smoker Second Hand Exposure: No; Do You Dip or Chew Tobacco: No; Hx Alcohol Use: No Hx Substance Use: No Preferred Language: Salvadorean Communication Ability: Effective Communication Ability Comment: HX STROKE LEFT SIDED PERIPHERAL VISION LOSS Gym Attendant Required: No Beliefs That Will Affect Care: None marital status: Current Living Situation: Spouse current occupational status: retired Feels Safe at Home: Yes Assistive Devices: Walker Allergies Allergies Allergy/AdvReac Type Severity Reaction Status Date / Time Iodinated Contrast Media Allergy Intermediate ITCHING Verified 08/22/23 19:56 Home Meds Home Medications Medication Instructions Recorded Confirmed cabergoline 0.5 mg tablet 0.5 mg PO 3XWK 03/15/19 08/22/23 hydrochlorothiazide 25 mg tablet 25 mg PO DAILY 03/15/19 08/22/23 pravastatin 20 mg tablet 20 mg PO QPM 03/15/19 08/22/23 aspirin 81 mg tablet,delayed 81 mg PO DAILY 03/26/23 08/22/23 release doxazosin 1 mg tablet 1 mg PO HS 08/22/23 08/22/23 polyethylene glycol 3350 17 17 g PO DAILY 08/22/23 08/22/23 gram/dose oral powder (Miralax) Previous Rx's Medication Instructions Recorded finasteride 5 mg tablet 5 mg PO DAILY #30 tabs 07/09/23 Results & Data (ED) Vital Signs Vital Signs - 24 hr 08/22/23 17:28 08/22/23 19:33 08/22/23 22:54 Temperature 36.7 C Temperature Source Temporal Artery Scan Pulse Rate 71 Pulse Rate [Apical] 66 91 H Pulse Rate from SpO2 Sensor Respiratory Rate 18 18 20 Respiratory Effort / Characteristics Non-Labored Respiratory Depth Normal Blood Pressure 166/92 H Blood Pressure [Left Arm] 190/91 H 175/95 H Blood Pressure Mean 116 Blood Pressure Mean [Left Arm] 124 121 Pulse Oximetry 94 97 98 Oxygen Delivery Method Room Air Room Air Room Air Sepsis Recent Fever Within 48 Hours No Sepsis New/Unexplained Change in Mental Status No Sepsis Action Taken by Nursing No Action Required 08/22/23 23:46 08/22/23 23:50 08/23/23 00:00 Temperature Temperature Source Pulse Rate 101 H 92 H 88 Pulse Rate [Apical] Pulse Rate from SpO2 Sensor 100 H 92 H 88 Respiratory Rate 12 13 20 Respiratory Effort / Characteristics Respiratory Depth Blood Pressure Blood Pressure [Left Arm] Blood Pressure Mean Blood Pressure Mean [Left Arm] Pulse Oximetry 95 98 97 Oxygen Delivery Method Sepsis Recent Fever Within 48 Hours Sepsis New/Unexplained Change in Mental Status Sepsis Action Taken by Nursing 08/23/23 00:13 08/23/23 00:30 Temperature Temperature Source Pulse Rate 88 93 H Pulse Rate [Apical] Pulse Rate from SpO2 Sensor 88 93 H Respiratory Rate Respiratory Effort / Characteristics Respiratory Depth Blood Pressure 183/108 H Blood Pressure [Left Arm] Blood Pressure Mean 133 Blood Pressure Mean [Left Arm] Pulse Oximetry 97 97 Oxygen Delivery Method Sepsis Recent Fever Within 48 Hours Sepsis New/Unexplained Change in Mental Status Sepsis Action Taken by Nursing Laboratory Data Attestation: I reviewed the patient's lab results. 08/22/23 17:37 08/22/23 17:37 Lab Results 08/22/23 08/22/23 Range/Units 17:37 19:30 WBC 5.57 (4.8-10.8) K/ul RBC 3.68 L (4.70-6.10) M/uL Hgb 12.5 L (14.0-18.0) g/dl Hct 37.2 L (42.0-52.0) % MCV 101.1 H (80.0-100.0) fL MCH 34.0 (25.0-34.0) pg MCHC 33.6 (32.0-36.0) g/dL RDW Std Deviation 53.0 H (36.4-46.3) fL RDW Coeff of Alison 14.2 (11.5-14.5) % Plt Count 235 (130-400) K/uL MPV 8.7 L (9.4-12.4) fL Immature Gran % (Auto) 0.7 % Neut % (Auto) 69.3 % Lymph % (Auto) 17.8 % Zavala % (Auto) 8.8 % Eos % (Auto) 2.7 % Baso % (Auto) 0.7 % Neut # (Auto) 3.86 (1.40-6.50) K/uL Lymph # (Auto) 0.99 L (1.20-3.40) K/uL Zavala # (Auto) 0.49 (0.11-0.59) K/uL Eos # (Auto) 0.15 (0.00-0.50) K/uL Baso # (Auto) 0.04 (0.00-0.20) K/uL Immature Gran # (Auto) 0.04 (0.01-0.20) K/uL Sodium 133 L (136-145) mmol/L Potassium 4.0 (3.5-5.1) mmol/L Chloride 96 L (98-107) mmol/L Carbon Dioxide 33 H (21-32) mmol/L Anion Gap 4 (3-11) BUN 27 H (6-23) mg/dl Creatinine 0.77 (0.6-1.4) mg/dl Est Cr Clr Drug Dosing 66.8 ml/min Est GFR ( Amer) 96.6 ml/min Est GFR (Non-Af Amer) 83.3 ml/min BUN/Creatinine Ratio 35.1 H (10-20) Glucose 140 H (70-99(Fasting)) mg/dl Calcium 9.7 (8.6-10.3) mg/dl Phosphorus 3.8 (2.5-4.9) mg/dl Magnesium 2.4 (1.7-2.4) mg/dl Total Bilirubin 0.6 (0.2-1.0) mg/dl AST 39 (13-39) U/L ALT 20 (7-52) U/L Alkaline Phosphatase 70 (34-104) U/L Total Protein 7.9 (6.0-8.3) gm/dl Albumin 4.6 (3.4-5.0) gm/dl Globulin 3.3 (2.5-4.0) gm/dl Albumin/Globulin Ratio 1.4 (0.9-2) Urine Color Yellow Urine Appearance Cloudy A (Clear) Urine pH 7.0 (4.5-7.5) Ur Specific Hartshorn 1.014 (1.000-1.030) Urine Protein Negative (Negative) Urine Glucose (UA) Negative (Negative) Urine Ketones Negative (Negative) Urine Blood Negative (Negative) Urine Nitrite Negative (Negative) Urine Bilirubin Negative (Negative) Urine Urobilinogen Negative (Negative) Ur Leukocyte Esterase 2+ H (Negative) Urine WBC (Auto) >30 H (0-5) /hpf Urine RBC (Auto) 0-4 (0-4) /hpf U Hyaline Cast (Auto) 1-5 (0-5) /lpf U Epithel Cells (Auto) 0-5 (0-5) /lpf Urine Bacteria (Auto) Negative (Negative) Urine Yeast Not Reportable Administered Medications Discontinued Medications Sodium Chloride (Nss) 1,000 mls @ 999 mls/hr IV .Q1H1M ONE Stop: 08/22/23 18:32 Last Infusion: 08/22/23 19:35 Dose: Infused Documented By: Admin: 08/22/23 17:39 Dose: 999 mls/hr Documented By: DAVID Sodium Chloride (Nss) 1,000 mls @ 999 mls/hr IV .Q1H1M ONE Stop: 08/22/23 20:27 Last Infusion: 08/22/23 21:53 Dose: Infused Documented By: Admin: 08/22/23 19:36 Dose: 999 mls/hr Documented By: MAYNOR Discharge Plan Visit Data Chief Complaint: Dehydration Stated Complaint: DEHYDRATION ED Provider: Luca Smith Discharge Problem: Dehydration, Feeding by G-tube, Caregiver has difficulty performing caretaking Forms Stand Alone Forms: My [facility] Prescriptions Prescriptions: No Action finasteride 5 mg tablet 5 mg PO DAILY Qty: 30 11RF cabergoline 0.5 mg tablet 0.5 mg PO 3XWK Rx Instructions: Mon/Wed/Fri pravastatin 20 mg tablet 20 mg PO QPM hydrochlorothiazide 25 mg tablet 25 mg PO DAILY aspirin 81 mg Tablet,Delayed Release (Dr/Ec) 81 mg PO DAILY doxazosin 1 mg tablet 1 mg PO HS Rx Instructions: 8:00PM polyethylene glycol 3350 [Miralax] 17 gram/dose Powder 17 g PO DAILY Referrals Referrals: Gaudencio Pardo MD [Primary Care Provider] -
[2023-08-23] MEDS ORDERED: ACETAMINOPHEN 325 MG TAB PO PRN (03:06)
[2023-08-23] MEDS ORDERED: ONDANSETRON INJ 2 MG/ML 2 ML VIAL IV PRN (03:06)
--- NOTE | 2023-08-23 07:19 | Hospitalist Progress Note ---
Date of Service August 23, 2023 Assessment & Plan (1) Caregiver has difficulty performing caretaking: (2) H/O: CVA (cerebrovascular accident): (3) Prolactinoma: Plan 82yo male presents with his for generalized weakness. 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 Patient did not get his medications or tube feeds for the last day. #Caregiver has difficulty performing caretaking -Resume home medications -Resume home tube feeds, seen by speech on May, which reports no functional swallowing and has silent aspiration as well as aspiration with all tested items. -patient needs pure meals at home because permissive aspiration per 's request. We will continue with current home diet per 's request. -Dietitian consulted. -Wound care -PT OT ordered. -CMP and CBC mostly benign, slight anemia. We will continue to trend with daily labs. #History of CVA -Continue Pravastatin -Continue ASA -Hold HCTZ for now #Prolactinoma -Continue Cabergoline #Urinary tract infection -Patient not complaining of any urinary symptoms. No Domingo in place. -UA positive for white blood cell count and 2+ leukocyte esterase. -Staphylococcus species growing on urine culture, pending sensitivities. -Will hold off on treatment at this time and wait sensitivities Admission and Anticipated Discharge Date Admission Date: August 22, 2023 Supervising Physician Co-Signing Physician Notes ATTESTATION I also saw the patient and confirmed angelo portions of the history and exam. I agree with the impression and plan in the resident documentation, and as summarized below. He has no complaints today. Seemingly at his baseline; admission predominantly due to his being admitted with progressive weakness and weight loss. He is dependent on her for his ADLs; she is currently hospitalized in the same hospital room as he is today. EXAM 123/69, 62, 16, 36.4, 97% on room air Alert. Seemingly oriented. Heart regular Respirations nonlabored DATA Labs CBC shows a white count of 5.17, hemoglobin 10.6, platelet count 205 Sodium 137, potassium 3.6, BUN 18, creatinine 0.61 Micro Urine culture showing staph, speciation pending IMPRESSION & PLAN I agree with the impression and plan as noted in the resident documentation above. PT/OT consult pending Arranged to continue home PEG feedings Continue home medications; hold hydrochlorothiazide Await urine culture speciation; he is asymptomatic Additional per resident documentation Subjective Patient seen bedside this morning. He has no issues or concerns at this time. Review of Systems Review of Systems: All systems reviewed & are unremarkable except as noted in Subjective Physical Exam Physical Exam: General: patient resting comfortably, NAD, non-toxic in appearance, AA&O x 4 Skin: warm, dry, intact, sacral wound present with dressing in place HEENT: NC/AT, PERRL, EOMI, anicteric sclera, conjunctiva without injection, external ear normal to inspection and nontender, nares patent, moist mucus membranes, dentition intact, no oropharyngeal lesions, neck supple, trachea midline, no LAD, no thyromegaly, no JVD Heart: +S1/S2, regular, no m/r/g Lungs: equal air entry bilaterally, no rales/rhonchi/wheezes Abd: +BS, soft, NT/ND, no masses/organomegaly/ascites Ext: warm, 2+ pulses in UE/LE bilaterally, no clubbing/cyanosis, 2+ edema of bilateral LE Results & Data Results & Data Vital Signs (Past 12 Hours) Vital Signs Temp Pulse Pulse Resp BP BP Pulse Ox 08/23/23 02:45 08/23/23 02:45 36.3 C L 86 18 180/91 H 96 08/23/23 02:23 08/23/23 02:00 74 12 142/86 H 95 08/23/23 01:30 87 14 95 08/23/23 01:00 92 H 12 183/112 H 96 08/23/23 00:30 93 H 97 08/23/23 00:13 88 183/108 H 97 08/23/23 00:00 88 20 97 08/22/23 23:50 92 H 13 98 08/22/23 23:46 101 H 12 95 08/22/23 22:54 91 H 20 175/95 H 98 08/22/23 19:33 66 18 190/91 H 97 O2 Del Method 08/23/23 02:45 Room Air 08/23/23 02:45 Room Air 08/23/23 02:23 Room Air 08/23/23 02:00 08/23/23 01:30 08/23/23 01:00 08/23/23 00:30 08/23/23 00:13 08/23/23 00:00 08/22/23 23:50 08/22/23 23:46 08/22/23 22:54 Room Air 08/22/23 19:33 Room Air Resident Activity Tracking Resident Involvement: Resident Care Provided Care Provided: Adult Hospital Medicine
[2023-08-23 08:24] LABS: Hematocrit (blood only) 31.2 % (42.0-52.0); Hemoglobin 10.6 g/dl (14.0-18.0); Mean Corpuscular Hemoglobin 33.8 pg (25.0-34.0); Mean Corpuscular Volume 99.4 fL (80.0-100.0); Mean Platelet Volume 8.5 fL (9.4-12.4); Platelet Count 205 K/uL (130-400); RDW Coefficient of Variation 14.1 % (11.5-14.5); RDW Standard Deviation 51.5 fL (36.4-46.3); Red Blood Count 3.14 M/uL (4.70-6.10); White Blood Count 5.17 K/ul (4.8-10.8)
[2023-08-23 08:29] LABS: Potassium 3.6 mmol/L (3.5-5.1)
[2023-08-23 08:30] LABS: BUN Creatinine Ratio 29.5 (10-20); Calcium 8.4 mg/dl (8.6-10.3); Creatinine Clr Calc Pharmacy 84.3 ml/min; Est GFR (African American) 106.3 ml/min; Est GFR (Non-African American) 91.7 ml/min
[2023-08-23] MEDS ORDERED: ASPIRIN 81 MG ECTAB PO SCH (09:00)
[2023-08-23] MEDS ORDERED: INFLUENZA VACCINE HIGH-DOSE (HD-IIV4) PF 65+ 0.7mL SYR IM ONE (09:00)
[2023-08-23] MEDS: FINASTERIDE 5 MG TAB PO SCH (10:38)
[2023-08-23] MEDS: ASPIRIN 81 MG CHEW PEG SCH (11:36)
[2023-08-23] MEDS: CABERGOLINE PO SCH (11:41)
[2023-08-23] MEDS: POLYETHYLENE (MIRALAX) 17 GM PACK PO SCH (11:41)
[2023-08-23] MEDS ORDERED: TUBE FEEDING WATER FLUSH GT SCH ×2 (12:55→13:05)
[2023-08-23] MEDS ORDERED: PEPTAMEN 1.5 CAL 1,000 ML BAG PEG SCH (13:00)
[2023-08-23] MEDS: TUBE FEEDING WATER FLUSH GT SCH ×4 (14:54→19:25)
[2023-08-23] MEDS: PEPTAMEN 1.5 CAL 1,000 ML BAG PEG SCH ×2 (14:54→18:48)
[2023-08-23] MEDS: PRAVASTATIN SOD 20 MG TAB PO SCH (20:13)
[2023-08-23] MEDS: DOXAZOSIN MESYLATE 1 MG TAB PO SCH (20:13)
[2023-08-24] MEDS: PEPTAMEN 1.5 CAL 1,000 ML BAG PEG SCH ×4 (06:36→20:59)
[2023-08-24] MEDS: TUBE FEEDING WATER FLUSH GT SCH ×8 (06:36→21:45)
--- NOTE | 2023-08-24 07:03 | Hospitalist Progress Note ---
Date of Service August 24, 2023 Assessment & Plan (1) Caregiver has difficulty performing caretaking: (2) H/O: CVA (cerebrovascular accident): (3) Prolactinoma: Plan Pt is an 82 yo male presenting with his for generalized weakness. 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 Patient did not get his medications or tube feeds for the 24 hrs prior to admission. Caregiver has difficulty performing caretaking -Resume home medications -Resume home tube feeds, seen by speech on May 2023 which reports no functional swallowing and has silent aspiration as well as aspiration with all tested items -patient has pureed meals at home (permissive aspiration); continue with current home diet per 's request -Dietitian consulted. -Wound care ordered for sacral pressure ulcers -PT OT ordered -CMP and CBC mostly benign, slight anemia; continue to monitor History of CVA -Continue pravastatin, ASA -Hold HCTZ as BP stable over last 24 hrs; will resume if elevated Prolactinoma -Continue cabergoline Asymptomatic bacteruria -Patient not complaining of any urinary symptoms. No Domingo in place. -UA positive for white blood cell count and 2+ LE; urine cx growing staph, sensitivities pending -no tx necessary at this time Diet: pureed, extremely thick, tube feeds Code: full Dispo: home with (and/or home health) as electric motor winder vs. 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 I agree with the impression and plan in the resident documentation, and as summarized below. No new complaints today EXAM 124/68, 56, 16, 37.1, 94% on room air Alert. Seemingly oriented. Heart regular Respirations nonlabored DATA Labs CBC shows a white count of 4.2, hemoglobin 9.5, platelet 161. Electrolytes unremarkable, BUN 27, creatinine 0.73 Micro Urine culture showing staph, speciation pending IMPRESSION & PLAN I agree with the impression and plan as noted in the resident documentation above. PT/OT consults Continue home PEG feedings Continue home medications; hydrochlorothiazide remains on hold Await final urine culture and speciation; he is asymptomatic Additional per resident documentation Subjective Pt is an 82 yo male presenting with his for generalized weakness. 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 Patient did not get his medications or t ube feeds for the 24 hrs prior to admission. Pt feeling well this morning. No complaints or concerns. Review of Systems Review of Systems: As per HPI Physical Exam Physical Exam: Constitutional: well appearing, no acute distress HEENT: normocephalic, no conjunctival injection CV: clinically well perfused Respiratory: no increased work of breathing MSK: no gross deformities noted Skin: warm and dry Neuro: alert and oriented Results & Data Results & Data Vital Signs (Past 12 Hours) Vital Signs Temp Pulse Resp BP Pulse Ox O2 Del Method 08/23/23 20:11 36.3 C L 68 16 136/73 95 Room Air Resident Activity Tracking Resident Involvement: Resident Care Provided Care Provided: Adult Hospital Medicine
[2023-08-24 07:43] LABS: Hematocrit (blood only) 28.7 % (42.0-52.0); Hemoglobin 9.5 g/dl (14.0-18.0); Mean Corpuscular Hemoglobin 33.6 pg (25.0-34.0); Mean Corpuscular Hgb Conc 33.1 g/dL (32.0-36.0); Mean Corpuscular Volume 101.4 fL (80.0-100.0); Mean Platelet Volume 8.3 fL (9.4-12.4); Platelet Count 161 K/uL (130-400); RDW Coefficient of Variation 14.3 % (11.5-14.5); RDW Standard Deviation 53.2 fL (36.4-46.3); Red Blood Count 2.83 M/uL (4.70-6.10)
[2023-08-24 08:24] LABS: Calcium 8.1 mg/dl (8.6-10.3); Creatinine Clr Calc Pharmacy 70.4 ml/min; Est GFR (African American) 98.7 ml/min; Est GFR (Non-African American) 85.2 ml/min
[2023-08-24] MEDS: POLYETHYLENE (MIRALAX) 17 GM PACK PO SCH (09:17)
[2023-08-24] MEDS: ASPIRIN 81 MG CHEW PEG SCH (09:17)
[2023-08-24] MEDS: FINASTERIDE 5 MG TAB PO SCH (11:03)
[2023-08-24] MEDS: DOXAZOSIN MESYLATE 1 MG TAB PO SCH (20:59)
[2023-08-24] MEDS: PRAVASTATIN SOD 20 MG TAB PO SCH (20:59)
[2023-08-25] MEDS: TUBE FEEDING WATER FLUSH GT SCH ×8 (06:33→19:47)
[2023-08-25] MEDS: PEPTAMEN 1.5 CAL 1,000 ML BAG PEG SCH ×4 (06:33→19:46)
--- NOTE | 2023-08-25 07:11 | Hospitalist Progress Note ---
Date of Service August 25, 2023 Assessment & Plan (1) Caregiver has difficulty performing caretaking: (2) H/O: CVA (cerebrovascular accident): (3) Prolactinoma: Plan Pt is an 82 yo male presenting with his for generalized weakness. 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 Patient did not get his medications or tube feeds for the 24 hrs prior to admission. Caregiver has difficulty performing caretaking -Resume home medications -Resume home tube feeds, seen by speech on May 2023 which reports no functional swallowing and has silent aspiration as well as aspiration with all tested items -patient has pureed meals at home (permissive aspiration); continue with current home diet per 's request -Dietitian consulted -Wound care ordered for sacral pressure ulcers -PT OT ordered -CMP and CBC mostly benign, slight anemia History of CVA -Continue pravastatin, ASA -Hold HCTZ as BP stable over last 24 hrs; will resume if elevated Prolactinoma -Continue cabergoline Asymptomatic bacteruria -Patient not complaining of any urinary symptoms. No Domingo in place. -UA positive for white blood cell count and 2+ LE; urine cx growing coag neg staph (most likely a contaminant) -no tx necessary at this time Diet: pureed, extremely thick, tube feeds Code: full Dispo: home with (and/or home health) as form block maker vs. senior care care facility Admission and Anticipated Discharge Date Admission Date: August 22, 2023 Supervising Physician Co-Signing Physician Notes ATTESTATION I also saw the patient and confirmed angelo portions of the history and exam. I agree with the impression and plan in the resident documentation, and as summarized below. He is getting both his tube feedings as well as eating his lunch fairly well today No new complaints today EXAM 107/62, 58, 16, 37 C Alert. Heart regular Respirations nonlabored IMPRESSION & PLAN I agree with the impression and plan as noted in the resident documentation above. PT/OT consults appreciated Continue home PEG feedings Continue home medications; hydrochlorothiazide remains on hold Additional per resident documentation Subjective Pt is an 82 yo male presenting with his for generalized weakness. 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 Patient did not get his medications or tube feeds for the 24 hrs prior to admission. Pt has no concerns this AM. Review of Systems Review of Systems: As per HPI Physical Exam Physical Exam: Constitutional: well appearing, no acute distress HEENT: normocephalic, no conjunctival injection CV: regular rhythm, regular rate, no murmur, no LE edema Respiratory: Course breath sounds throughout. No rhonchi, wheezes, or crackles. No increased work of breathing MSK: no gross deformities noted Skin: warm, dry, no rashes Neuro: alert Results & Data Results & Data Vital Signs (Past 12 Hours) Vital Signs Temp Pulse Resp BP Pulse Ox O2 Del Method 08/24/23 20:58 36.8 C 68 16 106/60 94 Room Air Resident Activity Tracking Resident Involvement: Resident Care Provided Care Provided: Adult Hospital Medicine
[2023-08-25] MEDS: ASPIRIN 81 MG CHEW PEG SCH (08:28)
[2023-08-25] MEDS: FINASTERIDE 5 MG TAB PO SCH (08:28)
[2023-08-25] MEDS: POLYETHYLENE (MIRALAX) 17 GM PACK PO SCH (08:29)
[2023-08-25] MEDS: PRAVASTATIN SOD 20 MG TAB PO SCH (20:32)
[2023-08-25] MEDS: DOXAZOSIN MESYLATE 1 MG TAB PO SCH (20:32)
[2023-08-26] MEDS: PEPTAMEN 1.5 CAL 1,000 ML BAG PEG SCH (07:00)
[2023-08-26] MEDS: TUBE FEEDING WATER FLUSH GT SCH ×2 (08:06)
[2023-08-26] MEDS: ASPIRIN 81 MG CHEW PEG SCH (08:07)
[2023-08-26] MEDS: FINASTERIDE 5 MG TAB PO SCH (08:07)
[2023-08-26] MEDS: CABERGOLINE PO SCH (08:07)
[2023-08-26] MEDS: POLYETHYLENE (MIRALAX) 17 GM PACK PO SCH (08:07)
--- NOTE | 2023-08-26 08:14 | Discharge Summary ---
Date of Service August 26, 2023 Admission HPI Per Admitting Provider Jonathon Smith is a pleasant 82yo male with history of MCA CVA, HTN, HLP, s/p PEG tube placement presenting with his with complaints of generalized weakness. Patient's is his primary slat basket top maker. She administers his tube feeds and medications. She has been ill and is being admitted and has been unable to take care of Luis. Patient reports feeling weak but otherwise has no complaints. In the ER he is hypertensive otherwise HD stable Admission Exam Per Admitting Provider General: patient resting comfortably, NAD, non-toxic in appearance, AA&O x 4 Skin: warm, dry, intact, sacral wound present with dressing in place HEENT: NC/AT, PERRL, EOMI, anicteric sclera, conjunctiva without injection, external ear normal to inspection and nontender, nares patent, moist mucus membranes, dentition intact, no oropharyngeal lesions, neck supple, trachea midline, no LAD, no thyromegaly, no JVD Heart: +S1/S2, regular, no m/r/g Lungs: equal air entry bilaterally, no rales/rhonchi/wheezes Abd: +BS, soft, NT/ND, no masses/organomegaly/ascites Ext: warm, 2+ pulses in UE/LE bilaterally, no clubbing/cyanosis, 2+ edema of bilateral LE Principal Diagnosis failure to thrive Discharge Exam Constitutional: well appearing, no acute distress HEENT: normocephalic, no conjunctival injection CV: clinically well perfused Respiratory: No increased work of breathing MSK: no gross deformities noted Skin: warm, dry, no rashes Neuro: alert Discharge Data Allergies Allergy/AdvReac Type Severity Reaction Status Date / Time Iodinated Contrast Media Allergy Intermediate ITCHING Verified 08/22/23 19:56 Consultations 08/22/23 21:55 ED Decision to Admit Stat Hospital Course (1) Caregiver has difficulty performing caretaking: (2) H/O: CVA (cerebrovascular accident): (3) Prolactinoma: Plan Pt is an 82 yo male presenting with his for generalized weakness. Patient is unable to care for himself at home and due to 's acute illness she is unable to perform her slat basket top maker duties. Patient did not get his medications or tube feeds for the 24 hrs prior to admission. Caregiver has difficulty performing caretaking Resume home medications. Resume home tube feeds, seen by speech on May 2023 which reports no functional swallowing and has silent aspiration as well as aspiration with all tested items. Permissive aspiration with pureed meals allowed per 's request. Dietitian consulted. Wound care for sacral pressure ulcers. PT/OT evaluated and recommended some sort of assistance if primary caregiver () unable to handle his needs. Anemia CMP and CBC mostly benign, slight anemia. Follow up outpatient History of CVA Continue pravastatin, ASA. Held HCTZ as BP stable over last 24 hrs. Can resume on discharge, monitor for hypotension. Prolactinoma Continue cabergoline Asymptomatic bacteruria Patient not complaining of any urinary symptoms. No Domingo in place. UA positive for white blood cell count and 2+ LE; urine cx growing coag neg staph (most likely a contaminant). No tx necessary at this time Diet: pureed, extremely thick, tube feeds Code: full Dispo: home with (and/or home health) as slat basket top maker vs. supervisor intermediates care facility Total Time Total Time Spent Total Time Spent (In Minutes): <30 Discharge Plan Discharge Items Patient Disposition: Home - Self-Care Reason For Visit: WEAKNESS, FATIGUE Discharge Diagnosis: failure to thrive, caregiver unable to provide care Activity: Per Instructions section Non-emergency contact: Primary Care Provider Call non-emergency contact if: you have any medication questions and your symptoms worsen Follow-up/Referrals: Gaudencio Pardo MD [Primary Care Provider] - 09/06/23 2:40 pm Diet: Other - See Diet Comment Diet Texture: Pureed (blended smooth) Diet Comment: Resume your home diet as before hospitalization Addtl Attending Provider Instructions: You were admitted to the hospital for daily care needs including tube feedings. These were administered based on your home schedule. A discharge summary will be sent to your primary care physician to ensure continuity of care. Please bring this discharge summary with you to your next office appointment so that your provider can review it at that time. Medications: Your medication list has been reviewed and reconciled upon discharge to ensure accuracy and continuity of care. An updated list of all your medications is included with your hospital discharge paperwork. Please review this list closely and make note of any changes to your medications. - No medication changes Follow up appointments: - Make a follow up appointment with your PCP within the next week. It is very important that you follow up with them shortly after discharge from the hospital. - Keep all of your follow up appointments as already scheduled. If you cannot make an appointment, notify your provider. CONTACT YOUR PRIMARY CARE PROVIDER if you experience any of the following: - Difficulty following your treatment plan - Difficulty taking any of your medications CALL 911 OR GO TO THE EMERGENCY DEPARTMENT if you experience any of the following: - Sudden, severe abdominal pain or nausea/vomiting - Severe chest pain or chest pain that radiates to your jaw or arm - Sudden, severe shortness of breath or difficulty breathing Pending Studies at Discharge: No Stand-Alone Forms: My [facility], Smoking Cessation Medications and DC Order Prescriptions: New Tube Feeding Water Flush 75 ml G-tube QID@0655,1055,1455,1855 Qty: 50 1RF Tube Feeding Water Flush 75 ml G-tube QID@0705,1105,1505,1905 Qty: 50 0RF Continued finasteride 5 mg tablet 5 mg PO DAILY Qty: 30 11RF cabergoline 0.5 mg tablet 0.5 mg PO 3XWK Rx Instructions: Mon/Wed/Fri pravastatin 20 mg tablet 20 mg PO QPM hydrochlorothiazide 25 mg tablet 25 mg PO DAILY aspirin 81 mg Tablet,Delayed Release (Dr/Ec) 81 mg PO DAILY doxazosin 1 mg tablet 1 mg PO HS Rx Instructions: 8:00PM polyethylene glycol 3350 [Miralax] 17 gram/dose Powder 17 g PO DAILY Discharge Orders: Discharge Order (Routine); Ordered 08/26/23 Ordered By: Page Tran Admission Data Admit Date/Time: 08/22/23 22:42 Attending Provider: Akhil Randolph Admit Provider: Leah Diego Primary Care Provider: Gaudencio Pardo Other Providers: Leah Diego; Rudy Hinson Other Interventions: Discharge Summary Assessment (RN) Last Done: 08/26/23 10:42 Supervising Physician Co-Signing Physician Notes I personally examined the patient and verified all angelo points of history and exam, discussed case, and agree with decision making with Dr Tran Sleeping comfortably. Discussed situation with his who is now safe for discharge as well. Vitals noted. Breathing unlabored and resting comfortably. No distress. Unsafe home situationcaregiver now able to take care of him at home. Safe for discharge. Resident Activity Tracking Resident Involvement: Resident Care Provided Care Provided: Adult Hospital Medicine
--- NOTE | 2023-08-26 18:33 | Billing Data ---
Date of Service August 26, 2023 Coding Level of Care Code 81103 IN/OBS DISCH 30 MIN/LESS
== END 2023-08-26 12:50 | disposition home or self-care (01) ==
LOC: ED 17:19 → SUATTDRO 22:42 → INTOOBSV 22:42 → 3W 22:42

== ENCOUNTER 2023-10-15 16:54 | Inpatient (IN) ==
--- NOTE | 2023-10-15 17:26 | Emergency Department Note ---
Impression & Plan Unable to care for self ADMIT ED Provider Note HPI: History obtained from patient. The patient is a 82-year-old gentleman who presents emergency department with a chief complaint of possibly inability to care for self. Patient presents via EMS, today police were contacted by the [facility] office of aging was contacted by the patient's physician's office in regards to possibly not receiving the care that he needs at home. Apparently the patient's has been contacting the primary care doctor's office over the past week stating that she was having some difficulty taking care of the patient and keeping up with his tube feeds. On arrival here to the ED the patient does appear well-groomed, he has a history of CVA and is unable to provide me with much history. He does not appear to be in any acute distress, he does not appear to be disheveled. ROS: - Per HPI *Outpatient medications and allergy history reviewed. PE: General: Alert, no acute distress HEENT: Normocephalic, trachea midline Eyes: Extraocular eye movement is intact, no scleral erythema Pulmonary: Clear to auscultation bilaterally, no wheezing Cardio: Regular rate and rhythm GI: Abdomen is soft to palpation, PEG tube in place without surrounding erythema or drainage : No suprapubic tenderness MSK: No evidence of trauma or malformation of the extremities, no edema Skin: No evidence of rash, superficial sacral ulcer without any active bleeding, no purulent drainage or significant surrounding erythema Neuro: Alert, no new focal deficits Psychiatric: Cooperative INDEPENDENT INTERPRETATIONS: property assessment monitor: (As interpreted by myself): - An order was placed for continuous cardiac monitoring - Patient was noted to be in sinus rhythm with a rate of 80 Interventions provided in ED: -IV fluid bolus Medical Decision Making: Patient appears overall well on my assessment here in the ED. Lab work shows no leukocytosis, hemoglobin is slightly low at 12.6, CMP does not show any critical findings, mild hyponatremia 132 for which the patient was given IV fluids, BUN is slightly elevated at 26, no evidence of acute kidney injury, no transaminitis, lipase is normal. Patient's later arrived at the bedside, she states she exhibited some confusion as to why the patient was here, does admit to some recent issues bring him to appointments and states that she does have the need for some extra assistance taking care of him at home. I discussed the patient's presentation over the phone with the patient's son, Alfonso, who lives in the [place] area and is a nurse. He states that he does believe that the patient is okay to stay at home but also believes that his mother does need some extended home nursing services which she currently does not have. Following our discussion is thought to be reasonable to admit the patient to the hospital for further care and for physical therapy consultation and to arrange for home nursing services to be provided is that we will be unable to be done tonight. I discussed this with the patient's after my conversation with their son, at this time she is in agreement for the patient to be admitted. Case was discussed with the on-call hospitalist, Dr. Diego, and the patient was placed for admission in stable condition. POA contact: Alfonso Smith [phone] Consultants/Discussions held with other healthcare providers: -Hospitalist, Dr. Diego -Case management, Maryana Gallardo Disposition discussion held by myself with: -Patient and at bedside, patient's son Alfonso on the phone Diagnosis: 1. Inability to care for self at home, acute 2. Sacral ulcers, superficial, acute 3. Hyponatremia, acute, mild 4. Elevated BUN 5. Anemia, chronic Disposition: Admission Advised outpatient follow up that was discussed with the patient: -Return to the ED immediately with any new or worsening symptoms -Follow up with a PCP in 2-3 Days Steve Weeks DO Emergency Medicine Past Med/Surg History Medical History Anemia Septic shock Hemianopsia Dysphagia History of right MCA stroke Hypertension Squamous cell carcinoma of tongue PEG tube malfunction Hyperlipidemia Kidney stone Throat cancer Surgical History History of hernia repair History of cholecystectomy Family History Mother Diabetes Hypertension Heart disease Social History Smoking Status: Never smoker Second Hand Exposure: No; Do You Dip or Chew Tobacco: No; Hx Alcohol Use: No Hx Substance Use: No Preferred Language: [place]guill[place] Communication Ability: Effective Communication Ability Comment: HX STROKE LEFT SIDED PERIPHERAL VISION LOSS Donkey Engine Firer/Fireman Required: No Beliefs That Will Affect Care: None marital status: Current Living Situation: Spouse current occupational status: retired Feels Safe at Home: Yes Assistive Devices: Walker Allergies Allergies Allergy/AdvReac Type Severity Reaction Status Date / Time Iodinated Contrast Media Allergy Intermediate ITCHING Verified 08/22/23 19:56 Home Meds Home Medications Medication Instructions Recorded Confirmed cabergoline 0.5 mg tablet 0.5 mg PO 3XWK 03/15/19 08/22/23 hydrochlorothiazide 25 mg tablet 25 mg PO DAILY 03/15/19 08/22/23 pravastatin 20 mg tablet 20 mg PO QPM 03/15/19 08/22/23 aspirin 81 mg tablet,delayed 81 mg PO DAILY 03/26/23 08/22/23 release doxazosin 1 mg tablet 1 mg PO HS 08/22/23 08/22/23 polyethylene glycol 3350 17 17 g PO DAILY 08/22/23 08/22/23 gram/dose oral powder (Miralax) Previous Rx's Medication Instructions Recorded finasteride 5 mg tablet 5 mg PO DAILY #30 tabs 07/09/23 Tube Feeding Water Flush 75 ml G-tube 08/26/23 QID@0655,1055,1455,1855 #50 KITS Tube Feeding Water Flush 75 ml G-tube 08/26/23 QID@0705,1105,1505,1905 #50 kits Results & Data (ED) Vital Signs Vital Signs - 24 hr 10/15/23 17:35 10/15/23 17:36 Temperature 36.5 C Temperature Source Oral Pulse Rate 82 78 Respiratory Rate 13 Respiratory Effort / Characteristics Non-Labored Spontaneous Respiratory Depth Normal Respiratory Pattern Regular Blood Pressure 202/82 H Blood Pressure Mean 122 Blood Pressure Position Semi-fowlers Pulse Oximetry 95 Oxygen Delivery Method Room Air Sepsis Recent Fever Within 48 Hours No Sepsis New/Unexplained Change in Mental Status No Sepsis Action Taken by Nursing No Action Required Laboratory Data 10/15/23 17:34 10/15/23 17:34 Lab Results 10/15/23 Range/Units 17:34 WBC 5.98 (4.8-10.8) K/ul RBC 3.77 L (4.70-6.10) M/uL Hgb 12.6 L (14.0-18.0) g/dl Hct 37.9 L (42.0-52.0) % MCV 100.5 H (80.0-100.0) fL MCH 33.4 (25.0-34.0) pg MCHC 33.2 (32.0-36.0) g/dL RDW Std Deviation 48.0 H (36.4-46.3) fL RDW Coeff of Alison 12.9 (11.5-14.5) % Plt Count 231 (130-400) K/uL MPV 8.3 L (9.4-12.4) fL Immature Gran % (Auto) 0.8 % Neut % (Auto) 71.2 % Lymph % (Auto) 15.1 % Crane % (Auto) 9.2 % Eos % (Auto) 3.2 % Baso % (Auto) 0.5 % Neut # (Auto) 4.26 (1.40-6.50) K/uL Lymph # (Auto) 0.90 L (1.20-3.40) K/uL Crane # (Auto) 0.55 (0.11-0.59) K/uL Eos # (Auto) 0.19 (0.00-0.50) K/uL Baso # (Auto) 0.03 (0.00-0.20) K/uL Immature Gran # (Auto) 0.05 (0.01-0.20) K/uL PT 10.9 (9.0-12.0) Seconds INR 1.0 (0.9-1.1) Sodium 132 L (136-145) mmol/L Potassium 4.3 (3.5-5.1) mmol/L Chloride 96 L (98-107) mmol/L Carbon Dioxide 31 (21-32) mmol/L Anion Gap 5 (3-11) BUN 26 H (6-23) mg/dl Creatinine 0.62 (0.6-1.4) mg/dl Est Cr Clr Drug Dosing 89.9 ml/min Est GFR ( Amer) 105.6 ml/min Est GFR (Non-Af Amer) 91.1 ml/min BUN/Creatinine Ratio 41.9 H (10-20) Glucose 98 (70-99(Fasting)) mg/dl Calcium 9.4 (8.6-10.3) mg/dl Total Bilirubin 0.4 (0.2-1.0) mg/dl AST 26 (13-39) U/L ALT 19 (7-52) U/L Alkaline Phosphatase 76 (34-104) U/L Total Protein 7.0 (6.0-8.3) gm/dl Albumin 4.1 (3.4-5.0) gm/dl Globulin 2.9 (2.5-4.0) gm/dl Albumin/Globulin Ratio 1.4 (0.9-2) Lipase 36 (11-82) U/L Discharge Plan Visit Data Chief Complaint: Illness ED Provider: Steve Weeks Discharge Problem: Unable to care for self Forms Stand Alone Forms: My [facility] [employer] Prescriptions Prescriptions: No Action finasteride 5 mg tablet 5 mg PO DAILY Qty: 30 11RF cabergoline 0.5 mg tablet 0.5 mg PO 3XWK Rx Instructions: Mon/Wed/Fri pravastatin 20 mg tablet 20 mg PO QPM hydrochlorothiazide 25 mg tablet 25 mg PO DAILY aspirin 81 mg Tablet,Delayed Release (Dr/Ec) 81 mg PO DAILY doxazosin 1 mg tablet 1 mg PO HS Rx Instructions: 8:00PM polyethylene glycol 3350 [Miralax] 17 gram/dose Powder 17 g PO DAILY Tube Feeding Water Flush 75 ml G-tube QID@0655,1055,1455,1855 Qty: 50 1RF Tube Feeding Water Flush 75 ml G-tube QID@0705,1105,1505,1905 Qty: 50 0RF Referrals Referrals: Gaudencio Pardo MD [Primary Care Provider] -
[2023-10-15 18:07] LABS: Basophils # (auto) 0.03 K/uL (0.00-0.20); Basophils % (auto) 0.5 %; Eosinophils # (auto) 0.19 K/uL (0.00-0.50); Eosinophils % (auto) 3.2 %; Hematocrit (blood only) 37.9 % (42.0-52.0); Hemoglobin 12.6 g/dl (14.0-18.0); Immature Granulocytes # (auto) 0.05 K/uL (0.01-0.20); Immature Granulocytes % (auto) 0.8 %; Lymphocytes % (auto) 15.1 %; Mean Corpuscular Hemoglobin 33.4 pg (25.0-34.0); Mean Corpuscular Hgb Conc 33.2 g/dL (32.0-36.0); Mean Corpuscular Volume 100.5 fL (80.0-100.0); Mean Platelet Volume 8.3 fL (9.4-12.4); Monocytes # (auto) 0.55 K/uL (0.11-0.59); Monocytes % (auto) 9.2 %; Neutrophils # (auto) 4.26 K/uL (1.40-6.50); Neutrophils % (auto) 71.2 %; Platelet Count 231 K/uL (130-400); RDW Coefficient of Variation 12.9 % (11.5-14.5); Red Blood Count 3.77 M/uL (4.70-6.10); White Blood Count 5.98 K/ul (4.8-10.8)
[2023-10-15 18:14] LABS: Albumin Globulin Ratio 1.4 (0.9-2); Albumin Level 4.1 gm/dl (3.4-5.0); BUN Creatinine Ratio 41.9 (10-20); Bilirubin,Total 0.4 mg/dl (0.2-1.0); Calcium 9.4 mg/dl (8.6-10.3); Creatinine Clr Calc Pharmacy 89.9 ml/min; Est GFR (African American) 105.6 ml/min; Est GFR (Non-African American) 91.1 ml/min; Globulin 2.9 gm/dl (2.5-4.0); Potassium 4.3 mmol/L (3.5-5.1)
--- OUTSIDE RECORDS SUMMARY | 2023-10-15 18:15 | External Medical Summary | Continuity of Care Document ---
Author Name Unknown Organization [facility] [address] [place] [address] RAÚL CEBALLOS [phone] Care Team Providers Care Home Health Physical Therapist Name Role Phone Edvin Gaudencio Primary Care Physician [phone] Encounter [facility] [id number] Date(s): 10/08/23 - 10/08/23 [facility] [address] [facility] - [address], [address], [address] RAÚ[place] [address] [phone] Discharge Disposition: Home or Self Care Attending Physician: MD Perdomo Ankit Referring Physician: MD Perdomo Ankit Allergies, Adverse Reactions, Alerts Substance Reaction Severity Status lisinopril dizziness Active IVP dye hives Active Immunizations Given and Recorded Vaccine Date Status Refusal Reason influenza virus vaccine, inactivated 1 09/25/22 Gi roxana influenza virus vaccine, inactivated 09/28/21 Give n influenza virus vaccine, inactivated 08/10/20 Give n influenza virus vaccine, inactivated 07/03/18 Give n influenza virus vaccine, inactivated 07/05/16 Kaushik rded SARS-CoV-2 (COVID-19) mRNA BNT-162b2 vax 2 08/02/21 Recorded SARS-CoV-2 (COVID-19) mRNA BNT-162b2 vax 3 12/14/20 Recorded SARS-CoV-2 (COVID-19) mRNA BNT-162b2 vax 4 11/23/20 Recorded pneumococcal 13-valent vaccine 06/22/15 Recorded tetanus/diphtheria/pertuss, acel (Tdap) 06/12/12 R ecorded varicella virus vaccine 02/18/12 Recorded zoster vaccine live 5 02/18/12 Recorded tetanus toxoids-diphtheria, Td (Adult) 10/24/04 Re corded tetanus toxoids-diphtheria, Td (Adult) 01/19/94 Re corded pneumococcal 23-valent vaccine 01/20/04 Recorded 1Result Comment: ora isaac lpn 2Result Comment: 2021-09-28: Historical information-source unspecified 3Result Comment: 2021-09-28: Historical information-source unspecified 4Result Comment: 2021-09-28: Historical information-source unspecified 5Result Comment: 2019-08-25: Historical information-source unspecified Medications aspirin 81 mg oral tablet, chewable Start: 04/04/23 10:16:00 EDT, 1 tab, PEG-tube, Daily Start Date: 04/04/23 Status: Ordered cabergoline 0.5 mg oral tablet Start: 09/24/23 15:40:00 EST, See Instructions, Disp# 90 tab, Refills: 3, TAKE 1 TABLET BY MOUTH 3 TIMES PER WEEK, Pharmacy: [facility]/pharmacy #[id number] Start Date: 09/24/23 Status: Ordered doxazosin 1 mg oral tablet Start: 06/21/23 14:18:00 EDT, 1 tab, PEG-tube, qhs, Disp# 90 tab, Refills: 3, Pharmacy: [facility]/pharmacy #[id number] Start Date: 06/21/23 Status: Ordered finasteride 5 mg oral tablet Start: 07/12/23 14:26:00 EDT, 1 tab, PO, Daily Start Date: 07/12/23 Status: Ordered furosemide 40 mg/5 mL oral solution Start: 06/25/23 13:40:00 EDT, 2.5 mL, PO, Daily, Disp# 75 mL, Refills: 1, Pharmacy: [facility]/pharmacy #[id number] Start Date: 06/25/23 Stop Date: 08/24/23 Status: Ordered MiraLax oral powder for reconstitution Start: 08/08/23 14:44:00 EDT, 17 g =, PO, Daily, Disp# 17 g, other Start Date: 08/08/23 Status: Ordered pravastatin 20 mg oral tablet Start: 09/23/23 14:05:00 EST, 1 tab, PO, Daily, Disp# 30 tab, Refills: 0, Pharmacy: [facility]/pharmacy #[id number] Start Date: 09/23/23 Stop Date: 1/3/24 Status: Ordered pravastatin 20 mg oral tablet 1 tab, PO, Daily, TAKE 1 TABLET BY MOUTH EVERY DAY IN THE EVENING Start Date: 09/06/23 Status: Ordered Tylenol 325 mg oral tablet Start: 04/04/23 10:15:00 EDT, 2 tab, PEG-tube, q4h, PRN: fever/mild pain (1-3) Start Date: 04/04/23 Status: Ordered Problem List Condition Confirmation Course Effective Dates Status H ealth Status Informant Aortic Ejection Murmur Confirmed Active Pituitary tumor Confirmed Active Asymptomatic stenosis of left carotid artery without infarction Confirmed Active Constipation Confirmed Active Dysphagia 1 Confirmed Active Hyperfunction of pituitary gland, unspecified Confirmed Active Hypertension Confirmed Active Elevated prolactin level Confirmed Active Nocturia Confirmed Active Encounter for PEG (percutaneous endoscopic gastrostomy) Confirmed Active Durable power of claims attorney for healthcare exists but copy not available Confirmed Active Squamous cell cancer of tongue Confirmed Active Tinea cruris Confirmed Active 1due SCC of Tongue now PEG tube Dependent Procedures Procedure Date Related Diagnosis Body Site Status Chest x-ray 1 04/13/[address] of abdomen and pelvis 2 04/13/[address] of head 3 03/26/23 Completed DEXA - Dual energy X-ray libertad ton absorptiometry 4 09/05/15 Completed Imaging of carotid arteries by duplex scan with spectrum analysis 08/21/13 Comp leted Cholecystectomy 10/21/07 Completed Colonoscopy 10/21/04 Completed Hx of inguinal hernia repair 10/21/79 Completed 1IMPRESSION: Extensive right lower lobe consolidation. This is suggestive of pneumonia or aspirationpneumonitis. Post treatment radiographs to ensure resolution are recommended. 2IMPRESSION: 1. The percutaneous gastrostomy tube extends through the stomach and into the duodenum. The distal bulb is inflated within the proximal duodenum. There is at least moderate distention of the stomach with fluid and gas. Functional gastric obstruction from migration of the percutaneous gastrostomy tube into the duodenum cannot be excluded given this appearance. 2. Diffuse patchy to confluent opacities in the partially included inferior right middle lobe and right lower lobe. Differential considerations include aspiration or pneumonia. 3. Hyperdense material is noted throughout the colon. No evidence for bowel obstruction. Extensive diverticulosis. No obvious focal diverticulitis, accounting for limitations with respiratory artifact. No free intraperitoneal fluid or pneumoperitoneum. 3Impression: Late acute to subacute appearing right parietal intraparenchymal hemorrhage. There is mass effect and midline shift but no fabricio herniation. 4done at [facility] Social History Social History Type Response Smoking Status Former Smoker, quit > 1 yr Sex Male Patient Care team information Care Team Personnel Name: DO Magaña Amanda Position: Resident Member Role: Lifetime Relationship Address: Address: [address] [place] [address] [place] Name: MD Pardo Christopher Position: Physician - Family Med Member Role: Primary Care Provider Address: Address: [address] [address] [place] Name: Meliton Lassiter MD, [facility] Position: Resident Member Role: Lifetime Relationship Address: Address: [address] [place] [address] [place] Care Team Related Persons Name: CHRISTY MARIN Address: [place] Address: home [address] [facility], [place] [id number]
--- OUTSIDE RECORDS SUMMARY | 2023-10-15 18:15 | External Medical Summary | Continuity of Care Document ---
Author Name Unknown Organization [facility] [address] [place] [phone] Care Team Providers Care Cooker Sulfate Name Role Phone EdvinGaudencio Primary Care Physician [phone] Encounter [facility] [place] [id number] Date(s): 09/30/23 - 09/30/23 [facility] 1850 [facility] 207 [facility] [address] [address] [place] [phone] Discharge Disposition: Home or Self Care Attending Physician: MD Doyle Joseph P Referring Physician: MD Doyle Joseph P Allergies, Adverse Reactions, Alerts Substance Reaction Severity [...] BY MOUTH 3 TIMES PER WEEK, Pharmacy: [facility]/pharmacy #[id number] Start Date: 09/24/23 Status: Ordered doxazosin 1 mg oral tablet Start: 06/21/23 14:18:00 EDT, 1 tab, PEG-tube, qhs, Disp# 90 tab, Refills: 3, Pharmacy: [facility]/pharmacy #[id number] Start Date: 06/21/23 Status: Ordered finasteride 5 mg oral tablet Start: 07/12/23 14:26:00 EDT, 1 tab, PO, Daily Start Date: 07/12/23 Status: Ordered furosemide 40 mg/5 mL oral solution Start: 06/25/23 13:40:00 EDT, 2.5 mL, PO, Daily, Disp# 75 mL, Refills: 1, Pharmacy: [facility]/pharmacy #[id number] Start Date: 06/25/23 Stop Date: 08/24/23 Status: Ordered MiraLax oral powder for reconstitution Start: 08/08/23 14:44:00 EDT, 17 g =, PO, Daily, Disp# 17 g, other Start Date: 08/08/23 Status: Ordered pravastatin 20 mg oral tablet Start: 09/23/23 14:05:00 EST, 1 tab, PO, Daily, Disp# 30 tab, Refills: 0, Pharmacy: [facility]/pharmacy #[id number] Start Date: 09/23/23 Stop Date: 10/23/23 Status: Ordered pravastatin 20 mg oral tablet [...] endoscopic gastrostomy) Confirmed Active Durable power of county attorney for healthcare exists but copy not [...] shift but no fabricio herniation. 4done at [facility] Social History Social History Type Response Smoking Status Former Smoker, quit > 1 yr Sex Male Patient Care team information Care Team Personnel Name: DO Magaña Amanda Position: Resident Member Role: Lifetime Relationship Address: Address: [address] [address] [place] Name: MD Edvin, Gaudencio Position: Physician - Family Med Member Role: Primary Care Provider Address: Address: [address] [address] [place] Name: Meliton Lassiter MD, [facility] Position: Resident Member Role: Lifetime Relationship Address: Address: [address] [address] [place] Care Team Related Persons Name: CHRISTY MARIN Address: [place] Address: home [address] [facility], [place] [id number]
--- OUTSIDE RECORDS SUMMARY | 2023-10-15 18:15 | External Medical Summary | Summary of Care ---
Author Name Unknown Organization [facility] Address [address] [facility] [place] [address] Phone [phone] Care Team Providers Care Director Stars Name Role Phone Akhil Ellison MD Primary Care Provider [phone] Reason for Visit * Reason Onset Date Comments Scheduling 09/16/2023 Encounter Details Date Type Department Care Team (Late st Contact Info) Description 09/16/2023 [facility] [address] [place] [address] Florence France MD 200 [facility] [place] [address] Scheduling Allergies Active Allergy Reactions Criticality Noted Date Comments Ivp Dye Hives 10/16/2005 Lisinopril 10/25/2011 dizziness documented as of this encounter (statuses as of 09/16/2023) Medications Medication Sig Dispensed Refills Start Date End Date Status ASPIRIN EC 81 MG PO TBECIndications:HTN , goal below 140/90 Take one pill daily- for cardiac prevention-take with food 100 Tab 3 02/15/2014 Active pravastatin (PRAVACHOL) 20 MG Tablet TAKE 1 TABLET BY MOUTH EVERY EVENING 90 Tab 1 08/03/2016 Active cabergoline (DOSTINEX) 0.5 MG TabletIndications:B enign neoplasm of pituitary gland (HCC) TAKE 3 TIMES PER WEEK 12 Tab 5 09/05/2016 Active Multiple Vitamins-Minerals (MULTIVITAMIN ADULTS 50+) TABS Take by mouth once. 0 Active hydrochlorothiazide (HYDRODIURIL) 25 MG Tablet Take 1 Tablet by mouth in the morning. 0 Active Vitamin E 100 units Tablet Take 1 Tablet by mouth in the morning. 0 Active Ketoconazole 2 % External CreamIndications:Se borrheic dermatitis Apply to to scaly patches on the nose and eyebrows 2-3 x's per week. 30 g 2 09/05/2021 Active Additional Information Patient not taking.Reported on 01/09/2023 predniSONE 50 MG Oral Tablet (Deltasone) 50 mg 13 hours before, 7 hours before, and 1 hour before study. 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 Vertebral compression fracture 10/29/2013 Osteoporosis 10/29/2013 Borderline abnormal TFTs 03/06/2013 Vitamin D deficiency 02/26/2013 Dyslipidemia, goal LDL below 100 02/13/2013 Carotid stenosis, non-symptomatic 11/05/2011 Benign neoplasm of pituitary gland 01/24/2009 Overview: Prolactinoma; prolactin was once 1129 ng/ml Esophageal stricture 11/29/2008 ADVANCE DIRECTIVE INFORMATION 01/17/2007 Overview: Yes, Patient instructed to provide copy of advance directive for provider to review and to be scanned into Electronic Medical Record ADJ DISORDER W/DEPRES MOOD 04/03/2006 LOSS OF TEETH, ACQUIRED 11/06/2005 Chronic periodontitis 10/24/2005 Overview: ICD-10 update of inactive term MAL ASCENCION [id number] 10/24/2005 Overview: 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 Examination of participant in clinical trial 6 10/24/2006 Overview: Trial Paticipant as of 11/12/05 Project [id number] PI Name : Dr. Dena Duvall PI Phone Number : [phone] CRC Name: Puja Morebson CRC Phone: [phone] beeper [phone] Please contact PI or CRC Regarding any serious medical event , new RX or billing questions. documented as of this encounter (statuses as of 09/16/2023) Immunizations Name Administration Dates Next Due Pneumococcal Conjugate Vacc, 13 Valent (Prevnar) 06/22/2015 Seasonal Influenza, Split, I IV3, With Preserve, Inj 07/05/2016,06/22/2015,07/24/2014,2012,07/14/2012,07/10/2011,08/04/2010,0 07/07/2009,07/30/2008,07/21/2007, 006 TDAP (age 10 and older)(Boostrix) 06/12/2012 Varicella Zoster Vaccine (Adult) 02/18/2012 documented as of this encounter Social History Tobacco Use Types Packs/Day Years Used Date Smoking Tobacco: Never Smokeless Tobacco: Never Alcohol Use Standard Drinks/Week Comments Yes 0 (1 standard drink = 0.6 oz pur e alcohol) occ Sex and Gender Information Value Date Recorded Sex Assigned at Not on file Gender Identity Not on file Sexual Orientation Not on file Job Start Date Occupation Industry Not on file Not on file Not on file documented as of this encounter Miscellaneous Notes * Telephone Encounter - Bushra Scruggs OSA - 09/16/2023 11:48 AM EST Called and spoke to , offered 09/26 but she declined due to having another appointment that day.Added pt to recall list and we will call when Dr. France gets an opening in Sep or Oct. * Telephone Encounter - Ama Perry OSA - 09/16/2023 10:04 AM EST Helrebecca, Pt's Cindy needs to reschedule his acute appt Román. Please call Cindy to reschedule his apptwith Román. Thank you documented in this encounter Plan of Treatment Health Maintenance Due Date Last Done Comments Albumin/Creatinine Ratio 1958 Zoster Vaccines (2 of 3) 04/14/2012 02/18/2012 Depression Screening 06/07/2017 06/07/2016 *BISPHONATE OR OTHER ACCEPTABLE MEDICATION NEEDED FOR OSTEOPOROSIS (REFER TO SMARTSET #1146) 06/25/2017 DXA Scan 09/05/2017 09/05/2015, 09/21, 07/24/2011, Additional history exists DTaP,Tdap,and Td Vaccines (2 - Td or Tdap) 06/12/2022 06/12/2012, 10/24/2004, 01/19/1994 COVID-19 Vaccine (4 - 2022- season) 2023 08/02/2021, 12/14/2020, 11/23/2020 Influenza Vaccine (FLU shot) (#1) 2023 08/10/2020, 07/03/2018, 07/05/2016, Additional history exists GFR 04/28/2024 04/28/2023, 07/11/2022, 04/09/2023, Additional history exists VITAMIN D LEVEL ONCE IN A LIFETIME-USE SMARTSET# 68968 Completed 02/16/2014, 08/25/2013, 07/16/2011 Pneumococcal Vaccine: 65+ Years Completed 06/22/2015, 01/20/2004 GARDASIL-HPV IMMUNIZATION SERIES Aged Out No longer eligible based on patient's age to complete this topic Hepatitis B Aged Out No longer eligi ble based on patient's age to complete this topic MENINGOCOCCAL (MENACTRA/MENVEO) Aged Out No longer eligible based on patient's age to complete this topic documented as of this encounter Medical Devices Not on filedocumented as of this encounter Advance Directives Latest Code Status on File Code Status Date Activated Date Inactivated Comments Full Code 10/04/2010 5:54 PM 10/06/2010 3:36 PM Thi s order reflects the patients wishes and were consensually agreed upon. Question Answer Comments Discussion of Advance Directives occurred with: Patient Care Teams Director Stars Relationship Specialty Start Date End Date Akhil Ellison MD [address] [place] [facility] [place] [address] PCP - General Family Medicine 03/27/23 documented as of this encounter
--- OUTSIDE RECORDS SUMMARY | 2023-10-15 18:15 | External Medical Summary | Continuity of Care Document ---
Author Name Unknown Organization [facility] [address] [place] [phone] Care Team Providers Care Entry Level Web Developer Name Role Phone EdvinGaudencio Primary Care Physician [phone] Encounter [facility] [id number] Date(s): 08/27/23 - 08/27/23 [facility] 1850 [facility] 207 [facility] [address] [address] [place] [phone] Discharge Disposition: Home or Self Care Attending [...] Ordered cabergoline 0.5 mg oral tablet Start: 08/02/22 14:02:00 EDT, See Instructions, Disp# 36 tab, Refills: 3, TAKE 1 TABLET BY MOUTH 3 TIMES PER WEEK, Pharmacy: [id number] Start Date: 08/02/22 Status: Ordered Colace 10 mg/mL oral liquid Start: 05/09/23 14:32:00 EDT, 10 mL, PEG-tube, bid, Disp# 600 mL, Refills: 1, PRN: as needed for constipation, Pharmacy: [facility]/pharmacy #[id number] Start Date: 05/09/23 Stop Date: 07/08/23 Status: Ordered Crestor 20 mg oral tablet Start: 04/15/23 10:20:00 EDT, 1 tab, PEG-tube, Daily, Disp# 30 tab, Refills: 5, Pharmacy: [facility]/pharmacy #[id number] Start Date: 04/15/23 Stop Date: 10/12/23 Status: Ordered doxazosin 1 mg oral tablet Start: 06/21/23 14:18:00 EDT, 1 tab, PEG-tube, qhs, Disp# 90 tab, Refills: 3, Pharmacy: [facility]/pharmacy #[id number] Start Date: 06/21/23 Status: Ordered finasteride 5 mg oral tablet Start: 07/12/23 14:26:00 EDT, 1 tab, PO, Daily Start Date: 07/12/23 Status: Ordered furosemide 40 mg/5 mL oral solution Start: 06/25/23 13:40:00 EDT, 2.5 mL, PO, Daily, Disp# 75 mL, Refills: 1, Pharmacy: [facility]/pharmacy #[id number] Start Date: 06/25/23 Stop Date: 08/24/23 Status: Ordered MiraLax oral powder for reconstitution Start: 08/08/23 14:44:00 EDT, 17 g =, PO, Daily, Disp# 17 g, other Start Date: 08/08/23 Status: Ordered multivitamin with minerals Start: 01/14/17 8:04:00 EDT, 1 tab, PEG-tube, Daily Start Date: 01/14/17 Status: Ordered Tylenol 325 mg oral tablet [...] endoscopic gastrostomy) Confirmed Active Durable power of accountant tax for healthcare exists but copy not available [...] shift but no fabricio herniation. 4done at [facility] Social History Social History Type Response Smoking Status Never smoked cigaret bud Sex Male Patient Care team information Care Team Personnel Name: DO Magaña Amanda Position: Resident Member Role: Lifetime Relationship Address: Address: [address] [address] [place] Name: MD Edvin, Gaudencio Position: Physician - Family Med Member Role: Primary Care Provider Address: Address: [address] [address] [place] Name: Meliton Lassiter MD, [facility] Position: Resident Member Role: Lifetime Relationship Address: Address: [address] [address] [place] Care Team Related Persons Name: CHRISTY MARIN Address: [place] Address: home [address] [place], [place] [id number]
[2023-10-15 18:23] LABS: Prothrombin Time 10.9 Seconds (9.0-12.0)
[2023-10-15] MEDS ORDERED: SODIUM CHLORIDE 0.9% 500 ML IV ONE (19:42)
--- NOTE | 2023-10-15 20:12 | History & Physical Report ---
Date of Service October 15, 2023 Assessment & Plan (1) Caregiver has difficulty performing caretaking: Plan: 82yo male presenting from home primarily due to concern that caregiver is unable to properly care for him at home. Unfortunately this is a very socially complex situation. Portal messages reviewed with the help of Dr. Prado. The patient's did indeed leave multiple messages on the Healthcare portal highlighting multiple issues. Firstly there is some financial hardship and patient's is quite concerned about the cost of a hospital stay as well as any rehab or usp that may be recommended. Patient's does not drive so it is often difficult to find transportation to appointments. Also, they do not have internet service so they are unable to use Telehealth appointments. There has been several attempts to secure home services but the patient's has declined care. Messages also raise concern for 's health and wellbeing - some stating that she is often too exhausted to provide tube feeds to the patient or to help him get dressed and that phone calls from services were not answered because they were disturbing her sleep. Per my assessment, the patient does not overall appear to be neglected. He is dressed appropriately, well groomed and appears well nourished and hydrated. Goal for patient and at this time is to return home after home services have been established -Observation to medical -Maintain fall precautions and aspiration precautions -Turn q 2 hours, heel precautions -Wound care to sacral decubiti q shift -Gentle IVF - LR at 80mL/hr x 1L -Tube feeds - Patient receives Peptamen - 1 can at 07:00, 11:00, 15:00 and 19:00 with free water flush before and after each feed -Nutrition consult appreciated -PT/OT evaluations appreciated -Case Management consultation appreciated (2) H/O: CVA (cerebrovascular accident): Plan: Chronic -Continue Pravastatin -Continue ASA History of Present Illness Chief Complaint: sacral wounds Primary Care Provider: Gaudencio Pardo MD Jonathon Smith is an 82yo male with history of prior MCA infarct, PEG tube in place, HTN, HLP presenting from home with worsening sacral ulcers. Patient lives at home with his , Cindy, who acts as primary skylights assembler. They have a health aide that comes in once weekly to assist with bathing, otherwise, patient's takes care of Luis. Per history obtained from the ER, patient's left several messages on the Health Portal stating that she was unable to keep up with her 's care needs and that she was exhausted and overwhelmed. This led to a call to the Office of Aging which in turn alerted the police who performed a well check and the patient was ultimately brought to the ER by EMS. When questioned about these messages, patient's vehemently denies and stat es that she left one message to cancel an appointment because she could not obtain transportation. She is very upset by the fact that her is here and that he is being admitted. She is mostly concerned about the cost of an Observation visit as patient was recently admitted for Observation (08/22/23 - 08/26/23) and she reports this stay costing them almost $40,000. Patient's son is a trauma nurse in the [place] area. He was contacted by ER attending, Dr. Jeong as well as patient's . He helped to explain to his mother that it is in the best interest of Luis that he be admitted for a brief stay. Patient offers no complaints. He denies fever, chills, cough, SOB. No additional complaints at this time. In the ER he is afebrile, hypertensive otherwise HD stable. ER Course: NSS x 500mL Allergies Allergy/AdvReac Type Severity Reaction Status Date / Time Iodinated Contrast Media Allergy Intermediate ITCHING Verified 08/22/23 19:56 Home Medications Medication Instructions Recorded Confirmed Type cabergoline 0.5 mg tablet 0.5 mg PO 3XWK 03/15/19 10/15/23 History hydrochlorothiazide 25 mg tablet 25 mg feeding tube DAILY 03/15/19 10/15/23 History pravastatin 20 mg tablet 20 mg PO QPM 03/15/19 10/15/23 History finasteride 5 mg tablet 5 mg PO DAILY #30 tabs 07/09/23 10/15/23 Rx doxazosin 1 mg tablet 1 mg feeding tube HS 08/22/23 10/15/23 History polyethylene glycol 3350 17 17 g feeding tube DAILY PRN 08/22/23 10/15/23 Hi story gram/dose oral powder (Miralax) Constipation Tube Feeding Water Flush 75 ml G-tube 08/26/23 10/15/23 Rx QID@0655,1055,1455,1855 #50 KITS Tube Feeding Water Flush 75 ml G-tube 08/26/23 10/15/23 Rx QID@0705,1105,1505,1905 #50 kits Past Med/Surg History Medical History Anemia Septic shock Hemianopsia Dysphagia History of right MCA stroke Hypertension Squamous cell carcinoma of tongue PEG tube malfunction Hyperlipidemia Kidney stone Throat cancer Surgical History History of hernia repair History of cholecystectomy Family History Mother Diabetes Hypertension Heart disease Social History Smoking Status: Never smoker Second Hand Exposure: No; Do You Dip or Chew Tobacco: No; Tobacco Cessation Education Requested by Patient: No Hx Alcohol Use: No Hx Substance Use: No Preferred Language: Albanian Communication Ability: Effective Communication Ability Comment: HX STROKE LEFT SIDED PERIPHERAL VISION LOSS Enrollment Advisor Required: No Beliefs That Will Affect Care: None marital status: Current Living Situation: Spouse current occupational status: retired Other Information That Helps Us Care for You: No Feels Safe at Home: Yes Safety Concerns: Feels Safe At This Time Assistive Devices: Walker Review of Systems Review of Systems: All systems reviewed & are unremarkable except as noted in HPI & below Physical Exam Physical Exam: General: patient resting comfortably, NAD, non-toxic in appearance, AA&O x 4 Skin: warm, dry, intact, sacral wound present with dressing in place, minimal drainage, no malodor HEENT: NC/AT, PERRL, EOMI, anicteric sclera, conjunctiva without injection, external ear normal to inspection and nontender, nares patent, moist mucus membranes, dentition intact, no oropharyngeal lesions, neck supple, trachea midline, no LAD, no thyromegaly, no JVD Heart: +S1/S2, regular, no m/r/g Lungs: equal air entry bilaterally, no rales/rhonchi/wheezes Abd: +BS, soft, NT/ND, no masses/organomegaly/ascites, PEG tube in place, no erythema/bleeding or drainage at the site Ext: warm, 2+ pulses in UE/LE bilaterally, no clubbing/cyanosis, 2+ edema of bilateral LE Results & Data Results & Data Vital Signs (Past 12 Hours) Vital Signs Temp Pulse Resp BP Pulse Ox O2 Del Method 10/15/23 17:36 36.5 C 78 13 202/82 H 95 Room Air 10/15/23 17:35 82 Laboratory Results Laboratory Results WBC 5.98 K/ul (4.8-10.8) 10/15/23 17:34 RBC 3.77 M/uL (4.70-6.10) L 10/15/23 17:34 Hgb 12.6 g/dl (14.0-18.0) L 10/15/23 17:34 Hct 37.9 % (42.0-52.0) L 10/15/23 17:34 MCV 100.5 fL (80.0-100.0) H 10/15/23 17:34 MCH 33.4 pg (25.0-34.0) 10/15/23 17:34 MCHC 33.2 g/dL (32.0-36.0) 10/15/23 17:34 RDW Std Deviation 48.0 fL (36.4-46.3) H 10/15/23 17:34 RDW Coeff of Alison 12.9 % (11.5-14.5) 10/15/23 17:34 Plt Count 231 K/uL (130-400) 10/15/23 17:34 MPV 8.3 fL (9.4-12.4) L 10/15/23 17:34 Immature Gran % (Auto) 0.8 % 10/15/23 17:34 Neut % (Auto) 71.2 % 10/15/23 17:34 Lymph % (Auto) 15.1 % 10/15/23 17:34 [place] % (Auto) 9.2 % 10/15/23 17:34 Eos % (Auto) 3.2 % 10/15/23 17:34 Baso % (Auto) 0.5 % 10/15/23 17:34 Neut # (Auto) 4.26 K/uL (1.40-6.50) 10/15/23 17:34 Lymph # (Auto) 0.90 K/uL (1.20-3.40) L 10/15/23 17:34 [place] # (Auto) 0.55 K/uL (0.11-0.59) 10/15/23 17:34 Eos # (Auto) 0.19 K/uL (0.00-0.50) 10/15/23 17:34 Baso # (Auto) 0.03 K/uL (0.00-0.20) 10/15/23 17:34 Immature Gran # (Auto) 0.05 K/uL (0.01-0.20) 10/15/23 17:34 PT 10.9 Seconds (9.0-12.0) 10/15/23 17:34 INR 1.0 (0.9-1.1) 10/15/23 17:34 Sodium 132 mmol/L (136-145) L 10/15/23 17:34 Potassium 4.3 mmol/L (3.5-5.1) 10/15/23 17:34 Chloride 96 mmol/L (98-107) L 10/15/23 17:34 Carbon Dioxide 31 mmol/L (21-32) 10/15/23 17:34 Anion Gap 5 (3-11) 10/15/23 17:34 BUN 26 mg/dl (6-23) H 10/15/23 17:34 Creatinine 0.62 mg/dl (0.6-1.4) 10/15/23 17:34 Est Cr Clr Drug Dosing 89.9 ml/min 10/15/23 17:34 Est GFR ( Amer) 105.6 ml/min 10/15/23 17:34 Est GFR (Non-Af Amer) 91.1 ml/min 10/15/23 17:34 BUN/Creatinine Ratio 41.9 (10-20) H 10/15/23 17:34 Glucose 98 mg/dl (70-99(Fasting)) 10/15/23 17:34 Calcium 9.4 mg/dl (8.6-10.3) 10/15/23 17:34 Total Bilirubin 0.4 mg/dl (0.2-1.0) 10/15/23 17:34 AST 26 U/L (13-39) 10/15/23 17:34 ALT 19 U/L (7-52) 10/15/23 17:34 Alkaline Phosphatase 76 U/L (34-104) 10/15/23 17:34 Total Protein 7.0 gm/dl (6.0-8.3) 10/15/23 17:34 Albumin 4.1 gm/dl (3.4-5.0) 10/15/23 17:34 Globulin 2.9 gm/dl (2.5-4.0) 10/15/23 17:34 Albumin/Globulin Ratio 1.4 (0.9-2) 10/15/23 17:34 Lipase 36 U/L (11-82) 10/15/23 17:34 Urine Color Yellow 10/16/23 Unknown Urine Appearance Clear (Clear) 10/16/23 Unknown Urine pH 7.5 (4.5-7.5) 10/16/23 Unknown Ur Specific [place] 1.010 (1.000-1.030) 10/16/23 Unknown Urine Protein Negative (Negative) 10/16/23 Unknown Urine Glucose (UA) Negative (Negative) 10/16/23 Unknown Urine Ketones Negative (Negative) 10/16/23 Unknown Urine Blood Negative (Negative) 10/16/23 Unknown Urine Nitrite Positive (Negative) A 10/16/23 Unknown Urine Bilirubin Negative (Negative) 10/16/23 Unknown Urine Urobilinogen Negative (Negative) 10/16/23 Unknown Ur Leukocyte Esterase Negative (Negative) 10/16/23 Unknown Urine WBC (Auto) 1-5 /hpf (0-5) 10/16/23 Unknown Urine RBC (Auto) 0-4 /hpf (0-4) 10/16/23 Unknown U Hyaline Cast (Auto) 0 /lpf (0-5) 10/16/23 Unknown U Epithel Cells (Auto) 5-10 /lpf (0-5) H 10/16/23 Unknown Urine Bacteria (Auto) 1+ (Negative) H 10/16/23 Unknown PG Care Time/CCT Total # of Minutes Spent Total Time Spent with Patient: Total time spent is greater than 50% in coordination of care (as documented) at patient's floor/unit and/or counseling patient: Coding Level of Care Code 98511 INT INP/OBS CARE 1/40MIN Diagnoses Caregiver has difficulty performing caretaking Z74.8 H/O: CVA (cerebrovascular accident) Z86.73
[2023-10-15] MEDS ORDERED: ONDANSETRON INJ 2 MG/ML 2 ML VIAL IV PRN (23:27)
[2023-10-15] MEDS ORDERED: LACTATED RINGER'S 1,000 ML IV SCH (23:27)
[2023-10-15] MEDS ORDERED: DOXAZOSIN MESYLATE 1 MG TAB PO STA (23:27)
[2023-10-15] MEDS ORDERED: ACETAMINOPHEN 325 MG TAB PO PRN (23:27)
[2023-10-15] MEDS ORDERED: INFLUENZA VACCINE HIGH-DOSE (HD-IIV4) PF 65+ 0.7mL SYR IM ONE (23:52)
[2023-10-16] MEDS: PRAVASTATIN SOD 20 MG TAB PO SCH ×2 (00:34→20:55)
[2023-10-16 00:55] LABS: Appearance Urine Clear (Clear); Bacteria Urine Automated 1+ (Negative); Bilirubin Urine Negative (Negative); Blood Urine Negative (Negative); Cast Urine Automated 0 /lpf (0-5); Color Urine Yellow; Glucose Urine UA Negative (Negative); Ketones Urine Negative (Negative); Leukocyte Esterase Urine Negative (Negative); Nitrite Urine Positive (Negative); Protein Urine Negative (Negative); RBC Urine Automated 0-4 /hpf (0-4); Urobilinogen Urine Negative (Negative); pH Urine 7.5 (4.5-7.5)
[2023-10-16] MEDS: hydroCHLOROthiazide 25 MG TAB PO SCH (08:12)
[2023-10-16] MEDS: ASPIRIN 81 MG ECTAB PO SCH (08:12)
[2023-10-16] MEDS: FINASTERIDE 5 MG TAB PO SCH (08:12)
[2023-10-16] MEDS: POLYETHYLENE (MIRALAX) 17 GM PACK PO SCH (08:14)
[2023-10-16] MEDS: TUBE FEEDING WATER FLUSH GT SCH ×4 (11:12→12:59)
[2023-10-16] MEDS: TUBE FEEDING WATER FLUSH PEG SCH ×3 (13:14→21:03)
[2023-10-16] MEDS: PROSOURCE NO CARB 30 ML/PKT PEG SCH (16:09)
--- NOTE | 2023-10-16 18:46 | Hospitalist Progress Note ---
Date of Service October 16, 2023 Assessment & Plan (1) Caregiver has difficulty performing caretaking: Plan: 82yo male presenting from home primarily due to concern that caregiver is unable to properly care for him at home. Goal for patient and at this time is to return home after home services have been established discussed with welfare case worker, home health referral has been made to [facility] -Observation to medical -Maintain fall precautions and aspiration precautions - consulted nutrition, resumed tube feedings -PT/OT evaluations appreciated -Case Management consultation appreciated (2) Sacral decubitus ulcer: Plan: unstageable 3x1.5 cm sacral ulcer present on admission consulted wound nurse, recommendations as below Home health and follow-up in wound clinic recommended Selected Entries 10/16/23 12:08 Wound Care Discharge Instructions To right and left buttocks- clean areas with saline. Pat dry. Dust with stoma powder, brush off excess. Cover with Barrier cream. Reapply as needed to protect area Chair cushion Turn at least every 2 hours when in bed Weight shifts Q15-30 minutes when in chair Suggest follow- up at [place] for Wound Care Call for appointment (3) H/O: CVA (cerebrovascular accident): Plan: history of right MCA stroke -Continue Pravastatin -Continue ASA (4) Dysphagia: (5) BPH w urinary obs/LUTS: Plan: continue finasteride and doxazosin (6) Prolactinoma: Plan: history Admission and Anticipated Discharge Date Admission Date: October 15, 2023 Subjective Luis has no complaints, he is sitting up in the chair, denies shortness of breath cough chest pain abdominal pain nausea vomiting and diarrhea. He says his left side is the weaker side from his prior stroke. Physical Exam 2 Physical Exam: PHYSICAL EXAMINATION Last 24h vital signs reviewed, see documentation in flowsheet General: comfortable appearing, no distress HEENT: Normocephalic, atraumatic, pupils round and equal, sclerae anicteric, no conjunctival injection, moist mucus membranes Lungs: Normal respiratory effort. Clear to auscultation bilaterally. No RRW Heart: Regular rate and rhythm, no murmurs. No JVD Abdomen: Soft, nontender, nondistended. Bowel sounds present. G-tube in left upper quadrant site is clean dry intact no erythema no drainage Extremities: Warm, dry, well-perfused. No extremity edema. Neuro: Alert and oriented x self, hospital, basic situation answer straightforward questions, subtle left facial droop and mild left upper extremity and left lower extremity weakness but is at least 4 out of 5 on strength the left Psych: Normal affect and behavior Results & Data Results & Data Vital Signs (Past 12 Hours) Vital Signs Temp Pulse Resp BP Pulse Ox O2 Del Method 10/16/23 14:16 36.6 C 60 16 123/60 95 Room Air 10/16/23 07:15 36.8 C 75 16 164/80 H 96 Room Air Laboratory Results 10/15/23 17:34 10/15/23 17:34 PG Care Time/CCT Total # of Minutes Spent Total Time Spent with Patient: Total time spent is greater than 50% in coordination of care (as documented) at patient's floor/unit and/or counseling patient: Coding Level of Care Code 89829 SUB INP/OBS CARE 2/35MIN Diagnoses Caregiver has difficulty performing caretaking Z74.8 Sacral decubitus ulcer L89.159 H/O: CVA (cerebrovascular accident) Z86.73 Dysphagia R13.10 Dysphagia type: unspecified BPH w urinary obs/LUTS N40.1; N13.8 Prolactinoma D35.2 (4) Dysphagia Dysphagia type: unspecified Qualified Code(s): R13.10 - Dysphagia, unspecified
[2023-10-16] MEDS: DOXAZOSIN MESYLATE 1 MG TAB PEG SCH (20:57)
[2023-10-17] MEDS: TUBE FEEDING WATER FLUSH PEG SCH ×6 (00:35→20:10)
[2023-10-17] MEDS: POLYETHYLENE (MIRALAX) 17 GM PACK PO SCH (08:16)
[2023-10-17] MEDS: ASPIRIN 81 MG ECTAB PO SCH (08:16)
[2023-10-17] MEDS: hydroCHLOROthiazide 25 MG TAB PO SCH (08:16)
[2023-10-17] MEDS: FINASTERIDE 5 MG TAB PO SCH (08:16)
--- NOTE | 2023-10-17 11:15 | Hospitalist Progress Note ---
Date of Service October 17, 2023 Assessment & Plan (1) Caregiver has difficulty performing caretaking: Plan: 82yo male presenting from home primarily due to concern that caregiver is unable to properly care for him at home. Goal for patient and at this time is to return home after home services have been established discussed with assistant case manager, home health referral has been made to [facility] - intake on Monday 10/23 -Maintain fall precautions and aspiration precautions -consulted nutrition, resumed tube feedings -PT/OT evaluations appreciated -Case Management consultation appreciated (2) Sacral decubitus ulcer: Plan: unstageable 3x1.5 cm sacral ulcer present on admission consulted wound nurse, recommendations as below Home health and follow-up in wound clinic recommended Selected Entries 10/16/23 12:08 Wound Care Discharge Instructions To right and left buttocks- clean areas with saline. Pat dry. Dust with stoma powder, brush off excess. Cover with Barrier cream. Reapply as needed to protect area Chair cushion Turn at least every 2 hours when in bed Weight shifts Q15-30 minutes when in chair Suggest follow- up at [place] for Wound Care Call [phone] for appointment (3) H/O: CVA (cerebrovascular accident): Plan: history of right MCA stroke -Continue Pravastatin -Continue ASA (4) Dysphagia: (5) BPH w urinary obs/LUTS: Plan: continue finasteride and doxazosin UA was mildly abnormal, culture was sent growing 100K staph, c/s pending this may reflect colonization / asymptomatic bacteriuria rather than UTI -started po keflex for time being (6) Prolactinoma: Plan: history Admission and Anticipated Discharge Date Admission Date: October 15, 2023 Subjective sitting up in chair. irritated the head of his penis on urinal and got superficial excoriation with some minor bleeding. urinating without difficulty. no abdominal pain nausea or vomiting. no shortness of breath. Physical Exam Physical Exam: PHYSICAL EXAMINATION Last 24h vital signs reviewed, see documentation in flowsheet General: comfortable appearing, no distress, sitting in chair HEENT: Normocephalic, atraumatic, pupils round and equal, sclerae anicteric, no conjunctival injection, moist mucus membranes Lungs: Normal respiratory effort. Clear to auscultation bilaterally. No RRW Heart: Regular rate and rhythm, no murmurs. No JVD Abdomen: Soft, nontender, nondistended. Bowel sounds present. G-tube in left upper quadrant site is clean dry intact no erythema no drainage Extremities: Warm, dry, well-perfused. No extremity edema. : superficial abrasion on glans of penis with minimal blood Neuro: Alert and oriented x self, hospital, basic situation answer straightforward questions, subtle left facial droop and mild left upper extremity and left lower extremity weakness but is at least 4 out of 5 on strength the left Psych: Normal affect and behavior Results & Data Results & Data Vital Signs (Past 12 Hours) Vital Signs Temp Pulse Resp BP Pulse Ox O2 Del Method 10/17/23 07:37 Room Air 10/17/23 07:35 36.3 C L 78 18 169/83 H 95 Room Air 10/17/23 04:45 131/73 PG Care Time/CCT Total # of Minutes Spent Total Time Spent with Patient: Total time spent is greater than 50% in coordination of care (as documented) at patient's floor/unit and/or counseling patient: Coding Level of Care Code 87834 SUB INP/OBS CARE 2/35MIN Diagnoses Caregiver has difficulty performing caretaking Z74.8 Sacral decubitus ulcer L89.159 H/O: CVA (cerebrovascular accident) Z86.73 Dysphagia R13.10 Dysphagia type: unspecified BPH w urinary obs/LUTS N40.1; N13.8 Prolactinoma D35.2 (4) Dysphagia Dysphagia type: unspecified Qualified Code(s): R13.10 - Dysphagia, unspecified
[2023-10-17] MEDS: cephALEXin 500 MG CAP PO SCH ×2 (12:13→20:10)
[2023-10-17] MEDS: PEPTAMEN 1.5 CAL 1,000 ML BAG PEG SCH (14:33)
[2023-10-17] MEDS: PROSOURCE NO CARB 30 ML/PKT PEG SCH (16:32)
[2023-10-17] MEDS: DOXAZOSIN MESYLATE 1 MG TAB PEG SCH (20:10)
[2023-10-17] MEDS: PRAVASTATIN SOD 20 MG TAB PO SCH (20:10)
--- NOTE | 2023-10-18 00:12 | Communication Note ---
Date of Service: October 18, 2023 Received notification patient's PEG tube fell out entirely while patient walking to bathroom. Contacted surgeon condenser operator, confirmed it was ok to place a tolentino in the PEG tube tract until morning. Notified patient that we will place a tolentino in his PEG tube tract until it can be replaced in the morning, patient is ok with plan. Area was cleaned with betadine. Urinary catheter tolentino inserted in tract using lubricant. 10cc saline injected into balloon port, expanded without difficulty. Confirmed clear liquid drainage through catheter. Patient denies any pain. Consult placed to GI for peg tube replacement. Given patient's contrast allergy, will hold off on KUB with contrast confirmatory imaging. Ordered PRN benadryl 25mg IV and solumedrol 32mg IV to be given 2hr prior to contrast exposure for when patient gets PEG tube replaced. Resident Activity Tracking Resident Involvement: Resident Care Provided Care Provided: [facility]
[2023-10-18] MEDS: TUBE FEEDING WATER FLUSH PEG SCH ×7 (00:21→23:30)
[2023-10-18] MEDS ORDERED: diphenhydrAMINE 50 MG/ML VIAL IV PRN (00:56)
[2023-10-18] MEDS ORDERED: methylPREDNISolone 32 MG in SYRINGE 0 ML IV PRN (01:14)
[2023-10-18] MEDS: POLYETHYLENE (MIRALAX) 17 GM PACK PO SCH (08:51)
[2023-10-18] MEDS: cephALEXin 500 MG CAP PO SCH ×2 (08:52→19:56)
[2023-10-18] MEDS: ASPIRIN 81 MG ECTAB PO SCH (08:52)
[2023-10-18] MEDS: hydroCHLOROthiazide 25 MG TAB PO SCH (08:52)
[2023-10-18] MEDS: FINASTERIDE 5 MG TAB PO SCH (08:52)
--- NOTE | 2023-10-18 09:42 | Gastrointestinal Consultation ---
Date of Consultation October 18, 2023 Assessment & Plan (1) Feeding tube dysfunction: patient's peg tube had fallen out during admission. discussed case with Dr. Silva. Will attempt to replace peg tube at bedside today. APPEND: 10/18/23 11:30: after initially seeing the patient I was called back up to the floor to discuss with the patient's , Cindy. She tells me that the peg tube that was placed was a J tube that had to placed at one point since the initial placement. She is not clear on why this had to be done, but tells me she was told it could only be replaced in [place]. I do not have any records in regards to this. I discussed with Dr. Silva and given this information, we would be unable to place a J tube. Would recommend at this time that he be transferred to [place] where he initially had this placed for replacement. History of Present Illness Reason for Consultation: peg tube replacement Requesting Physician: Radha Prado DO Attending Physician: Ailin Johnson MD History of Present Illness Patient is an 82 year old male with history of prior MCA infarct with PEG tube in placement in 03/2023. He presented from home with worsening sacral ulcers and difficulty caring for himself at home. During his inpatient stay his peg tube had fallen out. He did have a tolentino placed through his peg tube tract until tube can be replaced. He does have ongoing issues with dysphagia but tells me he has been working with speech therapy on this. patient denies any other GI concerns and rest of GI ros unremarkable. spoke with nursing, he has been NPO and no blood thinners. Allergies Allergy/AdvReac Type Severity Reaction Status Date / Time Iodinated Contrast Media Allergy Intermediate ITCHING Verified 08/22/23 19:56 Home Medications Medication Instructions Recorded Confirmed Type cabergoline 0.5 mg tablet 0.5 mg PO 3XWK 03/15/19 10/15/23 History hydrochlorothiazide 25 mg tablet 25 mg feeding tube DAILY 03/15/19 10/15/23 Hi story pravastatin 20 mg tablet 20 mg PO QPM 03/15/19 10/15/23 History finasteride 5 mg tablet 5 mg PO DAILY #30 tabs 07/09/23 10/15/23 Rx doxazosin 1 mg tablet 1 mg feeding tube HS 08/22/23 10/15/23 History polyethylene glycol 3350 17 17 g feeding tube DAILY PRN 08/22/23 10/15/23 History gram/dose oral powder (Miralax) Constipation Tube Feeding Water Flush 75 ml G-tube 08/26/23 10/15/23 Rx QID@0655,1055,1455,1855 #50 KITS Tube Feeding Water Flush 75 ml G-tube 08/26/23 10/15/23 Rx QID@0705,1105,1505,1905 #50 kits Patient History Medical History (Updated 10/16/23 @ 18:44 by Ailin Johnson MD) Sacral decubitus ulcer Anemia Septic shock Hemianopsia Dysphagia History of right MCA stroke Hypertension Squamous cell carcinoma of tongue PEG tube malfunction Hyperlipidemia Kidney stone Throat cancer Surgical History History of hernia repair History of cholecystectomy Family History Mother Diabetes Hypertension Heart disease Social History Smoking Status: Never smoker Second Hand Exposure: No; Do You Dip or Chew Tobacco: No; Tobacco Cessation Education Requested by Patient: No Hx Alcohol Use: No Hx Substance Use: No Preferred Language: Urdu Communication Ability: Effective Communication Ability Comment: HX STROKE LEFT SIDED PERIPHERAL VISION LOSS Excellence Manager Required: No Beliefs That Will Affect Care: None marital status: Current Living Situation: Spouse current occupational status: retired Other Information That Helps Us Care for You: No Feels Safe at Home: Yes Safety Concerns: Feels Safe At This Time Assistive Devices: Walker Review of Systems Review of Systems: All systems reviewed & are unremarkable except as noted in HPI & below Physical Exam Constitutional: WD/WN, vitals as above Respiratory: normal respiratory effort, lungs clear to auscultation Cardiovascular: RRR, no murmur, no edema Gastrointestinal (Abdomen): normal bowel sounds, soft, nontender. tolentino in place in previous peg site. Skin: no rashes, warm and dry Psychiatric: Orientation: alert and oriented x 3 Results & Data Vital Signs (Past 12 Hours) Vital Signs Temp Pulse Resp BP Pulse Ox O2 Del Method 10/18/23 08:12 97.5 F L 87 15 155/78 H 95 Room Air 10/17/23 22:31 Room Air 10/17/23 22:04 125/71 PG Care Time/CCT Total # of Minutes Spent Total Time Spent with Patient: Total time spent is greater than 50% in coordination of care (as documented) at patient's floor/unit and/or counseling patient: Coding Level of Care Code 86536 INT INP/OBS CARE MIN Diagnoses Feeding tube dysfunction T85.598A Encounter type: initial encounter (1) Feeding tube dysfunction Encounter type: initial encounter Qualified Code(s): T85.598A - Other mechanical complication of other gastrointestinal prosthetic devices, implants and grafts, initial encounter
[2023-10-18] MEDS: D5W AND 1/2NSS 1,000 ML IV SCH ×2 (09:59→22:46)
[2023-10-18] MEDS: CABERGOLINE 0.5 MG PO SCH (12:50)
--- NOTE | 2023-10-18 15:11 | Surgery Consultation ---
Date of Consultation October 18, 2023 Assessment & Plan (1) Complication of feeding tube: I was able to replace the feeding tube at bedside with a 16 Kenyan feeding gastrostomy tube. I would recommend a tube study which I have ordered prior to using it. Please call if any questions or problems History of Present Illness Attending Physician: Ailin Johnson MD History of Present Illness Pleasant 82-year-old male who had a feeding tube placed at [place] in March of this year. The tube became dislodged overnight. The primary care service was able to insert a 16 Kenyan Domingo catheter overnight but requesting us to place with a gastrostomy tube. Allergies Allergy/AdvReac Type Severity Reaction Status Date / Time Iodinated Contrast Media Allergy Intermediate ITCHING Verified 08/22/23 19:56 Home Medications Medication Instructions Recorded Confirmed Type cabergoline 0.5 mg tablet 0.5 mg PO 3XWK 03/15/19 10/15/23 History hydrochlorothiazide 25 mg tablet 25 mg feeding tube DAILY 03/15/19 10/15/23 History pravastatin 20 mg tablet 20 mg PO QPM 03/15/19 10/15/23 History finasteride 5 mg tablet 5 mg PO DAILY #30 tabs 07/09/23 10/15/23 Rx doxazosin 1 mg tablet 1 mg feeding tube HS 08/22/23 10/15/23 History polyethylene glycol 3350 17 17 g feeding tube DAILY PRN 08/22/23 10/15/23 History gram/dose oral powder (Miralax) Constipation Tube Feeding Water Flush 75 ml G-tube 08/26/23 10/15/23 Rx QID@0655,1055,1455,1855 #50 KITS Tube Feeding Water Flush 75 ml G-tube 08/26/23 10/15/23 Rx QID@0705,1105,1505,1905 #50 kits Patient History Medical History (Updated 10/16/23 @ 18:44 by Ailin Johnosn MD) Sacral decubitus ulcer Anemia Septic shock Hemianopsia Dysphagia History of right MCA stroke Hypertension Squamous cell carcinoma of tongue PEG tube malfunction Hyperlipidemia Kidney stone Throat cancer Surgical History History of hernia repair History of cholecystectomy Family History Mother Diabetes Hypertension Heart disease Social History Smoking Status: Never smoker Second Hand Exposure: No; Do You Dip or Chew Tobacco: No; Tobacco Cessation Education Requested by Patient: No Hx Alcohol Use: No Hx Substance Use: No Preferred Language: Kinyarwanda Communication Ability: Effective Communication Ability Comment: HX STROKE LEFT SIDED PERIPHERAL VISION LOSS Tower Dragline Operator Required: No Beliefs That Will Affect Care: None marital status: Current Living Situation: Spouse current occupational status: retired Other Information That Helps Us Care for You: No Feels Safe at Home: Yes Safety Concerns: Feels Safe At This Time Assistive Devices: Walker Physical Exam Constitutional: WD/WN, vitals as above no acute distress and not ill appearing Eyes: PERRL, conjunctivae normal, anicteric sclerae EOM intact bilaterally ENMT: external ear and nose normal, oropharynx normal Ears: no hearing impairment Neck: trachea midline, no thyromegaly Respiratory: normal respiratory effort; no respiratory distress and does not use accessory muscles Cardiovascular: Rate/Rhythm: regular rate and regular rhythm Gastrointestinal (Abdomen): Soft. Nontender. [address] [place] [address] catheter [address] No evidence of leakage. Skin: no rashes, warm and dry Psychiatric: Orientation: alert, oriented x 3 and cooperative Results & Data Vital Signs (Past 12 Hours) Vital Signs Temp Pulse Resp BP Pulse Ox O2 Del Method 10/18/23 08:12 36.4 C L 87 15 155/78 H 95 Room Air PG Care Time/CCT Total # of Minutes Spent Total Time Spent with Patient: Total time spent is greater than 50% in coordination of care (as documented) at patient's floor/unit and/or counseling patient: Coding Level of Care Code 62792 INT INP/OBS CARE 2/55MIN Diagnoses Complication of feeding tube K94.20
--- NOTE | 2023-10-18 15:13 | Operative Report ---
PG Post Operative Report Pre & Post Diagnosis Pre: dislodged feeding tube post: dislodged feeding tube I identified the patient and participated in the time-out.: Yes Procedure Replacement gastrostomy feeding tube Surgeon Jose Kimble DO Apparel Fashion Designer GORGE Mon Estimated Blood Loss 0 Findings Consistent with Post-Op Diagnosis Specimens None Description of Procedure After informed consent was obtained the patient was placed in a supine position. The area around the feeding tube was cleaned with alcohol swabs. The balloon of the new 16 Cymro feeding tube was checked and did not have a leak. I withdrew about 10 cc of fluid from the existing Domingo catheter. The catheter was easily removed. I was able to manually insert a 16 Cymro feeding gastrostomy tube. The balloon was inflated to 16 cc with sterile saline. The securing bumper was anchored to the skin. I flushed the tube with about 30 cc of sterile saline. I was able to withdraw small amount of bile tinged fluid. The patient tolerated the procedure well I attest to the content of the Intraoperative Record and any orders documented therein. Any exceptions are noted below.
--- NOTE | 2023-10-18 17:01 | Hospitalist Progress Note ---
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 Kimble who was able to replace the tolentino with G-tube at bedside with bilious return, ordered tube check study for formal confirmation discussed with [place] again who reviewed their records more thoroughly and he had G-tube only (NOT GJ), most recent tube replacement was 05/2023, scheduled for follow up there 11/2022 updated his again by phone this afternoon, current tube will be fine to use (2) Caregiver has difficulty performing caretaking: Plan: 82yo male presenting from home primarily due to concern that caregiver is unable to properly care for him at home. Goal for patient and at this time is to return home after home services have been established discussed with major case detective, home health referral has been made - intake on Monday 10/23 -Maintain fall precautions and aspiration precautions -consulted nutrition, resumed tube feedings -PT/OT evaluations appreciated -Case Management consultation appreciated - discussed with ROSEMARIE HERNÁNDEZ today his states she doesn't know how to take care of wound - I recommended she come in to the hospital again this weekend for training by the nurses. (3) Sacral decubitus ulcer: Plan: unstageable 3x1.5 cm sacral ulcer present on admission consulted wound nurse, recommendations as below Home health and follow-up in wound clinic recommended Selected Entries 10/16/23 12:08 Wound Care Discharge Instructions To right and left buttocks- clean areas with saline. Pat dry. Dust with stoma powder, brush off excess. Cover with Barrier cream. Reapply as needed to protect area Chair cushion Turn at least every 2 hours when in bed Weight shifts Q15-30 minutes when in chair Suggest follow- up at [place] for Wound Care Call [phone] for appointment (4) H/O: CVA (cerebrovascular accident): Plan: history of right MCA stroke -Continue Pravastatin -Continue ASA (5) Dysphagia: Plan: failed VFSS 05/2023, NPO and g-tube dependent (6) BPH w urinary obs/LUTS: Plan: continue finasteride and doxazosin UA was mildly abnormal, culture was sent growing 100K staph, c/s pending this may reflect colonization / asymptomatic bacteriuria rather than UTI -started po keflex for time being (7) Prolactinoma: Plan: history Admission and Anticipated Discharge Date Admission Date: October 18, 2023 Subjective Luis has no complaints. no abdominal pain nausea vomiting. overnight he stood up and his g-tube fell out. tolentino catheter was placed in the tract by the doctor overnight. Physical Exam 2 Physical Exam: PHYSICAL EXAMINATION Last 24h vital signs reviewed, see documentation in flowsheet General: comfortable appearing, no distress, sitting in chair HEENT: Normocephalic, atraumatic, pupils round and equal, sclerae anicteric, no conjunctival injection, moist mucus membranes Lungs: Normal respiratory effort. Clear to auscultation bilaterally. No RRW Heart: Regular rate and rhythm, no murmurs. No JVD Abdomen: Bowel sounds present. G-tube site LUQ is cannulated with a tolentino catheter, no erythma tenderness or drainage. +BT Extremities: Warm, dry, well-perfused. No extremity edema. : superficial abrasion on glans of penis with minimal blood Neuro: Alert and oriented x self, hospital, L face / arm / weakness mild, unchanged Psych: Normal affect and behavior Results & Data Results & Data Vital Signs (Past 12 Hours) Vital Signs Temp Pulse Resp BP Pulse Ox O2 Del Method 10/18/23 15:44 36.2 C L 86 16 153/84 H 94 Room Air 10/18/23 08:12 36.4 C L 87 15 155/78 H 95 Room Air Laboratory Results 10/15/23 17:34 10/15/23 17:34 PG Care Time/CCT Total # of Minutes Spent Total Time Spent with Patient: I personally spent: over 120 minutes today on clinical care activities including: reviewing chart notes and vital signs, reviewing old chart notes discussion with consultants as documented above, discussion with tertiary care center as documented above discussion with patient centered care specialist examining and counseling the patient counseling the patient's family writing orders documentation Coding Level of Care Code 60004 SUB INP/OBS CARE 3/50MIN (25 - SIGNIFICANT, SEPARATELY IDENTIFIABLE ) Diagnoses Dislodged gastrostomy tube T85.528A Caregiver has difficulty performing caretaking Z74.8 Sacral decubitus ulcer L89.159 H/O: CVA (cerebrovascular accident) Z86.73 Dysphagia R13.10 Dysphagia type: unspecified BPH w urinary obs/LUTS N40.1; N13.8 Prolactinoma D35.2 (5) Dysphagia Dysphagia type: unspecified Qualified Code(s): R13.10 - Dysphagia, unspecified
[2023-10-18] MEDS: PROSOURCE NO CARB 30 ML/PKT PEG SCH (18:12)
[2023-10-18] MEDS: DOXAZOSIN MESYLATE 1 MG TAB PEG SCH (19:32)
[2023-10-18] MEDS: PRAVASTATIN SOD 20 MG TAB PO SCH (19:56)
[2023-10-19] MEDS: TUBE FEEDING WATER FLUSH PEG SCH ×5 (05:02→20:40)
--- NOTE | 2023-10-19 10:26 | XRay Report ---
KUB HISTORY: Follow-up study in a patient with history of gastrostomy tube g-tube check COMPARISON: 05/21/2023 FINDINGS: Cardiomegaly. A loop recorder device. Right upper quadrant surgical clips. A gastrostomy tu be is present with the distal tip projected over the central upper abdomen. Air-filled loops of large and small bowel without obstruction identified. Surgical clip projects over the abdominal right lowe r quadrant. No renal calculi. No ureteral calculi. No pneumoperitoneum or pneumatosis. Bilateral hip osteoarthritis. Degenerative changes of the spine, pelvis and hips. No fracture. IMPRESSION: 1. Gastrostomy tube projects over the central upper abdomen. 2. Nonobstructive bowel gas pattern. ACT 112: Negative or not required by law. The above report was generated using voice recognition software. It may contain grammatical, syntax o r spelling errors. Electronically signed by: Gerardo Snow M.D. 10/19/2023 10:20 AM
[2023-10-19] MEDS ORDERED: methylPREDNISolone 40 MG in SYRINGE 0 ML IV ONE ×2 (10:46→16:00)
[2023-10-19] MEDS: D5W AND 1/2NSS 1,000 ML IV SCH (11:37)
[2023-10-19] MEDS: hydroCHLOROthiazide 25 MG TAB PO SCH (11:41)
[2023-10-19] MEDS: cephALEXin 500 MG CAP PO SCH ×2 (11:41→20:39)
[2023-10-19] MEDS: ASPIRIN 81 MG ECTAB PO SCH (11:41)
[2023-10-19] MEDS: FINASTERIDE 5 MG TAB PO SCH (11:41)
[2023-10-19] MEDS: POLYETHYLENE (MIRALAX) 17 GM PACK PO SCH (11:42)
[2023-10-19 12:17] LABS: BUN Creatinine Ratio 25.8 (10-20); Calcium 8.7 mg/dl (8.6-10.3); Creatinine Clr Calc Pharmacy 85.9 ml/min; Est GFR (African American) 105.6 ml/min; Est GFR (Non-African American) 91.1 ml/min; Magnesium 1.9 mg/dl (1.7-2.4); Potassium 3.2 mmol/L (3.5-5.1)
[2023-10-19] MEDS: PROSOURCE NO CARB 30 ML/PKT PEG SCH (15:56)
[2023-10-19] MEDS: DOXAZOSIN MESYLATE 1 MG TAB PEG SCH ×2 (17:34→19:48)
--- NOTE | 2023-10-19 17:38 | XRay Report ---
KUB HISTORY: G-tube malfunction g-tube check COMPARISON: KUB of same day at 10:00 AM FINDINGS: Enteric contrast was administered via the patient's enteric tube. Nondilated contrast fille d loops of proximal small bowel are noted. No extravasation. Nonobstructive bowel gas pattern. No farshad al calculi. No ureteral calculi. No pneumoperitoneum or pneumatosis. No fracture. IMPRESSION: 1. Nonobstructive bowel gas pattern. 2. Nondilated contrast opacified loops of proximal small bowel. ACT 112: Negative or not required by law. The above report was generated using voice recognition software. It may contain grammatical, syntax o r spelling errors. Electronically signed by: Gerardo Snow M.D. 10/19/2023 5:37 PM
--- NOTE | 2023-10-19 18:08 | Hospitalist Progress Note ---
Date of Service October 19, 2023 Assessment & Plan (1) Dislodged gastrostomy tube: Plan: G-tube dislodged overnight 10/17-10/18 protector plate attacher physician team was able to place tolentino catheter in tract consulted Dr. Kimble who was able to replace the tolentino with G-tube at bedside with bilious return, ordered tube check study for formal confirmation - confirmed 10/19 after premedication with steroids for stated contrast allergy (itching). discussed with Kristi 10/18 who reviewed their records more thoroughly and he had G-tube only (NOT GJ), most recent tube replacement was 05/2023, scheduled for follow up there 11/2022 updated his 10/18 am in room, 10/18 afternoon by phone, 10/19 am in room -resume tube feeding -spoke with RN who will work with his to make sure she has the correct syringe/connector to administer feeds (2) Caregiver has difficulty performing caretaking: Plan: 82yo male presenting from home primarily due to concern that caregiver is unable to properly care for him at home. Goal for patient and at this time is to return home after home services have been established discussed with community case manager, home health referral has been made - intake on Monday 10/23 -Maintain fall precautions and aspiration precautions -consulted nutrition, resumed tube feedings -PT/OT evaluations appreciated his stated she doesn't know how to take care of wound - she came in today and I spoke with RN who will review wound care instructions with her. this wound care regimen is straightforward. (3) Sacral decubitus ulcer: Plan: unstageable 3x1.5 cm sacral ulcer present on admission consulted wound nurse, recommendations as below Home health and follow-up in wound clinic recommended Selected Entries 10/16/23 12:08 Wound Care Discharge Instructions To right and left buttocks- clean areas with saline. Pat dry. Dust with stoma powder, brush off excess. Cover with Barrier cream. Reapply as needed to protect area Chair cushion Turn at least every 2 hours when in bed Weight shifts Q15-30 minutes when in chair S[facility] for appointment (4) H/O: CVA (cerebrovascular accident): Plan: history of right MCA stroke -Continue Pravastatin -Continue ASA (5) Dysphagia: Plan: failed VFSS 05/2023, NPO and g-tube dependent (6) BPH w urinary obs/LUTS: Plan: continue finasteride and doxazosin UA was mildly abnormal, culture was sent growing 100K CONS staph, oxacillin sensitive this may reflect colonization / asymptomatic bacteriuria rather than UTI but difficult to assess whether he is symptomatic -started po keflex for time being (7) Prolactinoma: Plan: history Plan reviewed BMP today, stable except for mild hypokalemia, ordered 20 mEq IV. Tube feeding can be resumed to stop IV fluids. Magnesium was normal today DVT prophylaxis: SCDs, he is not acutely ill and is at his functional baseline therefore low risk Admission and Anticipated Discharge Date Admission Date: October 18, 2023 Subjective Luis has no complaints. No abdominal pain or nausea. No shortness of breath. His is at bedside. Physical Exam 2 Physical Exam: PHYSICAL EXAMINATION Last 24h vital signs reviewed, see documentation in flowsheet General: lying flat on recliner positioned to get KUB film this aM HEENT: Normocephalic, atraumatic, pupils round and equal, sclerae anicteric, no conjunctival injection, moist mucus membranes Lungs: Normal respiratory effort. Clear to auscultation bilaterally. No RRW Heart: Regular rate and rhythm, no murmurs. No JVD Abdomen: Bowel sounds present. G-tube LUQ intact, no erythma tenderness or drainage. +BT Extremities: Warm, dry, well-perfused. No extremity edema. Neuro: Alert and oriented x self, hospital, L face / arm / weakness mild, unchanged Psych: Normal affect and behavior Results & Data Results & Data Vital Signs (Past 12 Hours) Vital Signs Temp Pulse Pulse Resp BP Pulse Ox O2 Del Method 10/19/23 15:56 36.7 C 72 20 179/92 H 94 Room Air 10/19/23 07:49 36.3 C L 69 16 159/80 H 95 Room Air Laboratory Results 10/15/23 17:34 10/19/23 11:10 PG Care Time/CCT Total # of Minutes Spent Total Time Spent with Patient: I personally spent: 55 minutes today on clinical care activities including: reviewing chart notes and vital signs reviewing labs reviewing studies - KUB films, discussion with radiology technologist, discussion with bedside RN discussion with product consultant(s) - Dr. Kimble examining the patient counseling the patient's family writing orders documentation Coding Level of Care Code 23533 SUB INP/OBS CARE 3/50MIN Diagnoses Dislodged gastrostomy tube T85.528A Caregiver has difficulty performing caretaking Z74.8 Sacral decubitus ulcer L89.159 H/O: CVA (cerebrovascular accident) Z86.73 Dysphagia R13.10 Dysphagia type: unspecified BPH w urinary obs/LUTS N40.1; N13.8 Prolactinoma D35.2 (5) Dysphagia Dysphagia type: unspecified Qualified Code(s): R13.10 - Dysphagia, unspecified
[2023-10-19] MEDS: POTASSIUM CHLORIDE / WTR 10 MEQ/100 ML PLCT IV SCH ×2 (19:24→20:33)
[2023-10-19] MEDS: PRAVASTATIN SOD 20 MG TAB PO SCH (20:40)
[2023-10-19] MEDS: PEPTAMEN 1.5 CAL 1,000 ML BAG PEG SCH (21:01)
[2023-10-20] MEDS: TUBE FEEDING WATER FLUSH PEG SCH ×6 (00:30→20:25)
[2023-10-20] MEDS: POLYETHYLENE (MIRALAX) 17 GM PACK PO SCH (07:12)
[2023-10-20 08:04] LABS: BUN Creatinine Ratio 28.8 (10-20); Calcium 8.5 mg/dl (8.6-10.3); Creatinine Clr Calc Pharmacy 102.5 ml/min; Est GFR (African American) 113.5 ml/min; Est GFR (Non-African American) 97.9 ml/min; Potassium 3.3 mmol/L (3.5-5.1)
[2023-10-20] MEDS ORDERED: Nursing to Pharmacy Communication SCH (09:15)
[2023-10-20] MEDS: ASPIRIN 81 MG ECTAB PO SCH (09:31)
[2023-10-20] MEDS: cephALEXin 500 MG CAP PO SCH (10:18)
[2023-10-20] MEDS: ASPIRIN 81 MG CHEW PO SCH (10:19)
[2023-10-20] MEDS: hydroCHLOROthiazide 25 MG TAB PO SCH (10:19)
[2023-10-20] MEDS: FINASTERIDE 5 MG TAB PO SCH (10:19)
[2023-10-20] MEDS ORDERED: POTASSIUM CHLORIDE 20 MEQ/15 ML UDC GT STA (15:22)
--- NOTE | 2023-10-20 15:22 | Hospitalist Progress Note ---
Date of Service October 20, 2023 Assessment & Plan (1) Dislodged gastrostomy tube: Plan: G-tube dislodged overnight 10/17-10/18 pediatric clinical nurse specialist physician team was able to place tolentino catheter in tract consulted Dr. Kimble who was able to replace the tolentino with G-tube at bedside with bilious return, ordered tube check study for formal confirmation - confirmed 10/19 after premedication with steroids for stated contrast allergy (itching). discussed with Kristi 10/18 who reviewed their records more thoroughly and he had G-tube only (NOT GJ), most recent tube replacement was 05/2023, scheduled for follow up there 11/2022 updated his 10/18 am in room, 10/18 afternoon by phone, 10/19 am in room discussed with care coord today who spoke with his - she will be here with a friend to transport him home tomorrow 10/21 at 1pm, wrote rx to resume TF sent to home infusion, confirmed home health for 10/22 -resumed tube feeding 10/19, tolerating well -spoke with RN the correct syringe connector to administer feeds for his home equipment is in his room with his home med, his needs to take that home with them tomorrow (2) Caregiver has difficulty performing caretaking: Plan: 82yo male presenting from home primarily due to concern that caregiver is unable to properly care for him at home. Goal for patient and at this time is to return home after home services have been established discussed with case work aide, home health referral has been made - intake on Sunday 10/22 -Maintain fall precautions and aspiration precautions -consulted nutrition, resumed tube feedings -PT/OT evaluations appreciated his came in 10/09 and had wound care instructions with RN. this wound care regimen is straightforward. (3) Sacral decubitus ulcer: Plan: unstageable 3x1.5 cm sacral ulcer present on admission consulted wound nurse, recommendations as below Home health and follow-up in wound clinic recommended Selected Entries 10/16/23 12:08 Wound Care Discharge Instructions To right and left buttocks- clean areas with saline. Pat dry. Dust with stoma powder, brush off excess. Cover with Barrier cream. Reapply as needed to protect area Chair cushion Turn at least every 2 hours when in bed Weight shifts Q15-30 minutes when in chair Suggest [facility]- [facility] at [facility] for appointment (4) H/O: CVA (cerebrovascular accident): Plan: history of right MCA stroke -Continue Pravastatin -Continue ASA (5) Dysphagia: Plan: failed VFSS 05/2023, NPO and g-tube dependent (6) BPH w urinary obs/LUTS: Plan: continue finasteride and doxazosin UA reviewed again actually was negative x for bacteria and nitrite, only 1-5WBC neg LE and asymptomatic, culture was sent growing 100K CONS staph, oxacillin sensitive this reflects colonization / asymptomatic bacteriuria rather than UTI, antibiotics not indicated (7) Prolactinoma: Plan: history Plan mild hypokalemia replaced this admission on 10/19, 10/20 for 3.3 will discharge home with his scheduled for tomorrow 1pm when she can get friend to transport him wrote discharge orders and instructions, home infusion orders, discussed with child adolescent care, bedside RN DVT prophylaxis: SCDs, he is not acutely ill and is at his functional baseline therefore low risk Admission and Anticipated Discharge Date Admission Date: October 18, 2023 Subjective Luis has no complaints, tolerating advancement of TF well. no SOB CP. no dysuria Physical Exam 2 Physical Exam: PHYSICAL EXAMINATION Last 24h vital signs reviewed, see documentation in flowsheet General: lying on side in bed awake HEENT: Normocephalic, atraumatic, pupils round and equal, sclerae anicteric, no conjunctival injection, moist mucus membranes Lungs: Normal respiratory effort. Clear to auscultation bilaterally. No RRW Heart: Regular rate and rhythm, no murmurs. No JVD Abdomen: Bowel sounds present. G-tube LUQ intact, nontender nondistended Extremities: Warm, dry, well-perfused. No extremity edema. Neuro: Alert and oriented x self, hospital, L face / arm / weakness mild, unchanged Psych: Normal affect and behavior Results & Data Results & Data Vital Signs (Past 12 Hours) Vital Signs Temp Pulse Resp BP Pulse Ox O2 Del Method 10/20/23 07:52 36.4 C L 57 L 16 131/77 97 Room Air Laboratory Results 10/15/23 17:34 10/20/23 07:18 PG Care Time/CCT Total # of Minutes Spent Total Time Spent with Patient: I spent over 50 minutes on clincial care activities today including reviewing vitals, labs, writing orders, examining patient, wrote discharge orders and instructions, home infusion orders, discussed with child adolescent care x2, bedside RN Coding Level of Care Code 83182 SUB INP/OBS CARE 3/50MIN Diagnoses Dislodged gastrostomy tube T85.528A Caregiver has difficulty performing caretaking Z74.8 Sacral decubitus ulcer L89.159 H/O: CVA (cerebrovascular accident) Z86.73 Dysphagia R13.10 Dysphagia type: unspecified BPH w urinary obs/LUTS N40.1; N13.8 Prolactinoma D35.2 (5) Dysphagia Dysphagia type: unspecified Qualified Code(s): R13.10 - Dysphagia, unspecified
[2023-10-20] MEDS: PROSOURCE NO CARB 30 ML/PKT PEG SCH (16:30)
[2023-10-20] MEDS: DOXAZOSIN MESYLATE 1 MG TAB PEG SCH (20:25)
[2023-10-20] MEDS: PRAVASTATIN SOD 20 MG TAB PO SCH (20:25)
[2023-10-20] MEDS: PEPTAMEN 1.5 CAL 1,000 ML BAG PEG SCH (21:14)
[2023-10-21] MEDS: TUBE FEEDING WATER FLUSH PEG SCH ×4 (00:39→12:15)
--- NOTE | 2023-10-21 07:36 | Discharge Summary ---
Date of Service October 21, 2023 Admission HPI Per Admitting Provider Jonathon Smith is an 82yo male with history of prior MCA infarct, PEG tube in place, HTN, HLP presenting from home with worsening sacral ulcers. Patient lives at home with his , Cindy, who acts as primary field representative. They have a health aide that comes in once weekly to assist with bathing, otherwise, patient's takes care of Luis. Per history obtained from the ER, patient's left several messages on the Health Portal stating that she was unable to keep up with her 's care needs and that she was exhausted and overwhelmed. This led to a call to the [employer] of [employer]ging which in turn alerted the police who performed a well check and the patient was ultimately brought to the ER by EMS. When questioned about these messages, patient's vehemently denies and states that she left one message to cancel an appointment because she could not obtain transportation. She is very upset by the fact that her is here and that he is being admitted. She is mostly concerned about the cost of an Observation visit as patient was recently admitted for Observation (08/22/23 - 08/26/23) and she reports this stay costing them almost $40,000. Patient's son is a trauma nurse in the [place] area. He was contacted by ER attending, Dr. Jeong as well as patient's . He helped to explain to his mother that it is in the best interest of Luis that he be admitted for a brief stay. Patient offers no complaints. He denies fever, chills, cough, SOB. No additional complaints at this time. In the ER he is afebrile, hypertensive otherwise HD stable. ER Course: NSS x 500mL Admission Exam Per Admitting Provider General: patient resting comfortably, NAD, non-toxic in appearance, AA&O x 4 Skin: warm, dry, intact, sacral wound present with dressing in place, minimal drainage, no malodor HEENT: NC/AT, PERRL, EOMI, anicteric sclera, conjunctiva without injection, external ear normal to inspection and nontender, nares patent, moist mucus membranes, dentition intact, no oropharyngeal lesions, neck supple, trachea midline, no LAD, no thyromegaly, no JVD Heart: +S1/S2, regular, no m/r/g Lungs: equal air entry bilaterally, no rales/rhonchi/wheezes Abd: +BS, soft, NT/ND, no masses/organomegaly/ascites, PEG tube in place, no erythema/bleeding or drainage at the site Ext: warm, 2+ pulses in UE/LE bilaterally, no clubbing/cyanosis, 2+ edema of bilateral LE Principal Diagnosis Dislodged G-tube, difficulty taking care of patient at home Discharge Exam General: chronically ill appearing male, WD but not well nourished, NAD laying in bed HEENT; head normocephalic, atraumatic, mmm/slightly dry, trachea midline Resp: even/unlabored, no w/c/r, on room air 96% RRR: RRR/slightly dinh to 50s, no significant m/r/g, no pitting edema, calves nontender, pulses palpable GI: +BS, soft/NT G tube to LUQ intact MSK/Neuro: baseline L sided weakness, mild, unchanged Psych: alert/oriented x 3, pleasant and cooperative but frustrated about inpatient stay Discharge Data Allergies Allergy/AdvReac Type Severity Reaction Status Date / Time Iodinated Contrast Media Allergy Intermediate ITCHING Verified 08/22/23 19:56 Consultations 10/15/23 19:15 ED Decision to Admit Stat 10/18/23 01:29 Consult Gastroenterology Routine Ordered Studies KUB X-Ray 10/19/23 09:41 KUB HISTORY: Follow-up study in a patient with history of gastrostomy tube g-tube check COMPARISON: 05/21/2023 FINDINGS: Cardiomegaly. A loop recorder device. Right upper quadrant surgical clips. A gastrostomy tube is present with the distal tip projected over the central upper abdomen. Air-filled loops of large and small bowel without obstruction identified. Surgical clip projects over the abdominal right lower quadrant. No renal calculi. No ureteral calculi. No pneumoperitoneum or pneumatosis. Bilateral hip osteoarthritis. Degenerative changes of the spine, pelvis and hips. No fracture. IMPRESSION: 1. Gastrostomy tube projects over the central upper abdomen. 2. Nonobstructive bowel gas pattern. ACT 112: Negative or not required by law. The above report was generated using voice recognition software. It may contain grammatical, syntax or spelling errors. Electronically signed by: Gerardo Snow M.D. 10/19/2023 10:20 AM KUB X-Ray 10/19/23 17:00 KUB HISTORY: G-tube malfunction g-tube check COMPARISON: KUB of same day at 10:00 AM FINDINGS: Enteric contrast was administered via the patient's enteric tube. Nondilated contrast filled loops of proximal small bowel are noted. No extravasation. Nonobstructive bowel gas pattern. No renal calculi. No ureteral calculi. No pneumoperitoneum or pneumatosis. No fracture. IMPRESSION: 1. Nonobstructive bowel gas pattern. 2. Nondilated contrast opacified loops of proximal small bowel. ACT 112: Negative or not required by law. The above report was generated using voice recognition software. It may contain grammatical, syntax or spelling errors. Electronically signed by: Gerardo Snow M.D. 10/19/2023 5:37 PM Hospital Course (1) Dislodged gastrostomy tube: 82yo male with PMHx significant for remote MCA infarct (Summer 2022), HTN, HLD, PEG tube presented from home with worsening sacral ulcers/issues with being able to take care of him at home. reported unable to keep up with husbands needs and exhausted/overwhelmed and OOA called and alerted police to do well check and patient brought in by EMS due to multiple messages left on [employer] about inability to care for Mr Smith. Multiple services in past offered however had declined/did not want in facility and home w/ health aide once a week for assistance w/ bathing On admission, G-tube was in place but became dislodged 10/17-10/18 overnight and overnight team placed tolentino catheter into tract and surgery was consulted (Dr Kimble) who was able to replace tolentino with G-tube at bedside with bilious ret urn and ordered tube check study for confirmation 10/19 after premedicated with steroids for contrast. Discussed w/ C 10/18 given initial reports of GJ but and confirmed only G-tube. Most recent replacement was 05/2023 and scheduled for follow up there on 11/2023. Case management was involved with care and coordination with who was provided teaching/supplies/connectors/etc at discharge and new rx provided to resume tube feeds for home infusion and home health referral made/arranged for intake 10/22. RN provided additional teaching with prior to discharge. Transport with /friend arranged for 1pm. (2) Caregiver has difficulty performing caretaking: Goal for patient and at this time is to return home after home services have been established and was discussed w/ CM as above and home health Fall precautions/aspiration precautions maintained, nutrition consulted. G-tube replacement as above and outpt f/u his came in 10/09 and had wound care instructions with RN. this wound care regimen is straightforward and outlined in instructions. (3) Sacral decubitus ulcer: unstageable 3x1.5 cm sacral ulcer present on admission consulted wound nurse, recommendations as below Home health and follow-up in wound clinic recommended - to use saline to clear right/left buttock, pat dry and dust with stoma powder. Dust off excess and cover with barrier cream and reapply as needed to protect area. Chair cushion and turn every 2 hours while in bed, shift weights `15-30 minutes when in chair. Suggesting wound care center follow up at discharge. Number provided on discharge instructions (4) H/O: CVA (cerebrovascular accident): Had been sent to ER in March 2023 by disk grinder referred him due to LEFT field cut. Imaging w/ possible mass lesion vs stroke in region of MCA with some hemorrhagic conversion and surrounding edema and [place] [facility] [place] given hx of squamous cell carcinoma of the tongue (dx 2005, s/p extensive radiation therapy) MRI determined lesion was ischemic per records and in addition to his hemianopsia, patient found to have dysphagia/increased difficulty swallowing and PEG tube inserted 04/02 and was sent to [facility] at [place] [facility] Did review CBC and MCV >100 with stable hgb compared to priors (however did appear a little dehydrated likely on admission), so I did add B12/folate which were not deficient. No bleeding reported Did note prior echo w/ dilated atria, ?curious about prior TSH if ever drawn. Appears TSH was 9 in 2020, and recently 17 when presented w/ finding and need for transfer [place] [facility] Did not note any arrhythmia on monitor/telemetry during that time. No irregular HR on examination but not on monitored bed at present. Did not endorse having any palpitations. -Prior to discharge did repeat for completeness and TSH was elevated to 60.3 but Ft4 wnl. Added t3 but was unable to be added to blood but started on synthroid 25mcg daily and recommend f/u with PCP about repeating thyroid function testing w/ TSH/T4/T3 in follow up and can adjust synthroid moving forward vs ref to endocrinology. Would also rec considering event monitoring to eval any underlying afib given above Continued on daily aspirin while inpatient , pravastatin Of note, calling to confirm with patient continuing daily given not on home medication list at present time (was not reconciled on admission) (5) Dysphagia: failed VFSS 05/2023, NPO and g-tube dependent as outlined above (6) BPH w urinary obs/LUTS: continued finasteride and doxazosin UA reviewed again actually was negative x for bacteria and nitrite, only 1-5WBC neg LE and asymptomatic, culture was sent growing 100K CONS staph, oxacillin sensitive this reflects colonization / asymptomatic bacteriuria rather than UTI, antibiotics not indicated (7) Prolactinoma: history of such Total Time Total Time Spent Total Time Spent (In Minutes): 45 Discharge Plan Discharge Items Patient Disposition: Home - Home Health Services Reason For Visit: SACRAL WOUNDS Discharge Diagnosis: sacral wound, g-tube dislodgement Goals: You have been hospitalized for an acute medical problem. During your stay at [facility], we have made an effort to correct the problem that brought you to the hospital while keeping you as comfortable as possible. Medications were used to bring your condition under control and your discharge instructions will include directions for any medications you should take after leaving the hospital. Please make sure you see your Primary Care Provider as part of your follow up plan. Activity: Resume your previous activity Non-emergency contact: Primary Care Provider Call non-emergency contact if: you have any medication questions Follow-up/Referrals: Gaudencio Pardo MD [Primary Care Provider] - Diet: Nothing by Mouth Addtl Attending Provider Instructions: Wound care instructions per wound nurse: To right and left buttocks- clean areas with saline. Pat dry. Dust with stoma powder, brush off excess. Cover with Barrier cream. Reapply as needed to protect area Chair cushion Turn frequently when in bed Weight shifts frequently when in chair S[facility] at [facility] Call [phone] for appointment Please follow up with primary care at discharge for follow up testing of your thyroid. You have been started on low dose synthroid 25mcg daily at discharge. Pending Studies at Discharge: No Stand-Alone Forms: My [facility], Smoking Cessation Medications and DC Order Prescriptions: New levothyroxine 25 mcg capsule 25 mcg PO DAILY Qty: 30 0RF Rx Instructions: via G tube Continued finasteride 5 mg tablet 5 mg PO DAILY Qty: 30 11RF cabergoline 0.5 mg tablet 0.5 mg PO 3XWK Rx Instructions: Mon/Wed/Fri pravastatin 20 mg tablet 20 mg PO QPM Rx Instructions: NEEDS TONIGHT hydrochlorothiazide 25 mg tablet 25 mg feeding tube DAILY doxazosin 1 mg tablet 1 mg feeding tube HS Rx Instructions: 8:00PM, NEEDS TONIGHT polyethylene glycol 3350 [Miralax] 17 gram/dose Powder 17 g feeding tube DAILY PRN (Reason: Constipation) Tube Feeding Water Flush 75 ml G-tube QID@0655,1055,1455,1855 Qty: 50 1RF Rx Instructions: Before feedings Tube Feeding Water Flush 75 ml G-tube QID@0705,1105,1505,1905 Qty: 50 0RF Rx Instructions: AFTER FEEDINGS Discharge Orders: Discharge Order (Routine); Ordered 10/21/23 Ordered By: Ailin Johnson Admission Data Admit Date/Time: 10/18/23 09:37 Attending Provider: Brendon Estes Admit Provider: Leah Diego Primary Care Provider: Gaudencio Pardo Other Providers: Leah Diego; [facility],Home Health; [place],Home Care; Daniela Gannon Other Interventions: Discharge Summary Assessment (RN) Last Done: 10/21/23 11:11 Supervising Physician Co-Signing Physician Notes The patient was not seen by me. The chart was reviewed. Case discussed with RAÚL Palomino. Agree with assessment and plan Coding Level of Care Code 49425 INP/OBS DISCH >30 MIN Diagnoses Dislodged gastrostomy tube T85.528A Caregiver has difficulty performing caretaking Z74.8 Sacral decubitus ulcer L89.159 H/O: CVA (cerebrovascular accident) Z86.73 Dysphagia R13.10 Dysphagia type: unspecified BPH w urinary obs/LUTS N40.1; N13.8 Prolactinoma D35.2
[2023-10-21] MEDS: hydroCHLOROthiazide 25 MG TAB PO SCH (08:34)
[2023-10-21] MEDS: CABERGOLINE 0.5 MG PO SCH (08:34)
[2023-10-21] MEDS: ASPIRIN 81 MG CHEW PO SCH (08:34)
[2023-10-21] MEDS: POLYETHYLENE (MIRALAX) 17 GM PACK PO SCH (08:35)
[2023-10-21] MEDS: FINASTERIDE 5 MG TAB PO SCH (08:35)
[2023-10-21 10:06] LABS: BUN Creatinine Ratio 34.4 (10-20); Calcium 8.2 mg/dl (8.6-10.3); Creatinine Clr Calc Pharmacy 87.3 ml/min; Est GFR (African American) 106.3 ml/min; Est GFR (Non-African American) 91.7 ml/min; Magnesium 1.9 mg/dl (1.7-2.4); Potassium 3.6 mmol/L (3.5-5.1)
[2023-10-21 10:31] LABS: Folate (Folic Acid),Ser orPlas > 22.30 ng/ml (>5.38)
[2023-10-21 10:32] LABS: Vitamin B12 > 1500 pg/ml (180-914)
[2023-10-21 10:52] LABS: Thyroid Stimulating Hormone 60.347 uIu/ml (0.300-4.500)
[2023-10-21 11:30] LABS: T4 Free Thyroxine 0.92 ng/dl (0.61-1.60)
== END 2023-10-21 14:01 | disposition home health service (06) | DRG 593 ==
LOC: ED 16:54 → 3E 16:54 → SUATTDRO 20:11 → 3E 23:00 → SUATTDRO 10-18 09:37

== ENCOUNTER 2023-12-01 13:35 | Inpatient (IN) ==
[2023-12-01 14:42] LABS: Basophils # (auto) 0.03 K/uL (0.00-0.20); Basophils % (auto) 0.7 %; Eosinophils # (auto) 0.19 K/uL (0.00-0.50); Eosinophils % (auto) 4.2 %; Hematocrit (blood only) 32.1 % (42.0-52.0); Hemoglobin 10.9 g/dl (14.0-18.0); Immature Granulocytes # (auto) 0.03 K/uL (0.01-0.20); Immature Granulocytes % (auto) 0.7 %; Lymphocytes # (auto) 0.61 K/uL (1.20-3.40); Lymphocytes % (auto) 13.5 %; Mean Corpuscular Hemoglobin 33.4 pg (25.0-34.0); Mean Corpuscular Volume 98.5 fL (80.0-100.0); Mean Platelet Volume 8.9 fL (9.4-12.4); Monocytes # (auto) 0.55 K/uL (0.11-0.59); Monocytes % (auto) 12.2 %; Neutrophils # (auto) 3.11 K/uL (1.40-6.50); Neutrophils % (auto) 68.7 %; Platelet Count 243 K/uL (130-400); RDW Coefficient of Variation 13.5 % (11.5-14.5); RDW Standard Deviation 48.4 fL (36.4-46.3); Red Blood Count 3.26 M/uL (4.70-6.10); White Blood Count 4.52 K/ul (4.8-10.8)
--- NOTE | 2023-12-01 14:50 | Emergency Department Note ---
Impression & Plan Generalized weakness, Dehydration, Fall, Hyponatremia, CHI (closed head injury), Abrasion of scalp, Anemia, Abnormal thyroid function test ED Provider Note ED Provider Note NAME: JACE MARIN AGE:83 SEX: Male : 1940 ARRIVES VIA: EMS INFORMANT: Patient, EMS ED PROVIDER(s): Cindy Hernandez DO CHIEF COMPLAINT: Fall, weakness HPI: This is an 83-year-old male presents emergency room following a fall at home today. Patient states he does not know why he fell but does not believe he was injured. Patient states he has felt weak over the last several days. Patient was seen and evaluated here yesterday following a fall additionally. Patient does have an indwelling G-tube which she states is the only way he takes anything into his GI tract. He denies any recent change in urine or stools. He does not know if he struck his head or not but does not believe he passed out. Patient does live at home with his . He denies any recent illness or change in medications. Patient with a prior CVA and residual deficits on left side. PAST MEDICAL HISTORY:See Below PAST SURGICAL HISTORY:See Below FAMILY HISTORY:See Below SOCIAL HISTORY:See Below HOME MEDICATIONS:See Below ALLERGIES:See Below VITALS:See Below PHYSICAL EXAMINATION: GENERAL: alert, unwell appearing, well nourished, no distress, non-toxic EYE EXAM: normal conjunctiva, PERRL and EOM's grossly intact OROPHARYNX: no exudate, no erythema, lips, buccal mucosa, and tongue normal and mucous membranes are markedly dry NECK: supple, no nuchal rigidity, no adenopathy, non-tender LUNGS: Clear to auscultation. Normal chest wall mechanics, no w/r/r HEART: no murmurs, S1 normal and S2 normal ABDOMEN: abdomen soft, non-tender, normo-active bowel sounds, no masses, no rebound or guarding. G-tube noted in the left epigastric region, no surrounding drainage or bleeding, no erythema BACK: Back is symmetrical on inspection and there is no deformity, no midline tenderness, no CVA tenderness. SKIN: no rashes, petechiae, orbruising UPPER EXTREMITIES: upper extremities are grossly normal. FROM, nml pulses b/l. Evidence of healing contusion noted to the anterior aspect of the left humeral head, ecchymosis noted in the left AC consistent with blood draw/IV site; slight decrease strength overall to the left upper extremity LOWER EXTREMITIES: No pitting edema. FROM, nml pulses b/l. Slight decrease strength overall the left lower extremity. NEURO EXAM: Normal sensorium, cranial nerves II-XII grossly intact, normal speech, no facial droop,nogross weakness of arms, no gross weakness of legs. Gross sensation intact. No ataxia. Vital Signs: reviewed and remarkable Differential Diagnosis: dehydration, stroke, anemia, hypoglycemia, hyponatremia, hypernatremia, urinary tract infection, pneumonia, bronchitis, sepsis, gastroenteritis, additional abdominal pathology, metabolic abnormalities, as well as others were considered MEDICAL DECISION MAKING: This is an 83-year-old male presents to the emergency department for evaluation following a fall. He complains of weakness and dizziness. He appears clinically dehydrated but was hemodynamically stable. Labs drawn and sent, IV established, EKG and x-rays performed at bedside and interpreted by me. Patient monitored on telemetry throughout. He was sent for CT of the head and C-spine additionally as part of trauma evaluation. Other than a small abrasion noted to the superior occipital region of the patient's scalp, there is no evidence of acute traumatic injury today. Patient has had recent falls additionally does have areas of resolving ecchymosis. Patient with mild anemia, mild hyponatremia, and dehydration noted. I discussed patient's condition and concern for recurrent falls and ability to safely live at home with the patient's son. He feels after extensive conversations with his mom that he can no longer be safely cared for at home by his mom who is also elderly with her own problems. He does not know if the patient is getting his appropriate medications every day also. Case discussed with the hospitalist team for additional evaluation and management. It was also noted the patient's TSH is markedly elevated and has been uptrending over the course of the last year. I am concerned patient could have evolving myxedema coma. He is still able to answer questions despite his fatigue and weakness and does seem to be oriented. Consultation(s): [] ER Treatment Provided: See below [id number]: Discussed with Alfonso, patient's son. We discussed evaluation here as well as recent several falls and decline at home. He states that patient's is now realizing she can no longer care for him at home and is in agreement with the plan to seek out options for placement. Son is a nurse and would like to be involved in these conversations with case management, his number is [phone]. Diagnostics Interpreted By Me: -ECG: Sinus bradycardia 59 with first-degree AV block, leftward axis, right bundle branch block, nonspecific ST/T wave changes -Cardiac Monitoring: An order was placed for continuous cardiac monitoring. The monitor shows a rate of 62 with normal sinus rhythm. -Laboratory studies: As stated above and show below. -Imaging studies: X-ray Chest: A single view study of the chest was reviewed and was negative for cardiomegaly, focal infiltrate, effusion, pulmonary edema, or wide mediastinum. No obvious fracture or pneumothorax. X-ray pelvis: No obvious fracture or dislocation Triage Nursing Note Reviewed Prior/Outside Records Reviewed -prior labs and imaging reviewed from evaluation yesterday Past Med/Surg History Medical History (Updated 12/01/23 @ 22:07 by Larry Marie MD) Sacral decubitus ulcer Anemia Septic shock Hemianopsia Dysphagia History of right MCA stroke Hypertension Squamous cell carcinoma of tongue PEG tube malfunction Hyperlipidemia Kidney stone Throat cancer Surgical History History of hernia repair History of cholecystectomy Family History Mother Diabetes Hypertension Heart disease Social History Smoking Status: Former smoker Second Hand Exposure: No; Do You Dip or Chew Tobacco: No; Hx Alcohol Use: No Hx Substance Use: No Preferred Language: [place] Communication Ability: Effective Communication Ability Comment: HX STROKE LEFT SIDED PERIPHERAL VISION LOSS Coverage 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 Rn Required: No Beliefs That Will Affect Care: None marital status: Current Living Situation: Spouse current occupational status: retired Feels Safe at Home: Yes Assistive Devices: Walker Allergies Allergies Allergy/AdvReac Type Severity Reaction Status Date / Time Iodinated Contrast Media Allergy Intermediate ITCHING Verified 12/01/23 17:18 Home Meds Home Medications Medication Instructions Recorded Confirmed cabergoline 0.5 mg tablet 0.5 mg PO 3XWK 03/15/19 12/01/23 hydrochlorothiazide 25 mg tablet 25 mg feeding tube DAILY 03/15/19 12/01/23 pravastatin 20 mg tablet 20 mg PO QPM 03/15/19 12/01/23 doxazosin 1 mg tablet 1 mg feeding tube HS 08/22/23 12/01/23 polyethylene glycol 3350 17 17 g feeding tube DAILY PRN 08/22/23 12/01/23 gram/dose oral powder (Miralax) Constipation aspirin 81 mg tablet 81 mg PO DAILY 12/01/23 12/01/23 levothyroxine 25 mcg capsule 0 mcg PO DAILY 12/01/23 12/01/23 nut.tx impaired digestive See Rx Instructions .Route .COMPLEX 12/01/23 12/01/23 fxn-fiber 0.08 gram-1.2 kcal/mL oral liquid (Vital AF 1.2 Dustin) nutritional supplements See Rx Instructions .Route .COMPLEX 12/01/23 12/01/23 Previous Rx's Medication Instructions Recorded finasteride 5 mg tablet 5 mg PO DAILY #30 tabs 07/09/23 Tube Feeding Water Flush 75 ml G-tube 08/26/23 QID@0655,1055,1455,1855 #50 KITS Tube Feeding Water Flush 75 ml G-tube 08/26/23 QID@0705,1105,1505,1905 #50 kits Results & Data (ED) Vital Signs Vital Signs - 24 hr 12/01/23 13:24 12/01/23 13:24 12/01/23 13:50 Temperature 36.6 C Temperature Source Oral Pulse Rate 70 62 Pulse Rate [Apical] Respiratory Rate 18 Blood Pressure 143/73 H Blood Pressure [Left Arm] Blood Pressure Mean 96 Blood Pressure Mean [Left Arm] Pulse Oximetry 95 Oxygen Delivery Method Sepsis Recent Fever Within 48 Hours No Sepsis New/Unexplained Change in Mental Status N/A Sepsis Action Taken by Nursing No Action Required 12/01/23 17:15 12/01/23 17:39 Temperature Temperature Source Pulse Rate 51 L Pulse Rate [Apical] 52 L Respiratory Rate 18 Blood Pressure Blood Pressure [Left Arm] 141/72 H Blood Pressure Mean Blood Pressure Mean [Left Arm] 95 Pulse Oximetry 93 Oxygen Delivery Method Room Air Sepsis Recent Fever Within 48 Hours Sepsis New/Unexplained Change in Mental Status Sepsis Action Taken by Nursing Laboratory Data 12/01/23 13:55 12/01/23 13:55 Lab Results 02/11/24 02/11/24 Range/Units 13:55 16:41 WBC 4.52 L (4.8-10.8) K/ul RBC 3.26 L (4.70-6.10) M/uL Hgb 10.9 L (14.0-18.0) g/dl Hct 32.1 L (42.0-52.0) % MCV 98.5 (80.0-100.0) fL MCH 33.4 (25.0-34.0) pg MCHC 34.0 (32.0-36.0) g/dL RDW Std Deviation 48.4 H (36.4-46.3) fL RDW Coeff of Alison 13.5 (11.5-14.5) % Plt Count 243 (130-400) K/uL MPV 8.9 L (9.4-12.4) fL Immature Gran % (Auto) 0.7 % Neut % (Auto) 68.7 % Lymph % (Auto) 13.5 % [place] % (Auto) 12.2 % Eos % (Auto) 4.2 % Baso % (Auto) 0.7 % Neut # (Auto) 3.11 (1.40-6.50) K/uL Lymph # (Auto) 0.61 L (1.20-3.40) K/uL [place] # (Auto) 0.55 (0.11-0.59) K/uL Eos # (Auto) 0.19 (0.00-0.50) K/uL Baso # (Auto) 0.03 (0.00-0.20) K/uL Immature Gran # (Auto) 0.03 (0.01-0.20) K/uL Sodium 131 L (136-145) mmol/L Potassium 3.5 (3.5-5.1) mmol/L Chloride 98 (98-107) mmol/L Carbon Dioxide 28 (21-32) mmol/L Anion Gap 5 (3-11) BUN 24 H (6-23) mg/dl Creatinine 0.63 (0.6-1.4) mg/dl Est Cr Clr Drug Dosing 87.7 ml/min Est GFR ( Amer) 104.1 ml/min Est GFR (Non-Af Amer) 89.9 ml/min BUN/Creatinine Ratio 38.1 H (10-20) Glucose 99 (70-99(Fasting)) mg/dl Calcium 8.6 (8.6-10.3) mg/dl Magnesium 2.0 (1.7-2.4) mg/dl Total Bilirubin 0.5 (0.2-1.0) mg/dl AST 30 (13-39) U/L ALT 17 (7-52) U/L Alkaline Phosphatase 55 (34-104) U/L Troponin I High Sens 9.5 (0-20) pg/ml Total Protein 5.9 L (6.0-8.3) gm/dl Albumin 3.4 (3.4-5.0) gm/dl Globulin 2.5 (2.5-4.0) gm/dl Albumin/Globulin Ratio 1.4 (0.9-2) TSH 142.052 H (0.300-4.500) uIu/ml Free T4 0.39 L (0.61-1.60) ng/dl Free T3 2.72 (2.3-4.2) pg/ml Random Cortisol 12.59 mcg/dl Urine Color Yellow Urine Appearance Clear (Clear) Urine pH 6.5 (4.5-7.5) Ur Specific [place] 1.012 (1.000-1.030) Urine Protein Negative (Negative) Urine Glucose (UA) Negative (Negative) Urine Ketones Negative (Negative) Urine Blood Negative (Negative) Urine Nitrite Negative (Negative) Urine Bilirubin Negative (Negative) Urine Urobilinogen Negative (Negative) Ur Leukocyte Esterase Negative (Negative) Administered Medications Discontinued Medications Hydrocortisone Sodium Succinate (Hydrocortisone Sod Succinate 100 Mg/2 Ml Vial) 100 mg IV NOW ONE Stop: 12/01/23 19:46 Last Admin: 12/01/23 19:34 Dose: 100 mg Documented By: JUAN MIGUEL Sodium Chloride (Nss) 1,000 mls @ 125 mls/hr IV .Q8H [facility] Stop: 12/31/23 14:44 Last Infusion: 12/01/23 21:24 Dose: Infused Documented By: JUAN MIGUEL Infusion: 12/01/23 21:23 Dose: 0 mls/hr Documented By: JUAN MIGUEL Admin: 12/01/23 15:01 Dose: 125 mls/hr Documented By: SUSAN Levothyroxine Sodium 200 mcg/ (Syringe) 10 mls @ 5 mls/min IV ONE ONE; Protocol Stop: 12/01/23 20:01 Last Admin: 12/01/23 19:44 Dose: 5 mls/min Documented By: [facility] Imaging Data Radiologist's Impression: Cervical Spine CT 12/01/23 14:41 CT OF THE CERVICAL SPINE WITHOUT CONTRAST CLINICAL HISTORY: trauma COMPARISON STUDY: Cervical spine CT November 30, 2013. Neck CT March 15, 2019. TECHNIQUE: Helical axial images of the cervical spine were obtained without IV contrast. Sagittal and coronal reconstructions were viewed. Automated exposure control was utilized for the study. A dose lowering technique was utilized adhering to the principles of ALARA. FINDINGS: There is straightening of the cervical lordosis. No acute cervical spine fracture is present. Mild concavity of several superior endplates within the lower cervical and upper thoracic spine is chronic. Mild multilevel disc space narrowing is noted with moderate osteophytosis. There is severe multilevel facet arthrosis. Loss of fat planes with mild edema within the neck is similar to earlier neck CT and favors postradiation change. IMPRESSION: No acute cervical spine fracture or subluxation. ACT 112: Negative or not required by law. Electronically signed by: Joe Leon M.D. 12/01/2023 3:50 PM Chest X-Ray 12/01/23 14:41 XR chest 1V portable CLINICAL HISTORY: trauma COMPARISON STUDY: Chest CT December 27, 2010. Chest radiograph November 30, 2023. FINDINGS: A loop recorder is noted. Cardiomegaly is unchanged. There is no evidence for pulmonary edema. There is no pneumothorax or pleural effusion. Pulmonary vascularity is normal. Skin folds project over the left chest. IMPRESSION: No acute cardiopulmonary findings. No change in appearance of the chest. ACT 112: Negative or not required by law. Electronically signed by: Joe Leon M.D. 12/01/2023 4:[address] 12/01/23 14:41 CT OF THE HEAD WITHOUT CONTRAST CLINICAL HISTORY: trauma COMPARISON STUDY: Head CT November 30, 2023. CT DOSE: 1181.52 mGy.cm TECHNIQUE: Helical axial images of the head were obtained without IV contrast. Automated exposure control was utilized for the study. A dose lowering technique was utilized adhering to the principles of ALARA. FINDINGS: No acute intracranial hemorrhage is present. Extensive calcifications within the right MCA territory are noted with adjacent hypodensity. These calcifications are predominantly gyral in distribution. The appearance is unchanged since head CT of November 30, 2023. The extent of calcifications has increased since CT of March 26, 2023. There is mild mass effect with mild compression right lateral ventricle and minimal leftward midline shift. This is stable. Basal cisterns are patent. There are no axial collections. The appearance of the brain is unchanged since head CT of November 30, 2023. No acute calvarial fracture is present. C the sinuses largely opacified. This is chronic. IMPRESSION: 1. No acute intracranial hemorrhage. No acute calvarial fracture. 2. Extensive right MCA distribution calcifications with adjacent hypodensity. The CT appearance is nonspecific although favor extensive laminar necrosis in the setting of a chronic MCA infarct. Given mild mass effect, the less likely possibility of a neoplastic process cannot be excluded and therefore continued imaging follow-up is recommended. ACT 112: Negative or not required by law. Electronically signed by: Joe Leon M.D. 12/01/2023 3:41 PM Pelvis X-Ray 12/01/23 14:41 XR pelvis 1-2V routine CLINICAL HISTORY: trauma COMPARISON: CT of the abdomen and pelvis May 17, 2023. FINDINGS: There is no acute fracture within the pelvis or hips. Exam is mildly compromised given difficulty positioning. 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 IMPRESSION: 1. No acute fractures within the pelvis or hips. 2. 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 ACT 112: Negative or not required by law. Electronically signed by: Joe Leon M.D. 12/01/2023 4:02 PM Discharge Plan Visit Data Chief Complaint: Fall ED Provider: Cindy Hernandez Discharge Problem: Generalized weakness, Dehydration, Fall, Hyponatremia, CHI (closed head injury), Abrasion of scalp, Anemia, Abnormal thyroid function test Patient Disposition: Admitted As Inpatient Discharge Instructions Interventions: ED Discharge Assessment Last Done: 12/01/23 21:04
[2023-12-01 14:58] LABS: Albumin Globulin Ratio 1.4 (0.9-2); Albumin Level 3.4 gm/dl (3.4-5.0); BUN Creatinine Ratio 38.1 (10-20); Bilirubin,Total 0.5 mg/dl (0.2-1.0); Calcium 8.6 mg/dl (8.6-10.3); Creatinine Clr Calc Pharmacy 87.7 ml/min; Est GFR (African American) 104.1 ml/min; Est GFR (Non-African American) 89.9 ml/min; Globulin 2.5 gm/dl (2.5-4.0); Potassium 3.5 mmol/L (3.5-5.1); Total Protein 5.9 gm/dl (6.0-8.3)
[2023-12-01] MEDS: SODIUM CHLORIDE 0.9% 1,000 ML IV SCH ×2 (15:01→22:35)
[2023-12-01 15:13] LABS: Troponin I High Sensitivity 9.5 pg/ml (0-20)
--- NOTE | 2023-12-01 15:43 | CT Scan Report ---
CT OF THE HEAD WITHOUT CONTRAST CLINICAL HISTORY: trauma COMPARISON STUDY: Head CT November 30, 2023. CT DOSE: 1181.52 mGy.cm TECHNIQUE: Helical axial images of the head were obtained without IV contrast. Automated exposure con trol was utilized for the study. A dose lowering technique was utilized adhering to the principles o f ALARA. FINDINGS: No acute intracranial hemorrhage is present. Extensive calcifications within the right MCA territory are noted with adjacent hypodensity. These calcifications are predominantly gyral in distri bution. The appearance is unchanged since head CT of November 30, 2023. The extent of calcifications has increased since CT of March 26, 2023. There is mild mass effect with mild compression right lateral ventricle and minimal leftward midline shift. This is stable. Basal cisterns are patent. There are n o axial collections. The appearance of the brain is unchanged since head CT of November 30, 2023. No acute calvarial fracture is present. C the sinuses largely opacified. This is chronic. IMPRESSION: 1. No acute intracranial hemorrhage. No acute calvarial fracture. 2. Extensive right MCA distribution calcifications with adjacent hypodensity. The CT appearance is no nspecific although favor extensive laminar necrosis in the setting of a chronic MCA infarct. Given mi ld mass effect, the less likely possibility of a neoplastic process cannot be excluded and therefore continued imaging follow-up is recommended. ACT 112: Negative or not required by law. Electronically signed by: Joe Leon M.D. 12/01/2023 3:41 PM
--- NOTE | 2023-12-01 15:52 | CT Scan Report ---
CT OF THE CERVICAL SPINE WITHOUT CONTRAST CLINICAL HISTORY: trauma COMPARISON STUDY: Cervical spine CT November 30, 2013. Neck CT March 15, 2019. TECHNIQUE: Helical axial images of the cervical spine were obtained without IV contrast. Sagittal a nd coronal reconstructions were viewed. Automated exposure control was utilized for the study. A do se lowering technique was utilized adhering to the principles of ALARA. FINDINGS: There is straightening of the cervical lordosis. No acute cervical spine fracture is presen t. Mild concavity of several superior endplates within the lower cervical and upper thoracic spine is chronic. Mild multilevel disc space narrowing is noted with moderate osteophytosis. There is severe multilevel facet arthrosis. Loss of fat planes with mild edema within the neck is similar to earlier neck CT and favors postradiation change. IMPRESSION: No acute cervical spine fracture or subluxation. ACT 112: Negative or not required by law. Electronically signed by: Joe Leon M.D. 12/01/2023 3:50 PM
--- NOTE | 2023-12-01 16:03 | XRay Report ---
XR pelvis 1-2V routine CLINICAL HISTORY: trauma COMPARISON: CT of the abdomen and pelvis May 17, 2023. FINDINGS: There is no acute fracture within the pelvis or hips. Exam is mildly compromised given dif ficulty positioning. 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 IMPRESSION: 1. No acute fractures within the pelvis or hips. 2. 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 ACT 112: Negative or not required by law. Electronically signed by: Joe Leon M.D. 12/01/2023 4:02 PM
[2023-12-01 16:06] LABS: Thyroid Stimulating Hormone 142.052 uIu/ml (0.300-4.500)
--- NOTE | 2023-12-01 16:06 | XRay Report ---
XR chest 1V portable CLINICAL HISTORY: trauma COMPARISON STUDY: Chest CT December 27, 2010. Chest radiograph November 30, 2023. FINDINGS: A loop recorder is noted. Cardiomegaly is unchanged. There is no evidence for pulmonary michell ma. There is no pneumothorax or pleural effusion. Pulmonary vascularity is normal. Skin folds project over the left chest. IMPRESSION: No acute cardiopulmonary findings. No change in appearance of the chest. ACT 112: Negative or not required by law. Electronically signed by: Joe Leon M.D. 12/01/2023 4:05 PM
[2023-12-01 16:39] LABS: T4 Free Thyroxine 0.39 ng/dl (0.61-1.60)
[2023-12-01 16:53] LABS: Appearance Urine Clear (Clear); Bilirubin Urine Negative (Negative); Blood Urine Negative (Negative); Color Urine Yellow; Glucose Urine UA Negative (Negative); Ketones Urine Negative (Negative); Leukocyte Esterase Urine Negative (Negative); Nitrite Urine Negative (Negative); Protein Urine Negative (Negative); Specific Gravity Urine 1.012 (1.000-1.030); Urobilinogen Urine Negative (Negative); pH Urine 6.5 (4.5-7.5)
--- NOTE | 2023-12-01 16:57 | Electrocardiogram Report ---
Test Reason : Blood Pressure : / mmHG Vent. Rate : 059 BPM Atrial Rate : 059 BPM P-R Int : 236 ms QRS Dur : 166 ms QT Int : 428 ms P-R-T Axes : 068 -57 032 degrees QTc Int : 423 ms Sinus bradycardia with 1st degree A-V block Left axis deviation Right bundle branch block Abnormal ECG Confirmed by Gaudencio Yee ([id number]) on 12/01/2023 4:57:00 PM Referred By: REFERRED SELF Confirmed By:Uriel Yee
--- NOTE | 2023-12-01 18:03 | History & Physical Report ---
Date of Service December 01, 2023 Assessment & Plan (1) Myxedema coma: Plan: This is a relatively weak diagnosis given lack of hypothermia or hypotension however he has hyponatremia, fatigue, altered mental state and given hypothyroidism is the only reversible cause of his significant decline recommend treating as decompensated hypothyroidism He does not have a precipitating illness and labs suggest slow progression of his hypothyroidism rather than sudden decline. His was unsure how to give the levothyroxine prescribed in October as he is always on tube feeds and she was advised to give it before the tube feeds which would mean the middle of the night therefore never ended up giving to him Start hydrocortisone 100mg IV q8h - suspect this can be rapidly weaned tomorrow Start levothyroxine 200mcg IV now then 100 mcg IV daily Consult endocrinology for ongoing advice (2) Fall: Plan: PT/OT (3) Abrasion, hand w/o infection: Plan: Multiple without surrounding cellulitis seen (4) Sacral decubitus ulcer: Plan: No surrounding cellulitis Wound care nurse consult (5) Feeding by G-tube: Plan: Consult dietary for tube feeds - will preliminary order flushes 25ml q4h to keep the tube from blcking overnight but this should be adjusted tomorrow with tube feeds as necessary Mouth care q2h while awake (6) Prolactinoma: Plan: Continue cabergoline (7) History of right MCA stroke: Plan: Continue aspirin and pravastatin (8) Hypertension: Plan: Hold HCTZ pending serial BP measurements overnight Plan VTE Prophylaxis - heparin 5000 units SQ BID Diet - NPO Disposition - admit to med/tele Admission and Anticipated Discharge Date Admission Date: Dec 01, 2023 History of Present Illness Chief Complaint: unable to take care of him at home anymore, recurrent falls Primary Care Provider: Gaudencio Pardo MD Jonathon Smith is an 83 year old male with prior CVA last year requiring eventual G-tube placement who presents to the ER following a fall at home today. The patient is unable to give me any information regarding the fall or whether he is taking his medications. He lives at home with his who is no longer able to take care of him at home. She reports he is falling daily and is generally weak and she cannot take care of him as she cannot lift him off the ground. He has significant left sided deficit from his stroke with dysphagia - uses a g-tube for tube feeds. He was noted to be hypothyroid during his last admission and was started on levothyroxine although his reports she was unable to give the medication as she was unsure how to time it for the tube feeds as she would need to wake him up in the middle of the night to give it therefore he has not been getting this. She reports no loss of consciousness with the falls, he is just weak and falls over. Allergies Allergy/AdvReac Type Severity Reaction Status Date / Time Iodinated Contrast Media Allergy Intermediate ITCHING Verified 12/01/23 17:18 Home Medications Medication Instructions Recorded Confirmed Type cabergoline 0.5 mg tablet 0.5 mg PO 3XWK 03/15/19 12/01/23 History hydrochlorothiazide 25 mg tablet 25 mg feeding tube DAILY 03/15/19 12/01/23 History pravastatin 20 mg tablet 20 mg PO QPM 03/15/19 12/01/23 History finasteride 5 mg tablet 5 mg PO DAILY #30 tabs 07/09/23 12/01/23 Rx doxazosin 1 mg tablet 1 mg feeding tube HS 08/22/23 12/01/23 History polyethylene glycol 3350 17 17 g feeding tube DAILY PRN 08/22/23 12/01/23 History gram/dose oral powder (Miralax) Constipation Tube Feeding Water Flush 75 ml G-tube 08/26/23 10/15/23 Rx QID@0655,1055,1455,1855 #50 KITS Tube Feeding Water Flush 75 ml G-tube 08/26/23 10/15/23 Rx QID@0705,1105,1505,1905 #50 kits aspirin 81 mg tablet 81 mg PO DAILY 12/01/23 12/01/23 History levothyroxine 25 mcg capsule 0 mcg PO DAILY 12/01/23 12/01/23 History nut.tx impaired digestive See Rx Instructions .Route .COMPLEX 12/01/23 12/01/23 History fxn-fiber 0.08 gram-1.2 kcal/mL oral liquid (Vital AF 1.2 Dustin) nutritional supplements See Rx Instructions .Route .COMPLEX 12/01/23 12/01/23 History Past Med/Surg History Medical History (Updated 12/01/23 @ 22:07 by Larry Marie MD) Sacral decubitus ulcer Anemia Septic shock Hemianopsia Dysphagia History of right MCA stroke Hypertension Squamous cell carcinoma of tongue PEG tube malfunction Hyperlipidemia Kidney stone Throat cancer Surgical History History of hernia repair History of cholecystectomy Family History Mother Diabetes Hypertension Heart disease Social History Smoking Status: Never smoker Second Hand Exposure: No; Do You Dip or Chew Tobacco: No; Hx Alcohol Use: No Hx Substance Use: No Preferred Language: Upper Sorbian Communication Ability: Effective Communication Ability Comment: HX STROKE LEFT SIDED PERIPHERAL VISION LOSS Manganese Breaker Required: No Beliefs That Will Affect Care: None marital status: Current Living Situation: Spouse current occupational status: retired Other Information That Helps Us Care for You: No Feels Safe at Home: Yes Safety Concerns: Feels Safe At This Time Assistive Devices: Walker Review of Systems Review of Systems: All systems reviewed & are unremarkable except as noted in HPI & below Physical Exam Constitutional: + frail appearing; + not well nourished and no acute distress Eyes: PERRL, conjunctivae normal, anicteric sclerae ENMT: Mouth: + dry oral mucous membranes Respiratory: normal respiratory effort; no respiratory distress Auscultation: + rhonchi (anteriorly) Cardiovascular: Rate/Rhythm: regular rate and + bradycardic Heart Sounds: no murmur Extremities: normal capillary refill; no calf tenderness and no pedal edema Gastrointestinal (Abdomen): normal bowel sounds, soft, nontender, no hepatosplenomegaly Musculoskeletal: no cyanosis or clubbing, extremities motor strength 5/5 Skin: no rashes, warm and dry Neurologic: moves all extremities and awake; not confused Psychiatric: Orientation: alert, oriented to person and oriented to place; + not oriented to time (month, not year) Genitourinary: no CVA tenderness Results & Data Results & Data Vital Signs (Past 12 Hours) Vital Signs Temp Pulse Pulse Resp BP BP Pulse Ox 12/01/23 17:39 51 L 12/01/23 17:15 52 L 18 141/72 H 93 12/01/23 13:50 62 12/01/23 13:24 36.6 C 02/11/24 13:24 70 18 143/73 H 95 O2 Del Method 12/01/23 17:39 12/01/23 17:15 Room Air 12/01/23 13:50 12/01/23 13:24 12/01/23 13:24 Laboratory Results Abnormal lab results 12/01/23 Range/Units 13:55 WBC 4.52 L (4.8-10.8) K/ul RBC 3.26 L (4.70-6.10) M/uL Hgb 10.9 L (14.0-18.0) g/dl Hct 32.1 L (42.0-52.0) % RDW Std Deviation 48.4 H (36.4-46.3) fL MPV 8.9 L (9.4-12.4) fL Lymph # (Auto) 0.61 L (1.20-3.40) K/uL Sodium 131 L (136-145) mmol/L BUN 24 H (6-23) mg/dl BUN/Creatinine Ratio 38.1 H (10-20) Total Protein 5.9 L (6.0-8.3) gm/dl TSH 142.052 H (0.300-4.500) uIu/ml Free T4 0.39 L (0.61-1.60) ng/dl Diagnostic Findings CT OF THE HEAD WITHOUT CONTRAST CLINICAL HISTORY: trauma COMPARISON STUDY: Head CT November 30, 2023. CT DOSE: 1181.52 mGy.cm TECHNIQUE: Helical axial images of the head were obtained without IV contrast. Automated exposure control was utilized for the study. A dose lowering technique was utilized adhering to the principles of ALARA. FINDINGS: No acute intracranial hemorrhage is present. Extensive calcifications within the right MCA territory are noted with adjacent hypodensity. These calcifications are predominantly gyral in distribution. The appearance is unchanged since head CT of November 30, 2023. The extent of calcifications has increased since CT of March 26, 2023. There is mild mass effect with mild karmen criss right lateral ventricle and minimal leftward midline shift. This is stable. Basal cisterns are patent. There are no axial collections. The appearance of the brain is unchanged since head CT of November 30, 2023. No acute calvarial fracture is present. C the sinuses largely opacified. This is chronic. IMPRESSION: 1. No acute intracranial hemorrhage. No acute calvarial fracture. 2. Extensive right MCA distribution calcifications with adjacent hypodensity. The CT appearance is nonspecific although favor extensive laminar necrosis in the setting of a chronic MCA infarct. Given mild mass effect, the less likely possibility of a neoplastic process cannot be excluded and therefore continued imaging follow-up is recommended. XR chest 1V portable CLINICAL HISTORY: trauma COMPARISON STUDY: Chest CT December 27, 2010. Chest radiograph November 30, 2023. FINDINGS: A loop recorder is noted. Cardiomegaly is unchanged. There is no evidence for pulmonary edema. There is no pneumothorax or pleural effusion. Pulmonary vascularity is normal. Skin folds project over the left chest. IMPRESSION: No acute cardiopulmonary findings. No change in appearance of the chest. XR pelvis 1-2V routine CLINICAL HISTORY: trauma COMPARISON: CT of the abdomen and pelvis May 17, 2023. FINDINGS: There is no acute fracture within the pelvis or hips. Exam is mildly compromised given difficulty positioning. 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 IMPRESSION: 1. No acute fractures within the pelvis or hips. 2. 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 Medications Administered ER Medications Given: Normal saline @ 125ml/hr ECG Rate (beats per minute): 59 Rhythm: sinus bradycardia Findings: + RBBB Comparison ECG Date: from (Nov 30, 2023) Change: no significant change Code Status & VTE Plan Code Status Full VTE Prophylaxis Plan VTE Prophylaxis will be ordered: Yes PG Care Time/CCT Total # of Minutes Spent Total Time Spent with Patient: Total time spent is greater than 50% in coordination of care (as documented) at patient's floor/unit and/or counseling patient: Coding Level of Care Code 95130 INT INP/OBS CARE 3/75MIN Diagnoses Myxedema coma E03.5 Fall W19.XXXA Abrasion, hand w/o infection S60.519A Sacral decubitus ulcer L89.159 Feeding by G-tube Z93.1 Prolactinoma D35.2 History of right MCA stroke Z86.73 Hypertension I10
[2023-12-01] MEDS: HYDROCORTISONE SOD SUCCINATE 100 MG/2 ML VIAL IV ONE (19:34)
[2023-12-01] MEDS: LEVOTHYROXINE SODIUM 200 MCG in SYRINGE 0 ML IV ONE (19:44)
[2023-12-01] MEDS: DOXAZOSIN MESYLATE 1 MG TAB GT SCH (22:32)
[2023-12-01] MEDS: PRAVASTATIN SOD 20 MG TAB PO SCH (22:32)
[2023-12-01] MEDS: HEPARIN SOD 5,000 UNIT/0.5 ML VIAL SQ SCH (22:42)
[2023-12-01] MEDS: TUBE FEEDING WATER FLUSH GT SCH (22:56)
[2023-12-02] MEDS: HYDROCORTISONE SOD 100 MG in SYRINGE 0 ML IV SCH (04:33)
[2023-12-02 07:10] LABS: Basophils # (auto) 0.01 K/uL (0.00-0.20); Basophils % (auto) 0.2 %; Eosinophils # (auto) 0.01 K/uL (0.00-0.50); Eosinophils % (auto) 0.2 %; Hematocrit (blood only) 30.5 % (42.0-52.0); Hemoglobin 10.7 g/dl (14.0-18.0); Immature Granulocytes # (auto) 0.03 K/uL (0.01-0.20); Immature Granulocytes % (auto) 0.6 %; Lymphocytes # (auto) 0.55 K/uL (1.20-3.40); Lymphocytes % (auto) 11.8 %; Mean Corpuscular Hemoglobin 33.8 pg (25.0-34.0); Mean Corpuscular Hgb Conc 35.1 g/dL (32.0-36.0); Mean Corpuscular Volume 96.2 fL (80.0-100.0); Mean Platelet Volume 8.6 fL (9.4-12.4); Monocytes # (auto) 0.24 K/uL (0.11-0.59); Monocytes % (auto) 5.1 %; Neutrophils # (auto) 3.83 K/uL (1.40-6.50); Neutrophils % (auto) 82.1 %; Platelet Count 227 K/uL (130-400); RDW Coefficient of Variation 13.4 % (11.5-14.5); RDW Standard Deviation 47.6 fL (36.4-46.3); Red Blood Count 3.17 M/uL (4.70-6.10); White Blood Count 4.67 K/ul (4.8-10.8)
[2023-12-02 07:37] LABS: Albumin Globulin Ratio 1.6 (0.9-2); Albumin Level 3.2 gm/dl (3.4-5.0); BUN Creatinine Ratio 33.9 (10-20); Bilirubin,Total 0.5 mg/dl (0.2-1.0); Calcium 8.2 mg/dl (8.6-10.3); Creatinine Clr Calc Pharmacy 98.6 ml/min; Est GFR (African American) 109.3 ml/min; Est GFR (Non-African American) 94.3 ml/min; Potassium 3.5 mmol/L (3.5-5.1); Total Protein 5.2 gm/dl (6.0-8.3)
[2023-12-02] MEDS: ASPIRIN 81 MG CHEW GT SCH (09:13)
[2023-12-02] MEDS: LEVOTHYROXINE SODIUM 100 MCG in SYRINGE 0 ML IV SCH (09:20)
[2023-12-02] MEDS: LACTATED RINGER'S 500 ML IV ONE (13:45)
--- NOTE | 2023-12-02 14:47 | Hospitalist Progress Note ---
Date of Service December 02, 2023 Assessment & Plan (1) Myxedema coma: Plan: He has not had hypothermia, however has hypotension, hyponatremia, fatigue so will proceed with treatment with IV levothyroxine. I did not see him 12/01 but his mental status is same as I can recall when I saw him late September. He has had slow decline in his functional status and it is hard to say how much that is attributable to hypothyroidism in the setting of his advanced age and other chronic medical problems. His was unsure how to give the levothyroxine prescribed in October as he is always on tube feeds and she was advised to give it before the tube feeds which would mean the middle of the night therefore never ended up giving to him Discussed plan of care by phone with filler sifter machine Dr. Sierra - recommended the following: continue hydrocortisone 100mg IV q8h - can be tapered rapidly - decrease to 50 IV q8h tomorrow. Random cortisol in afternoon of admission was 14 given 200mcg IV levothyroxine at admission 100 mcg IV today, recommended decreasing to 50 mg IV daily for few more days then starting 100 mcg per gtube daily (ordered) -dosing can be adjusted around the absorption issues with the tube feeding (ie no need to hold feeds), as long as given at a consistent time of day -follow TSH and adjust gtube dosing accordingly (2) Fall: Plan: PT/OT (3) Abrasion, hand w/o infection: Plan: Multiple without surrounding cellulitis seen (4) Sacral decubitus ulcer: Plan: No surrounding cellulitis Wound care nurse consult (5) Feeding by G-tube: Plan: Consult dietary for tube feeds Is tube feed dependent and NPO because of dysphagia from previous stroke (6) Prolactinoma: Plan: Continue cabergoline Dr. Sierra noted that his cabergoline dose is very high and this medication is usually only needed for about 5 years. Recommended obtaining further history / following up with outpatient filler sifter machine and dose reduction as outpatient (7) History of right MCA stroke: Plan: Baseline L facial droop, LUE LLE weakness Continue aspirin and pravastatin (8) Hypertension: Plan: Hold HCTZ Currently mildly hypotensive and 500 mL LR ordered -AM CBC and BMP ordered Plan VTE Prophylaxis - heparin 5000 units SQ BID Diet - NPO, tube feeding Disposition - admit to med/tele Care coordination consulted, PT/OT ordered Mr. Smith has had multiple admissions and the usual pattern has been that his states she cannot care for him at home, but later refuses placement and takes him home Their son is an RN in [facility][note 3] and is supportive Placement would be appropriate if she would agree to it Admission and Anticipated Discharge Date Admission Date: December 01, 2023 Pastora Holt is awake, seen in ED this am. He denies chest or abdominal pain, nausea, dysuria. Says he fell because "my legs gave out" Physical Exam 2 Physical Exam: PHYSICAL EXAMINATION Last 24h vital signs reviewed, see documentation in flowsheet General: comfortable appearing, no distress HEENT: Normocephalic, atraumatic, pupils round and equal, sclerae anicteric, no conjunctival injection, moist mucus membranes Lungs: Normal respiratory effort. Clear to auscultation bilaterally. No RRW Heart: Regular rate and rhythm, no murmurs. No JVD Abdomen: Soft, nontender, nondistended. Bowel sounds present. Extremities: Warm, dry, well-perfused. 1+ extremity edema. Neuro: Alert and oriented x self and basic situation of hospital, face symmetric, L sided weakness and facial droop at baseline Psych: Normal affect and behavior Results & Data Results & Data Vital Signs (Past 12 Hours) Vital Signs Pulse Resp BP Pulse Ox O2 Del Method 12/02/23 13:00 54 L 14 86/57 L 94 Room Air 12/02/23 12:00 53 L 14 90/59 L 94 Room Air 12/02/23 11:00 57 L 19 105/65 93 Room Air 12/02/23 10:00 57 L 16 99/64 L 93 Room Air 12/02/23 09:42 65 12 119/73 93 Room Air 12/02/23 09:00 58 L 14 88/60 L 95 Room Air 12/02/23 08:00 60 18 113/65 95 Room Air 12/02/23 08:00 76/58 L 12/02/23 07:44 62 12/02/23 07:00 78 17 127/73 92 12/02/23 06:50 77 16 94 12/02/23 06:40 79 13 94 12/02/23 06:30 75 8 L 94 12/02/23 06:20 64 7 L 94 12/02/23 06:10 66 93 12/02/23 06:00 61 96 12/02/23 06:00 63 12 90/64 L 96 12/02/23 05:50 63 96 12/02/23 05:40 66 93 12/02/23 05:30 65 4 L 94 12/02/23 05:20 69 4 L 94 12/02/23 05:10 87 27 H 96 12/02/23 05:00 82 14 95 12/02/23 05:00 79 12 93/71 L 95 12/02/23 04:57 83/59 L 12/02/23 04:57 79 12 95 12/02/23 04:50 80 18 96 12/02/23 04:40 70 15 95 12/02/23 04:30 76 5 L 94 12/02/23 04:20 77 10 L 93 12/02/23 04:10 82 17 94 12/02/23 04:00 77 16 94 12/02/23 04:00 85/62 L 12/02/23 03:50 80 18 95 12/02/23 03:40 77 13 94 12/02/23 03:30 75 13 96 12/02/23 03:20 57 L 5 L 92 12/02/23 03:10 55 L 13 96 12/02/23 03:00 75 15 129/77 94 12/02/23 03:00 75 15 94 12/02/23 02:50 55 L 13 96 Laboratory Results 12/02/23 06:21 12/02/23 06:21 PG Care Time/CCT Total # of Minutes Spent Total Time Spent with Patient: Total time spent is greater than 50% in coordination of care (as documented) at patient's floor/unit and/or counseling patient: Coding Level of Care Code 67471 SUB INP/OBS CARE 3/50MIN Diagnoses Myxedema coma E03.5 Fall W19.XXXA Abrasion, hand w/o infection S60.519A Sacral decubitus ulcer L89.159 Feeding by G-tube Z93.1 Prolactinoma D35.2 History of right MCA stroke Z86.73 Hypertension I10
[2023-12-02] MEDS: TUBE FEEDING WATER FLUSH PEG SCH (16:08)
[2023-12-03] MEDS: HYDROCORTISONE SOD 50 MG in SYRINGE 0 ML IV SCH (05:53)
[2023-12-03 06:30] LABS: Hematocrit (blood only) 30.9 % (42.0-52.0); Hemoglobin 10.8 g/dl (14.0-18.0); Mean Corpuscular Hemoglobin 33.4 pg (25.0-34.0); Mean Corpuscular Volume 95.7 fL (80.0-100.0); Mean Platelet Volume 8.5 fL (9.4-12.4); Platelet Count 230 K/uL (130-400); RDW Coefficient of Variation 13.5 % (11.5-14.5); Red Blood Count 3.23 M/uL (4.70-6.10); White Blood Count 5.98 K/ul (4.8-10.8)
[2023-12-03 06:56] LABS: Calcium 8.7 mg/dl (8.6-10.3); Creatinine Clr Calc Pharmacy 93.6 ml/min; Est GFR (Non-African American) 92.3 ml/min; Potassium 3.8 mmol/L (3.5-5.1)
[2023-12-03] MEDS ORDERED: HYDROCORTISONE SOD 50 MG in SYRINGE 0 ML IV SCH (07:00)
[2023-12-03] MEDS: FINASTERIDE 5 MG TAB PO SCH (07:46)
[2023-12-03] MEDS: MULTI VIT W/MINERALS LIQUID 15 ML UDC PEG SCH (07:46)
[2023-12-03] MEDS: LEVOTHYROXINE SODIUM 50 MCG in SYRINGE 0 ML IV SCH (09:37)
[2023-12-03] MEDS: EUCERIN CR 120 GM JAR EXT SCH (21:38)
--- NOTE | 2023-12-04 06:27 | Hospitalist Progress Note ---
Date of Service December 03, 2023 Assessment & Plan (1) Hypothyroidism: Plan: SEVERE presenting TSH >100 has been hypothyroid dating back several years with progressively worsening TSH during last hospitalization it was recommended he start on synthroid it was prescribed, but it was not given to him at home either way he desperately needs Rx - see #2 below (2) Myxedema coma: Plan: He has not had hypothermia. However he did have hypotension at admission (now improved). Also with hyponatremia, severe fatigue, etc. Dr Johnson spoke with endocrinology, Dr Sierra. Although he doesn't meet the strict definition of "myxedema coma" will treat as such as follows - * continue hydrocortisone taper - decrease to 50 IV q8h today, then 25mg q8h tomorrow, then continue wean * s/p 200mcg IV levothyroxine at admission, then 100 mcg IV on 12/02, then 50 mcg IV daily starting today for 2-3 days, then stop * starting synthroid 100mcg via g-tube daily * repeat TSH in ~4 weeks * will need endo f/u post-discharge given the severity of his disease (3) Fall: Plan: cont PT/OT (4) Abrasion, hand w/o infection: Plan: noted (5) Sacral decubitus ulcer: Plan: No surrounding cellulitis Wound care nurse consult appreciated (6) Feeding by G-tube: Plan: cont enteral feedings as advised by nutrition (7) Prolactinoma: Plan: Continue cabergoline Dr. Sierra noted that his cabergoline dose is very high and this medication is usually only needed for about 5 years. Recommended obtaining further history / following up with outpatient steward/stewardess tourist class and dose reduction as outpatient (8) History of right MCA stroke: Plan: Baseline L facial droop, LUE LLE weakness, dysarthria, dysphagia Continue aspirin and pravastatin for secondary prevention (9) Hypertension: Plan: Holding HCTZ Was hypotensive at presentation due to #1/#2 (10) Hyponatremia: Plan: likely 2nd to severe hypothyroidism improving over the last few days repeat BMP am (11) Hyperglycemia: Plan: check a1c in am Plan VTE Prophylaxis - heparin 5000 units SQ BID PT/OT both recommending rehab post-discharge Mr. Smith has had multiple admissions and the usual pattern has been that his states she cannot care for him at home, but later refuses placement and takes him home Their son is an RN in [facility] and is supportive Placement to be recommended Admission and Anticipated Discharge Date Admission Date: December 01, 2023 Subjective patient sleeping upon arrival he awoke to his name being called it was very difficult to understand him - speech was severely dysarthric it was difficult to obtain a history or ROS Review of Systems Review of Systems: Unobtainable due to cognitive status and Other (dysarthric speech, patient very sleepy as well ) Physical Exam Physical Exam: gen - thin, sleepy; he awoken during the visit, then fell back asleep while e xamining him mouth - MM very dry, dried matter on oral mucosa heart - heart tones distant, RRR lungs - CTA b/l neck - no obvious thyroid nodule; no tenderness abd - soft NT ND BS+; PEG tube site clean ext - no edema, pulses 2+ b/l neuro - dysarthric speech Results & Data Results & Data Vital Signs (Past 12 Hours) Vital Signs 12/03/23 15:15 36.5 C 48 L 18 134/72 12/03/23 14:56 44 L 12/03/23 10:35 37.1 C 47 L 12 118/62 12/03/23 08:56 37.0 C 53 L 16 138/71 Laboratory Results Laboratory Results - last 24 hr 12/03/23 12/03/23 12/03/23 06:00 12:00 16:48 WBC 5.98 RBC 3.23 L Hgb 10.8 L Hct 30.9 L MCV 95.7 MCH 33.4 MCHC 35.0 RDW Std Deviation 48.0 H RDW Coeff of Alison 13.5 Plt Count 230 MPV 8.5 L Sodium 133 L Potassium 3.8 Chloride 101 Carbon Dioxide 26 Anion Gap 6 BUN 23 Creatinine 0.59 L Est Cr Clr Drug Dosing 93.6 Est GFR ( Amer) 107.0 Est GFR (Non-Af Amer) 92.3 BUN/Creatinine Ratio 39.0 H Glucose 159 H POC Glucose 191 H 182 H Calcium 8.7 12/03/23 17:14 WBC RBC Hgb Hct MCV MCH MCHC RDW Std Deviation RDW Coeff of Alison Plt Count MPV Sodium Potassium Chloride Carbon Dioxide Anion Gap BUN Creatinine Est Cr Clr Drug Dosing Est GFR ( Amer) Est GFR (Non-Af Amer) BUN/Creatinine Ratio Glucose POC Glucose 186 H Calcium PG Care Time/CCT Total # of Minutes Spent Total Time Spent with Patient: Total time spent is greater than 50% in coordination of care (as documented) at patient's floor/unit and/or counseling patient: Coding Level of Care Code 88562 SUB INP/OBS CARE 2/35MIN Diagnoses Hypothyroidism E03.9 Myxedema coma E03.5 Fall W19.XXXA Abrasion, hand w/o infection S60.519A Sacral decubitus ulcer L89.159 Feeding by G-tube Z93.1 Prolactinoma D35.2 History of right MCA stroke Z86.73 Hypertension I10 Hyponatremia E87.1 Hyperglycemia R73.9
[2023-12-04 09:16] LABS: Calcium 8.3 mg/dl (8.6-10.3); Potassium 3.9 mmol/L (3.5-5.1)
[2023-12-04 09:22] LABS: BUN Creatinine Ratio 41.5 (10-20); Creatinine Clr Calc Pharmacy 104.2 ml/min; Est GFR (African American) 111.8 ml/min; Est GFR (Non-African American) 96.5 ml/min
[2023-12-04 09:32] LABS: Estimated Average Glucose 123 mg/dl; Hemoglobin A1C 5.9 % (4.5-5.6)
[2023-12-04] MEDS: HYDROCORTISONE SOD 25 MG in SYRINGE 0 ML IV SCH (11:19)
--- NOTE | 2023-12-04 20:46 | Hospitalist Progress Note ---
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 However he did have hypotension at admission (now improved). Also with hyponatremia, severe fatigue, etc. Hospitalist Dr Johnson spoke with endocrinology, Dr Sierra. Although he doesn't meet the strict definition of "myxedema coma" will treat as such as follows - * continue hydrocortisone taper - decrease to 25 IV q8h today, then 25mg BID tomorrow, then continue wean * s/p 200mcg IV levothyroxine at admission, then 100 mcg IV on 12/02, then 50 mcg IV daily starting today for 3 days, then stop * cont synthroid 100mcg via g-tube daily * repeat TSH in ~4 weeks * will need endo f/u post-discharge given the severity of his disease (3) Acute metabolic encephalopathy: Plan: likely 2nd to #1, #2 will check ammonia level in am to complete along with VBG check COVID PCR check MRI brain - r/o new subacute CVA contributing to recent falls & his presentation (4) Fall: Plan: multiple likely 2nd to #1, #2 cont PT/OT (5) Abrasion, hand w/o infection: Plan: noted (6) Sacral decubitus ulcer: Plan: No surrounding cellulitis Wound care nurse consult and recs appreciated (7) Feeding by G-tube: Plan: cont enteral feedings as advised by nutrition (8) Prolactinoma: Plan: Continue cabergoline Dr. Sierra noted that his cabergoline dose is very high and this medication is usually only needed for about 5 years. Recommended obtaining further history / following up with outpatient loan servicing officer and dose reduction as outpatient (9) History of right MCA stroke: Plan: Baseline L facial droop, LUE LLE weakness, dysarthria, dysphagia Continue aspirin and pravastatin for secondary prevention Consider MRI brain (10) Hypertension: Plan: Holding HCTZ Was hypotensive at presentation due to #1/#2 and remains orthostatic as noted by PT yesterday (11) Hyponatremia: Plan: likely 2nd to severe hypothyroidism improving over the last few days repeat BMP am (12) Stage III pressure ulcer of buttock: Plan: Stage III pressure ulcer to the left lower medial buttock & sacrum (13) Prediabetes: Plan: a1c 5.9% very mild preDM with the hydrocortisone use his BSGs will be higher BSGs are acceptable, however, at this time Plan VTE Prophylaxis - cont heparin 5000 units SQ BID PT/OT both recommending rehab post-discharge I updated pt's son (who is an ER nurse in [employer]) extensively by phone this evening he will let his mother know that I called w/ update but I did tell him I would call her tomorrow sometime personally Admission and Anticipated Discharge Date Admission Date: December 01, 2023 Subjective patient lethargic during the visit difficult to understand his speech only complaint is that of feeling cold and asked for additional blankets otherwise difficult to get any meaningful history or ROS worked with PT/OT yesterday - was mildly orthostatic Review of Systems Review of Systems: Unobtainable due to cognitive status Physical Exam Physical Exam: gen - thin, very sleepy, speech very low-pitched and severe dysarthria mouth - MM very dry, dried matter on oral mucosa heart - heart tones distant, RRR, no murmur lungs - CTA b/l abd - mildly distended, BS+, NT; PEG tube site clean ext - no edema, pulses 2+ b/l neuro - dysarthric speech - severe - unchanged Results & Data Results & Data Vital Signs (Past 12 Hours) Vital Signs Temp Pulse Pulse Pulse Resp BP Pulse Ox 12/04/23 19:41 37 C 55 L 16 132/70 95 12/04/23 15:07 36.3 C L 53 L 18 137/68 94 12/04/23 15:01 56 L 12/04/23 11:42 36.5 C 50 L 16 136/69 94 O2 Del Method 12/04/23 19:41 Room Air 12/04/23 15:07 Room Air 12/04/23 15:01 12/04/23 11:42 Room Air Laboratory Results Laboratory Results - last 24 hr 12/04/23 12/04/23 12/04/23 08:10 11:54 18:58 Sodium 134 L Potassium 3.9 Chloride 103 Carbon Dioxide 26 Anion Gap 5 BUN 22 Creatinine 0.53 L Est Cr Clr Drug Dosing 104.2 Est GFR ( Amer) 111.8 Est GFR (Non-Af Amer) 96.5 BUN/Creatinine Ratio 41.5 H Glucose 163 H POC Glucose 178 H 158 H Estimat Average Glucose 123 Hemoglobin A1c 5.9 H Calcium 8.3 L PG Care Time/CCT Total # of Minutes Spent Total Time Spent with Patient: Total time spent is greater than 50% in coordination of care (as documented) at patient's floor/unit and/or counseling patient: Coding Level of Care Code 49447 SUB INP/OBS CARE 3/50MIN Diagnoses Hypothyroidism E03.9 Myxedema coma E03.5 Acute metabolic encephalopathy G93.41 Fall W19.XXXA Abrasion, hand w/o infection S60.519A Sacral decubitus ulcer L89.159 Feeding by G-tube Z93.1 Prolactinoma D35.2 History of right MCA stroke Z86.73 Hypertension I10 Hyponatremia E87.1 Stage III pressure ulcer of buttock L89.303 Prediabetes R73.03
[2023-12-05] MEDS: LEVOTHYROXINE SODIUM 100 MCG TABLET GT SCH (05:53)
[2023-12-05 06:08] LABS: Base Excess VBG 2.8 mEq/L; HCO3 VBG 27 mmol/L; Oxygen Saturation VBG 91.4 %; PCO2 VBG 40 mmHg (38-50); PO2 VBG 60 mmHg; pH VBG 7.44 (7.36-7.41)
[2023-12-05 06:30] LABS: Calcium 8.1 mg/dl (8.6-10.3)
[2023-12-05 06:36] LABS: BUN Creatinine Ratio 38.2 (10-20); Creatinine Clr Calc Pharmacy 100.4 ml/min; Est GFR (African American) 110.1 ml/min
[2023-12-05] MEDS: SENNOSIDES 8.8 MG/5 ML UDC PEG SCH (09:39)
[2023-12-05] MEDS: LACTULOSE SYRUP 20 GM/30 ML UDC PEG SCH (09:40)
[2023-12-05] MEDS: FINASTERIDE 5 MG TAB PEG SCH (09:42)
[2023-12-05 11:58] LABS: Influenza A virus by PCR Negative (Neg); Influenza B virus by PCR Negative (Neg); RSV by PCR Negative (Neg); SARS CoV2 RNA(COVID-19) Ceph NEGATIVE (Negative)
[2023-12-05] MEDS: bisacodyL 10 MG SUPP PR STA (15:51)
[2023-12-05] MEDS: HYDROCORTISONE SOD 25 MG in SYRINGE 0 ML IV SCH (15:53)
--- NOTE | 2023-12-05 17:35 | Magnetic Resonance Report ---
MRI OF THE BRAIN WITHOUT IV CONTRAST CLINICAL HISTORY: Lethargy. COMPARISON STUDY: CT of the brain dated 12/01/2023 and 03/26/2023. TECHNIQUE: MRI of the brain was performed utilizing various T1 and T2-weighted sequences in the axial , sagittal, and coronal planes. IV contrast was not administered for this examination. FINDINGS: Brain parenchyma: There is a large region of signal abnormality seen involving the right temporal, pa rietal, and occipital cortex. This shows restricted diffusion, mass effect with effacement of the rig ht lateral ventricle, and extensive cortical calcification as seen on the recent CT scan. The region of signal abnormality and calcification has noticeably increased in size as compared to 03/26/2023, and there is surrounding edema. FLAIR signal extends in the posterior aspect of the corpus callosum. The re is moderate microangiopathic change. No hemorrhage is identified. No extra-axial fluid collection is seen. The cerebellar tonsils are normal in configuration. Ventricles, sulci, and cisterns: Prominent secondary to involutional change. Pituitary and sella: Unremarkable. Intracranial vasculature: Normal flow voids are maintained at the skull base. Orbits: The bony orbits are grossly intact. Orbital contents are normal in appearance living bilatera l ocular lens implants. Sinuses and mastoids: There is mild mucosal thickening left maxillary sinus, the left ethmoid sinuses , and sphenoid sinuses. There are trace mastoid effusions. Calvarium: Unremarkable. Cervical cord: Partially visualized cervical spinal cord is normal in morphology and signal intensity . IMPRESSION: 1. There is a large region of signal abnormality with associated mass effect and cortical calcificati on seen involving the right temporal, parietal, and occipital cortex as above. Abnormal signal also i nvolves the posterior aspect of the corpus callosum. There is restricted diffusion in this region, an d although this could potentially represent acute on chronic ischemia with laminar necrosis, the appe arance is more suspicious for underlying glial neoplasm given the atypical appearance, the involvemen t of at least 2 vascular territories, and the increase in size of the calcification-containing compon ent when compared to the 03/26/2023 examination. 2. There is no hemorrhage or midline shift. 3. No similar-appearing foci of signal abnormality are seen throughout the left hemisphere. ACT 112: Negative or not required by law. Electronically signed by: Alfonso Elliott M.D. 12/05/2023 5:34 PM
--- NOTE | 2023-12-05 19:37 | Hospitalist Progress Note ---
Date of Service December 05, 2023 Assessment & Plan (1) Abnormal brain MRI: Plan: in 03/2023 imaging of the brain was initially concerning for a right-sided brain tumor he was transferred to [facility] where it was felt that his imaging was most c/w right sided MCA territory stroke with hemorrhage he was treated for stroke, had PEG placed, etc MRI brain was obtained today due to the frequency of his falls at home, severe weakness/fatigue/lethargy, etc. see MRI brain report in this progress note the MRI is concerning for either acute on chronic CVAs on the right side VS a glial based brain tumor with latter favored by radiology there is surrounding brain edema I made Mr Smith, his son, and his aware of the MRI findings from today in the event this is indeed a brain tumor with surrounding edema will change hydrocortisone IV to dexamethasone 4mg IV BID I had [place] correspondence with Dr Coronado from [facility] who will see in consult tomorrow Mr Smith will likely need transfer to tertiary care in light of the concern that his right sided findings are from a brain tumor of note - there has been no obvious seizure activity seen at any point while hospitalized (2) Hypothyroidism: Plan: SEVERE presenting TSH >100 has been hypothyroid dating back several years with progressively worsening TSH during last hospitalization it was recommended he start on synthroid it was prescribed, but it was not given to him at home either way many of his presenting symptoms can be attributed to severely decompensated hypothyroidism (cold intolerance, fatigue, muscle weakness, constipation, etc) see #3 below (3) Myxedema coma: Plan: He has not had hypothermia. However he did have hypotension at admission (now improved). Also with hyponatremia, severe fatigue, etc. Hospitalist Dr Johnson spoke with endocrinology, Dr Sierra. Although he doesn't meet the strict definition of "myxedema coma" he was treated as such given the severity of his presentation * he has been on hydrocortisone taper since admission; due to #1 the hydrocortisone today was changed to dexamethasone * s/p 200mcg IV levothyroxine at admission, then 100 mcg IV on 12/02, then 50 mcg IV daily x 3 days, then stop * cont synthroid 100mcg via g-tube daily * repeat TSH in ~4 weeks * [facility] given the severity of his disease (4) Acute metabolic encephalopathy: Plan: 2nd to #1, #2, #3 ammonia level wnl VBG w/o elevated CO2 COVID/flu/RSV negative see discussion above in #1, #2, #3 mentation HAS improved with Rx of hypothyroidism suspect the steroids have helped his cerebral edema as well (5) Fall: Plan: multiple at home leading up to this admission likely 2nd to #1, #2 cont PT/OT (6) Abrasion, hand w/o infection: Plan: no issues (7) Sacral decubitus ulcer: Plan: No surrounding cellulitis Wound care nurse consult and recs appreciated (8) Feeding by G-tube: Plan: cont enteral feedings as advised by nutrition (9) Prolactinoma: Plan: Continue cabergoline Dr. Sierra noted that his cabergoline dose is very high and this medication is usually only needed for about 5 years. Recommended obtaining further history / following up with outpatient early childhood associate teacher and dose reduction as outpatient of note - MRI brain with normal pituitary gland and sella likely that the cabergoline can be stopped in the future (10) History of right MCA stroke: Plan: hospitalized [facility] 03/2023 see discussion above in #1 Baseline L facial droop, LUE LLE weakness, dysarthria, dysphagia Continue aspirin and pravastatin for secondary prevention (11) Hypertension: Plan: Holding HCTZ Was hypotensive at presentation and BPs are soft at times still (12) Hyponatremia: Plan: likely 2nd to severe hypothyroidism 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) Na level stable today BMP am (13) Stage III pressure ulcer of buttock: Plan: Stage III pressure ulcer to the left lower medial buttock & sacrum cont wound care as recommended by wound care team (14) Prediabetes: Plan: a1c 5.9% very mild preDM with the steroids his BSGs will be higher BSGs are acceptable, however, at this time Plan VTE Prophylaxis - cont heparin 5000 units SQ BID PT/OT both recommending rehab post-discharge but the findings on brain MRI today may necessitate transfer to [facility] care d/w Dr Coronado by [place] care d/w pt's son Alfonso by phone care d/w pt's by phone very complex care coordination today multiple phone calls extensive chart review total time today on care activities about 80 min Admission and Anticipated Discharge Date Admission Date: December 01, 2023 Subjective no events overnight per staff he sat in the chair for a while today tolerating tube feedings w/o residuals, emesis, etc during the visit he was more awake/alert today than prior exams speech still severely dysarthric but he was asking questions today and was more interactive he still remains very tired/weak and cold - asks for more blankets again we discussed his MRI findings and what the plan will be for this Review of Systems Review of Systems: neuro - denies headache; denies any change in motor strength b/l (left leg is weaker than right leg - chronic) cv - no cp, no orthopnea pulm - no dyspnea gen - tired/weak/fatigued GI - ongoing constipation - he declined suppository today Physical Exam Physical Exam: gen - thin, more awake/alert/interactive today; severe dysarthria remains with lower L facial droop mouth - MM very dry heart - heart tones distant, RRR, no murmur lungs - CTA b/l abd - mild-moderately distended, BS+, NT; PEG tube site clean ext - no edema, pulses 2+ b/l neuro - dysarthric speech - severe - unchanged; strength legs - 5/5 R hip flexion, 4-5/5 L hip flexion; handgrip near 5/5 on left, 5/5 on right; generalized muscle atrophy of facial muscles, legs/arms Results & Data Results & Data Vital Signs (Past 12 Hours) Vital Signs Temp Pulse Pulse Resp BP Pulse Ox O2 Del Method 12/05/23 15:51 36.6 C 52 L 14 106/57 L 95 Room Air 12/05/23 15:20 68 12/05/23 11:36 36.7 C 55 L 17 131/77 95 Room Air 12/05/23 07:52 36.9 C 69 20 157/77 H 97 Room Air Laboratory Results Laboratory Results - last 24 hr 12/05/23 12/05/23 12/05/23 00:26 05:46 06:25 VBG pH 7.44 H VBG pCO2 40 VBG pO2 60 VBG HCO3 27 VBG O2 Saturation 91.4 VBG Base Excess 2.8 Sodium 136 Potassium 4.0 Chloride 105 Carbon Dioxide 27 Anion Gap 4 BUN 21 Creatinine 0.55 L Est Cr Clr Drug Dosing 100.4 Est GFR ( Amer) 110.1 Est GFR (Non-Af Amer) 95.0 BUN/Creatinine Ratio 38.2 H Glucose 134 H POC Glucose 149 H 150 H Calcium 8.1 L Ammonia 37.0 SARS-CoV-2 (PCR) Influenza Type A (PCR) Influenza Type B (PCR) RSV (RT-PCR) 12/05/23 12/05/23 10:00 17:18 VBG pH VBG pCO2 VBG pO2 VBG HCO3 VBG O2 Saturation VBG Base Excess Sodium Potassium Chloride Carbon Dioxide Anion Gap BUN Creatinine Est Cr Clr Drug Dosing Est GFR ( Amer) Est GFR (Non-Af Amer) BUN/Creatinine Ratio Glucose POC Glucose 107 H Calcium Ammonia SARS-CoV-2 (PCR) NEGATIVE Influenza Type A (PCR) Negative Influenza Type B (PCR) Negative RSV (RT-PCR) Negative Diagnostic Findings Brain MRI 12/05/23 07:16 MRI OF THE BRAIN WITHOUT IV CONTRAST CLINICAL HISTORY: Lethargy. COMPARISON STUDY: CT of the brain dated 12/01/2023 and 03/26/2023. TECHNIQUE: MRI of the brain was performed utilizing various T1 and T2-weighted sequences in the axial, sagittal, and coronal planes. IV contrast was not administered for this examination. FINDINGS: Brain parenchyma: There is a large region of signal abnormality seen involving the right temporal, parietal, and occipital cortex. This shows restricted diffusion, mass effect with effacement of the right lateral ventricle, and extensive cortical calcification as seen on the recent CT scan. The region of signal abnormality and calcification has noticeably increased in size as compared to 03/26/2023, and there is surrounding edema. FLAIR signal extends in the posterior aspect of the corpus callosum. There is moderate microangiopathic change. No hemorrhage is identified. No extra-axial fluid collection is seen. The cerebellar tonsils are normal in configuration. Ventricles, sulci, and cisterns: Prominent secondary to involutional change. Pituitary and sella: Unremarkable. Intracranial vasculature: Normal flow voids are maintained at the skull base. Orbits: The bony orbits are grossly intact. Orbital contents are normal in appearance living bilateral ocular lens implants. Sinuses and mastoids: There is mild mucosal thickening left maxillary sinus, the left ethmoid sinuses, and sphenoid sinuses. There are trace mastoid effusions. Calvarium: Unremarkable. Cervical cord: Partially visualized cervical spinal cord is normal in morphology and signal intensity. IMPRESSION: 1. There is a large region of signal abnormality with associated mass effect and cortical calcification seen involving the right temporal, parietal, and occipital cortex as above. Abnormal signal also involves the posterior aspect of the corpus callosum. There is restricted diffusion in this region, and although this could potentially represent acute on chronic ischemia with laminar necrosis, the appearance is more suspicious for underlying glial neoplasm given the atypical appearance, the involvement of at least 2 vascular territories, and the increase in size of the calcification-containing component when compared to the 03/26/2023 examination. 2. There is no hemorrhage or midline shift. 3. No similar-appearing foci of signal abnormality are seen throughout the left hemisphere. ACT 112: Negative or not required by law. Electronically signed by: Alfonso Elliott M.D. 12/05/2023 5:34 PM PG Care Time/CCT Total # of Minutes Spent Total Time Spent with Patient: Total time spent is greater than 50% in coordination of care (as documented) at patient's floor/unit and/or counseling patient: Prolonged Care Time Prolonged Care Time: Yes Total Prolonged Care Time: 80 Coding Level of Care Code 65145 SUB INP/OBS CARE 3/50MIN (25 - SIGNIFICANT, SEPARATELY IDENTIFIABLE ) Diagnoses Abnormal brain MRI R90.89 Hypothyroidism E03.9 Myxedema coma E03.5 Acute metabolic encephalopathy G93.41 Fall W19.XXXA Abrasion, hand w/o infection S60.519A Sacral decubitus ulcer L89.159 Feeding by G-tube Z93.1 Prolactinoma D35.2 History of right MCA stroke Z86.73 Hypertension I10 Hyponatremia E87.1 Stage III pressure ulcer of buttock L89.303 Prediabetes R73.03 Additional Codes Prolonged Care Time - Prolonged Care Time: Yes ([id number])
[2023-12-05] MEDS: dexAMETHasone 4 MG in SYRINGE 0 ML IV SCH (20:08)
--- NOTE | 2023-12-06 10:31 | Neurology Consultation ---
Date of Consultation December 06, 2023 Assessment & Plan (1) Abnormal brain MRI: (2) Hypothyroidism: (3) Acute metabolic encephalopathy: Plan This patient has an abnormal MRI of the brain consistent, most likely, with glioma. With the calcifications, edema pattern, and timeframe, this does not consistent with stroke. I reviewed these films with Dr. Mcdonough, radiology, who agrees. He has left hemiparesis arm greater than leg and dysarthria. 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 The MRI changes across vascular territories in multiple places and seem to be extending into the corpus callosum. This is reminiscent of glioma. Patient has significant hypothyroidism with weakness and fatigue as well as cold feelings. I see no skin myxedema. The patient has some encephalopathy or mild underlying dementia. He has made some improvements with his function, likely due to the Decadron reducing swelling. Recommendations: 1. Consideration could be given to repeating the MRI with contrast, but according to radiologist, this will not likely add more to the case, at this time 2. The patient needs further treatment including possible radiation or chemotherapy. The diagnosis needs to be definitive and he would need to be sent to [place] for brain biopsy, if agreeable. 3. Otherwise, there is little I can do for this patient except continue Decadron. 4. He has not had any clinical seizure activity and we typically do not initiate anticonvulsants unless a seizure recurrence. Should he have a seizure, an anticonvulsant such as Depakote or even levetiracetam would be reasonable. 5. Increase activity as able and continue physical, occupational, and speech therapy consults Overall, I spent a total of 90 minutes with this case including review of records, review of CT and MRI films, direct evaluation the patient at bedside, report generation, and discussion of the case with the patient and RN at bedside, and Dr. Duque, including differential diagnosis and treatment options. History of Present Illness Reason for Consultation: Patient is an 83-year-old, who I was asked to see at the request of Dr. Duque, for neurologic evaluation regarding abnormal MRI of the brain and other issues Requesting Physician: Dr. Duque Attending Physician: Larry Duque MD History of Present Illness This patient presented to the emergency room March 26, [address] scan showed a right parieto-occipital mass. He was transferred to [facility]. I do not have much records but they apparently felt that this was an acute on chronic stroke. He was lost to follow-up but remained on 81 mg aspirin daily. 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 He has hypertension, history of carotid artery stenosis, and history of pituitary tumor. On November 30 the patient was found on the floor. He fell and had no knowledge of why. He presented with slurred speech and left-sided weakness which he continues to have. TSH was 142 and free T4 was 0.39. He was given 100 mcg of Synthroid since admission. He continues to have fatigue, a general sense of weakness, and feeling cold. He denies pain and has a very mild bifrontal headache. Repeat CT scan of the head on admission revealed an increase in the size of the lesion in the right temporoparietal occipital head region with increased calcifications compared to the previous study March 2023. An MRI of the brain without contrast reveals mass effect and an expansion over several vascular territories including the right posterior cerebral, right middle cerebral, and deeper branch territories. There was evidence that there was edema extending into the corpus callosum from the right. I reviewed these films with Dr. Mcdonough including the ones from March 2023 and the ones from this hospitalization. Allergies Allergy/AdvReac Type Severity Reaction Status Date / Time Iodinated Contrast Media Allergy Intermediate ITCHING Verified 12/01/23 17:18 Home Medications Medication Instructions Recorded Confirmed Type cabergoline 0.5 mg tablet 0.5 mg PO 3XWK 03/15/19 12/01/23 History hydrochlorothiazide 25 mg tablet 25 mg feeding tube DAILY 03/15/19 12/01/23 History pravastatin 20 mg tablet 20 mg PO QPM 03/15/19 12/01/23 History finasteride 5 mg tablet 5 mg PO DAILY #30 tabs 07/09/23 12/01/23 Rx doxazosin 1 mg tablet 1 mg feeding tube HS 08/22/23 12/01/23 History polyethylene glycol 3350 17 17 g feeding tube DAILY PRN 08/22/23 12/01/23 History gram/dose oral powder (Miralax) Constipation Tube Feeding Water Flush 75 ml G-tube 08/26/23 10/15/23 Rx QID@0655,1055,1455,1855 #50 KITS Tube Feeding Water Flush 75 ml G-tube 08/26/23 10/15/23 Rx QID@0705,1105,1505,1905 #50 kits aspirin 81 mg tablet 81 mg PO DAILY 12/01/23 12/01/23 History levothyroxine 25 mcg capsule 0 mcg PO DAILY 12/01/23 12/01/23 History nut.tx impaired digestive See Rx Instructions .Route .COMPLEX 12/01/23 12/01/23 History fxn-fiber 0.08 gram-1.2 kcal/mL oral liquid (Vital AF 1.2 Dustin) nutritional supplements See Rx Instructions .Route .COMPLEX 12/01/23 12/01/23 History Patient History Medical History Sacral decubitus ulcer Anemia Septic shock Hemianopsia Dysphagia History of right MCA stroke Hypertension Squamous cell carcinoma of tongue PEG tube malfunction Hyperlipidemia Kidney stone Throat cancer Surgical History History of hernia repair History of cholecystectomy Family History Mother Diabetes Hypertension Heart disease Social History Smoking Status: Never smoker Second Hand Exposure: No; Do You Dip or Chew Tobacco: No; Hx Alcohol Use: No Hx Substance Use: No Preferred Language: [place] Communication Ability: Impaired Communication Ability Comment: HX STROKE LEFT SIDED PERIPHERAL VISION LOSS [employer]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 Although sleepy he is easily aroused with voice and will follow commands and is pleasant and cooperative. When left alone he tends to closes eyes. He has dysarthria and no obvious aphasia. He was oriented to his name and where he is, and the president. Did not know his age, the month, or the year. Pupils are 3 mm bilaterally and reactive to light. Extraocular eye muscles are intact without nystagmus. He has decreased vision off to the left consistent with a left homonymous hemianopsia.. There are no deficits to sensation in the face in all 3 distributions of the fifth cranial nerve bilaterally. Corneal reflexes are positive bilaterally. Facial strength and symmetry was normal bilaterally. Hearing seems intact grossly to voice and finger rub bilaterally. Palate moves well without asymmetry. There is normal sternocleidomastoid and trapezius strength bilaterally. Tongue is midline with good strength bilaterally. Neck has a full range of motion without discomfort. There are no cervical bruits bilaterally. There are no cranial or ocular bruits. Heart is without murmur. There is a regular rhythm and rate. Cervical, thoracic, and lumbar spine are nontender to palpation. Stance sitting up in bed is reasonable but he is somewhat weak in the core. Gait was not tested. With outstretched arms there was drift in the left upper extremity. There are no resting, postural, or action tremors. There is no ataxia with finger to nose testing. There was decreased facility and clumsiness of the left hand compared to the right which was normal. There were no other abnormal involuntary movements. Motor strength is 5/5 diffusely in the right upper extremity including deltoids, biceps, triceps, brachioradialis, wrist flexors and extensors, butcher scullion, and intrinsic hand muscles. Left upper extremity is 4/5 proximally and 4 -/5 distally in the same muscles. Motor strength is 5/5 diffusely in the right lower extremity including hip flexors, quadriceps, hamstrings, gastrocnemius, tibialis anterior, tibialis posterior, and Peroneii muscles bilaterally. The left lower extremity is 4+/5 proximally and 5/5 distally. The limbs have good tone without rigidity or spasticity. There is no atrophy noted in the muscles. Muscle bulk is normal, there is no tenderness to palpation, no myotonia to percussion, and no fasciculations seen. Sensory examination is intact to touch and pin throughout all 4 limbs diffusely. Reflexes are 1/4 in the biceps, triceps, brachioradialis, quadriceps, and Achilles tendons bilaterally. Toes are downgoing with plantar stimulation bilaterally. Peripheral pulses are present and of normal quality distally in all 4 limbs. There is no peripheral edema noted in the limbs. Results & Data Vital Signs (Past 12 Hours) Vital Signs Temp Pulse Pulse Resp BP BP Pulse Ox 12/06/23 08:30 36.7 C 65 20 175/70 H 93 12/06/23 07:11 65 12/06/23 04:06 36.9 C 90 18 131/55 L 94 12/05/23 23:23 36.5 C 52 L 16 124/62 94 12/05/23 23:00 53 L O2 Del Method 12/06/23 08:30 Room Air 12/06/23 07:11 12/06/23 04:06 Room Air 12/05/23 23:23 Room Air 12/05/23 23:00 PG Care Time/CCT Total # of Minutes Spent Total Time Spent with Patient: Total time spent is greater than 50% in coordination of care (as documented) at patient's floor/unit and/or counseling patient: Coding Level of Care Code 58945 INT INP/OBS CARE 3/75MIN Diagnoses Abnormal brain MRI R90.89 Hypothyroidism E03.9 Acute metabolic encephalopathy G93.41
[2023-12-06] MEDS: PEPTAMEN 1.5 CAL 1,000 ML BAG PEG SCH (13:23)
--- NOTE | 2023-12-06 18:04 | Discharge Summary ---
Date of Service December 06, 2023 Admission HPI Per Admitting Provider Jonathon Smith is an 83 year old male with prior CVA last year requiring eventual G-tube placement who presents to the ER following a fall at home today. The patient is unable to give me any information regarding the fall or whether he is taking his medications. He lives at home with his who is no longer able to take care of him at home. She reports he is falling daily and is generally weak and she cannot take care of him as she cannot lift him off the ground. He has significant left sided deficit from his stroke with dysphagia - uses a g-tube for tube feeds. He was noted to be hypothyroid during his last admission and was started on levothyroxine although his reports she was unable to give the medication as she was unsure how to time it for the tube feeds as she would need to wake him up in the middle of the night to give it therefore he has not been getting this. She reports no loss of consciousness with the falls, he is just weak and falls over. Discharge Data Allergies Allergy/AdvReac Type Severity Reaction Status Date / Time Iodinated Contrast Media Allergy Intermediate ITCHING Verified 12/01/23 17:18 Consultations 12/01/23 17:59 ED Decision to Admit Stat 12/06/23 07:00 Consult Neurology Routine 12/06/23 09:32 Burn CD for patient Routine Ordered Studies 12/01/23 14:41 CT cervical spine wo con Stat CT head/brain wo con Stat 12/05/23 07:16 MR brain wo con Routine Hospital Course (1) Abnormal brain MRI: in 03/2023 imaging of the brain was initially concerning for a right-sided brain tumor he was transferred to [facility] where it was felt that his imaging was most c/w right sided MCA territory stroke with hemorrhage he was treated for stroke, had PEG placed, etc MRI brain was obtained today due to the frequency of his falls at home, severe weakness/fatigue/lethargy, etc. see MRI brain report in this progress note the MRI is concerning for either acute on chronic CVAs on the right side VS a glial based brain tumor with latter favored by radiology there is surrounding brain edema I made Mr Smith, his son, and his aware of the MRI findings from today in the event this is indeed a brain tumor with surrounding edema will change hydrocortisone IV to dexamethasone 4mg IV BID I had [place] correspondence with Dr Coronado from [facility] Neurology who will see in consult tomorrow Mr Smith will likely need transfer to tertiary care in light of the concern that his right sided findings are from a brain tumor of note - there has been no obvious seizure activity seen at any point while hospitalized (2) Hypothyroidism: SEVERE presenting TSH >100 has been hypothyroid dating back several years with progressively worsening TSH during last hospitalization it was recommended he start on synthroid it was prescribed, but it was not given to him at home either way many of his presenting symptoms can be attributed to severely decompensated hypothyroidism (cold intolerance, fatigue, muscle weakness, constipation, etc) see #3 below (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 However he did have hypotension at admission (now improved). Also with hyponatremia, severe fatigue, etc. Hospitalist Dr Johnson spoke with endocrinology, Dr Sierra. Although he doesn't meet the strict definition of "myxedema coma" he was treated as such given the severity of his presentation * he has been on hydrocortisone taper since admission; due to #1 the hydrocortisone today was changed to dexamethasone * s/p 200mcg IV levothyroxine at admission, then 100 mcg IV on 12/02, then 50 mcg IV daily x 3 days, then stop * cont synthroid 100mcg via g-tube daily * repeat TSH in ~4 weeks * will need [facility] endo f/u post-discharge given the severity of his disease (4) Acute metabolic encephalopathy: 2nd to #1, #2, #3 ammonia level wnl VBG w/o elevated CO2 COVID/flu/RSV negative see discussion above in #1, #2, #3 mentation HAS improved with Rx of hypothyroidism suspect the steroids have helped his cerebral edema as well (5) Fall: multiple at home leading up to this admission likely 2nd to #1, #2 cont PT/OT (6) Abrasion, hand w/o infection: no issues (7) Sacral decubitus ulcer: No surrounding cellulitis Wound care nurse consult and recs appreciated (8) Feeding by G-tube: cont enteral feedings as advised by nutrition (9) Prolactinoma: Continue cabergoline Dr. Sierra noted that his cabergoline dose is very high and this medication is usually only needed for about 5 years. Recommended obtaining further history / following up with outpatient endocrinolo gist and dose reduction as outpatient of note - MRI brain with normal pituitary gland and sella likely that the cabergoline can be stopped in the future (10) History of right MCA stroke: [place] [facility] [place] see discussion above in #1 Baseline L facial droop, LUE LLE weakness, dysarthria, dysphagia Continue aspirin and pravastatin for secondary prevention (11) Hypertension: Holding HCTZ Was hypotensive at presentation and BPs are soft at times still (12) Hyponatremia: likely 2nd to severe hypothyroidism 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) Na level stable today BMP am (13) Stage III pressure ulcer of buttock: Stage III pressure ulcer to the left lower medial buttock & sacrum cont wound care as recommended by wound care team (14) Prediabetes: a1c 5.9% very mild preDM with the steroids his BSGs will be higher BSGs are acceptable, however, at this time Plan VTE Prophylaxis - cont heparin 5000 units SQ BID PT/OT both recommending rehab post-discharge but the findings on brain MRI today may necessitate transfer to [facility] care d/w Dr Coronado by [place] care d/w pt's son Alfonso by phone care d/w pt's by phone very complex care coordination today multiple phone calls extensive chart review total time today on care activities about 80 min Discharge Plan Discharge Items Patient Disposition: Transfer Acute Care Hospital Reason For Visit: FAILURE TO THRIVE, HYPOTHYROID Discharge Diagnosis: 1. Right-sided brain tumor vs acute on chronic stroke 2. SEVERE hypothyroidism with TSH > 100 3. Severe failure to thrive 2nd to #1, #2 4. PEG tube dependent 5. Dysphagia 6. Stage 3 pressure ulcer of buttock 7. Remote h/o prolactinoma 8. Acute metabolic encephalopathy - 2nd to #1, #2 9. Hyponatremia - 2nd to #1 10. Severe dysarthria Activity: Resume your previous activity Non-emergency contact: Primary Care Provider and Specialist Call non-emergency contact if: you have any medication questions Follow-up/Referrals: Gaudencio Pardo MD [Primary Care Provider] - Diet: Nothing by Mouth Addtl Attending Provider Instructions: Further instructions to follow after your stay at [facility]. Pending Studies at Discharge: No Stand-Alone Forms: My [facility] Skilled Items Patient informed of condition?: Yes DNR: No Discharge Level of Care: Other Communicable Disease: No Discharge Prognosis: Other Lines: Peripheral IV Urinary Catheter: No Medications and DC Order Prescriptions: New levothyroxine [Synthroid] 100 mcg Tablet 100 mcg G-tube DAILYBB Qty: 30 2RF [id number] gluconate [Liquid Multivitamin] 9 mg iron/ 15 mL (15 mL) Liquid 15 ml PEG QAM Qty: 6000 0RF sennosides [senna] 8.8 mg/5 mL Syrup 17.2 mg PEG QAM Qty: 250 0RF dexamethasone sodium phos (PF) 4 mg/mL solution 4 mg IV BID Qty: 50 0RF Continued pravastatin 20 mg tablet 20 mg PO QPM Rx Instructions: NEEDS TONIGHT hydrochlorothiazide 25 mg tablet 25 mg feeding tube DAILY doxazosin 1 mg tablet 1 mg feeding tube HS Rx Instructions: 8:00PM, NEEDS TONIGHT Tube Feeding Water Flush 75 ml G-tube QID@0655,1055,1455,1855 Qty: 50 1RF Rx Instructions: Before feedings Tube Feeding Water Flush 75 ml G-tube QID@0705,1105,1505,1905 Qty: 50 0RF Rx Instructions: AFTER FEEDINGS Peptamen Liquid See Rx Instructions .ROUTE .COMPLEX Rx Instructions: 250ML via FEEDING TUBE FOUR TIMES DAILY. aspirin 81 mg Tablet 81 mg PO DAILY Vital AF 1.2 Dustin 0.08 gram- 1.2 kcal/mL Liquid See Rx Instructions .ROUTE .COMPLEX Rx Instructions: 237ML via FEEDING TUBE FOUR TIMES DAILY Changed finasteride 5 mg tablet 5 mg feeding tube DAILY Qty: 30 11RF cabergoline 0.5 mg tablet 0.5 mg feeding tube 3XWK Qty: 30 0RF Rx Instructions: Mon/Wed/Fri polyethylene glycol 3350 [Miralax] 17 gram/dose Powder 17 g feeding tube DAILY Qty: 510 0RF Discontinued levothyroxine 25 mcg capsule 0 mcg PO DAILY Rx Instructions: via G tube. Per Spouse, she was told to not open the capsules so she didn't give him the medication. Was also told by Pharmacist @ preferred pharmacy that the patient may be allergic to this medication. Patient was first prescribed this medication on 10/22/23 and was switched to tablets but has never taken the medication. Original Directions: 100mcg by mouth once in the morning Discharge Orders: Discharge Order (Routine); Ordered 12/06/23 Ordered By: Larry Duque Admission Data Admit Date/Time: 12/01/23 18:02 Attending Provider: Larry Duque Admit Provider: Larry Marie Primary Care Provider: Gaudencio Pardo Other Providers: Larry Marie; [facility]; [facility]; [facility]; Kyler Coronado Coding Diagnoses Abnormal brain MRI R90.89 Hypothyroidism E03.9 Myxedema coma E03.5 Acute metabolic encephalopathy G93.41 Fall W19.XXXA Abrasion, hand w/o infection S60.519A Sacral decubitus ulcer L89.159 Feeding by G-tube Z93.1 Prolactinoma D35.2 History of right MCA stroke Z86.73 Hypertension I10 Hyponatremia E87.1 Stage III pressure ulcer of buttock L89.303 Prediabetes R73.03
[2023-12-07 06:20] LABS: Hematocrit (blood only) 30.3 % (42.0-52.0); Hemoglobin 10.4 g/dl (14.0-18.0); Mean Corpuscular Hemoglobin 33.9 pg (25.0-34.0); Mean Corpuscular Hgb Conc 34.3 g/dL (32.0-36.0); Mean Corpuscular Volume 98.7 fL (80.0-100.0); Mean Platelet Volume 8.6 fL (9.4-12.4); Platelet Count 216 K/uL (130-400); RDW Coefficient of Variation 14.2 % (11.5-14.5); RDW Standard Deviation 51.1 fL (36.4-46.3); Red Blood Count 3.07 M/uL (4.70-6.10); White Blood Count 6.03 K/ul (4.8-10.8)
[2023-12-07 06:26] LABS: BUN Creatinine Ratio 45.3 (10-20); Calcium 8.3 mg/dl (8.6-10.3); Creatinine Clr Calc Pharmacy 100.9 ml/min; Est GFR (African American) 111.8 ml/min; Est GFR (Non-African American) 96.5 ml/min; Potassium 4.5 mmol/L (3.5-5.1)
[2023-12-07] MEDS: hydroCHLOROthiazide 25 MG TAB GT SCH (13:20)
== END 2023-12-07 15:09 | disposition short-term general hospital (02) | DRG 80 ==
LOC: ED 13:35 → SUATTDRO 18:02 → EDINP 18:02 → 2W 21:04